=== PATIENT | female | born 1985 | race Caucasian/White ===

== ENCOUNTER 2017-07-04 01:17 | Observation (INO) | payer MEDICARE, MEDICAID ==
[2017-07-04 02:30] LABS: ALT (SGPT) 16 U/L (8-55); AST (SGOT) 14 U/L (5-34); Alkaline Phosphatase 119 U/L (40-150); Anion Gap 22 mmol/L (10-20); Bilirubin, Total 0.7 mg/dL (0.2-1.2); Calc. Creatinine Clearance 0 mL/min (70-130); Calcium 9.1 mg/dL (7.8-10.44); Carbon Dioxide 15 mmol/L (22-29); Chloride 105 mmol/L (98-107); Estimated GFR-MDRD 3; Globulin 3.5 g/dL (2.4-3.5); Protein, Total 7.5 g/dL (6.0-8.3)
[2017-07-04 02:42] LABS: #Eosinphils 0.2 thou/uL (0.0-0.7); #Lymphocytes 1.1 thou/uL (1.20-3.40); #Monocytes 0.2 thou/uL (0.11-0.59); #Neutrophils 3.1 thou/uL (1.40-6.50); %Basophils 0.4 % (0.0-1.0); %Eosinophils 5.2 % (0.0-10.0); %Lymphocytes 23.4 % (21.0-51.0); %Monocytes 4.4 % (0.0-10.0); Red Blood Cell (RBC) Count 2.61 mill/uL (4.20-5.40); White Blood Cell (WBC) Count 4.7 thou/uL (4.8-10.8)
[2017-07-04 02:43] LABS: BUN (Urea Nitrogen) 120 mg/dL (7.0-18.7)
[2017-07-04] MEDS ORDERED: Dextrose 50% Abboject 50 ML SYRINGE ONE ×2 (02:43→02:46)
[2017-07-04] MEDS ORDERED: Insulin Regular 300 UNITS/3 ML VIAL ONE (02:43)
[2017-07-04] MEDS ORDERED: Calcium Chloride 1 GM/10 ML Abboject SYRINGE ONE (02:43)
[2017-07-04] MEDS ORDERED: Sodium Bicarb 50 MEQ/50 ML Abboject 8.4% SYRINGE ONE (02:44)
[2017-07-04] MEDS ORDERED: Loperamide HCl 2 MG CAP PO PRN (03:58)
[2017-07-04] MEDS ORDERED: Ondansetron HCl/PF 4 MG/2 ML Vial IVP PRN (03:58)
[2017-07-04] MEDS ORDERED: Acetaminophen 325 MG TAB PO PRN (03:58)
--- NOTE | 2017-07-04 04:37 | HP ---
DATE OF ADMISSION: 07/04/2017 ADMITTING PHYSICIAN: Noel Jackson MD PRIMARY CARE PHYSICIAN: Martin Betancourt MD CHIEF COMPLAINT: Missed dialysis, weakness. HISTORY OF PRESENT ILLNESS: The patient is a 31-year-old female, known to have missed dialysis for approximately 2 weeks. She is a patient of Dr. Martin Betancourt. The patient was instructed to come into the ER to be re-enrolled into her dialysis program. She normally has dialyzed Saturday, , and Saturday, but has missed approximately 5 treatments. She denies review of symptoms upon my int erview. REVIEW OF SYSTEMS: The following complete review of systems was negative, unless otherwise mentione d in the HPI or below: CONSTITUTIONAL: Weight loss or gain, sense of well-being, ability to conduct usual activities, exer cise tolerance. SKIN/BREAST: Rash, itching, changes in hair growth or loss, nail changes, breast lumps, tenderness, swelling, nipple discharge. EYES: Vision, double vision, tearing, blind spots, pain. ENT/MOUTH: Headaches (location, time of onset, duration, precipitating factors), vertigo, lighthead edness, injury. Vision, double vision, tearing, blind spots, pain, nose bleeding, colds, obstructio n, discharge, dental difficulties, gingival bleeding, dentures, neck stiffness, pain, tenderness, ma sses in thyroid or other areas. CARDIOVASCULAR: Precordial pain, substernal distress, palpitations, syncope, dyspnea on exertion, o rthopnea, nocturnal paroxysmal dyspnea, edema, cyanosis, hypertension, heart murmurs, varicosities, phlebitis, claudication. RESPIRATORY: Pain, shortness of breath, wheezing, stridor, cough, hemoptysis, fever or night sweats . GASTROINTESTINAL: Poor appetite, dysphagia, indigestion, abdominal pain, heartburn, eructation, bakari sea, vomiting, hematemesis, jaundice, constipation, or diarrhea, abnormal stools (becca-colored, sebastian y, bloody, greasy, foul smelling), flatulence, hemorrhoids, recent changes in bowel habits. GENITOURINARY: Urgency, frequency, dysuria, nocturia, hematuria, polyuria, oliguria, unusual (or ch lucia in) color of urine, stones, hesitancy, change in size of stream, dribbling, acute retention or incontinence, libido, potency. MUSCULOSKELETAL: Pain, swelling, redness or heat of muscles or joints, limitation, of motion, muscu lar weakness, atrophy, cramps. NEUROLOGIC/PSYCHIATRIC: Convulsions, paralyses, tremor, incoordination, parasthesias, difficulties with memory of speech, sensory or motor disturbances, or muscular coordination (ataxia, tremor), emo tional problems, anxiety, depression, previous psychiatric care, unusual perceptions, hallucinations . ALLERGY/IMMUNOLOGIC: Skin rash, anemia, bleeding tendency, polydipsia, polyuria, intolerance to hea t or cold. PAST MEDICAL HISTORY: Significant for hypertension, bilateral DVTs, cardiac murmur, hepatitis C, he roin abuse, end-stage renal disease, and CHF. PAST SURGICAL HISTORY: Right arm graft. PSYCHIATRIC HISTORY: Unknown. SOCIAL HISTORY: Denies alcohol. Currently uses drugs. Currently smokes. FAMILY HISTORY: Reviewed and noncontributory to this case. HOME MEDICATIONS: Carvedilol 12.5 mg b.i.d., lisinopril 2.5 mg once a day, amlodipine 2.5 mg once a day. ALLERGIES: No known drug allergies. PHYSICAL EXAMINATION: VITAL SIGNS: Temperature 98.7, blood pressure 151/82, pulse 72, respirations 16, satting 98% on pavan m air. CONSTITUTIONAL: The patient appears nontoxic, pain free, alert and oriented x3. HEAD: Normocephalic, atraumatic. EYES: PERRL. Extraocular muscles are intact. No nystagmus. ENT: Ear exam normal. Pharynx exam normal. Mouth exam normal. Moist mucous membranes. NECK: Trachea midline. No meningeal signs. RESPIRATORY: Breath sounds clear bilaterally. No rhonchi, no wheezing, no rales. CARDIOVASCULAR: Regular rate and rhythm with a systolic ejection murmur. ABDOMEN: Nontender, nondistended. Normoactive bowel sounds x4. EXTREMITIES: No clubbing, no cyanosis. There are 1-2+ edema bilaterally. NEUROLOGIC: Cranial nerves II through XII grossly intact. No focal deficits. Alert and oriented x 3. LABORATORY DATA: CBC shows a white count of 4.7, hemoglobin 7.5, hematocrit 23.0, platelets 75. Ma gnesium 3.0. Phosphorus 10.0. CMP shows sodium level of 135, potassium 6.5, chloride 105, CO2 of 1 5, BUN 120, creatinine 15.87, glucose 136, calcium 9.1. AST 14, ALT 16. ADMITTING DIAGNOSES: 1. End-stage renal disease with dialysis. 2. Hyperkalemia. 3. Hypertension. 4. Drug abuse. PLAN: The patient will be admitted to telemetry. The Nephrology Service is aware of her presence a nd the dialysis nurse has been notified. The patient is stable at this time. We will provide suppo rtive measures until she can receive dialysis, we will maintain adequate blood pressure control. Es timated length of stay less than 2 midnights.
[2017-07-04 04:52] VITALS: BMI 28.0
--- NOTE | 2017-07-04 12:40 | PDOC.PN ---
- Subjective Encounter Start Date: 07/04/17 Encounter Start Time: 12:38 Ms. Stevens does not have any complaints. She says she feels fine. - Objective MAR Reviewed: Yes Vital Signs & Weight: Vital Signs (12 hours) Temp Pulse Resp BP Pulse Ox 07/04/17 10:27 98.1 F 72 16 138/73 98 07/04/17 05:36 97.8 F 71 16 07/04/17 04:25 97.8 F 71 16 179/85 H 99 Weight Weight 168 lb 3.2 oz I&O: 07/03/17 07/04/17 07/05/17 06:59 06:59 06:59 Intake Total 240 Output Total 300 Balance -60 Result Diagrams: 07/04/17 01:40 07/04/17 01:40 Additional Labs: Accuchecks 07/04/17 04:10 POC Glucose 97 Phys Exam - Physical Examination HEENT: PERRLA Respiratory: no wheezing, no rales, no rhonchi, clear to auscultation bilateral Cardiovascular: RRR, no significant murmur Gastrointestinal: soft, non-tender, positive bowel sounds Musculoskeletal: edema present 1-2 + lower extremity edema Dx/Plan (1) Hyperkalemia Code(s): E87.5 - HYPERKALEMIA Status: Acute (2) Hypertension Code(s): I10 - ESSENTIAL (PRIMARY) HYPERTENSION Status: Acute (3) ESRD (end stage renal disease) on dialysis Code(s): N18.6 - END STAGE RENAL DISEASE; Z99.2 - DEPENDENCE ON RENAL DIALYSIS Status: Chronic (4) Chronic systolic heart failure Code(s): I50.22 - CHRONIC SYSTOLIC (CONGESTIVE) HEART FAILURE Status: Chronic - Plan * Hyperkalemia- resolved * HTN- blood pressure is controlled * chronic systolic heart failure- EF 30% in 2015- stable compensated, no need to repeat Echo * ESRD- stable * Disposition as per Nephrology.
[2017-07-04 15:26] LABS: Anion Gap 13 mmol/L (10-20); BUN (Urea Nitrogen) 42 mg/dL (7.0-18.7); Calc. Creatinine Clearance 13 mL/min (70-130); Calcium 9.2 mg/dL (7.8-10.44); Carbon Dioxide 28 mmol/L (22-29); Chloride 99 mmol/L (98-107); Estimated GFR-MDRD 7
[2017-07-04] MEDS: Sevelamer Carbonate 800 MG TAB PO SCH (16:49)
[2017-07-04] MEDS: Carvedilol 6.25 MG TAB PO SCH (16:50)
[2017-07-04 19:43] LABS: Amphetamine Not Detected (NotDetected); Methadone Not Detected (NotDetected); Methamphetamine Not Detected (NotDetected)
[2017-07-05 04:56] LABS: #Eosinphils 0.2 thou/uL (0.0-0.7); #Lymphocytes 1.2 thou/uL (1.20-3.40); #Monocytes 0.2 thou/uL (0.11-0.59); #Neutrophils 2.5 thou/uL (1.40-6.50); %Basophils 0.7 % (0.0-1.0); %Eosinophils 4.4 % (0.0-10.0); Hematocrit 24.1 % (36.0-47.0); Mean Platelet Volume 6.8 fL (7.4-10.4); Red Blood Cell (RBC) Count 2.75 mill/uL (4.20-5.40)
[2017-07-05 05:40] LABS: Anion Gap 18 mmol/L (10-20); BUN (Urea Nitrogen) 55 mg/dL (7.0-18.7); BUN/Creatinine Ratio 6.58; Calc. Creatinine Clearance 11 mL/min (70-130); Calcium 9.1 mg/dL (7.8-10.44); Carbon Dioxide 23 mmol/L (22-29); Chloride 99 mmol/L (98-107); Estimated GFR-MDRD 6; Phosphorus 7.1 mg/dL (2.3-4.7)
[2017-07-05] MEDS: Sevelamer Carbonate 800 MG TAB PO SCH ×2 (08:00→15:40)
[2017-07-05] MEDS ORDERED: Epoetin (ESRD) 20,000 UNITS/ML SC SCH (09:00)
[2017-07-05] MEDS ORDERED: Amlodipine 5 MG TAB PO SCH (09:00)
[2017-07-05] MEDS: Carvedilol 6.25 MG TAB PO SCH (12:27)
--- NOTE | 2017-07-05 15:44 | PDOC.PN ---
- Subjective Encounter Start Date: 07/05/17 Encounter Start Time: 15:42 Ms Stevens does not have any complaints - Objective MAR Reviewed: Yes Vital Signs & Weight: Vital Signs (12 hours) Temp Pulse Resp BP Pulse Ox 07/05/17 12:28 59 L 07/05/17 11:40 98.6 F 59 L 16 109/57 L 98 07/05/17 04:00 98.6 F 67 20 146/68 H 95 Weight Weight 161 lb 11.2 oz I&O: 07/04/17 07/05/17 07/06/17 06:59 06:59 06:59 Intake Total 240 490 Output Total 300 300 Balance -60 190 Result Diagrams: 07/05/17 04:32 07/05/17 04:32 Phys Exam - Physical Examination HEENT: PERRLA Respiratory: no wheezing, no rales, no rhonchi, clear to auscultation bilateral Cardiovascular: RRR, no significant murmur Gastrointestinal: soft, non-tender, positive bowel sounds Musculoskeletal: no edema Dx/Plan (1) Hyperkalemia Code(s): E87.5 - HYPERKALEMIA Status: Acute (2) Hypertension Code(s): I10 - ESSENTIAL (PRIMARY) HYPERTENSION Status: Acute (3) ESRD (end stage renal disease) on dialysis Code(s): N18.6 - END STAGE RENAL DISEASE; Z99.2 - DEPENDENCE ON RENAL DIALYSIS Status: Chronic (4) Chronic systolic heart failure Code(s): I50.22 - CHRONIC SYSTOLIC (CONGESTIVE) HEART FAILURE Status: Chronic - Plan * ESRD- stable * HTN- will discontinue Lisinopril due to Hyperkalemia * Stable for discharge home.
[2017-07-05 15:52] VITALS: BP 135/89; TEMP 98.8
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
--- NOTE | 2017-07-06 20:12 | EKG ---
Test Reason : HIGH POTASSIUM Blood Pressure : / mmHG Vent. Rate : 065 BPM Atrial Rate : 065 BPM P-R Int : 204 ms QRS Dur : 096 ms QT Int : 438 ms P-R-T Axes : 046 024 063 degrees QTc Int : 455 ms Normal sinus rhythm Normal ECG Confirmed by MYA LAM D.O. ([id number]), research editor MARGY HAQ ([id number]) on 07/06/2017 8:12:03 PM Referred By: CAROLE Confirmed By:MYA LAM D.O.
== END 2017-07-05 16:53 | disposition home or self-care (01) ==
LOC: ERS 01:17 → 2SW 03:15
PROVIDERS: ADMIT Internal Medicine Addiction Medicine; ATTEND Internal Medicine Addiction Medicine
DX: I13.2 Hypertensive heart and chronic kidney disease with heart failure and with stage 5 chronic kidney disease, or end stage renal disease (principal); N18.6 End stage renal disease; I50.22 Chronic systolic (congestive) heart failure; F14.10 Cocaine abuse, uncomplicated; F11.10 Opioid abuse, uncomplicated; I82.403 Acute embolism and thrombosis of unspecified deep veins of lower extremity, bilateral; F17.200 Nicotine dependence, unspecified, uncomplicated; E87.5 Hyperkalemia; Z79.899 Other long term (current) drug therapy; Z91.15 Patient's noncompliance with renal dialysis; Z99.2 Dependence on renal dialysis; Z86.19 Personal history of other infectious and parasitic diseases; Z86.59 Personal history of other mental and behavioral disorders
CPT/HCPCS: 80048; 80053; 80069; 80306; 82962; 83735; 84100; 85025 ×2; 87340; 93005; 96372; 96374; 96375; 99284; G0378; Q4081; 36415; 36416; 90935; G0257; J1815

== ENCOUNTER 2017-11-05 03:29 | Emergency (ER) | payer MEDICARE, MEDICAID ==
[2017-11-05 06:17] LABS: Hemoglobin 8.1 g/dL (12.0-16.0); Mean Corpuscular HGB CONC 32.8 g/dL (32.0-36.0); Mean Corpuscular Volume 88.5 fl (81.0-99.0); RBC Distribution Width 15.3 % (11.5-14.5); White Blood Cell (WBC) Count 4.9 thou/uL (4.8-10.8)
[2017-11-05 06:34] LABS: Anion Gap 20 mmol/L (10-20); BUN (Urea Nitrogen) 58 mg/dL (7.0-18.7); Calc. Creatinine Clearance 0 mL/min (70-130); Calcium 8.7 mg/dL (7.8-10.44); Carbon Dioxide 20 mmol/L (22-29); Chloride 98 mmol/L (98-107); Estimated GFR-MDRD 5; Glucose 80 mg/dL (70-105); Potassium 4.3 mmol/L (3.5-5.1); Sodium 134 mmol/L (136-145)
[2017-11-05 06:38] LABS: #Eosinphils 0.2 thou/uL (0.0-0.7); #Lymphocytes 1.4 thou/uL (1.20-3.40); #Monocytes 0.3 thou/uL (0.11-0.59); %Basophils 0.5 % (0.0-1.0); %Eosinophils 4.1 % (0.0-10.0); %Lymphocytes 28.8 % (21.0-51.0); %Monocytes 5.3 % (0.0-10.0); %Neutrophils 61.4 % (42.0-75.0); Anisocytosis SLIGHT = 6-15 cells (100X) (0-5/hpf); MDiff Complete? YES; Mean Platelet Volume 7.7 fL (7.4-10.4); PLT Morphology Comment Appears Decreased; Platelet Count 109 thou/uL (130-400)
[2017-11-05] MEDS ORDERED: Cephalexin 250 MG CAP ONE (07:11)
[2017-11-05] MEDS ORDERED: cefTRIAXone\\ROCEPHIN 1 GM, Syringe 0.4 ML in Sterile Water 9.6 ML SLOW IVP SCH (07:30)
[2017-11-05] MEDS ORDERED: cefTRIAXone\\ROCEPHIN 1 GM VIAL IM SCH (08:15)
[2017-11-05] MEDS ORDERED: Lidocaine 1% PF 5 ML VIAL ONE (08:21)
== END 2017-11-05 08:42 | disposition home or self-care (01) ==
LOC: ERS 03:29
DX: I13.2 Hypertensive heart and chronic kidney disease with heart failure and with stage 5 chronic kidney disease, or end stage renal disease (principal); I50.9 Heart failure, unspecified; N18.9 Chronic kidney disease, unspecified; L03.116 Cellulitis of left lower limb; F17.210 Nicotine dependence, cigarettes, uncomplicated; Z79.899 Other long term (current) drug therapy; Z87.01 Personal history of pneumonia (recurrent)
CPT/HCPCS: 36415; 80048; 85025; 96372; 99406; A4216; J0696; J2001

== ENCOUNTER 2017-11-30 07:30 | Inpatient (IN) | payer MEDICARE, MEDICAID ==
[2017-11-30] MEDS ORDERED: ISOVUE-370 76%-LOCM 1 ML ONE (07:49)
[2017-11-30 08:42] LABS: BHCG - Serum Negative (NEGATIVE); Pregs Control Background? CLEAR/WHITE (CLR/WHITE); Pregs Control Bar Appear? YES (CONTROL BAR)
[2017-11-30 08:52] LABS: ALT (SGPT) 11 U/L (8-55); AST (SGOT) 22 U/L (5-34); Albumin 3.1 g/dL (3.5-5.0); Alkaline Phosphatase 81 U/L (40-150); Anion Gap 29 mmol/L (10-20); BUN (Urea Nitrogen) 108 mg/dL (7.0-18.7); Bilirubin, Total 0.6 mg/dL (0.2-1.2); CK (CPK) 35 U/L (29-168); Calc. Creatinine Clearance 0 mL/min (70-130); Carbon Dioxide 13 mmol/L (22-29); Chloride 92 mmol/L (98-107); Estimated GFR-MDRD 2; Globulin 3.4 g/dL (2.4-3.5); Glucose 139 mg/dL (70-105); Lipase 15 U/L (8-78); Magnesium 2.2 mg/dL (1.6-2.6); Protein, Total 6.5 g/dL (6.0-8.3); Sodium 127 mmol/L (136-145)
[2017-11-30 08:56] LABS: Potassium 6.8 mmol/L (3.5-5.1)
[2017-11-30 08:58] LABS: CKMB 1.3 ng/mL (0-6.6); Troponin I 0.096 ng/mL (< 0.028)
[2017-11-30 09:11] LABS: Platelet Count 24 thou/uL (130-400)
[2017-11-30 09:13] LABS: #Lymphocytes 0.2 thou/uL (1.20-3.40); #Monocytes 0.2 thou/uL (0.11-0.59); #Neutrophils 2.2 thou/uL (1.40-6.50); %Eosinophils 1.2 % (0.0-10.0); %Lymphocytes 6.9 % (21.0-51.0); %Monocytes 6.4 % (0.0-10.0); %Neutrophils 85.5 % (42.0-75.0); Mean Corpuscular HGB CONC 32.3 g/dL (32.0-36.0); Mean Corpuscular Hemoglobin 27.4 pg (27.0-31.0); Mean Platelet Volume 11.9 fL (7.4-10.4); PLT Morphology Comment Appears Decreased; RBC Distribution Width 14.8 % (11.5-14.5); RBC Morphology Normal; Red Blood Cell (RBC) Count 3.27 mill/uL (4.20-5.40); White Blood Cell (WBC) Count 2.6 thou/uL (4.8-10.8)
--- NOTE | 2017-11-30 09:15 | RAD ---
CHEST 1 VIEW: HISTORY: Fever. COMPARISON: Chest radiograph 04/28/15. FINDINGS: No focal airspace consolidation, pneumothorax, or effusion. Cardiac silhouette and mediastinal conto urs are within normal limits. No acute osseous abnormality. IMPRESSION: No acute intrathoracic abnormality. POS: [facility]
[2017-11-30] MEDS ORDERED: Ondansetron HCl/PF 4 MG/2 ML Vial ONE (09:42)
[2017-11-30] MEDS ORDERED: Insulin Regular 300 UNITS/3 ML VIAL ONE (09:42)
[2017-11-30] MEDS ORDERED: Dextrose 50% Abboject 50 ML SYRINGE ONE (09:42)
[2017-11-30] MEDS ORDERED: Calcium Chloride 1 GM/10 ML Abboject SYRINGE ONE (09:42)
[2017-11-30] MEDS ORDERED: Acetaminophen 500 MG TAB ONE (09:42)
[2017-11-30] MEDS ORDERED: Sodium Bicarbonate 2.5 MEQ/5 ML VIAL ONE (09:42)
[2017-11-30] MEDS ORDERED: Sodium Bicarb 50 MEQ/50 ML Abboject 8.4% SYRINGE ONE (09:43)
[2017-11-30] MEDS ORDERED: Albuterol Sulfate 2.5 mg/0.5 ml Neb ONE (10:57)
[2017-11-30] MEDS ORDERED: Albuterol Sulfate 2.5 mg/3 ml Neb ONE (10:57)
[2017-11-30] MEDS ORDERED: Piperacillin/Tazobactam 3.375 GM VIAL ONE (11:47)
[2017-11-30] MEDS ORDERED: Ondansetron HCl/PF 4 MG/2 ML Vial IVP PRN (13:23)
[2017-11-30] MEDS ORDERED: Acetaminophen 325 MG TAB PO PRN (13:23)
[2017-11-30] MEDS ORDERED: metroNIDAZOLE 500 MG in Premix Bag 1 BAG IVPB SCH (14:00)
--- NOTE | 2017-11-30 14:06 | CT ---
ABDOMEN AND PELVIC CT WITH CONTRAST: COMPARISON: Reference is made to 10/10/16 exam. INDICATION: Fever with nausea, vomiting, and diarrhea and pain. FINDINGS: The imaged lung bases reveal abnormal ground-glass and nodular parenchymal opacities of the right tess g base and subtle patchy subpleural density of the left lung base. There is enlargement of the spleen. No focal hepatic lesion. Subtle increased density of the gallbl adder lumen present. This could relate to sludge and/or cholelithiasis. There are atrophic heteroge neous kidneys bilaterally indicating sequelae from chronic renal disease. No adrenal mass. Pancreas is atrophic. Bowel is incompletely assessed without enteric contrast. An intrauterine device is pr esent. There is moderate distention of the unopacified urinary bladder. There are enlarged regional lymph nodes most notable at the inguinal regions, right greater than left. Multifocal patchy subcut aneous densities are seen with superimposed soft tissue edema. Mild free pelvic fluid is present. S table calcification is seen at the posterior pelvis to the right of midline. There is vascular disea se noted. Diffuse sclerosis of the bones likely relates to renal osteal dystrophy. IMPRESSION: 1. Abnormal opacities of the imaged lung bases, which will require further evaluation. Recommend a dedicated 2-view chest series. Findings may be on the basis of atypical infection. Other etiologies including neoplasm are not excluded and appropriate clinical followup is, therefore, necessary. 2. Splenomegaly. 3. Evidence to indicate chronic renal disease and renal osteodystrophy. 4. Nonspecific adenopathy. Correlate clinically and recommend imaging followup for continued assess ment. 5. Subtle findings of the gallbladder as discussed above. If necessary. Gallbladder ultrasound may be performed. POS: [facility]
--- NOTE | 2017-11-30 14:10 | RAD ---
RADIOGRPAH OF CHEST FRONTAL VIEW: COMPARISON: 11/30/17. INDICATION: Postprocedural evaluation, fever. FINDINGS: A left internal jugular venous catheter has been placed with the tip overlying the right atrium. The re is no obvious postprocedure pneumothorax of significance visualized. The chest is otherwise simil ar in appearance. IMPRESSION: Status post left internal jugular catheter placement. No postprocedure pneumothorax of significance is seen. POS: [facility]
[2017-11-30] MEDS: Nicotine 14 MG PATCH TD SCH (17:50)
[2017-11-30 18:21] VITALS: BMI 27.8
[2017-11-30] MEDS ORDERED: Heparin 5,000 UNITS/ML VIAL SC SCH (21:00)
[2017-11-30] MEDS: Sevelamer Carbonate 800 MG TAB PO SCH (22:11)
[2017-11-30] MEDS: metroNIDAZOLE 500 MG in Premix Bag 1 BAG IVPB SCH (22:12)
[2017-11-30] MEDS: Carvedilol 6.25 MG TAB PO SCH (22:13)
[2017-11-30] MEDS: Oseltamivir 75 MG CAP PO SCH (22:13)
[2017-12-01] MEDS ORDERED: traMADol HCl 50 MG TAB PO SCH (01:00)
[2017-12-01 02:13] LABS: Amphetamine Not Detected (NotDetected); Barbiturates Screen Not Detected (NotDetected); Benzodiazepine Screen Not Detected (NotDetected); Cocaine Metabolite Screen Detected (NotDetected); Medtox Control Line Valid? VALID (VALID); Medtox Reader # READER 4; Methadone Not Detected (NotDetected); Methamphetamine Not Detected (NotDetected); Opiate Screen Detected (NotDetected); Oxycodone Screen Not Detected (NotDetected); Phencyclidine (PCP) Not Detected (NotDetected); THC/Cannabinoid Screen Not Detected (NotDetected); Tricyclic Screen Not Detected (NotDetected)
[2017-12-01] MEDS: metroNIDAZOLE 500 MG in Premix Bag 1 BAG IVPB SCH ×3 (05:34→21:29)
[2017-12-01 05:38] LABS: #Lymphocytes 0.3 thou/uL (1.20-3.40); #Monocytes 0.2 thou/uL (0.11-0.59); #Neutrophils 3.1 thou/uL (1.40-6.50); %Basophils 0.2 % (0.0-1.0); %Eosinophils 0.6 % (0.0-10.0); %Lymphocytes 9.1 % (21.0-51.0); %Monocytes 6.2 % (0.0-10.0); Hemoglobin 7.2 g/dL (12.0-16.0); Mean Corpuscular HGB CONC 32.8 g/dL (32.0-36.0); Mean Corpuscular Hemoglobin 27.9 pg (27.0-31.0); Mean Corpuscular Volume 84.8 fl (81.0-99.0); Mean Platelet Volume 11.6 fL (7.4-10.4); Platelet Count 35 thou/uL (130-400); RBC Distribution Width 14.7 % (11.5-14.5); Red Blood Cell (RBC) Count 2.59 mill/uL (4.20-5.40); White Blood Cell (WBC) Count 3.7 thou/uL (4.8-10.8)
[2017-12-01 05:47] LABS: Albumin 2.7 g/dL (3.5-5.0); Anion Gap 15 mmol/L (10-20); BUN (Urea Nitrogen) 69 mg/dL (7.0-18.7); BUN/Creatinine Ratio 6.01; Calc. Creatinine Clearance 8 mL/min (70-130); Calcium 8.2 mg/dL (7.8-10.44); Carbon Dioxide 26 mmol/L (22-29); Chloride 94 mmol/L (98-107); Estimated GFR-MDRD 4; Glucose 113 mg/dL (70-105); Potassium 4.9 mmol/L (3.5-5.1); Sodium 130 mmol/L (136-145)
[2017-12-01] MEDS: Sevelamer Carbonate 800 MG TAB PO SCH ×3 (09:30→16:40)
[2017-12-01] MEDS: Carvedilol 6.25 MG TAB PO SCH ×2 (09:30→16:39)
[2017-12-01] MEDS: Amlodipine 5 MG TAB PO SCH (09:31)
--- NOTE | 2017-12-01 12:16 | PDOC.PN ---
- Subjective Encounter Start Date: 12/01/17 Encounter Start Time: 12:13 Patient seen and examined, no new issues or complaints, states she is still having diarrhea, all questions answered. - Objective Vital Signs & Weight: Vital Signs (12 hours) Temp Pulse Resp BP BP Pulse Ox 12/01/17 09:31 88 116/62 12/01/17 09:30 116/62 12/01/17 09:05 98.6 F 88 18 116/62 95 12/01/17 04:00 98.5 F 84 16 119/74 97 Weight Weight 167 lb 3 oz I&O: 11/30/17 12/01/17 12/02/17 06:59 06:59 06:59 Intake Total 790 Output Total 400 Balance 390 Result Diagrams: 12/01/17 04:41 12/01/17 04:41 Phys Exam - Physical Examination Constitutional: NAD HEENT: PERRLA, moist MMs, sclera anicteric Neck: no nodes, no JVD, supple Respiratory: no wheezing, no rales, no rhonchi Cardiovascular: RRR, no significant murmur, no rub Gastrointestinal: soft, non-tender, no distention Musculoskeletal: no edema, pulses present Neurological: non-focal, normal sensation Dx/Plan (1) ESRD (end stage renal disease) Code(s): N18.6 - END STAGE RENAL DISEASE Status: Acute (2) Hypertension Code(s): I10 - ESSENTIAL (PRIMARY) HYPERTENSION Status: Acute (3) Influenza Code(s): J11.1 - FLU DUE TO UNIDENTIFIED INFLUENZA VIRUS W OTH RESP MANIFEST Status: Acute (4) Anemia Code(s): D64.9 - ANEMIA, UNSPECIFIED Status: Acute (5) History of drug abuse Code(s): Z87.898 - PERSONAL HISTORY OF OTHER SPECIFIED CONDITIONS Status: Acute - Plan * continue Hd * tamiflu started * diarreha and abdominal pain w/u pending * continue current plan of care * case and plan d/w patient at length, she understands and agrees with this plan
[2017-12-01] MEDS: Nicotine 14 MG PATCH TD SCH (16:40)
[2017-12-01] MEDS ORDERED: Morphine 2 MG/ML SYRINGE SLOW IVP PRN (18:38)
[2017-12-01] MEDS ORDERED: Vancomycin HCl 1 GM in Premix Bag 1 BAG IVPB SCH (19:15)
[2017-12-01] MEDS: Oseltamivir 75 MG CAP PO SCH (21:29)
--- NOTE | 2017-12-01 23:16 | PRG ---
DATE OF SERVICE: 12/01/2017 SUBJECTIVE: The patient was seen and examined today complaining severely of low back pain and inabil ity to move, noted with the following vital signs. PHYSICAL EXAMINATION: VITAL SIGNS: Afebrile with temperature 99.3, pulse 94, respiratory rate of 17, blood pressure 107/59 . HEENT: Unremarkable with moist oral mucosa. NECK: Supple. No conjunctival injection or icterus. CARDIOVASCULAR: First and second heart sounds were heard. RESPIRATORY: Clear to auscultation. DIGESTIVE: Revealed a benign abdomen. EXTREMITIES: No peripheral edema. NEUROLOGIC: No lateralizing sign. MUSCULOSKELETAL: Very difficult to move this patient because of what she described as severe low musa k pain. LABORATORY INVESTIGATION: Showed a hemoglobin of 7.2, platelet 35,000. Chemistry showed a creatinin e 11.49, BUN of 69, sodium 130. Microbiology revealed 2/2 gram-positive culture, likely Staph. IMPRESSION: 1. Staphylococcus bacteremia. This is likely related to the low back pain in the context of possibl e seeding of the vertebrae. 2. End-stage renal disease, hemodialysis dependent. 3. Anemia, partly due to kidney disease as well as blood loss. PLAN: 1. IV vancomycin now. 2. Infectious Disease consult. 3. MRI of the lumbar spine. 4. Continue hemodialysis per schedule. The patient is on a Saturday, Saturday, Saturday schedule. 5. Possible blood transfusion during dialysis depending on the level of hemoglobin. 6. Further management will be dependent on the clinical course.
[2017-12-01] MEDS ORDERED: Morphine 5 MG/ML SYRINGE SLOW IVP PRN (23:22)
[2017-12-02] MEDS ORDERED: Mag-Al 1200 mg/1200 mg/30 ML UDCUP PO PRN (01:37)
[2017-12-02] MEDS: metroNIDAZOLE 500 MG in Premix Bag 1 BAG IVPB SCH ×2 (05:53→15:02)
[2017-12-02 06:17] LABS: Band 7 % (5-11); Eosinophils 1 % (0-10); Hemoglobin 7.2 g/dL (12.0-16.0); Lymphocytes 11 % (21-51); MDiff Complete? YES; Mean Corpuscular HGB CONC 32.1 g/dL (32.0-36.0); Mean Corpuscular Hemoglobin 27.8 pg (27.0-31.0); Mean Corpuscular Volume 86.7 fl (81.0-99.0); Mean Platelet Volume 11.7 fL (7.4-10.4); Monocytes 4 % (0-10); Neutrophil 77 % (42-75); PLT Morphology Comment Appears Decreased; Platelet Count 40 thou/uL (130-400); RBC Distribution Width 14.9 % (11.5-14.5); Red Blood Cell (RBC) Count 2.58 mill/uL (4.20-5.40); White Blood Cell (WBC) Count 4.4 thou/uL (4.8-10.8)
[2017-12-02 06:49] LABS: Albumin 2.5 g/dL (3.5-5.0); Anion Gap 11 mmol/L (10-20); BUN (Urea Nitrogen) 29 mg/dL (7.0-18.7); Calc. Creatinine Clearance 17 mL/min (70-130); Calcium 8.1 mg/dL (7.8-10.44); Carbon Dioxide 32 mmol/L (22-29); Chloride 96 mmol/L (98-107); Estimated GFR-MDRD 9; Glucose 99 mg/dL (70-105); Sodium 135 mmol/L (136-145)
[2017-12-02] MEDS ORDERED: Famotidine/PF 20 mg/2ml Vial SLOW IVP SCH (09:00)
[2017-12-02] MEDS: Sevelamer Carbonate 800 MG TAB PO SCH ×3 (09:10→16:32)
[2017-12-02] MEDS: Carvedilol 6.25 MG TAB PO SCH ×2 (09:11→16:32)
[2017-12-02] MEDS: Amlodipine 5 MG TAB PO SCH (09:11)
--- NOTE | 2017-12-02 12:12 | CON ---
DATE OF CONSULTATION: 11/30/2017 REQUESTING PHYSICIAN: Dr. Orlando in the emergency room. REASON FOR CONSULTATION: Need for maintenance hemodialysis. IMPRESSION: 1. End-stage renal disease, skipped couple of dialysis and now profoundly azotemic/possibly uremia. 2. Nausea and vomiting. This might be related to poor dialysis with the patient's azotemia above 10 0. 3. Pancytopenia query cause. PLAN: 1. The patient to be dialyzed today and possibly tomorrow and continue patient on her schedule of , Saturday, and Saturday. 2. Avoid heparin and communicate such through the outpatient dialysis unit. 3. Further management to be dependent on the clinical course. HISTORY OF PRESENT ILLNESS: This is a 32-year-old patient with end-stage renal disease, hemodialysis dependent Saturday, Saturday, Saturday, who has skipped a couple of dialysis and presented here with na usea and vomiting, highly suspicious for uremia. The patient does have fever and other respiratory p roblems, raising the possibility of the need for continued maintenance hemodialysis. Decision has be en taken to involve in the management of this case. PAST MEDICAL HISTORY: Significant for history of tobacco abuse, end-stage renal disease, DVT bilater al leg, and hepatitis C. MEDICATIONS: Reviewed and as documented on Actions. ALLERGIES: No known drug allergies. FAMILY HISTORY: Not significantly related to presenting illness. SOCIAL HISTORY: History of substance abuse noted, currently sober now. REVIEW OF SYSTEMS: As documented in the body of the history. All the other systems reviewed and as documented. On examination, the patient was found to be a little bit of distress given the fact, the patient only had about 1 hour dialysis presented here for evaluation.
--- NOTE | 2017-12-02 12:43 | PQF ---
CLINICAL DOCUMENTATION IMPROVEMENT CLARIFICATION FORM: ICD-10 Updated PLEASE DO AN ADDENDUM TO THE PROGRESS NOTE WITH ANY DOCUMENTATION UPDATES OR ADDITIONS AND CARRY THROUGH TO DC SUMMARY. THANK YOU. DATE: 12/02 ATTN: DR. DALLIN COLLAZO Please exercise your independent, professional judgment in responding to the clarification form. Clinical indicators are provided on the bottom of this form for your review. Please check appropriate box(es): [ x ] Sepsis due to: (Pna, UTI, gangrenous gall bladder, etc.) ____Staph aureus likely skin origin [ ] SIRS due to non-infectious process (please specify etiology) [ ] with organ dysfunction [ ] without organ dysfunction [ ] Localized infection without sepsis [ ] Other diagnosis [ ] Unable to determine For continuity of documentation, please document condition throughout progress notes and discharge summary. Thank You. CLINICAL INDICATORS - SIGNS / SYMPTOMS / LABS ER PRESENTATION 11/30: T: 103.3 CO: 118 WBC: 2.6 PLATELETS: 24 BLOOD CULTURES 2 OF 2: MSSA ATTENDING PN 12/01: DX/PLAN: 3) INFLUENZA, ACUTE (INFLUENZA TYPE SCREEN NEG FOR A & B) NEPHROLOGY PN 12/01: IMPRESSION: STAPHYLOCOCCUS BACTEREMIA RISK FACTORS: ESRD ON DIALYSIS STAPHYLOCOCCUS BACTEREMIA TREATMENTS: ID CONSULT IV ANTIBIOTICS (LEVOFLOXACIN 11/30 - PRESENT, VANCOMYCIN 11/30 - 12/01) THANK YOU! Kim (This form is maintained as a part of the permanent medical record) 2014 [employer]. All Rights Reserved Kim Bentley RN, BSN [email or web address] Office: [phone] [facility]
--- NOTE | 2017-12-02 13:42 | MRI ---
MRI OF THE LUMBAR SPINE WITHOUT CONTRAST: INDICATION: History of back pain and inability to walk with bacteremia. TECHNIQUE: Multiplanar, multisequence MR images were obtained of the lumbar spine without IV contrast. Comparis ons are made with a CT of the abdomen and pelvis dated 11/30/17. FINDINGS: There is mild free fluid in the pelvis. Bone marrow signal intensity appears within normal limits. The conus is seen to terminate at approximately L1. There is a mild broad-based bulge at L5-S1. No appreciable central canal or neural foraminal narrowi ng is evident. At L4-5, there is no appreciable central canal or neural foraminal narrowing. At L3-4, there is no appreciable central canal or neural foraminal narrowing. At L2-3, there is a mild broad-based bulge without appreciable central canal or neural foraminal narr owing. At L1-2, there is no appreciable central canal or neural foraminal narrowing. At T12-L1, there is no appreciable central canal or neural foraminal narrowing. There is diffuse intermediate to low T1 signal seen involving the bone marrow which can be seen in pa tients who have chronic anemia or are chronic smokers or obese. IMPRESSION: 1. Mild spondylosis of the lumbar spine. 2. Intermediate signal intensity involving the bone marrow of lumbar spine can be seen with red abdiel ow hyperplasia. This can be seen in patients who are chronic smokers, chronic anemia, or obesity. R ecommend correlation with patient's CBC. 3. Nonspecific mild free fluid in the pelvis. POS: [facility]
--- NOTE | 2017-12-02 14:04 | PDOC.PN ---
- Subjective Encounter Start Date: 12/02/17 Encounter Start Time: 13:45 Subjective: f/u for sepsis with Staph aureus in 2/2 blood cx on Levaquin and -: Metronidazole. Feeling better overall. No fever and body aches improved. - Objective MAR Reviewed: Yes Vital Signs & Weight: Vital Signs (12 hours) Temp Pulse Resp BP BP BP Pulse Ox 12/02/17 09:11 81 129/71 12/02/17 08:00 97.9 F 81 18 129/71 95 12/02/17 04:00 97.6 F 89 20 99/55 L 99 Weight Admit Weight 167 lb 3 oz Weight 167 lb 3 oz I&O: 12/01/17 12/02/17 12/03/17 06:59 06:59 06:59 Intake Total 790 1330 Output Total 400 400 Balance 390 930 Result Diagrams: 12/02/17 05:30 12/02/17 05:30 Additional Labs: Microbiology 12/01/17 03:25 Nasal swab Influenza Types A,B Direct EIA - Final 11/30/17 10:20 Central Line - Right Internal Jugular vein Blood Culture - Final Staphylococcus aureus 11/30/17 10:06 Venous blood - Left Arm Blood Culture - Final Staphylococcus aureus Laboratory Tests 11/30/17 11/30/17 11/30/17 08:25 08:25 08:25 WBC 2.6 L Hgb 9.0 L Plt Count 24 L* Neutrophils % 85.5 H Sodium 127 L Potassium 6.8 H* Creatinine 16.90 H Lactic Acid 2.0 Phosphorus Serum , Qual U Cocaine Metab Screen 11/30/17 12/01/17 12/01/17 08:25 01:15 04:41 WBC 3.7 L Hgb 7.2 L Plt Count 35 L Neutrophils % 84.0 H Sodium Potassium Creatinine Lactic Acid Phosphorus Serum , Qual Negative U Cocaine Metab Screen Detected H 12/01/17 12/02/17 04:41 05:30 WBC Hgb Plt Count Neutrophils % Sodium 130 L Potassium 4.9 Creatinine 11.49 H Lactic Acid Phosphorus 7.0 H 5.0 H Serum , Qual U Cocaine Metab Screen Radiology Reviewed by me: Yes (MRI L-spine - bone marrow hyperplasia, mild spondylosis) EKG Reviewed by me: Yes (Tele - SR in 70's) Phys Exam - Physical Examination Constitutional: NAD HEENT: PERRLA, oral pharynx no lesions Neck: no JVD, supple Respiratory: no wheezing, clear to auscultation bilateral Cardiovascular: RRR Gastrointestinal: soft, non-tender, no distention, positive bowel sounds Musculoskeletal: no edema, pulses present Neurological: normal sensation, moves all 4 limbs Psychiatric: A&O x 3 Skin: normal turgor, cap refill <2 seconds Dx/Plan (1) Sepsis due to Staphylococcus aureus Code(s): A41.01 - SEPSIS DUE TO METHICILLIN SUSCEPTIBLE STAPHYLOCOCCUS AUREUS Status: Acute Comment: Likely from skin source given ESRD with HD, continue Levaquin 500mg q48h (2) ESRD (end stage renal disease) Code(s): N18.6 - END STAGE RENAL DISEASE Status: Chronic Comment: HD M/W/F per Nephrology (3) Hyperkalemia Code(s): E87.5 - HYPERKALEMIA Status: Acute Comment: Secondary to ESRD, resolved (4) Cocaine abuse Code(s): F14.10 - COCAINE ABUSE, UNCOMPLICATED Status: Acute Comment: Offer cessation resources (5) Hyponatremia Code(s): E87.1 - HYPO-OSMOLALITY AND HYPONATREMIA Status: Acute Comment: Likely due to volume overload in context of ESRD, improving (6) Anemia in CKD (chronic kidney disease) Code(s): N18.9 - CHRONIC KIDNEY DISEASE, UNSPECIFIED; D63.1 - ANEMIA IN CHRONIC KIDNEY DISEASE Status: Chronic Comment: s/p 1u PRBC's, serial H/H monitoring (7) Hypertension Code(s): I10 - ESSENTIAL (PRIMARY) HYPERTENSION Status: Chronic Qualifiers: Hypertension type: essential hypertension Qualified Code(s): I10 - Essential (primary) hypertension Comment: Resume Lisinopril, continue Coreg and Norvasc - Plan continue antibiotics, sr. social media & mobile manager, out of bed/ambulate, DVT proph w/SCDs Stable overall -: Continue Levaquin daily -: D/C Flagyl -: D/C Tamiflu -: D/C Resp precautions * AM lab: BMP, CBC
[2017-12-02] MEDS: Nicotine 14 MG PATCH TD SCH (15:00)
[2017-12-03 06:14] LABS: Albumin 2.4 g/dL (3.5-5.0); Anion Gap 15 mmol/L (10-20); BUN (Urea Nitrogen) 42 mg/dL (7.0-18.7); BUN/Creatinine Ratio 5.69; Calc. Creatinine Clearance 13 mL/min (70-130); Carbon Dioxide 26 mmol/L (22-29); Chloride 95 mmol/L (98-107); Estimated GFR-MDRD 6; Glucose 95 mg/dL (70-105); Phosphorus 5.3 mg/dL (2.3-4.7); Potassium 3.9 mmol/L (3.5-5.1); Sodium 132 mmol/L (136-145)
[2017-12-03 06:40] VITALS: BP 139/81; TEMP 99.3
[2017-12-03 06:48] LABS: Band 12 % (5-11); Elliptocytes SLIGHT = 2-5 cells (100X) (0-1/hpf); Eosinophils 2 % (0-10); Hemoglobin 7.4 g/dL (12.0-16.0); Lymphocytes 10 % (21-51); MDiff Complete? YES; Mean Corpuscular HGB CONC 31.9 g/dL (32.0-36.0); Mean Corpuscular Hemoglobin 28.7 pg (27.0-31.0); Mean Corpuscular Volume 90.1 fl (81.0-99.0); Mean Platelet Volume 11.3 fL (7.4-10.4); Monocytes 4 % (0-10); Neutrophil 72 % (42-75); PLT Morphology Comment Appears Decreased; Platelet Count 53 thou/uL (130-400); RBC Distribution Width 14.9 % (11.5-14.5); Red Blood Cell (RBC) Count 2.59 mill/uL (4.20-5.40); White Blood Cell (WBC) Count 5.2 thou/uL (4.8-10.8)
[2017-12-03] MEDS ORDERED: Lisinopril 2.5 MG TAB PO SCH (09:00)
--- NOTE | 2017-12-03 09:00 | PRG ---
DATE OF SERVICE: 12/02/2017 SUBJECTIVE: The patient was seen and examined, seems to be feeling a little bit better today, noted with the following vital signs. PHYSICAL EXAMINATION: VITAL SIGNS: Afebrile with temperature 97.9, pulse 81, blood pressure 129/71, respiratory rate of 18 , 95% on room air. HEENT: Unremarkable with moist oral mucosa. NECK: Supple. No conjunctival injection or icterus. CARDIOVASCULAR: First and second heart sounds were heard. RESPIRATORY: Clear to auscultation. DIGESTIVE: Revealed a benign abdomen with positive bowel sounds. EXTREMITIES: No peripheral edema. SKIN: No new gross rash. LYMPHATICS: No peripheral lymphadenopathy. LABORATORY INVESTIGATION: As per microbiology revealed Staphylococcus aureus that is pretty much hurley sensitive to . IMPRESSION: 1. End-stage renal disease, hemodialysis dependent. 2. Bacteremia, query contamination of dialysis access site. 3. Low back pain, somewhat improved. 4. Flu. PLAN: 1. The patient was dialyzed yesterday; therefore, we will skip dialysis today and plan to dialyze is patient tomorrow. When the patient gets discharged, the patient can always go back to Saturday, Sat, Saturday schedule. 2. Antibiotic coverage based on sensitivity seems to be appropriate. 3. Further management to be dependent on the clinical course.
--- NOTE | 2017-12-04 05:54 | DIS ---
DISCHARGE DIAGNOSES: 1. Sepsis due to Staphylococcus aureus, likely skin sores. 2. End-stage renal disease with hemodialysis. 3. Hyperkalemia, resolved. 4. Cocaine abuse. 5. Hyponatremia due to volume overload, improved. 6. Anemia and chronic kidney disease status post 1 unit of packed red blood cells. 7. Hypertension, stable. 8. Noncompliance. CONSULTATIONS: Dr. Eileen Allen with Nephrology Service. PERTINENT LAB AND X-RAY FINDINGS: Sodium ranged between 127-135, potassium ranged between 3.9-6.8. Creatinine ranged between 5.69-16.9. Lactic acid level 2.0, phosphorus ranged between 5.0-7.0. CBC showed a white blood cell count ranging between 2.6-5.2, hemoglobin ranged between 7.2-9.0, platelet count ranged between 24-53. Urine drug screen positive for cocaine. Blood cultures x2 dated 018 positive for Staphylococcus aureus, pansensitive except for piperacillin and amoxicillin. Influe nza A and B antigen dated 12/01/2017 negative. Portable chest x-ray dated 11/30/2017 showed no acute cardiopulmonary process. CT of the abdomen and pelvis dated 11/30/2017 showed abnormal opacities of the lung bases. Splenomegaly noted. Nonspecific intra-abdominal adenopathy noted. HOSPITAL COURSE: The patient was initially admitted after presenting with nausea, vomiting and diarr hea. The patient underwent extensive evaluation including multiple imaging studies and screening met abolic survey with multiple metabolic derangements as stated previously. The patient was noted with volume overload undergoing hemodialysis with overall improvement in electrolyte disturbance. The [facility] ient also underwent evaluation due to abdominal pain and back pain; however, the patient was noted wi th positive blood cultures /2 for Staphylococcus aureus. The patient was continued on IV antibiotic therapy to include Levaquin after sensitivities were reviewed. The patient also underwent a lumbar spine MRI imaging 12/02/2017 showing mild spondylosis of the lumbar spine with red marrow hyperplasia . No specific evidence of infectious process was identified. The patient was taken for a repeat aaron ntenance hemodialysis on 12/03/2017, however, left against medical advice stating she needed to retur n home to pay rent.
--- NOTE | 2017-12-07 20:24 | EKG ---
Test Reason : VOMITING Blood Pressure : / mmHG Vent. Rate : 116 BPM Atrial Rate : 116 BPM P-R Int : 214 ms QRS Dur : 084 ms QT Int : 296 ms P-R-T Axes : 045 009 091 degrees QTc Int : 411 ms Sinus tachycardia with 1st degree A-V block Cannot rule out Anterior infarct , age undetermined T wave abnormality, consider lateral ischemia Abnormal ECG Confirmed by MARJAN VACA ([id number]), telegraph editor MARGY HAQ ([id number]) on 12/07/2017 8:23:28 PM Referred By: Confirmed By:MARJAN VACA
== END 2017-12-03 07:57 | disposition left against medical advice (07) | DRG 871 ==
LOC: ERS 07:30 → ERHOLD 12:56 → 2NO 14:59
PROVIDERS: ADMIT Hospitalist; ATTEND Hospitalist
PROC: 5A1D70Z Performance of Urinary Filtration, Intermittent, Less than 6 Hours Per Day (ICD-10-PCS; principal; 2017-11-30)
PROC: 30233R1 Transfusion of Nonautologous Platelets into Peripheral Vein, Percutaneous Approach (ICD-10-PCS; 2017-12-03)
DX: I12.0 Hypertensive chronic kidney disease with stage 5 chronic kidney disease or end stage renal disease; Z99.2 Dependence on renal dialysis; E86.0 Dehydration; R11.2 Nausea with vomiting, unspecified; E87.1 Hypo-osmolality and hyponatremia; A41.01 Sepsis due to Methicillin susceptible Staphylococcus aureus; N18.6 End stage renal disease; D69.6 Thrombocytopenia, unspecified; D63.1 Anemia in chronic kidney disease
CPT/HCPCS: 36415; 36430; 36556; 71045; 72148; 74177; 80053; 80069; 80306; 82550; 82553; 83605; 83690; 83735; 84484; 84703; 85025; 86850; 86900; 86901; 87040; 87077; 87149; 87186; 87804; 90935; 93005; 96361; 96365; 96367; 96374; 96375; J2270; A4216; G0257; J1815; J1956; J2405; J2543; J3370; J7611; J7620; P9035

== ENCOUNTER 2017-12-10 06:22 | Inpatient (IN) | payer MEDICARE, MEDICAID ==
[2017-12-10 06:51] LABS: #Eosinphils 0.1 thou/uL (0.0-0.7); #Lymphocytes 1.3 thou/uL (1.20-3.40); #Monocytes 0.2 thou/uL (0.11-0.59); #Neutrophils 4.2 thou/uL (1.40-6.50); %Basophils 0.2 % (0.0-1.0); %Eosinophils 0.9 % (0.0-10.0); %Lymphocytes 22.5 % (21.0-51.0); %Monocytes 4.1 % (0.0-10.0); %Neutrophils 72.4 % (42.0-75.0); Hemoglobin 7.7 g/dL (12.0-16.0); Mean Corpuscular HGB CONC 32.4 g/dL (32.0-36.0); Mean Corpuscular Hemoglobin 27.9 pg (27.0-31.0); Mean Corpuscular Volume 86.2 fl (81.0-99.0); Mean Platelet Volume 8.3 fL (7.4-10.4); Platelet Count 121 thou/uL (130-400); RBC Distribution Width 15.4 % (11.5-14.5); Red Blood Cell (RBC) Count 2.75 mill/uL (4.20-5.40); White Blood Cell (WBC) Count 5.7 thou/uL (4.8-10.8)
[2017-12-10 07:04] LABS: ALT (SGPT) Less than 7 U/L (8-55); AST (SGOT) 13 U/L (5-34); Albumin 2.9 g/dL (3.5-5.0); Alkaline Phosphatase 67 U/L (40-150); Anion Gap 16 mmol/L (10-20); BUN (Urea Nitrogen) 58 mg/dL (7.0-18.7); Bilirubin, Total 0.3 mg/dL (0.2-1.2); Calc. Creatinine Clearance 0 mL/min (70-130); Calcium 7.9 mg/dL (7.8-10.44); Carbon Dioxide 25 mmol/L (22-29); Chloride 97 mmol/L (98-107); Estimated GFR-MDRD 3; Globulin 4.1 g/dL (2.4-3.5); Glucose 100 mg/dL (70-105); Potassium 4.7 mmol/L (3.5-5.1); Sodium 133 mmol/L (136-145)
[2017-12-10] MEDS ORDERED: cefTRIAXone\\ROCEPHIN 2 GM VIAL ONE (07:49)
[2017-12-10] MEDS ORDERED: Morphine 4 MG/ML VIAL ONE (08:38)
[2017-12-10] MEDS ORDERED: Zolpidem Tartrate 5 MG TAB PO PRN (09:45)
[2017-12-10] MEDS ORDERED: Diabetic Tussin 200 MG/10 ML UDCUP PO PRN (09:45)
[2017-12-10] MEDS ORDERED: Milk Of Magnesia 30 ML UDCUP PO PRN (09:45)
[2017-12-10] MEDS ORDERED: Labetalol HCl 100 MG/20 ML VIAL SLOW IVP PRN (09:45)
[2017-12-10] MEDS ORDERED: Artificial Tears 18 DROP/0.9 ML EA EYE PRN (09:45)
[2017-12-10] MEDS ORDERED: Ondansetron HCl/PF 4 MG/2 ML Vial IVP PRN (09:45)
[2017-12-10] MEDS ORDERED: Senokot 8.6 MG TAB PO PRN (09:45)
[2017-12-10] MEDS ORDERED: cloNIDine 0.1 MG TAB PO PRN (09:45)
[2017-12-10] MEDS ORDERED: Loratadine 10 MG TAB PO PRN (09:45)
[2017-12-10] MEDS ORDERED: Morphine 4 MG/ML Carpuject SLOW IVP PRN (09:45)
[2017-12-10] MEDS ORDERED: Ondansetron ODT 4 MG TAB PO PRN (09:45)
[2017-12-10] MEDS ORDERED: Chloraseptic Spray 180 ml Bottle PO PRN (09:45)
[2017-12-10] MEDS ORDERED: cefTRIAXone\\ROCEPHIN 1 GM in Sodium Chloride 0.9% 100 ML IVPB SCH (09:45)
[2017-12-10] MEDS ORDERED: Sodium Chloride 0.65% Nasal 44 ML BOT EA NARE PRN (09:45)
[2017-12-10] MEDS ORDERED: Eucerin (Mineral Oil/Petrolatum,White) 30 gm Jar TOP PRN (09:45)
[2017-12-10] MEDS ORDERED: Acetaminophen 325 MG TAB PO PRN (09:45)
[2017-12-10] MEDS ORDERED: Mag-Al 1200 mg/1200 mg/30 ML UDCUP PO PRN (09:45)
[2017-12-10] MEDS ORDERED: Loperamide HCl 2 MG CAP PO PRN (09:45)
--- NOTE | 2017-12-10 10:29 | HP ---
PRIMARY CARE PHYSICIAN: [facility] call admission. PRIMARY ICT EDUCATOR: Dr. Arellano. REASON FOR ADMISSION: Sepsis. HISTORY OF PRESENT ILLNESS: A 32-year-old female who has end-stage renal disease on hemodialysis who was recently admitted in our hospital on 11/30/2017 and she was discharged on 12/03/2017. At that t tracey, the patient left against medical advice. During that admission the patient had sepsis due to St aphylococcus aureus. The patient also had a lumbar spine MRI during that admission which did not alfonso w any acute process. The patient is suffering from redness and swelling over right upper arm. That swelling and redness i s getting bigger and she developed a lump over AV fistula site. The patient was also having fever an d chills. She was mainly worried about pain. Her pain intensity was about 9-10/10. Even touching w as causing a lot of pain. It was throbbing in nature. The patient was supposed to get dialysis yest erday, but because of staffing issues she was told not to come for dialysis and she was instructed to come for dialysis today. The patient was having intractable pain in the right arm and that is why s he decided to come to the emergency room. In the emergency room, patient was hypertensive, febrile a nd tachycardic. She was meeting sepsis criteria. Her AV fistula site is more swollen and more tende r. In the emergency room, the patient is given Rocephin 2 gram, morphine 2 mg, and IV fluid. At thi s point, we are admitting this patient to medical floor. While in the emergency room, the patient's tachycardia improved. The patient denies any chest pain, palpitation, shortness of breath. She denies any constipation, di arrhea, melena or hematochezia. She denies any ongoing cocaine abuse. She denies any UTI symptoms. She denies any flu-like illness. ALLERGIES: No known drug allergy. CURRENT HOME MEDICATIONS: The patient did not bring her home medication, so unable to review medicat ions, but based on our hospital record, the patient is on the following medication: Amlodipine 5 mg p.o. daily, Coreg 12.5 mg p.o. b.i.d., lisinopril 2.5 mg p.o. daily. REVIEW OF SYSTEMS: The following complete review of systems was negative, unless otherwise mentioned in the HPI or below: Constitutional: Weight loss or gain, ability to conduct usual activities. Skin: Rash, itching. Eyes: Double vision, pain. ENT/Mouth: Nose bleeding, neck stiffness, pain, tenderness. Cardiovascular: Palpitations, dyspnea on exertion, orthopnea. Respiratory: Shortness of breath, wheezing, cough, hemoptysis, fever or night sweats. Gastrointestinal: Poor appetite, abdominal pain, heartburn, nausea, vomiting, constipation, or diarrhea. Genitourinary: Urgency, frequency, dysuria, nocturia. Musculoskeletal: Pain, swelling. Neurologic/Psychiatric: Anxiety, depression. Allergy/Immunologic: Skin rash, bleeding tendency. Please see my HPI for pertinent positive and negative. All other review of systems reviewed and nega tive except as mentioned in the HPI. PAST MEDICAL HISTORY: 1. Recent admission for sepsis due to Staphylococcus aureus. 2. End-stage renal disease, on hemodialysis. 3. Anemia of renal disease. 4. Hypertension. 5. Medication noncompliance. 6. Secondary hyperparathyroidism of renal origin. 7. History of DVT to bilateral lower extremities. 8. History of hepatitis C. 9. History of left-sided pyelonephritis 10. History of pneumonia. 11. History of diastolic heart failure. PAST SURGICAL HISTORY: 1. Right arm AV fistula placement by Dr. Baumann. 2. History of left subclavian dialysis catheter placement. 3. Incision and drainage of abscess. PAST PSYCHIATRIC HISTORY: Reviewed and negative. SOCIAL HISTORY: The patient drinks alcohol socially. She smokes about 4-5 cigarettes on a daily bas is. She lives with her roommate in [facility]. She has history of drug abuse including cocaine. FAMILY HISTORY: No strong family history of premature coronary artery disease, stroke or cancer. EMERGENCY ROOM COURSE: The patient is given morphine 2 mg, Rocephin 2 gram, and IV fluid. PHYSICAL EXAMINATION: VITAL SIGNS: On arrival, blood pressure 175/97, pulse 118, respiratory rate 18, temperature 100.3, s aturation 100% on room air, weight 80.5 kilograms. GENERAL: The patient is currently in mild distress due to pain, hypertensive, tachycardic and febril e. HEENT: Head is normocephalic, atraumatic. Eyes: Pupils round, reactive to light. Extraocular musc le intact. ENT: Oropharynx within normal limits. Moist mucous membranes. No oral lesion, no phary ngeal erythema, no exudate. NECK: Supple, no JVD, no thyromegaly, no carotid bruit, no jugular venous distention. LUNGS: Clear to auscultation without any rhonchi or rales. CARDIAC: S1, S2 regular, tachycardia, no significant murmur, no gallop, no rub. ABDOMEN: Soft, bowel sounds present, nontender, nondistended. No organomegaly, no mass, no suprapub ic tenderness. BACK: Unremarkable, no CVA tenderness. EXTREMITIES: Upper extremity, right arm graft is significantly tender, erythematous and swollen. Ec chymosis noted on left arm. Lower extremities; bilateral lower extremity pitting edema noted. Good distal pulsation. SKIN: No skin rash other than ecchymosis on left arm and cellulitis with abscess over right arm nate t. PSYCHIATRIC: Anxious affect. NEUROLOGIC: The patient is alert, oriented x3. Cranial nerves II-XII intact. Motor and sensation w ithin normal limits. No focal neurological deficit noted. SIGNIFICANT LABS: CBC: WBC 5.7, hemoglobin 7.7, platelet 121. BMP: Sodium 133, potassium 4.7, chl oride 97, carbon dioxide 25, anion gap 16, BUN 58, creatinine 12.89, glucose 100, calcium 7.9. Lacti c acid 1.1. LFT: AST 13, ALT less than 7, alkaline phosphatase of 67, albumin 2.9. ASSESSMENT AND PLAN: 1. Sepsis, likely due to Staph aureus. The patient is meeting sepsis criteria. She has high tachyc ardia, fever. Her blood culture was positive on 11/30/2017. At that time, the patient was treated w ith appropriate antibiotic therapy, but the patient left against medical advice. I am not sure wheth er this patient has received any antibiotics since then. At this point, repeat blood culture obtaine d in the emergency room. We will follow up on that culture. Source of infection is her AV fistula g raft infection, possible abscess and cellulitis there. The patient will be given broad spectrum anti biotic therapy with vancomycin as per pharmacy adjusted dose. We will also consider adding Rocephin [address] Mccain of Infection Team will be consulted. 2. AV fistula site cellulitis abscess and intractable pain. Dr. Pastor will be consulted. This pat ient cannot have dialysis through that AV fistula site because of ongoing infection. She may need a surgical procedure over right arm as well as she will need another dialysis access for dialysis. The patient's pain will be controlled with morphine 4 mg q.3h. on a p.r.n. basis. 3. End-stage renal disease on hemodialysis. The patient missed dialysis yesterday. Her last dialys is was on Saturday. The patient is due for dialysis today, but she cannot have dialysis done through t he AV fistula given infection. She may need surgical procedure with the dialysis catheter placement and then dialysis. At this point, the patient does not appear to be volume overloaded. We will cons t Nephrology for their opinion. 4. Right arm fistula site abscess and cellulitis. As mentioned above, the patient will be treated w ith Rocephin and vancomycin. ID team is consulted and pain will be controlled with morphine. 5. Hypertension. We will continue the patient's home medication of amlodipine 5 mg p.o. daily, Core g 12.5 mg p.o. twice daily. 6. Anemia of renal disease. We will continue ferrous sulfate 325 mg p.o. daily. Procrit subcu with dialysis. 7. Thrombocytopenia. We are considering heparin for DVT prophylaxis, but if platelet count drops, t hen we will discontinue heparin product. We will closely monitor platelet count. 8. Mild hyponatremia, likely related with renal failure. 9. Hypoalbuminemia, likely related with renal failure and that contributes to her edema over lower e xtremities. 10. Deep venous thrombosis prophylaxis, heparin 5000 units subcu twice daily and will monitor platel et count. 11. GI prophylaxis with Pepcid 20 mg p.o. daily. 12. CODE STATUS: The patient is FULL CODE. The patient does not have any surrogate decision maker. 13. Disposition plan based on clinical course. We will also check PTH and phosphorus level and coag ulation profile. Plan of care discussed with the patient in detail. 14. Medication noncompliance and history of drug abuse. Necessary patient education and counseling given. We will check a urine drug screen this admission as well. Healthy lifestyle measures discuss ed with the patient.
[2017-12-10] MEDS: Morphine 4 MG/ML VIAL IV PRN ×2 (10:54→17:37)
[2017-12-10 12:13] VITALS: BMI 30.2
--- NOTE | 2017-12-10 14:40 | CON ---
DATE OF CONSULTATION: 12/10/2017 REASON FOR CONSULTATION: Bacteremia. 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 She was admitted with hyperkalemia and poor compliance with hemod ialysis. Patient had a right arm PTFE graft [place] in [address] Baumann. Now, she presents with ne w onset of fever for which she was admitted. At that time, blood cultures yielded Staphylococcus aur eus, but patient checked out against medical advice. She has developed now redness and inflammatory changes right arm over the AV graft site. Continues with fever and chills. No headaches, no visual symptoms. No sore throat, odynophagia, or dysphagia. No abdominal pain or diarrhea. No genitourina ry symptoms. She went to dialysis and was sent over to the hospital because of noticeable pain in th e right arm and inflammatory changes. No dyspnea or chest pain. No vomiting, hematemesis, melena, h ematochezia. 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 PAST SURGICAL HISTORY: As above. SOCIAL HISTORY: Lives with roommates in a house in [place]. Current smoker. Apparently quit using IV drugs. FAMILY HISTORY: Noncontributory. CURRENT MEDICATIONS: Orla, Maalox ceftriaxone, clonidine, Robitussin, heparin, Normodyne, Imodium, ondansetron, Zofran. PHYSICAL EXAMINATION: VITAL SIGNS: T-max 102.5, blood pressure 165/99, pulse 103, respirations 16, O2 sat 99%. GENERAL: Appears awake. She is kind of apathetic, establishes eye contact, but no emotions are disp layed. SKIN: Show the area of redness, swelling at the right arm AV graft in a sort of fusiform distributio n. The erythema is quite extensive and extends the entire medial aspect of the right arm. No petech iae or purpura. No lymphadenopathy. HEENT: Ocular movements are conjugate. Fundi normal. Vision is normal. Oral cavity unremarkable. NECK: Supple. No jugular venous distention. LUNGS: With symmetric clear breath sounds. HEART: S1, S2, regular rate. No S3 or S4. ABDOMEN: Soft, nondistended or tender. No ascites. No bladder distention. EXTREMITIES: No joint inflammatory activity outside involved area. Pulses 1+ dorsalis pedis. NEUROLOGIC: Cognitive function appears to be intact. LABORATORY DATA: White cell count 5.7, hemoglobin 7.7, MCV 86, platelets 121 with normal differentia l. Chemistry with normal liver profile, albumin 2.9. Two sets of blood cultures with Staphylococcus aureus which is methicillin sensitive. IMAGING STUDIES: Chest x-ray from 11/30/2017 with no pneumothorax and no infiltrates. There is a marino ar spine MRI from 12/02/2017 with nonspecific free fluid in pelvis, but no evidence of diskitis or osteomyelitis. ASSESSMENT: 1. Chronic IV drug use, mostly cocaine. 2. End stage renal disease with possible focal sclerosing glomerulonephritis in the past. 3. AV graft placed in right arm recently, actually 2014. 4. Inflammatory changes with bacteremia, likely from infection of the AV graft and Staphylococcus au reus which is methicillin susceptible. No other sites of involvement are apparent at this time. We will observe including spine, lungs, endocardium and other joints. The patient will need removal of the graft with surgical consultation. We will need placement of a temporary catheter in a tunnel pos ition and treat it for a protracted period of time with sliding scale, vancomycin probably. Could al so use cefazolin after dialysis 3 grams each treatment. Recheck HIV and hepatitis C has not done yet .
[2017-12-10 16:46] LABS: HIV (1/2) Antibody/Antigen Non-Reactive (NonReactive); HIV 1/2 INDEX 0.15 S/CO (<1.00)
[2017-12-10] MEDS: Ferrous Sulfate 325 MG TAB PO SCH (17:38)
[2017-12-10 18:44] LABS: Hep C IgG Ab Reflex HepC Qnt (NonReactive); Hep C Index 11.69 S/CO (0-0.79)
--- NOTE | 2017-12-10 20:45 | CON ---
DATE OF CONSULTATION: 12/10/2017 CONSULTING PHYSICIAN: Dr. Washington. REASON FOR CONSULTATION: Suspected infection involving right upper arm AV graft. HISTORY OF PRESENT ILLNESS: Patient is a 32-year-old white female. She had developed renal failure and had a right upper arm PTFE graft placed per Dr. Baumann in 2014. She has been utilizing this sinc e that time without significant problems. She had been admitted to the hospital on 11/30/2017 second greta to need for maintenance hemodialysis. She was felt to be uremic. She was hospitalized until 10/2017 at which time she left against medical advice. She returned to the emergency room earlier to day complaining of pain in her right upper arm. She had fever and chills apparently. She noted tend erness along the fluctuant area overlying her graft. PHYSICAL EXAMINATION: VITAL SIGNS: Her maximum temperature today is 102.5 with a pulse of 103, pulse otherwise is in the 7 0s, blood pressure is 165/99. EXTREMITIES: Examination of her right upper arm reveals a fluctuant area measuring about 2.5 to 3 cm in diameter immediately over the right upper arm graft. There is pulsation palpable through this fl uctuant area. There is mild to moderate tenderness with palpation. LABORATORY STUDIES: Revealed that she has a normal white blood cell count and normal differential. Her white blood cell count 5.7, hemoglobin 7.7. She appears to be chronically anemic. Her platelet count is 121 whereas last week it was in the 20s-50s. Her chemistry profile reveals that she has an elevated BUN of 58 and elevated creatinine of 12.9. ASSESSMENT AND PLAN: Patient with an apparent infection associated with her right upper arm graft. I am concerned that an attempted incision and drainage of this could lead to exposure of the graft an d/or bleeding associated with the graft. This should therefore be done by her dialysis surgeon. She requires urgent hemodialysis in the next [address] a femoral dialysis catheter, other cool we would recommend continuation of IV antibiotics and await the return of her hemodialysis surge on, Dr. Baumann.
[2017-12-10] MEDS: Heparin 5,000 UNITS/ML VIAL SC SCH (23:05)
--- NOTE | 2017-12-10 23:36 | CON ---
DATE OF CONSULTATION: 12/10/2017 REQUESTING PHYSICIAN: ER physician. REASON FOR CONSULTATION: The need for maintenance hemodialysis in a patient with end-stage renal dis ease, now bacteremic. IMPRESSION: 1. End-stage renal disease, hemodialysis dependent Saturday, Saturday, Saturday, last dialyzed on . 2. Bacteremia with evidence of infected graft. 3. History of substance abuse. PLAN: 1. Surgical consultation to evaluate the graft site infection for possibility of removal of the nate t. 2. Patient will require alternative access. In this case, patient likely to benefit from a tunneled dialysis catheter. Femoral dialysis catheter placement in the past has been a very challenging and pretty much unsuccessful due to history of drug use with its attendant destruction of the blood vesse ls. 3. No emergent indication at this point for hemodialysis. Therefore, we will wait to see if an alte rnative access will be secured. However, the patient likely to need dialysis within the next 24 hour s if no alternative access yet. We will try and use the graft to be able to dialyze this patient and effect ultrafiltration as the patient is building up fluid. HISTORY OF PRESENT ILLNESS: History is that of a 32-year-old female patient with end-stage renal dis ease, hemodialysis dependent, who last dialyzed on Saturday, who has infected graft and recently was ho spitalized with bacteremia, left against medical advice; however, continue with antibiotics at the [facility] dialysis facility. Patient continued to experience deterioration in clinical status necessi tating the reason for presentation to the ER, where it became obvious that the infection around the g raft site is pretty much getting worse. As a result, decision has been taken to admit this patient a nd a renal consult placed for possible renal replacement therapy. PAST MEDICAL HISTORY: Significant for end-stage renal disease, hemodialysis dependent, substance abu se, anemia of chronic kidney disease, hypertension, recent Staphylococcus infection, bacteremia, hepa titis C. MEDICATIONS: Reviewed and as documented on [employer]. SOCIAL HISTORY: Significant for tobacco use, history of drug abuse especially cocaine. REVIEW OF SYSTEMS: As documented in the body of the history. The rest is pretty much unremarkable. The patient is very sick. FAMILY HISTORY: No significant family history related to the presenting illness. PHYSICAL EXAMINATION: GENERAL: The patient was found to be ill-looking. VITAL SIGNS: Febrile, temperature 102.5, pulse 103, respiratory rate 16, O2 sat 99% with blood press ure 165/99. HEENT: Unremarkable. CARDIOVASCULAR SYSTEM: First and second heart sounds were heard. RESPIRATORY SYSTEM: Clear to auscultation. DIGESTIVE SYSTEM: Reviewed, a benign abdomen. EXTREMITIES: Showed peripheral edema. SKIN: Showed evidence of erythema overlying the graft site. NEUROLOGIC: Alert, oriented. SUMMARY: A 32-year-old female patient with end-stage renal disease who presented here with clear-cut evidence of infected graft. Thank you for this consultation. We will follow with you.
[2017-12-11] MEDS: HYDROcodone/Acetaminophen 5/325 mg Tablet PO PRN ×2 (04:36→10:57)
[2017-12-11 05:10] LABS: #Eosinphils 0.1 thou/uL (0.0-0.7); #Lymphocytes 0.9 thou/uL (1.20-3.40); #Monocytes 0.2 thou/uL (0.11-0.59); %Basophils 0.7 % (0.0-1.0); %Eosinophils 1.2 % (0.0-10.0); %Lymphocytes 17.5 % (21.0-51.0); %Monocytes 3.6 % (0.0-10.0); %Neutrophils 77.1 % (42.0-75.0); Hemoglobin 6.9 g/dL (12.0-16.0); Mean Corpuscular HGB CONC 31.9 g/dL (32.0-36.0); Mean Corpuscular Hemoglobin 27.6 pg (27.0-31.0); Mean Corpuscular Volume 86.6 fl (81.0-99.0); Mean Platelet Volume 8.3 fL (7.4-10.4); Platelet Count 105 thou/uL (130-400); RBC Distribution Width 15.3 % (11.5-14.5); Red Blood Cell (RBC) Count 2.51 mill/uL (4.20-5.40); White Blood Cell (WBC) Count 5.2 thou/uL (4.8-10.8)
[2017-12-11 05:14] LABS: INR-International Normal Ratio 1.3; PTT 31.5 SEC (22.9-36.1); Prothrombin Time 16.2 SEC (12.0-14.7)
[2017-12-11 05:36] LABS: ALT (SGPT) Less than 7 U/L (8-55); AST (SGOT) 11 U/L (5-34); Albumin 2.5 g/dL (3.5-5.0); Alkaline Phosphatase 57 U/L (40-150); Anion Gap 21 mmol/L (10-20); BUN (Urea Nitrogen) 64 mg/dL (7.0-18.7); Bilirubin, Total 0.3 mg/dL (0.2-1.2); Calc. Creatinine Clearance 7 mL/min (70-130); Calcium 8.1 mg/dL (7.8-10.44); Carbon Dioxide 20 mmol/L (22-29); Chloride 96 mmol/L (98-107); Estimated GFR-MDRD 3; Globulin 3.6 g/dL (2.4-3.5); Glucose 91 mg/dL (70-105); Iron 20 ug/dL (50-170); Iron Binding Capacity, Total 130 mcg/dL (265-497); Iron Binding Capacity, Total 131 mcg/dL (265-497); Potassium 5.5 mmol/L (3.5-5.1); Protein, Total 6.1 g/dL (6.0-8.3); Sodium 131 mmol/L (136-145)
[2017-12-11 05:39] LABS: Phosphorus 10.5 mg/dL (2.3-4.7)
[2017-12-11 07:30] LABS: Bilirubin Negative (Negative); Blood, Urine Small (Negative); Clarity CLEAR (Clear); Glucose, Urine (Dipstick) 250 mg/dL (Negative); Leukocyte Negative (Negative); Nitrite Negative (Negative); Protein, Urine (Dipstick) > or equal to 300 mg/dL (Neg-Trace); Specific Gravity, Urine 1.019 (1.002-1.036); Urobilinogen 0.2 mg/dL (0.2-1.0); pH, Urine 7.5 (5.0-9.0)
[2017-12-11 07:33] LABS: Bacteria/HPF None Seen HPF (None Seen); Hyaline Casts/LPF 4-6 HYALINE CAST LPF (0-3 Hyaline)
[2017-12-11 07:51] LABS: Amphetamine Not Detected (NotDetected); Barbiturates Screen Not Detected (NotDetected); Benzodiazepine Screen Not Detected (NotDetected); Cocaine Metabolite Screen Not Detected (NotDetected); Medtox Control Line Valid? VALID (VALID); Medtox Reader # READER 1; Methadone Not Detected (NotDetected); Methamphetamine Not Detected (NotDetected); Opiate Screen Detected (NotDetected); Oxycodone Screen Not Detected (NotDetected); Phencyclidine (PCP) Not Detected (NotDetected); THC/Cannabinoid Screen Not Detected (NotDetected); Tricyclic Screen Not Detected (NotDetected)
[2017-12-11 08:15] LABS: Renal Epithelial 0-3 HPF (0-3); Transitional Epithelial 0-3 HPF (0-3); Yeast-All Forms 1+ HPF (None Seen)
--- NOTE | 2017-12-11 08:50 | PDOC.PN ---
- Subjective Encounter Start Date: 12/11/17 Encounter Start Time: 07:10 -: old records requested/rev Patient seen and examined. No overnight events has low grade fever, has right arm pain and swelling and erythema - Objective Resuscitation Status: Resuscitation Status FULL:Full Resuscitation MAR Reviewed: Yes Vital Signs & Weight: Vital Signs (12 hours) Temp Pulse Resp BP Pulse Ox 12/11/17 08:00 98.5 F 72 20 116/72 95 12/11/17 04:00 99.6 F 78 16 129/79 95 12/11/17 00:00 97.4 F L 69 16 116/74 100 Weight Weight 182 lb I&O: 12/10/17 12/11/17 12/12/17 06:59 06:59 06:59 Intake Total 240 Balance 240 Result Diagrams: 12/11/17 04:51 12/11/17 04:51 Phys Exam - Physical Examination Constitutional: NAD HEENT: PERRLA, moist MMs, sclera anicteric Neck: no JVD, supple Respiratory: no wheezing, no rales, no rhonchi Cardiovascular: RRR, no significant murmur, no rub Gastrointestinal: soft, non-tender, no distention, positive bowel sounds right arm AV F site erythema, swelling and tenderness Neurological: non-focal, normal sensation, moves all 4 limbs Psychiatric: normal affect, A&O x 3 Skin: no rash, normal turgor Dx/Plan (1) Bacteremia due to Staphylococcus aureus Code(s): R78.81 - BACTEREMIA Status: Acute (2) Hyperkalemia Code(s): E87.5 - HYPERKALEMIA Status: Acute Comment: Secondary to ESRD (3) Infection of AV graft for dialysis Code(s): T82.7XXA - INFECT/INFLM REACT D/T OTH CARDI/VASC DEV/IMPLNT/GRFT, INIT Status: Acute (4) Metabolic acidosis Code(s): E87.2 - ACIDOSIS Status: Acute (5) Sepsis due to Staphylococcus aureus Code(s): A41.01 - SEPSIS DUE TO METHICILLIN SUSCEPTIBLE STAPHYLOCOCCUS AUREUS Status: Acute Comment: (6) Anemia of renal disease Code(s): D63.1 - ANEMIA IN CHRONIC KIDNEY DISEASE Status: Chronic (7) Chronic hepatitis C Code(s): B18.2 - CHRONIC VIRAL HEPATITIS C Status: Chronic Qualifiers: Hepatic coma status: without hepatic coma Qualified Code(s): B18.2 - Chronic viral hepatitis C (8) Chronic systolic heart failure Code(s): I50.22 - CHRONIC SYSTOLIC (CONGESTIVE) HEART FAILURE Status: Chronic (9) ESRD (end stage renal disease) on dialysis Code(s): N18.6 - END STAGE RENAL DISEASE; Z99.2 - DEPENDENCE ON RENAL DIALYSIS Status: Chronic (10) History of drug abuse Code(s): Z87.898 - PERSONAL HISTORY OF OTHER SPECIFIED CONDITIONS Status: Chronic (11) Hypertension Code(s): I10 - ESSENTIAL (PRIMARY) HYPERTENSION Status: Chronic Qualifiers: Comment: (12) Nonischemic cardiomyopathy Code(s): I42.9 - CARDIOMYOPATHY, UNSPECIFIED Status: Chronic (13) Obesity (BMI 30.0-34.9) Code(s): E66.9 - OBESITY, UNSPECIFIED Status: Chronic (14) Secondary hyperparathyroidism of renal origin Code(s): N25.81 - SECONDARY HYPERPARATHYROIDISM OF RENAL ORIGIN Status: Chronic - Plan cont current plan of care, continue antibiotics * pt will need removal of AV fistula graft, that seems like infected * she will need alternative HD access, for HD * HD as per nephrology * echo will be done today * selected home medication * continue vancomycin and rocephin * transfuse 1 unit PRBC with HD * medication reviewed as below * symptomatic treatment. Review of Systems - Review of Systems Constitutional: fever. negative: chills, sweats, weakness, malaise, other ENT: negative: Ear Pain, Ear Discharge, Nose Pain, Nose Discharge, Nose Congestion, Mouth Pain, Mouth Swelling, Throat Pain, Throat Swelling, Other Respiratory: negative: Cough, Dry, Shortness of Breath, Hemoptysis, SOB with Excertion, Pleuritic Pain, Sputum, Wheezing Cardiovascular: negative: chest pain, palpitations, orthopnea, paroxysmal nocturnal dyspnea, edema, light headedness, other Gastrointestinal: negative: Nausea, Vomiting, Abdominal Pain, Diarrhea, Constipation, Melena, Hematochezia, Other Genitourinary: negative: Dysuria, Frequency, Incontinence, Hematuria, Retention , Other Musculoskeletal: Arm Pain. negative: Neck Pain, Shoulder Pain, Back Pain, Hand Pain, Leg Pain, Foot Pain, Other Skin: negative: Rash, Lesions, Nathaniel, Bruising, Other Neurological: negative: Weakness, Numbness, Incoordination, Change in Speech, Confusion, Seizures, Other - Medications/Allergies Allergies/Adverse Reactions: Allergies Allergy/AdvReac Type Severity Reaction Status Date / Time No Known Allergies Allergy Verified 11/30/17 20:42 Medications: Current Medications Acetaminophen (Tylenol) 650 mg PO Q4H PRN PRN Reason: Headache/Fever or Pain Last Admin: 12/10/17 10:54 Dose: 650 mg Hydrocodone Bitart/Acetaminophen ([place] 5/325) 1 tab PO Q4H PRN PRN Reason: Moderate Pain (4-6) Last Admin: 12/11/17 04:36 Dose: 1 tab Al Hydroxide/Mg Hydroxide (Maalox) 30 ml PO Q6H PRN PRN Reason: Heartburn or Indigestion Artificial Tears (Tears Naturale) 0 drop EA EYE PRN PRN PRN Reason: Dry Eyes Clonidine (Catapres) 0.1 mg PO Q4H PRN PRN Reason: Systolic BP > 180 Famotidine (Pepcid) 20 mg PO DAILY [facility] Ferrous Sulfate (Feosol) 325 mg PO BID-[facility] Last Admin: 12/10/17 17:38 Dose: 325 mg Guaifenesin (Robitussin Sf) 200 mg PO Q4H PRN PRN Reason: Cough Heparin Sodium (Porcine) (Heparin) 5,000 units SC BID [facility] Last Admin: 12/10/17 23:05 Dose: 5,000 units Ceftriaxone Sodium 1 gm/ (Syringe 0.4 ml/ Sterile Water) 10 mls @ 120 mls/hr SLOW IVP Q24HR [facility] Labetalol HCl (Normodyne) 10 mg SLOW IVP Q4H PRN PRN Reason: Systolic BP > 180 Loperamide HCl (Imodium) 2 mg PO PRN PRN PRN Reason: Diarrhea/Loose Stools Loratadine (Claritin) 10 mg PO DAILYPRN PRN PRN Reason: Sinus Symptoms Magnesium Hydroxide (Milk Of Magnesium) 30 ml PO DAILYPRN PRN PRN Reason: Constipation Mineral Oil/White Petrolatum (Eucerin Cream) 0 gm TOP BIDPRN PRN PRN Reason: Dry Skin Miscellaneous Medication (Pharmacy To Dose) 1 each IVPB ASDIR [facility] Morphine Sulfate (Morphine) 4 mg IV Q3H PRN PRN Reason: Pain Last Admin: 12/10/17 17:37 Dose: 4 mg Ondansetron HCl (Zofran Odt) 4 mg PO Q6H PRN PRN Reason: Nausea/Vomiting Ondansetron HCl (Zofran) 4 mg IVP Q6H PRN PRN Reason: Nausea/Vomiting Phenol (Chloraseptic [place] 180 Ml Bot) 0 ml PO PRN PRN PRN Reason: Sore Throat Saccharomyces Boulardii (Florastor) 250 mg PO DAILY [facility] Senna (Senokot) 2 tab PO HSPRN PRN PRN Reason: Constipation Sodium Chloride ([place] Nasal [place] 0.65%) 0 ml EA NARE QIDPRN PRN PRN Reason: Nasal Congestion Sodium Chloride (Flush - Normal Saline) 10 ml IVF Q12HR [facility] Last Admin: 12/10/17 23:05 Dose: 10 ml Sodium Chloride (Flush - Normal Saline) 10 ml IVF PRN PRN PRN Reason: Saline Flush Last Admin: 12/10/17 10:55 Dose: 10 ml Vitamin B Complex/Vit C/Folic Acid (Nephro-[place] Tablet) 1 tab PO DAILY [facility] Zolpidem Tartrate (Ambien) 5 mg PO HSPRN PRN PRN Reason: Insomnia
[2017-12-11] MEDS: Famotidine 20 MG TAB PO SCH (09:43)
[2017-12-11] MEDS: Ferrous Sulfate 325 MG TAB PO SCH ×2 (09:43→16:11)
[2017-12-11] MEDS: Folic Acid/Vit B Comp W-C PO SCH (09:43)
[2017-12-11] MEDS: Saccharomyces boulardii 250 MG CAP PO SCH (09:43)
[2017-12-11] MEDS: cefTRIAXone\\ROCEPHIN 1 GM, Syringe 0.4 ML in Sterile Water 9.6 ML SLOW IVP SCH (09:44)
[2017-12-11] MEDS: Heparin 5,000 UNITS/ML VIAL SC SCH ×2 (09:44→20:34)
[2017-12-11] MEDS ORDERED: Furosemide 100 MG/10 ML VIAL SLOW IVP SCH (09:45)
[2017-12-11] MEDS: Sevelamer Carbonate 800 MG TAB PO SCH ×2 (16:10→16:23)
[2017-12-11] MEDS: Furosemide 100 MG/10 ML VIAL SLOW IVP SCH (16:10)
--- NOTE | 2017-12-11 19:25 | PRG ---
DATE OF SERVICE: 12/11/2017 SUBJECTIVE: The patient was seen and examined. She is ill-looking, noted with the following vital s igns. PHYSICAL EXAMINATION: VITAL SIGNS: Afebrile with temperature 98.3, pulse 79, respiratory rate of 18, O2 sat of 95% with bl ood pressure 130/77. HEENT: Unremarkable. CARDIOVASCULAR: First and second heart sounds were heard. RESPIRATORY: Clear to auscultation. DIGESTIVE: Revealed a benign abdomen. EXTREMITIES: Showed peripheral edema. NEUROLOGIC: Alert, oriented. No lateralizing sign. LABORATORY INVESTIGATION: Hemoglobin of 6.9. Chemistry showed a sodium of 131, potassium 5.5, bicar bonate of 20, BUN of 64 with a creatinine of 14.8, and phosphorus 10.5. PTH is 915. IMPRESSION: 1. Infected graft. 2. End-stage renal disease. 3. Sepsis in the context of infected graft. 4. Anemia, severe. 5. Hyperphosphatemia with severe hyperparathyroidism. 6. Profound azotemia. PLAN: 1. The lack of dialysis access is posing a significant challenge to the ability to dialyze this kiara ent. Otherwise, the patient is due for dialysis today. The patient does not want the femoral cathet er to be placed given her very ugly experience last year with femoral dialysis catheter placement and this proved to be impossible given the significant vasculopathy in this patient. The patient hopefu lly will be able to get a tunneled dialysis catheter tomorrow for immediate dialysis with ultrafiltra tion as tolerated by hemodynamics. 2. The patient's graft likely to be come out once the patient's access surgeon is around. 3. We will continue with current broad-spectrum antibiotics treatment as per Infectious Disease mesfin mmendation. 4. Further management to be dependent on the clinical course.
[2017-12-12] MEDS: Morphine 4 MG/ML VIAL IV PRN (04:48)
[2017-12-12] MEDS: Furosemide 100 MG/10 ML VIAL SLOW IVP SCH ×2 (05:41→13:04)
[2017-12-12] MEDS: Famotidine 20 MG TAB PO SCH (07:36)
[2017-12-12] MEDS: Heparin 5,000 UNITS/ML VIAL SC SCH ×2 (07:36→20:55)
[2017-12-12] MEDS: Sevelamer Carbonate 800 MG TAB PO SCH ×3 (07:36→16:28)
[2017-12-12] MEDS: Folic Acid/Vit B Comp W-C PO SCH (07:36)
[2017-12-12] MEDS: Saccharomyces boulardii 250 MG CAP PO SCH (07:36)
[2017-12-12] MEDS: Ferrous Sulfate 325 MG TAB PO SCH ×2 (07:36→16:28)
[2017-12-12 08:00] LABS: Anion Gap 20 mmol/L (10-20); BUN (Urea Nitrogen) 76 mg/dL (7.0-18.7); Calc. Creatinine Clearance 7 mL/min (70-130); Calcium 7.7 mg/dL (7.8-10.44); Carbon Dioxide 21 mmol/L (22-29); Chloride 96 mmol/L (98-107); Estimated GFR-MDRD 3; Glucose 83 mg/dL (70-105); Potassium 5.5 mmol/L (3.5-5.1); Sodium 131 mmol/L (136-145)
[2017-12-12 08:44] LABS: #Eosinphils 0.1 thou/uL (0.0-0.7); #Lymphocytes 0.8 thou/uL (1.20-3.40); #Monocytes 0.1 thou/uL (0.11-0.59); #Neutrophils 3.6 thou/uL (1.40-6.50); %Basophils 0.7 % (0.0-1.0); %Eosinophils 1.4 % (0.0-10.0); %Lymphocytes 17.3 % (21.0-51.0); %Monocytes 2.9 % (0.0-10.0); %Neutrophils 77.7 % (42.0-75.0); Mean Corpuscular HGB CONC 30.6 g/dL (32.0-36.0); Mean Corpuscular Hemoglobin 26.5 pg (27.0-31.0); Mean Corpuscular Volume 86.6 fl (81.0-99.0); Mean Platelet Volume 8.9 fL (7.4-10.4); Platelet Count 108 thou/uL (130-400); RBC Distribution Width 16.4 % (11.5-14.5); Red Blood Cell (RBC) Count 2.63 mill/uL (4.20-5.40); White Blood Cell (WBC) Count 4.6 thou/uL (4.8-10.8)
--- NOTE | 2017-12-12 09:22 | PDOC.PN ---
- Subjective Encounter Start Date: 12/12/17 Encounter Start Time: 07:40 Patient seen and examined. No new complaints. No overnight events - Objective Resuscitation Status: Resuscitation Status FULL:Full Resuscitation MAR Reviewed: Yes Vital Signs & Weight: Vital Signs (12 hours) Temp Pulse Resp BP Pulse Ox 12/12/17 07:39 99.6 F 84 16 12/12/17 07:29 99.1 F 77 16 150/84 H 100 12/12/17 04:00 99.6 F 84 16 152/88 H 96 12/12/17 00:00 99.0 F 79 16 150/90 H 100 Weight Admit Weight 182 lb Weight 182 lb I&O: 12/11/17 12/12/17 12/13/17 06:59 06:59 06:59 Intake Total 240 930 Balance 240 930 Result Diagrams: 12/12/17 03:30 12/12/17 06:30 Phys Exam - Physical Examination Constitutional: NAD HEENT: PERRLA, moist MMs, sclera anicteric Neck: no JVD, supple Respiratory: no wheezing, no rales, no rhonchi Cardiovascular: RRR, no significant murmur, no rub Gastrointestinal: soft, non-tender, no distention, positive bowel sounds Musculoskeletal: pulses present, edema present right arm AVF site swelling, tender, erythema Neurological: non-focal, normal sensation, moves all 4 limbs Lymphatic: no nodes Psychiatric: normal affect, A&O x 3 Skin: no rash, normal turgor Dx/Plan (1) Bacteremia due to Staphylococcus aureus Code(s): R78.81 - BACTEREMIA Status: Acute (2) Hyperkalemia Code(s): E87.5 - HYPERKALEMIA Status: Acute Comment: Secondary to ESRD (3) Infection of AV graft for dialysis Code(s): T82.7XXA - INFECT/INFLM REACT D/T OTH CARDI/VASC DEV/IMPLNT/GRFT, INIT Status: Acute (4) Metabolic acidosis Code(s): E87.2 - ACIDOSIS Status: Acute (5) Sepsis due to Staphylococcus aureus Code(s): A41.01 - SEPSIS DUE TO METHICILLIN SUSCEPTIBLE STAPHYLOCOCCUS AUREUS Status: Acute Comment: (6) Anemia of renal disease Code(s): D63.1 - ANEMIA IN CHRONIC KIDNEY DISEASE Status: Chronic (7) Chronic hepatitis C Code(s): B18.2 - CHRONIC VIRAL HEPATITIS C Status: Chronic Qualifiers: Hepatic coma status: without hepatic coma Qualified Code(s): B18.2 - Chronic viral hepatitis C (8) Chronic systolic heart failure Code(s): I50.22 - CHRONIC SYSTOLIC (CONGESTIVE) HEART FAILURE Status: Chronic (9) ESRD (end stage renal disease) on dialysis Code(s): N18.6 - END STAGE RENAL DISEASE; Z99.2 - DEPENDENCE ON RENAL DIALYSIS Status: Chronic (10) History of drug abuse Code(s): Z87.898 - PERSONAL HISTORY OF OTHER SPECIFIED CONDITIONS Status: Chronic (11) Hypertension Code(s): I10 - ESSENTIAL (PRIMARY) HYPERTENSION Status: Chronic Qualifiers: Comment: (12) Nonischemic cardiomyopathy Code(s): I42.9 - CARDIOMYOPATHY, UNSPECIFIED Status: Chronic (13) Obesity (BMI 30.0-34.9) Code(s): E66.9 - OBESITY, UNSPECIFIED Status: Chronic (14) Secondary hyperparathyroidism of renal origin Code(s): N25.81 - SECONDARY HYPERPARATHYROIDISM OF RENAL ORIGIN Status: Chronic - Plan cont current plan of care, continue antibiotics * pt is not on ACEI and ARB due to hyperkalemia and ESRD and contraindicated * continue vancomycin and rocephin * hopefully today pt will get alternative HD access and will need removal of AV graft * medication reviewed as below * symptomatic treatment. Review of Systems - Review of Systems Constitutional: negative: fever, chills, sweats, weakness, malaise, other Eyes: negative: Pain, Vision Change, Conjunctivae Inflammation, Eyelid Inflammation, Redness, Other ENT: negative: Ear Pain, Ear Discharge, Nose Pain, Nose Discharge, Nose Congestion, Mouth Pain, Mouth Swelling, Throat Pain, Throat Swelling, Other Respiratory: negative: Cough, Dry, Shortness of Breath, Hemoptysis, SOB with Excertion, Pleuritic Pain, Sputum, Wheezing Cardiovascular: negative: chest pain, palpitations, orthopnea, paroxysmal nocturnal dyspnea, edema, light headedness, other Gastrointestinal: negative: Nausea, Vomiting, Abdominal Pain, Diarrhea, Constipation, Melena, Hematochezia, Other Genitourinary: negative: Dysuria, Frequency, Incontinence, Hematuria, Retention , Other Musculoskeletal: Arm Pain. negative: Neck Pain, Shoulder Pain, Back Pain, Hand Pain, Leg Pain, Foot Pain, Other - Medications/Allergies Allergies/Adverse Reactions: Allergies Allergy/AdvReac Type Severity Reaction Status Date / Time No Known Allergies Allergy Verified 11/30/17 20:42 Medications: Current Medications Acetaminophen (Tylenol) 650 mg PO Q4H PRN PRN Reason: Headache/Fever or Pain Last Admin: 12/10/17 10:54 Dose: 650 mg Hydrocodone Bitart/Acetaminophen ([place] 5/325) 1 tab PO Q4H PRN PRN Reason: Moderate Pain (4-6) Last Admin: 12/11/17 10:57 Dose: 1 tab Al Hydroxide/Mg Hydroxide (Maalox) 30 ml PO Q6H PRN PRN Reason: Heartburn or Indigestion Artificial Tears (Tears Naturale) 0 drop EA EYE PRN PRN PRN Reason: Dry Eyes Clonidine (Catapres) 0.1 mg PO Q4H PRN PRN Reason: Systolic BP > 180 Famotidine (Pepcid) 20 mg PO DAILY [facility] Last Admin: 12/12/17 07:36 Dose: Not Given Ferrous Sulfate (Feosol) 325 mg PO BID-[facility] Last Admin: 12/12/17 07:36 Dose: Not Given Furosemide (Lasix) 80 mg SLOW IVP 0600,1400 [facility] Last Admin: 12/12/17 05:41 Dose: 80 mg Guaifenesin (Robitussin Sf) 200 mg PO Q4H PRN PRN Reason: Cough Heparin Sodium (Porcine) (Heparin) 5,000 units SC BID [facility] Last Admin: 12/12/17 07:36 Dose: Not Given Ceftriaxone Sodium 1 gm/ (Syringe 0.4 ml/ Sterile Water) 10 mls @ 120 mls/hr SLOW IVP Q24HR [facility] Last Admin: 12/11/17 09:44 Dose: 10 mls Labetalol HCl (Normodyne) 10 mg SLOW IVP Q4H PRN PRN Reason: Systolic BP > 180 Loperamide HCl (Imodium) 2 mg PO PRN PRN PRN Reason: Diarrhea/Loose Stools Loratadine (Claritin) 10 mg PO DAILYPRN PRN PRN Reason: Sinus Symptoms Magnesium Hydroxide (Milk Of Magnesium) 30 ml PO DAILYPRN PRN PRN Reason: Constipation Mineral Oil/White Petrolatum (Eucerin Cream) 0 gm TOP BIDPRN PRN PRN Reason: Dry Skin Miscellaneous Medication (Pharmacy To Dose) 1 each IVPB ASDIR [facility] Morphine Sulfate (Morphine) 4 mg IV Q3H PRN PRN Reason: Pain Last Admin: 12/12/17 04:48 Dose: 4 mg Ondansetron HCl (Zofran Odt) 4 mg PO Q6H PRN PRN Reason: Nausea/Vomiting Ondansetron HCl (Zofran) 4 mg IVP Q6H PRN PRN Reason: Nausea/Vomiting Phenol (Chloraseptic [place] 180 Ml Bot) 0 ml PO PRN PRN PRN Reason: Sore Throat Saccharomyces Boulardii (Florastor) 250 mg PO DAILY [facility] Last Admin: 12/12/17 07:36 Dose: Not Given Senna (Senokot) 2 tab PO HSPRN PRN PRN Reason: Constipation Sevelamer Carbonate (Renvela) 1,600 mg PO TID-WM [facility] Last Admin: 12/12/17 07:36 Dose: Not Given Sodium Chloride ([place] Nasal [place] 0.65%) 0 ml EA NARE QIDPRN PRN PRN Reason: Nasal Congestion Sodium Chloride (Flush - Normal Saline) 10 ml IVF Q12HR [facility] Last Admin: 12/12/17 07:37 Dose: 10 ml Sodium Chloride (Flush - Normal Saline) 10 ml IVF PRN PRN PRN Reason: Saline Flush Last Admin: 12/10/17 10:55 Dose: 10 ml Vitamin B Complex/Vit C/Folic Acid (Nephro-[place] Tablet) 1 tab PO DAILY [facility] Last Admin: 12/12/17 07:36 Dose: Not Given Zolpidem Tartrate (Ambien) 5 mg PO HSPRN PRN PRN Reason: Insomnia
[2017-12-12] MEDS: cefTRIAXone\\ROCEPHIN 1 GM, Syringe 0.4 ML in Sterile Water 9.6 ML SLOW IVP SCH (09:26)
--- NOTE | 2017-12-12 10:18 | PRG ---
DATE OF SERVICE: 12/12/2017 The patient was seen and examined, obviously fluid overloaded. PHYSICAL EXAMINATION: VITAL SIGNS: Afebrile with temperature 99.6, pulse 84, respiratory 16, O2 sat 100% on room air, bloo d pressure 150/84. HEENT: Unremarkable. CARDIOVASCULAR: First and second heart sounds were heard. RESPIRATORY: Clear to auscultation. DIGESTIVE: Revealed a benign abdomen. EXTREMITIES: Show peripheral edema. NEUROLOGIC: Alert, oriented. No lateralizing signs. LYMPHATICS: No peripheral lymphadenopathy. SKIN: Showed obviously infected erythematous right upper arm graft. LABORATORY INVESTIGATION: Showed a white count of 4600, hemoglobin 7, platelet 108,000. Chemistry s howed a sodium of 131, potassium 5.5, BUN of 76, creatinine 15.62. IMPRESSION: 1. Infected graft. 2. Sepsis in the context of problem #1. 3. End-stage renal disease. 4. Anemia, multifactorial. 5. Hyperphosphatemia with hyperparathyroidism. 6. Hypervolemia. PLAN: 1. The patient hopefully to undergo surgical treatment today including but not limited to the graft exploration plus or minus removal with placement of a tunneled dialysis catheter for continued hemodi alysis. 2. Patient to be started on dialysis today once access is established and will be on daily dialysis for the next couple of days to catch up. 3. Further management to be dependent on the clinical course, we will continue with current antimicr obials.
[2017-12-12] MEDS ORDERED: PROPOFOL 40 ML ONE (13:57)
[2017-12-12] MEDS ORDERED: Fentanyl 100 MCG/2 ML VIAL ONE ×4 (14:21→16:57)
[2017-12-12] MEDS ORDERED: Heparin 10,000 UNITS/1 ML VIAL ONE (14:41)
[2017-12-12] MEDS ORDERED: Sodium Chloride 0.9% 10 ML ONE (14:41)
[2017-12-12] MEDS ORDERED: Propofol 500 MG/50 ML VIAL ONE ×2 (14:41→15:51)
[2017-12-12] MEDS ORDERED: Bupivacaine HCl 0.5%/Epinephrine 1:200,000/PF 30 ml Vial ONE (14:41)
[2017-12-12] MEDS ORDERED: Lidocaine 2% 10 ML INJ ONE (14:41)
[2017-12-12] MEDS ORDERED: Sodium Chloride 0.9% 20 ML ONE ×2 (14:52→16:02)
[2017-12-12] MEDS ORDERED: Ondansetron HCl/PF 4 MG/2 ML Vial IVP PRN (15:47)
[2017-12-12] MEDS ORDERED: Promethazine HCl 25 MG/ML VIAL IM PRN (15:47)
[2017-12-12] MEDS ORDERED: Promethazine HCl 25 MG/ML VIAL SLOW IVP PRN (15:47)
--- NOTE | 2017-12-12 17:11 | RAD ---
PORTABLE CHEST ONE VIEW: 12/12/17 at 4:46 p.m. HISTORY: Central line placement. FINDINGS/IMPRESSION: There has been interval removal of the left internal jugular venous central lone and placement of a d ouble lumen venous catheter with tips in projection of the right atrium. No pneumothoraces are seen. The heart size is stable. A focal density is seen in the right lateral mid lung which is new since . A followup exam should be performed. POS: TRAN
[2017-12-12] MEDS ORDERED: Lidocaine 1% w/Epinephrine 1:200K 30 ML VIAL ONE (17:14)
--- NOTE | 2017-12-12 21:48 | PRG ---
DATE OF SERVICE: 12/12/2017 SUBJECTIVE: Ms. Stevens was taken to the OR to remove the graft. OBJECTIVE: VITAL SIGNS: T-max 99.6, blood pressure 140/85. LABORATORY DATA: White cell count 4.6, hemoglobin 7, platelets 108,000 with Staph aureus growing fro m the cultures from 11/30/2017. ASSESSMENT AND DISCUSSION: Intravenous drug use, mostly cocaine; end-stage renal disease with possib le focal sclerosing glomerulonephritis; prior placement of arteriovenous graft for dialysis; inflamma tory changes, arteriovenous graft site with bacteremia secondary to Staphylococcus aureus, which is m ethicillin susceptible. No other sites of involvement are apparent at this time. The patient is goi ng for removal of the graft, after that she will need a long-term administration of antimicrobial the rapy either cefazolin after dialysis or vancomycin sliding scale.
--- NOTE | 2017-12-12 23:26 | HP ---
HISTORY OF PRESENT ILLNESS: Alecia Stevens is a 32-year-old female with history of IV drug abuse that she has told me she has not used intravenous drugs for more than a year and a half although she was hospitalized already this year and had a cocaine positive level. She has told others that she had a relapse, but told me she does not know why that was positive. She has 2 positive blood cultures, Sta ph aureus, 2 blood cultures since that time are negative. She had, in 2014, a right upper extremity dialysis graft placement after excision of her proximal volar forearm noting veins to be inadequate. She was admitted this hospitalization with infected right upper arm dialysis graft; in my absence, Jose López saw her. She had refused temporary dialysis line placement. In 2014, Dr. Desai attempted femoral vein dialysis catheters and could not obtain one and placed a left subclavian vein temporary dialysis catheter. I subsequently placed her an IJ hemodialysis catheter and then placed a right ar m graft in 2014. She dialyzes on Saturday, Saturday, and Saturday, but has not dialyzed in almost a wee k because of the problems with the right arm. Previous ultrasound vein mapping in 2014 demonstrated left arm to have poor veins for fistula. She has had multiple IV access attempts in her left arm wit h bruising. She has a right IJ external jugular IV in place. She has been receiving intravenous ant ibiotics. ALLERGIES: None. SOCIAL HISTORY: Tobacco 3 cigarettes to half-a-pack a day. Alcohol, none. MEDICATIONS: Outpatient - lisinopril, Coreg, amlodipine. In the hospital, she is on sliding scale a nd vancomycin. PAST SURGICAL HISTORY: Right arm dialysis graft tapered 2014, history of left subclavian vein dialys is catheter placement, and incision and drainage of multiple abscesses. PAST MEDICAL HISTORY: Hepatitis C; history of IV drug abuse; history of pyelonephritis; pneumonia; d iastolic heart failure; secondary hyperparathyroidism; history of noncompliance; end-stage renal dise ase, on dialysis; bacteremia, Staphylococcus aureus recently; history of IV drug abuse. PHYSICAL EXAMINATION: VITAL SIGNS: 5 feet 5 inches, 182 pounds, 30 BMI. HEAD, EYES, EARS, NOSE, AND THROAT: Unremarkable. LUNGS: Clear to auscultation. CARDIAC: Regular rate and rhythm without murmur or gallop. ABDOMEN: Soft, nontender. EXTREMITIES: Unremarkable. Right upper arm dialysis graft with cellulitis and extremely painful upp er extremities. She has edema, upper arm to her hand. She has a fluctuant area that is slightly pul satile either transmitted by the graft or a pseudoaneurysm. LABORATORY DATA: She had 6.9 hemoglobin, yesterday was given 1 unit of blood as her hemoglobin is 7 today, white count of 4.6, potassium of 5.5, sodium of 131, and phosphorus 10.5. ASSESSMENT AND PLAN: 1. End-stage renal disease with right upper arm infected dialysis graft and she has not dialyzed in several days. Her potassium is slightly high. She is anemic. At this point, would plan placement o f hemodialysis catheter and a central line today. She has a history of poor intravenous access, diff icult intravenous access due to previous intravenous heroin use. Would plan to place hemodialysis ca theter and a central line today and plan removal of her infected right arm dialysis graft tomorrow. In the future, she will need left upper extremity fistula or graft, most likely prosthetic graft and probably plan that next week. 2. Hepatitis C. 3. Intravenous drug abuse history. 4. History of noncompliance. 5. Difficult intravenous access.
--- NOTE | 2017-12-13 00:09 | OP ---
PREOPERATIVE DIAGNOSES: 1. Poor IV access. 2. History of IV drug abuse. 3. Right upper extremity infected dialysis graft. 4. Poor left arm veins for primary fistula. 5. History of left subclavian vein dialysis catheter due to inability to access the femoral veins in need of a temporary dialysis access, has not been dialyzed in several days. POSTOPERATIVE DIAGNOSES: 1. Poor IV access. 2. History of IV drug abuse. 3. Right upper extremity infected dialysis graft. 4. Poor left arm veins for primary fistula. 5. History of left subclavian vein dialysis catheter due to inability to access the femoral veins in need of a temporary dialysis access, has not been dialyzed in several days. PROCEDURE: Ultrasound fluoroscopy use in attempts to establish dialysis access. Left IJ cuffed tunn el hemodialysis catheter, right subclavian vein length use, ultrasound fluoroscopy used for procedure . Successful cannulation right internal jugular vein, but there is outflow obstruction and it would not thread. Inability to cannulate the right subclavian vein. Successful cannulation of left femora l vein, but the J wire would not thread, but in the short length a central line would not thread. Di fficult cannulation of the right femoral vein more proximal than usual and more posterior to the femo ral artery with placement of a triple lumen catheter. SURGEON: Dr. Martin Baumann ANESTHESIA: Intravenous sedation, local 0.5% Marcaine with epinephrine 30 mL with 2% Xylocaine, 10 m L. In the recovery room, I placed a purstering suture around the right femoral vein, triple lumen cathet er as continued to have bleeding problems. PROCEDURE IN DETAIL: Patient taken to the operating room under intravenous sedation, her left upper neck and chest prepared with ChloraPrep, draped in routine fashion. Ultrasound guidance used to marie ulate the left internal jugular vein. J-wire threaded. Trocar catheter removed. Skin incised and e nlarged sharply and allowing skin and subcutaneous tissue about the operative site. A stab incision made over the left chest, infraclavicular and using the tunneling device, the precurved angiodynamics cuffed tunnel hemodialysis catheter tunneled between the incisions, placing the fabric cuff beneath the skin exit site and catheter secured with 2 interrupted sutures of 3-0 nylon. Dermabond Biopatch sterile dressings applied. Smaller medium sized dilators placed over the J-wire into the internal jugular vein removed. Dilator and pull-away sheath placed under fluoroscopic visualization into the superior vena cava and dilator and J-wire removed. Catheter placed with pull-away sheath and pull-away sheath removed. Fluoroscop ically, catheter noted to be in good position. The platysma was approximated with 4-0 Monocryl and s kin with subdermal 4-0 Monocryl and DermaGlue applied. Each port aspirated of blood and flushed with injectable saline and heparinized saline solution 1000 units heparin per mL indicated volume the por t. I then attempted ultrasound guided access of right internal jugular vein, which successfully performe d, but the J wire would not thread and the site was abandoned. I then attempted placement of right s ubclavian vein catheter after reprepping the area with ChloraPrep. Local anesthetic used and I could not cannulate the right subclavian vein. A voided the left subclavian vein as I am planning to plac e a left upper extremity dialysis access in the future. I then prepared the left groin with ChloraPrep and local anesthetic infiltrated. Skin and subcutaneo us tissue and trocar catheter cannulated the femoral vein. J-wire threaded, but it would not thread more than about 6-7 cm. I then placed a J-wire over the wire through a stab incision adjacent to the J-wire into the femoral vein and central line would not thread. It felt initially that it would thr ead enough to use, but it was not adequately and in the end I had to remove it. With the right groin was then prepared with ChloraPrep, draped in routine fashion. Local anesthetic infiltrated into skin and subcutaneous tissue. Trocar catheter with much persistence cannulated the femoral vein more proximal in usual and proximal to the femoral artery. I was then able to thread a J-wire without resistance and skin incision enlarged sharply and distal port of triple lumen catheter placed over the J-wire. In the femoral vein catheter secured with 2 interrupted sutures of 3-0 silk and Biopatch applied. Patient tolerated the procedure well. In the recovery room, then remove the dressing due to persistent bleeding and the catheter and place a pursestring suture of 3-0 Prolene. The patient tolerated the procedure well.
[2017-12-13] MEDS: Furosemide 100 MG/10 ML VIAL SLOW IVP SCH ×2 (05:26→14:58)
[2017-12-13] MEDS: Morphine 4 MG/ML VIAL IV PRN (05:44)
[2017-12-13 06:04] LABS: #Lymphocytes 0.7 thou/uL (1.20-3.40); #Monocytes 0.2 thou/uL (0.11-0.59); #Neutrophils 2.7 thou/uL (1.40-6.50); %Basophils 0.4 % (0.0-1.0); %Eosinophils 0.6 % (0.0-10.0); %Lymphocytes 19.5 % (21.0-51.0); %Monocytes 5.3 % (0.0-10.0); %Neutrophils 74.2 % (42.0-75.0); Hemoglobin 7.7 g/dL (12.0-16.0); Mean Corpuscular HGB CONC 32.9 g/dL (32.0-36.0); Mean Corpuscular Hemoglobin 27.5 pg (27.0-31.0); Mean Corpuscular Volume 83.5 fl (81.0-99.0); Mean Platelet Volume 8.5 fL (7.4-10.4); Platelet Count 95 thou/uL (130-400); RBC Distribution Width 15.6 % (11.5-14.5); Red Blood Cell (RBC) Count 2.81 mill/uL (4.20-5.40); White Blood Cell (WBC) Count 3.6 thou/uL (4.8-10.8)
[2017-12-13 06:35] LABS: Anion Gap 12 mmol/L (10-20); BUN (Urea Nitrogen) 35 mg/dL (7.0-18.7); Calc. Creatinine Clearance 13 mL/min (70-130); Calcium 7.6 mg/dL (7.8-10.44); Carbon Dioxide 28 mmol/L (22-29); Chloride 98 mmol/L (98-107); Estimated GFR-MDRD 6; Glucose 103 mg/dL (70-105); Potassium 4.5 mmol/L (3.5-5.1); Sodium 133 mmol/L (136-145)
--- NOTE | 2017-12-13 07:05 | EKG ---
Test Reason : Blood Pressure : / mmHG Vent. Rate : 082 BPM Atrial Rate : 082 BPM P-R Int : 186 ms QRS Dur : 092 ms QT Int : 398 ms P-R-T Axes : 035 034 075 degrees QTc Int : 464 ms Normal sinus rhythm Prolonged QT Abnormal ECG When compared with ECG of 30-NOV-2017 07:40, Nonspecific T wave abnormality has replaced inverted T waves in Lateral leads , T wave changes have i mproved. Confirmed by JAMMIE WHITE ([id number]) on 12/13/2017 7:05:05 AM Referred By: Confirmed By:JAMMIE WHITE
[2017-12-13] MEDS ORDERED: Heparin 10,000 UNITS/ 10 ML VIAL ONE (08:00)
--- NOTE | 2017-12-13 11:02 | PDOC.PN ---
- Subjective Encounter Start Date: 12/13/17 Encounter Start Time: 08:10 Patient seen and examined. No new complaints. No overnight events - Objective Resuscitation Status: Resuscitation Status FULL:Full Resuscitation MAR Reviewed: Yes Vital Signs & Weight: Vital Signs (12 hours) Temp Pulse Resp BP Pulse Ox 12/13/17 07:24 99.2 F 77 16 156/89 H 99 12/13/17 05:00 98.8 F 79 17 129/79 95 12/13/17 00:32 97.9 F 65 18 95 12/13/17 00:05 97.9 F 65 18 135/83 95 Weight Admit Weight 182 lb Weight 182 lb I&O: 12/12/17 12/13/17 12/14/17 06:59 06:59 06:59 Intake Total 930 510 Balance 930 510 Result Diagrams: 12/13/17 05:20 12/13/17 05:20 Radiology Reviewed by me: Yes (echo- normal EF) Phys Exam - Physical Examination Constitutional: NAD HEENT: PERRLA, moist MMs, sclera anicteric Neck: no JVD, supple Respiratory: no wheezing, no rales, no rhonchi Cardiovascular: RRR, no significant murmur, no rub Gastrointestinal: soft, non-tender, no distention, positive bowel sounds Musculoskeletal: no edema, pulses present right arm with swelling Neurological: non-focal, normal sensation Psychiatric: normal affect, A&O x 3 Skin: no rash, normal turgor Dx/Plan (1) Bacteremia due to Staphylococcus aureus Code(s): R78.81 - BACTEREMIA Status: Acute (2) Hyperkalemia Code(s): E87.5 - HYPERKALEMIA Status: Resolved Comment: Secondary to ESRD (3) Infection of AV graft for dialysis Code(s): T82.7XXA - INFECT/INFLM REACT D/T OTH CARDI/VASC DEV/IMPLNT/GRFT, INIT Status: Acute (4) Metabolic acidosis Code(s): E87.2 - ACIDOSIS Status: Resolved (5) Sepsis due to Staphylococcus aureus Code(s): A41.01 - SEPSIS DUE TO METHICILLIN SUSCEPTIBLE STAPHYLOCOCCUS AUREUS Status: Acute Comment: (6) Anemia of renal disease Code(s): D63.1 - ANEMIA IN CHRONIC KIDNEY DISEASE Status: Chronic (7) Chronic hepatitis C Code(s): B18.2 - CHRONIC VIRAL HEPATITIS C Status: Chronic Qualifiers: Hepatic coma status: without hepatic coma Qualified Code(s): B18.2 - Chronic viral hepatitis C (8) Chronic systolic heart failure Code(s): I50.22 - CHRONIC SYSTOLIC (CONGESTIVE) HEART FAILURE Status: Chronic (9) ESRD (end stage renal disease) on dialysis Code(s): N18.6 - END STAGE RENAL DISEASE; Z99.2 - DEPENDENCE ON RENAL DIALYSIS Status: Chronic (10) History of drug abuse Code(s): Z87.898 - PERSONAL HISTORY OF OTHER SPECIFIED CONDITIONS Status: Chronic (11) Hypertension Code(s): I10 - ESSENTIAL (PRIMARY) HYPERTENSION Status: Chronic Qualifiers: Comment: (12) Nonischemic cardiomyopathy Code(s): I42.9 - CARDIOMYOPATHY, UNSPECIFIED Status: Chronic (13) Obesity (BMI 30.0-34.9) Code(s): E66.9 - OBESITY, UNSPECIFIED Status: Chronic (14) Secondary hyperparathyroidism of renal origin Code(s): N25.81 - SECONDARY HYPERPARATHYROIDISM OF RENAL ORIGIN Status: Chronic - Plan cont current plan of care, continue antibiotics * medication reviewed as below * symptomatic treatment * continue vancomycin and rocephin * HD as per nephrology * tunneled HD catheter placed and today surgery for removal of AV graft. Review of Systems - Review of Systems Constitutional: negative: fever, chills, sweats, weakness, malaise, other ENT: negative: Ear Pain, Ear Discharge, Nose Pain, Nose Discharge, Nose Congestion, Mouth Pain, Mouth Swelling, Throat Pain, Throat Swelling, Other Respiratory: negative: Cough, Dry, Shortness of Breath, Hemoptysis, SOB with Excertion, Pleuritic Pain, Sputum, Wheezing Cardiovascular: negative: chest pain, palpitations, orthopnea, paroxysmal nocturnal dyspnea, edema, light headedness, other Gastrointestinal: negative: Nausea, Vomiting, Abdominal Pain, Diarrhea, Constipation, Melena, Hematochezia, Other Genitourinary: negative: Dysuria, Frequency, Incontinence, Hematuria, Retention , Other Musculoskeletal: Arm Pain. negative: Neck Pain, Shoulder Pain, Back Pain, Hand Pain, Leg Pain, Foot Pain, Other Skin: negative: Rash, Lesions, Nathaniel, Bruising, Other Neurological: negative: Weakness, Numbness, Incoordination, Change in Speech, Confusion, Seizures, Other - Medications/Allergies Allergies/Adverse Reactions: Allergies Allergy/AdvReac Type Severity Reaction Status Date / Time No Known Allergies Allergy Verified 11/30/17 20:42 Medications: Current Medications Acetaminophen (Tylenol) 650 mg PO Q4H PRN PRN Reason: Headache/Fever or Pain Last Admin: 12/10/17 10:54 Dose: 650 mg Hydrocodone Bitart/Acetaminophen (Boring 5/325) 1 tab PO Q4H PRN PRN Reason: Moderate Pain (4-6) Last Admin: 12/11/17 10:57 Dose: 1 tab Al Hydroxide/Mg Hydroxide (Maalox) 30 ml PO Q6H PRN PRN Reason: Heartburn or Indigestion Artificial Tears (Tears Naturale) 0 drop EA EYE PRN PRN PRN Reason: Dry Eyes Clonidine (Catapres) 0.1 mg PO Q4H PRN PRN Reason: Systolic BP > 180 Famotidine (Pepcid) 20 mg PO DAILY [facility] Last Admin: 12/12/17 07:36 Dose: Not Given Ferrous Sulfate (Feosol) 325 mg PO BID-[facility] Last Admin: 12/12/17 16:28 Dose: Not Given Furosemide (Lasix) 80 mg SLOW IVP 0600,1400 [facility] Last Admin: 12/13/17 05:26 Dose: 80 mg Guaifenesin (Robitussin Sf) 200 mg PO Q4H PRN PRN Reason: Cough Heparin Sodium (Porcine) (Heparin) 5,000 units SC BID [facility] Last Admin: 12/12/17 20:55 Dose: Not Given Ceftriaxone Sodium 1 gm/ (Syringe 0.4 ml/ Sterile Water) 10 mls @ 120 mls/hr SLOW IVP Q24HR [facility] Last Admin: 12/12/17 09:26 Dose: 10 mls Labetalol HCl (Normodyne) 10 mg SLOW IVP Q4H PRN PRN Reason: Systolic BP > 180 Loperamide HCl (Imodium) 2 mg PO PRN PRN PRN Reason: Diarrhea/Loose Stools Loratadine (Claritin) 10 mg PO DAILYPRN PRN PRN Reason: Sinus Symptoms Magnesium Hydroxide (Milk Of Magnesium) 30 ml PO DAILYPRN PRN PRN Reason: Constipation Mineral Oil/White Petrolatum (Eucerin Cream) 0 gm TOP BIDPRN PRN PRN Reason: Dry Skin Miscellaneous Medication (Pharmacy To Dose) 1 each IVPB ASDIR [facility] Morphine Sulfate (Morphine) 4 mg IV Q3H PRN PRN Reason: Pain Last Admin: 12/13/17 05:44 Dose: 4 mg Ondansetron HCl (Zofran Odt) 4 mg PO Q6H PRN PRN Reason: Nausea/Vomiting Ondansetron HCl (Zofran) 4 mg IVP Q6H PRN PRN Reason: Nausea/Vomiting Phenol (Chloraseptic [place] 180 Ml Bot) 0 ml PO PRN PRN PRN Reason: Sore Throat Saccharomyces Boulardii (Florastor) 250 mg PO DAILY [facility] Last Admin: 12/12/17 07:36 Dose: Not Given Senna (Senokot) 2 tab PO HSPRN PRN PRN Reason: Constipation Sevelamer Carbonate (Renvela) 1,600 mg PO TID-WM [facility] Last Admin: 12/12/17 16:28 Dose: Not Given Sodium Chloride (Cambria Nasal [place] 0.65%) 0 ml EA NARE QIDPRN PRN PRN Reason: Nasal Congestion Sodium Chloride (Flush - Normal Saline) 10 ml IVF Q12HR [facility] Last Admin: 12/12/17 20:54 Dose: Not Given Sodium Chloride (Flush - Normal Saline) 10 ml IVF PRN PRN PRN Reason: Saline Flush Last Admin: 12/10/17 10:55 Dose: 10 ml Vitamin B Complex/Vit C/Folic Acid (Nephro-Bethel Tablet) 1 tab PO DAILY [facility] Last Admin: 12/12/17 07:36 Dose: Not Given Zolpidem Tartrate (Ambien) 5 mg PO HSPRN PRN PRN Reason: Insomnia
[2017-12-13] MEDS ORDERED: Heparin 1,000 UNITS/ML VIAL ONE (11:11)
[2017-12-13 12:17] LABS: Hep C PCR-Quant 347000 IU/mL (.)
[2017-12-13] MEDS: cefTRIAXone\\ROCEPHIN 1 GM, Syringe 0.4 ML in Sterile Water 9.6 ML SLOW IVP SCH (14:54)
[2017-12-13] MEDS: Folic Acid/Vit B Comp W-C PO SCH (14:56)
[2017-12-13] MEDS: Famotidine 20 MG TAB PO SCH (14:56)
[2017-12-13] MEDS: Sevelamer Carbonate 800 MG TAB PO SCH ×2 (14:56→18:40)
[2017-12-13] MEDS: Ferrous Sulfate 325 MG TAB PO SCH ×2 (14:56→18:13)
[2017-12-13] MEDS: Saccharomyces boulardii 250 MG CAP PO SCH (14:57)
[2017-12-13] MEDS: Heparin 5,000 UNITS/ML VIAL SC SCH (14:57)
[2017-12-13] MEDS ORDERED: Ondansetron HCl/PF 4 MG/2 ML Vial ONE (15:18)
[2017-12-13] MEDS ORDERED: Lidocaine 1% PF 5 ML VIAL ONE (15:18)
[2017-12-13] MEDS ORDERED: PROPOFOL 200 MG/20 ML VIAL ONE (15:18)
--- NOTE | 2017-12-13 17:24 | PRG ---
DATE OF SERVICE: 12/13/2017 SUBJECTIVE: Ms. Stevens has had a tunneled hemodialysis catheter placed in the left IJ position. The right arm inflammatory process with the graft site will be operated on, I believe, today by Dr. Khushbu loya. She denies headaches. No respiratory symptoms, no chest pain, no abdominal pain, no diarrhea an d genitourinary symptoms. OBJECTIVE: VITAL SIGNS: T-max 99.2, blood pressure 117/71, pulse 78. GENERAL: Appears in no distress. HEENT: Ocular movements conjugate. Right arm with marked swelling inflammatory changes. Some areas of bruising in the left-sided tunneled hemodialysis catheter. LUNGS: Clear. HEART: S1, S2, regular rate. ABDOMEN: Soft, not distended. EXTREMITIES: Moves extremities equally with limitations imposed by the right upper extremity inflamm atory process. NEUROLOGIC: Cognitive function appears to be intact. LABORATORY DATA: White cell count 3.6, hemoglobin 7.7, platelets 95,000. Sodium 133, creatinine 8.1 9. Hepatitis C was positive with a RNA PCR 347,000. 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 The patient has had a dialysis catheter placed in an alternate site and going for removal of the graft today. The organism is a methicillin-sensitive Staphylococcus aureus . The patient to continue after completion of surgery for at least 4 weeks with IV vancomycin slidin g scale or could use cefazolin given after dialysis 3 grams after each dialytic treatment. End date of therapy will be 28 days after the removal of the current graft, so it would be until 01/20/2017. Weekly labs, CBC, chemistry panel and follow up blood cultures.
[2017-12-13] MEDS ORDERED: Bupivacaine/Epinephrine 0.25% 30 ML VIAL ONE (17:44)
[2017-12-13] MEDS ORDERED: Lidocaine 2% 10 ML INJ ONE (17:44)
[2017-12-13] MEDS ORDERED: Fentanyl 100 MCG/2 ML VIAL ONE ×5 (17:45→20:28)
[2017-12-13] MEDS ORDERED: Heparin 5,000 UNITS/ML VIAL ONE (17:47)
[2017-12-13] MEDS ORDERED: Promethazine HCl 25 MG/ML VIAL IM PRN (17:48)
[2017-12-13] MEDS ORDERED: Promethazine HCl 25 MG/ML VIAL SLOW IVP PRN (17:48)
[2017-12-13] MEDS ORDERED: Ondansetron HCl/PF 4 MG/2 ML Vial IVP PRN (17:48)
[2017-12-13] MEDS ORDERED: Midazolam HCl 2 mg/2 ml Vial ONE (18:04)
[2017-12-13] MEDS ORDERED: HYDROmorphone 0.5 MG/0.5 ML SYRINGE ONE (18:04)
--- NOTE | 2017-12-13 20:37 | PRG ---
DATE OF SERVICE: 12/13/2017 SUBJECTIVE: Patient is seen and examined at dialysis. PHYSICAL EXAMINATION: VITAL SIGNS: Afebrile with temperature 98.5, pulse 78, respiratory rate of 18, O2 sat 96% with blood pressure 117/71. HEENT: Unremarkable with moist oral mucosa. NECK: Supple, no conjunctival injection or icterus. CARDIOVASCULAR: First and second heart sounds were heard. RESPIRATORY: Clear to auscultation. DIGESTIVE: Revealed a benign abdomen with positive bowel sounds. EXTREMITIES: No peripheral edema. SKIN: No new gross rash. LYMPHATICS: No peripheral lymphadenopathy. IMPRESSION: 1. End-stage renal disease, hemodialysis dependent. 2. Infected graft. 3. Sepsis in that context. PLAN: 1. The patient will be dialyzed on daily basis up until tomorrow after which patient will go back to Saturday, Saturday, Saturday schedule. 2. Patient is likely to be taken back to the OR to explore the graft with really possibility of tia maciel of the graft. 3. Further management to be dependent on the clinical course.
--- NOTE | 2017-12-13 23:46 | OP ---
DATE OF SERVICE: 12/13/2017 PREOPERATIVE DIAGNOSIS: Infected dialysis graft, right mid upper arm, PTFE-tapered graft between the brachial artery above antecubital fossa to the axillary vein. POSTOPERATIVE DIAGNOSIS: Infected dialysis graft, right mid upper arm, PTFE-tapered graft between th e brachial artery above antecubital fossa to the axillary vein. PROCEDURE: Removal of dialysis graft from right upper arm. Right axillary wound closed. A graft re moved from the right axillary vein, lateral axillary venorrhaphy. Wound over the brachial artery abo ve the antecubital fossa closed with the stump of the PTFE graft left attached to the brachial artery . Open wound mid arm with graft removed in between healing by secondary intention. Wound VAC applie d. SURGEON: Dr. Martin Baumann. ANESTHESIA: General. Local 0.5% Marcaine with epinephrine 30 mL mixed with 2% Xylocaine, 10 mL, tot al volume mixture used. PROCEDURE IN DETAIL: Patient taken to the operating room where under general anesthesia right upper extremity was prepped with ChloraPrep, draped in routine fashion. Incision was made in the right axi lla and carried down through the skin and subcutaneous tissue and the graft identified and dissected down to the axillary vein with a vascular clamp applied tangentially and the graft removed from the v ein and lateral venorrhaphy performed with continuous suture of 6-0 Prolene, and the clamp removed an d good hemostasis noted. The graft was then dissected free distally through the tunnel and then a cl amp applied and it was excised. This clamp was left attached as the counter incision was made just d istal to this and the graft dissected free proximally and brought the tunnel and clamped and then the axillary wound was closed by approximating subcutaneous tissues with 3-0 Monocryl, skin with subderm al 4-0 Monocryl, and DermaGlue applied, and 3-0 Monocryl closed the tunnel. Then, a counter incision of the graft was dissected free distally as far as safely possible. I then made an incision through the old scar, but antecubital fossa near the graft, brachial artery anastomosis. Incision carried t hrough skin and subcutaneus tissue, graft identified, dissected free down towards the brachial artery , clamp applied to the graft just adjacent to the brachial artery and graft transected, and then nate t closed with continuous to and fro suture of 4-0 Prolene. Clamp removed. Graft dissected free prox imally through the tunnel and transected and tunnel closed with 3-0 Monocryl. Subcutaneous tissues a pproximated with 3-0 Monocryl, skin closed with continuous suture of 4-0 Monocryl. As the arterial s upply had been disrupted, the graft in the more proximal counter incision was dissected free distally , transected, and wound closed by approximately subcutaneous tissues with 3-0 Monocryl, skin with sub dermal 4-0 Monocryl. DermaGlue applied. Local anesthetic infiltrated. Incision was made over the i nfected portion of the graft in the mid upper arm, carried down through skin and subcutaneous tissue and multiple pseudoaneurysms encountered and capsules excised. The graft was essentially shredded in different areas from multiple access. The pseudoaneurysm capsule was dissected free, graft removed proximally and distally, removing the entire graft in the mid arm. Wound irrigated. Hemostasis gain ed with the cautery. Surgicel applied. Local anesthetic infiltrated. Wound packed open. Sterile d ressing applied. Of note is that the stump of the PTFE graft left adjacent to the brachial artery, otherwise entire gr aft was removed. Patient tolerated the procedure well.
[2017-12-14] MEDS: Heparin 5,000 UNITS/ML VIAL SC SCH ×3 (00:06→21:00)
[2017-12-14] MEDS: HYDROcodone/Acetaminophen 5/325 mg Tablet PO PRN ×3 (03:29→17:10)
[2017-12-14] MEDS: Furosemide 100 MG/10 ML VIAL SLOW IVP SCH ×2 (06:54→15:00)
[2017-12-14] MEDS: Sevelamer Carbonate 800 MG TAB PO SCH ×4 (11:47→17:10)
[2017-12-14] MEDS: Ferrous Sulfate 325 MG TAB PO SCH ×2 (11:47→17:10)
[2017-12-14] MEDS: Morphine 4 MG/ML VIAL IV PRN (13:14)
[2017-12-14] MEDS: Saccharomyces boulardii 250 MG CAP PO SCH (13:21)
[2017-12-14] MEDS: Folic Acid/Vit B Comp W-C PO SCH (13:21)
[2017-12-14] MEDS: Famotidine 20 MG TAB PO SCH (13:21)
[2017-12-14] MEDS: cefTRIAXone\\ROCEPHIN 1 GM, Syringe 0.4 ML in Sterile Water 9.6 ML SLOW IVP SCH ×2 (13:24→15:00)
[2017-12-14] MEDS ORDERED: Heparin 10,000 UNITS/ 10 ML VIAL ONE (14:34)
[2017-12-14] MEDS ORDERED: Epoetin (ESRD) 10,000 UNITS/ML VIAL SC SCH (19:15)
--- NOTE | 2017-12-14 21:20 | PDOC.PN ---
- Subjective Encounter Start Date: 12/14/17 Encounter Start Time: 18:00 Patient seen and examined. No new complaints. No overnight events - Objective Resuscitation Status: Resuscitation Status FULL:Full Resuscitation MAR Reviewed: Yes Vital Signs & Weight: Vital Signs (12 hours) Temp Pulse Resp BP Pulse Ox 12/14/17 20:00 98.6 F 80 16 136/83 93 L 12/14/17 16:00 98.1 F 73 16 154/109 H 100 12/14/17 13:10 98.4 F 81 14 145/81 H 97 Weight Admit Weight 182 lb Weight 178 lb 5.663 oz I&O: 12/13/17 12/14/17 12/15/17 06:59 06:59 06:59 Intake Total 1210 350 540 Output Total 3600 Balance 1210 350 -3060 Result Diagrams: 12/13/17 05:20 12/13/17 05:20 Phys Exam - Physical Examination Constitutional: NAD Respiratory: no wheezing, no rales Cardiovascular: RRR, no rub Gastrointestinal: soft, non-tender, positive bowel sounds Musculoskeletal: no edema Neurological: moves all 4 limbs Dx/Plan - Plan DVT proph w/SCDs IMPRESSION: 1. Sepsis/Staph bacteremia/Infected AV graft s/p removal 12/13 2. Electrolyte abn/ESRD on dialysis 3. Chronic Hep C 4. Anemia due to CKD s/p PRBC 5. Other issues per previous notes PLAN: * Dilaysis per Nephro * Cont current meds as below * Cont Atbx * Cont to monitor * DC planning Review of Systems - Review of Systems Respiratory: negative: Cough, Dry, Shortness of Breath, Hemoptysis, SOB with Excertion, Pleuritic Pain, Sputum, Wheezing Cardiovascular: negative: chest pain, palpitations, orthopnea, paroxysmal nocturnal dyspnea, edema, light headedness, other - Medications/Allergies Allergies/Adverse Reactions: Allergies Allergy/AdvReac Type Severity Reaction Status Date / Time No Known Allergies Allergy Verified 11/30/17 20:42 Medications: Current Medications Acetaminophen (Tylenol) 650 mg PO Q4H PRN PRN Reason: Headache/Fever or Pain Last Admin: 12/10/17 10:54 Dose: 650 mg Hydrocodone Bitart/Acetaminophen ([place] 5/325) 1 tab PO Q4H PRN PRN Reason: Moderate Pain (4-6) Last Admin: 12/14/17 17:10 Dose: 1 tab Hydrocodone Bitart/Acetaminophen ([place] 5/325) 2 tab PO Q4H PRN PRN Reason: Pain 7-10 Last Admin: 12/14/17 03:29 Dose: 2 tab Al Hydroxide/Mg Hydroxide (Maalox) 30 ml PO Q6H PRN PRN Reason: Heartburn or Indigestion Artificial Tears (Tears Naturale) 0 drop EA EYE PRN PRN PRN Reason: Dry Eyes Clonidine (Catapres) 0.1 mg PO Q4H PRN PRN Reason: Systolic BP > 180 Epoetin David (Procrit) 10,000 units SC Q7D [facility] Last Admin: 12/14/17 20:59 Dose: 10,000 units Famotidine (Pepcid) 20 mg PO DAILY [facility] Last Admin: 12/14/17 13:21 Dose: 20 mg Ferrous Sulfate (Feosol) 325 mg PO BID-[facility] Last Admin: 12/14/17 17:10 Dose: 325 mg Furosemide (Lasix) 80 mg SLOW IVP 0600,1400 [facility] Last Admin: 12/14/17 15:00 Dose: Not Given Guaifenesin (Robitussin Sf) 200 mg PO Q4H PRN PRN Reason: Cough Heparin Sodium (Porcine) (Heparin) 5,000 units SC BID [facility] Last Admin: 12/14/17 21:00 Dose: Not Given Ceftriaxone Sodium 1 gm/ (Syringe 0.4 ml/ Sterile Water) 10 mls @ 120 mls/hr SLOW IVP Q24HR [facility] Last Admin: 12/14/17 15:00 Dose: 10 mls Labetalol HCl (Normodyne) 10 mg SLOW IVP Q4H PRN PRN Reason: Systolic BP > 180 Loperamide HCl (Imodium) 2 mg PO PRN PRN PRN Reason: Diarrhea/Loose Stools Loratadine (Claritin) 10 mg PO DAILYPRN PRN PRN Reason: Sinus Symptoms Magnesium Hydroxide (Milk Of Magnesium) 30 ml PO DAILYPRN PRN PRN Reason: Constipation Mineral Oil/White Petrolatum (Eucerin Cream) 0 gm TOP BIDPRN PRN PRN Reason: Dry Skin Miscellaneous Medication (Pharmacy To Dose) 1 each IVPB ASDIR [facility] Morphine Sulfate (Morphine) 4 mg IV Q3H PRN PRN Reason: Pain Last Admin: 12/14/17 13:14 Dose: 4 mg Ondansetron HCl (Zofran Odt) 4 mg PO Q6H PRN PRN Reason: Nausea/Vomiting Ondansetron HCl (Zofran) 4 mg IVP Q6H PRN PRN Reason: Nausea/Vomiting Phenol (Chloraseptic [place] 180 Ml Bot) 0 ml PO PRN PRN PRN Reason: Sore Throat Saccharomyces Boulardii (Florastor) 250 mg PO DAILY [facility] Last Admin: 12/14/17 13:21 Dose: 250 mg Senna (Senokot) 2 tab PO HSPRN PRN PRN Reason: Constipation Sevelamer Carbonate (Renvela) 1,600 mg PO TID-[facility] Last Admin: 12/14/17 17:10 Dose: 1,600 mg Sodium Chloride ([place] Nasal [place] 0.65%) 0 ml EA NARE QIDPRN PRN PRN Reason: Nasal Congestion Sodium Chloride (Flush - Normal Saline) 10 ml IVF Q12HR [facility] Last Admin: 12/14/17 21:04 Dose: 10 ml Sodium Chloride (Flush - Normal Saline) 10 ml IVF PRN PRN PRN Reason: Saline Flush Last Admin: 12/10/17 10:55 Dose: 10 ml Vitamin B Complex/Vit C/Folic Acid (Nephro-[place] Tablet) 1 tab PO DAILY [facility] Last Admin: 12/14/17 13:21 Dose: 1 tab Zolpidem Tartrate (Ambien) 5 mg PO HSPRN PRN PRN Reason: Insomnia
--- NOTE | 2017-12-14 21:57 | PRG ---
DATE OF SERVICE: 12/14/2017 SUBJECTIVE: The patient was seen and examined. She seems to be doing much better, noted with the fo llowing. OBJECTIVE: VITAL SIGNS: Afebrile, temperature 98.1, pulse 73, respiratory rate of 16, O2 sat 100% with a blood pressure of 154/109. HEENT: Unremarkable. Moist oral mucosa. NECK: Supple. No conjunctival injection or icterus. CARDIOVASCULAR SYSTEM: First and second heart sounds were heard. RESPIRATORY SYSTEM: Clear to auscultation. DIGESTIVE SYSTEM: Reviewed a benign abdomen. EXTREMITIES: No peripheral edema. NEUROLOGIC: Right upper extremity where the infected graft was taken out. IMPRESSION: 1. End-stage renal disease, hemodialysis dependent. 2. Anemia of multifactorial etiology. 3. Sepsis in the context of problem #2. 4. Infected graft. PLAN: 1. The patient to continue with broad-spectrum antibiotics. 2. Erythropoiesis stimulating agent. 3. Hemodialysis has been done for the past 3 days in a row. We will hold dialysis tomorrow and then subsequently place this patient on a Saturday, Saturday and Saturday schedule hemodialysis. Further ma nagement will be dependent on the clinical course.
[2017-12-15] MEDS: HYDROcodone/Acetaminophen 5/325 mg Tablet PO PRN ×3 (02:01→19:43)
[2017-12-15] MEDS: Furosemide 100 MG/10 ML VIAL SLOW IVP SCH ×2 (06:35→14:16)
[2017-12-15] MEDS: Sevelamer Carbonate 800 MG TAB PO SCH ×3 (08:39→19:45)
[2017-12-15] MEDS: Ferrous Sulfate 325 MG TAB PO SCH ×2 (08:39→16:14)
[2017-12-15] MEDS: Folic Acid/Vit B Comp W-C PO SCH (08:40)
[2017-12-15] MEDS: Famotidine 20 MG TAB PO SCH (08:40)
[2017-12-15] MEDS: Heparin 5,000 UNITS/ML VIAL SC SCH ×2 (08:41→19:45)
[2017-12-15] MEDS: Saccharomyces boulardii 250 MG CAP PO SCH (08:41)
[2017-12-15] MEDS: cefTRIAXone\\ROCEPHIN 1 GM, Syringe 0.4 ML in Sterile Water 9.6 ML SLOW IVP SCH (16:14)
--- NOTE | 2017-12-15 21:54 | PDOC.PN ---
- Subjective Encounter Start Date: 12/15/17 Encounter Start Time: 12:30 Patient seen and examined. No new complaints. No overnight events - Objective Resuscitation Status: Resuscitation Status FULL:Full Resuscitation MAR Reviewed: Yes Vital Signs & Weight: Vital Signs (12 hours) Temp Pulse Resp BP Pulse Ox 12/15/17 20:00 98.7 F 72 18 155/96 H 97 12/15/17 16:00 98.4 F 71 18 162/96 H 100 12/15/17 11:08 98.1 F 67 18 178/99 H 98 Weight Admit Weight 182 lb Weight 178 lb 5.663 oz I&O: 12/14/17 12/15/17 12/16/17 06:59 06:59 06:59 Intake Total 350 1020 180 Output Total 3600 Balance 350 -2580 180 Result Diagrams: 12/13/17 05:20 12/13/17 05:20 Phys Exam - Physical Examination Constitutional: NAD Respiratory: no wheezing, no rhonchi Cardiovascular: RRR, no rub Gastrointestinal: soft, non-tender, positive bowel sounds Musculoskeletal: no edema Neurological: moves all 4 limbs Psychiatric: A&O x 3 Dx/Plan - Plan DVT proph w/SCDs IMPRESSION: 1. Sepsis/Staph bacteremia/Infected AV graft s/p removal 12/13 2. Electrolyte abn/ESRD on dialysis 3. Chronic Hep C 4. Anemia due to CKD s/p PRBC 5. Other issues per previous notes PLAN: * Cont current meds as below * Dilaysis per Nephro * Cont Atbx with dialysis * DC home if ok with consultants Review of Systems - Review of Systems Respiratory: negative: Cough, Dry, Shortness of Breath, Hemoptysis, SOB with Excertion, Pleuritic Pain, Sputum, Wheezing Cardiovascular: negative: chest pain, palpitations, orthopnea, paroxysmal nocturnal dyspnea, edema, light headedness, other - Medications/Allergies Allergies/Adverse Reactions: Allergies Allergy/AdvReac Type Severity Reaction Status Date / Time No Known Allergies Allergy Verified 11/30/17 20:42 Medications: Current Medications Acetaminophen (Tylenol) 650 mg PO Q4H PRN PRN Reason: Headache/Fever or Pain Last Admin: 12/10/17 10:54 Dose: 650 mg Hydrocodone Bitart/Acetaminophen ([place] 5/325) 1 tab PO Q4H PRN PRN Reason: Moderate Pain (4-6) Last Admin: 12/15/17 11:47 Dose: 1 tab Hydrocodone Bitart/Acetaminophen ([place] 5/325) 2 tab PO Q4H PRN PRN Reason: Pain 7-10 Last Admin: 12/15/17 19:43 Dose: 2 tab Al Hydroxide/Mg Hydroxide (Maalox) 30 ml PO Q6H PRN PRN Reason: Heartburn or Indigestion Artificial Tears (Tears Naturale) 0 drop EA EYE PRN PRN PRN Reason: Dry Eyes Clonidine (Catapres) 0.1 mg PO Q4H PRN PRN Reason: Systolic BP > 180 Epoetin David (Procrit) 10,000 units SC Q7D [facility] Last Admin: 12/14/17 20:59 Dose: 10,000 units Famotidine (Pepcid) 20 mg PO DAILY [facility] Last Admin: 12/15/17 08:40 Dose: 20 mg Ferrous Sulfate (Feosol) 325 mg PO BID-[facility] Last Admin: 12/15/17 16:14 Dose: 325 mg Furosemide (Lasix) 80 mg SLOW IVP 0600,1400 [facility] Last Admin: 12/15/17 14:16 Dose: Not Given Guaifenesin (Robitussin Sf) 200 mg PO Q4H PRN PRN Reason: Cough Heparin Sodium (Porcine) (Heparin) 5,000 units SC BID [facility] Last Admin: 12/15/17 19:45 Dose: Not Given Ceftriaxone Sodium 1 gm/ (Syringe 0.4 ml/ Sterile Water) 10 mls @ 120 mls/hr SLOW IVP Q24HR [facility] Last Admin: 12/15/17 16:14 Dose: 10 mls Labetalol HCl (Normodyne) 10 mg SLOW IVP Q4H PRN PRN Reason: Systolic BP > 180 Loperamide HCl (Imodium) 2 mg PO PRN PRN PRN Reason: Diarrhea/Loose Stools Loratadine (Claritin) 10 mg PO DAILYPRN PRN PRN Reason: Sinus Symptoms Magnesium Hydroxide (Milk Of Magnesium) 30 ml PO DAILYPRN PRN PRN Reason: Constipation Mineral Oil/White Petrolatum (Eucerin Cream) 0 gm TOP BIDPRN PRN PRN Reason: Dry Skin Miscellaneous Medication (Pharmacy To Dose) 1 each IVPB ASDIR [facility] Morphine Sulfate (Morphine) 4 mg IV Q3H PRN PRN Reason: Pain Last Admin: 12/14/17 13:14 Dose: 4 mg Ondansetron HCl (Zofran Odt) 4 mg PO Q6H PRN PRN Reason: Nausea/Vomiting Ondansetron HCl (Zofran) 4 mg IVP Q6H PRN PRN Reason: Nausea/Vomiting Phenol (Chloraseptic [place] 180 Ml Bot) 0 ml PO PRN PRN PRN Reason: Sore Throat Saccharomyces Boulardii (Florastor) 250 mg PO DAILY [facility] Last Admin: 12/15/17 08:41 Dose: 250 mg Senna (Senokot) 2 tab PO HSPRN PRN PRN Reason: Constipation Sevelamer Carbonate (Renvela) 1,600 mg PO TID-[facility] Last Admin: 12/15/17 19:45 Dose: Not Given Sodium Chloride ([place] Nasal [place] 0.65%) 0 ml EA NARE QIDPRN PRN PRN Reason: Nasal Congestion Sodium Chloride (Flush - Normal Saline) 10 ml IVF Q12HR [facility] Last Admin: 12/15/17 19:45 Dose: 10 ml Sodium Chloride (Flush - Normal Saline) 10 ml IVF PRN PRN PRN Reason: Saline Flush Last Admin: 12/10/17 10:55 Dose: 10 ml Vitamin B Complex/Vit C/Folic Acid (Nephro-[place] Tablet) 1 tab PO DAILY [facility] Last Admin: 12/15/17 08:40 Dose: 1 tab Zolpidem Tartrate (Ambien) 5 mg PO HSPRN PRN PRN Reason: Insomnia
[2017-12-16] MEDS: HYDROcodone/Acetaminophen 5/325 mg Tablet PO PRN ×2 (03:57→14:11)
[2017-12-16 04:02] VITALS: TEMP 98.1
[2017-12-16] MEDS: Furosemide 100 MG/10 ML VIAL SLOW IVP SCH ×2 (07:15→14:13)
[2017-12-16] MEDS: Ferrous Sulfate 325 MG TAB PO SCH (08:11)
[2017-12-16] MEDS: Famotidine 20 MG TAB PO SCH (08:11)
[2017-12-16] MEDS: Sevelamer Carbonate 800 MG TAB PO SCH ×2 (08:11→13:30)
[2017-12-16] MEDS: Heparin 5,000 UNITS/ML VIAL SC SCH (08:12)
[2017-12-16] MEDS: Saccharomyces boulardii 250 MG CAP PO SCH (08:12)
[2017-12-16] MEDS: Folic Acid/Vit B Comp W-C PO SCH (08:12)
[2017-12-16 09:09] VITALS: BP 174/100
[2017-12-16] MEDS ORDERED: Heparin 10,000 UNITS/ 10 ML VIAL ONE (10:00)
--- NOTE | 2017-12-16 10:54 | PRG ---
DATE OF SERVICE: 12/16/2017 SUBJECTIVE: Alecia Stevens is doing well today. She is undergoing dialysis. I viewed the right arm wound, it is granulating and looks good. There is no evidence of cellulitis. From the wound standpo int, there is no further need of antibiotics, but she probably will need to receive antibiotics durin g dialysis for the next few weeks. Patient works at a bar, has missed too much work and does not wan t wound VAC, so that she can return to work. I have called wound care and written orders to nursing and telephonic case manager to discontinue the wound VAC and instruct patient and her roommates on wound care co nsisting of daily removing the dressing, washing the open wound in right upper arm with soap and wate r in the bath or shower and place on normal saline wet to dry dressing, cover with Coban dressing. S he will be sent home with dressing supplies. She can do daily dressing changes. We have her schedul ed next 12/23/2017 for a left arm fistula or graft as an outpatient in the morning. We will change her dressings on that day. She will do daily dressing changes in the interim. From surgical standpoint, she is ready for discharge home.
[2017-12-16] MEDS: cefTRIAXone\\ROCEPHIN 1 GM, Syringe 0.4 ML in Sterile Water 9.6 ML SLOW IVP SCH (15:23)
--- NOTE | 2017-12-16 19:34 | PRG ---
DATE OF SERVICE: 12/16/2017 SUBJECTIVE: The patient was seen and examined today at dialysis, doing okay and noted with the follo wing vital signs. OBJECTIVE: VITAL SIGNS: Afebrile with temperature 98.1, pulse 60, respiratory rate 16, O2 saturation 98% with b lood pressure 174/100. HEENT: Unremarkable with moist oral mucosa. NECK: Supple, no conjunctival injection or icterus. CARDIOVASCULAR: First and second heart sounds were heard. RESPIRATORY: Clear to auscultation. DIGESTIVE: Revealed a benign abdomen with positive bowel sounds. EXTREMITIES: No peripheral edema. SKIN: No new gross rash. LYMPHATICS: No peripheral lymphadenopathy. IMPRESSION: 1. End-stage renal disease, hemodialysis dependent. 2. Infected graft, status post resection. 3. Sepsis in the context of problem #2. PLAN: 1. The patient to undergo hemodialysis per her schedule Saturday, Saturday, and Saturday. 2. Hemodialysis catheter is used as of this moment; however, down the road the patient to secure hem odialysis access. 3. Further management to be dependent on the clinical course.
--- NOTE | 2017-12-17 13:31 | DIS ---
DATE OF DISCHARGE: 12/16/2017 DISCHARGE DISPOSITION: Home. FOLLOWUP: 1. Follow up with Dr. Arellano as outpatient. 2. Follow up with Dr. Baumann in 2 weeks. ALLERGIES: No known drug allergies. The patient was seen and examined on the day of discharge. Denies any new complaints. No fever or c hills. She is comfortable with wound care. Home medications were resumed. She is unsure of her mekhi e medication. She was advised to clarify with her primary care physician. DIAGNOSTIC TESTS: 1. CBC showed WBC 5.7 with hemoglobin 7.7, platelet count of 121. 2. Potassium on the day of discharge is 4.5. Maximum potassium was 5.5. PTH was 915. Ferritin was 568. 3. Urine drug screen was negative except for opiates. 4. Hepatitis C antibody was positive, hepatitis C RNA PCR was [id number]. 5. Blood culture 2/2 was positive for Staphylococcus. Repeat cultures were negative. 6. Influenza testing was negative. INPATIENT PROCEDURES: The patient underwent a left IJ cuffed tunneled hemodialysis catheter by Dr. Juan Baumann on 12/12/2017. She also had removal of the dialysis graft from the right upper arm. E chocardiogram showed ejection fraction 55%-60% with mild concentric left ventricular hypertrophy. Ch est x-ray was negative for acute findings. Lumbar spine MRI was negative. BRIEF HOSPITAL COURSE: Patient is a 32-year-old female with end-stage renal disease on hemodialysis who presented to the emergency room with symptoms consistent with sepsis. Please note the patient thomas s signed against medical advice on 12/03/2017. Please refer to the history and physical for further details. The patient was admitted to the hospital with a diagnosis of Staph bacteremia secondary to infected A V graft. Patient underwent the tunneled dialysis catheter with removal of the infected AV graft. Sh e received antibiotics with hemodialysis per Nephrology. The patient has been cleared by Nephrology and General Surgery for discharge. She is comfortable with wound care at home. FINAL DIAGNOSES: 1. Sepsis secondary to Staphylococcal bacteremia from infected arteriovenous graft. Arteriovenous g raft was removed on 12/13/2017. 2. Electrolyte abnormality, improved after dialysis. 3. End-stage renal disease, on hemodialysis. 4. Chronic hepatitis C. 5. Pancytopenia. 6. Anemia secondary to chronic kidney disease, status post PRBC. 7. Hypertension. Plan of care was discussed with the patient. She stated understanding.
== END 2017-12-16 16:42 | disposition home or self-care (01) | DRG 264 ==
LOC: ERS 06:22 → T4-A 07:45
PROVIDERS: ADMIT Internal Medicine; ATTEND Internal Medicine
PROC: 02HV33Z Insertion of Infusion Device into Superior Vena Cava, Percutaneous Approach (ICD-10-PCS; 2017-12-12)
PROC: B5181ZA Fluoroscopy of Superior Vena Cava using Low Osmolar Contrast, Guidance (ICD-10-PCS; 2017-12-12)
PROC: 06HM33Z Insertion of Infusion Device into Right Femoral Vein, Percutaneous Approach (ICD-10-PCS; 2017-12-12)
PROC: 5A1D70Z Performance of Urinary Filtration, Intermittent, Less than 6 Hours Per Day (ICD-10-PCS; 2017-12-12)
PROC: 30233N1 Transfusion of Nonautologous Red Blood Cells into Peripheral Vein, Percutaneous Approach (ICD-10-PCS; 2017-12-12)
PROC: 03PY0JZ Removal of Synthetic Substitute from Upper Artery, Open Approach (ICD-10-PCS; principal; 2017-12-13)
PROC: 5A1D70Z Performance of Urinary Filtration, Intermittent, Less than 6 Hours Per Day (ICD-10-PCS; 2017-12-13)
PROC: 5A1D70Z Performance of Urinary Filtration, Intermittent, Less than 6 Hours Per Day (ICD-10-PCS; 2017-12-14)
PROC: 5A1D70Z Performance of Urinary Filtration, Intermittent, Less than 6 Hours Per Day (ICD-10-PCS; 2017-12-16)
DX: T82.7XXA Infection and inflammatory reaction due to other cardiac and vascular devices, implants and grafts, initial encounter (principal); A41.01 Sepsis due to Methicillin susceptible Staphylococcus aureus; I13.2 Hypertensive heart and chronic kidney disease with heart failure and with stage 5 chronic kidney disease, or end stage renal disease; D61.818 Other pancytopenia; D69.6 Thrombocytopenia, unspecified; N18.6 End stage renal disease; E87.1 Hypo-osmolality and hyponatremia; E83.39 Other disorders of phosphorus metabolism; E87.2 Acidosis; N25.81 Secondary hyperparathyroidism of renal origin; I50.32 Chronic diastolic (congestive) heart failure; L03.113 Cellulitis of right upper limb; I42.8 Other cardiomyopathies; E87.5 Hyperkalemia; E88.09 Other disorders of plasma-protein metabolism, not elsewhere classified; Z99.2 Dependence on renal dialysis; F19.11 Other psychoactive substance abuse, in remission; Z91.15 Patient's noncompliance with renal dialysis; D63.1 Anemia in chronic kidney disease; Z86.718 Personal history of other venous thrombosis and embolism; F17.210 Nicotine dependence, cigarettes, uncomplicated; B18.2 Chronic viral hepatitis C
CPT/HCPCS: 36415; 36430; 71045; 80048; 80053; 80306; 81001; 82728; 83540; 83550; 83605; 83970; 84100; 85025; 85610; 85730; 86803; 86850; 86900; 86901; 87040; 87070; 87205; 87389; 87522; 90935; 93005; 93010; 93306; 96365; 96366; 96375; 99406; A4216; C1752; C1769; G0257; J0670; J0696; J1170; J1642; J1644; J1940; J2001; J2250; J2270; J2405; J2704; J3010; P9016; Q4081

== ENCOUNTER 2017-12-23 06:55 | Day surgery (SDC) | payer MEDICARE, MEDICAID ==
[2017-12-20 11:26] VITALS: BMI 26.7
[2017-12-23] MEDS ORDERED: CEFAZOLIN/Water 2 GM/20 ML SYRINGE ONE (07:53)
[2017-12-23] MEDS ORDERED: Midazolam HCl 2 mg/2 ml Vial ONE (07:59)
[2017-12-23] MEDS ORDERED: Fentanyl 100 MCG/2 ML VIAL ONE (07:59)
[2017-12-23] MEDS ORDERED: Lidocaine 1% (PF) 30 ML VIAL ONE (08:00)
[2017-12-23 08:03] LABS: Hemoglobin 6.7 g/dL (12.0-16.0); Mean Corpuscular Hemoglobin 28.4 pg (27.0-31.0); Mean Corpuscular Volume 85.8 fl (81.0-99.0); Mean Platelet Volume 7.4 fL (7.4-10.4); Platelet Count 92 thou/uL (130-400); RBC Distribution Width 17.6 % (11.5-14.5); Red Blood Cell (RBC) Count 2.37 mill/uL (4.20-5.40)
[2017-12-23 08:12] LABS: Anion Gap 15 mmol/L (10-20); BUN (Urea Nitrogen) 44 mg/dL (7.0-18.7); Calc. Creatinine Clearance 10 mL/min (70-130); Calcium 8.7 mg/dL (7.8-10.44); Carbon Dioxide 26 mmol/L (22-29); Chloride 97 mmol/L (98-107); Estimated GFR-MDRD 5; Glucose 90 mg/dL (70-105); Potassium 3.8 mmol/L (3.5-5.1); Sodium 134 mmol/L (136-145)
[2017-12-23] MEDS ORDERED: Lidocaine 2% 10 ML INJ ONE (08:18)
[2017-12-23] MEDS ORDERED: Protamine Sulfate 50 MG/5 ML VIAL ONE (08:18)
[2017-12-23] MEDS ORDERED: Bupivacaine HCl 0.5%/Epinephrine 1:200,000/PF 30 ml Vial ONE ×2 (08:18→12:00)
[2017-12-23] MEDS ORDERED: Heparin 5,000 UNITS/ML VIAL ONE ×2 (08:18)
[2017-12-23] MEDS ORDERED: Propofol 500 MG/50 ML VIAL ONE (09:18)
--- NOTE | 2017-12-23 11:12 | OP ---
DATE OF PROCEDURE: 12/23/2017 PREOPERATIVE DIAGNOSES: 1. History of IV drug abuse 3-4 months sober. 2. End-stage renal disease, status post removal of infected right upper arm dialysis graft, poor IV structures. PROCEDURE: Exploration of left wrist for adequate cephalic vein occluded mid forearm fibrotic venous structures antecubital area. Placement of left upper arm dialysis graft, brachial artery 4 mm end t apered to 7 mm graft PTFE axillary vein. Brachial artery axillary vein of excellent caliber. SURGEON: Dr. Martin Baumann ANESTHESIA: Regional, TIVA. Local 0.5% Marcaine with epinephrine, 30 mL, mixed with 2% Xylocaine, 1 0 mL. PROCEDURE: The patient was taken to the operating room under intravenous sedation and regional anest hesia, left upper extremity, axilla, chest prepared with ChloraPrep, draped in routine fashion. Inci mari was made between the radial artery and cephalic vein at the wrist. Cephalic vein seemed to be o f adequate caliber and this incision enlarged. The vein divided ligated on the hand side with 3-0 si lk tie and the vein spatulated interrogated with coronary dilators. A 2 mm coronary dilator passed, but met restriction mid forearm. This vein was ligated. Subcutaneous tissues approximated with 3-0 Monocryl, skin with subdermal 4-0 Monocryl. DermaGlue applied. Incision made in the proximal volar forearm longitudinally below the antecubital fossa carried down the skin and subcutaneous tissue. Ve ins antecubital and basilic were fibrosed. Subcutaneous tissue approximately 3-0 Monocryl, skin with subdermal 4-0 Monocryl. DermaGlue applied. Incision was made over the brachial artery just above t he antecubital fossa longitudinally, carried down the skin and subcutaneous tissue, deep fascia, diss ecting the brachial artery free and surrounded with Silastic vessel loop. Incision made in the left axilla, carried down skin and subcutaneous tissue and deep fascia, identifying an excellent sized axi llary vein. It was dissected free, controlled proximally and distally Silastic Benson loops and a per forating branch posteriorly, large, good control with vascular clamp. Shraddha-Keshia tunneler 12 mm head used to create a tunnel between the incision above the antecubital fossa to the axilla. Tunneling t apered PTFE graft 4T07 mm placing the 4 mm end near the brachial artery by the antecubital fossa. Pa tient given 6000 units heparin intravenously. After adequate circulation time, the brachial artery c lamped proximally and distally and longitudinal 2 cm arteriotomy made in the brachial artery, which w as of excellent caliber and condition and 4 mm end of the graft tailored appropriately and a 2 cm delaney stomosis created with continuous suture of 6-0 Prolene, releasing vascular clamps, noting excellent a rterial flow in the graft and clamping the graft and placing Surgicel and dry dressing. Attention wa s then turned to the axilla. Axillary vein controlled proximally and distally with Silastic Benson lo ops. Perforating branch as described above, controlled with vascular clamps. Longitudinal venotomy made for 3 cm anastomosis and stay sutures 6-0 Prolene placed. A 7 mm graft tailored appropriately a nd end graft to side axillary vein anastomosis created with continuous suture of 6-0 Prolene. Once a nastomosis completed, vascular clamp released allowing arterial inflow and distended nicely. Outflow Silastic loops and inflow loops released, posterior controlling clamp removed. Doppler signal inter rogation revealed good Doppler signal venous outflow. Good hemostasis noted. Subcutaneous tissues i n the wound approximately 3-0 Monocryl, skin with subdermal 4-0 Monocryl and DermaGlue applied. The patient tolerated the procedure well.
[2017-12-23] MEDS ORDERED: Protamine Sulfate 50 MG/5 ML VIAL SLOW IVP SCH (12:45)
[2017-12-23] MEDS ORDERED: Heparin 10,000 UNITS/ 10 ML VIAL ONE ×2 (13:53→15:04)
[2017-12-23] MEDS ORDERED: PROPOFOL 200 MG/20 ML VIAL ONE (13:53)
== END 2017-12-23 15:23 | disposition home or self-care (01) ==
LOC: SDC 06:55
PROVIDERS: ATTEND Specialist
PROC: 03180JD Bypass Left Brachial Artery to Upper Arm Vein with Synthetic Substitute, Open Approach (ICD-10-PCS; principal; 2017-12-23)
DX: T82.590A Other mechanical complication of surgically created arteriovenous fistula, initial encounter (principal); N18.6 End stage renal disease; N25.81 Secondary hyperparathyroidism of renal origin; I50.9 Heart failure, unspecified; F17.210 Nicotine dependence, cigarettes, uncomplicated; F14.10 Cocaine abuse, uncomplicated; Z99.2 Dependence on renal dialysis; Z98.890 Other specified postprocedural states
CPT/HCPCS: 36821; 80048; 80202; 85027; L8670; J0131; J0670; J1644; J2001; J2250; J2704; J2720; J3010

== ENCOUNTER 2017-12-28 12:51 | Day surgery (SDC) | payer MEDICARE, MEDICAID ==
[2017-12-28] MEDS ORDERED: Heparin 10,000 UNITS/ 10 ML VIAL CATH SCH (15:00)
[2017-12-28] MEDS ORDERED: Amlodipine 10 MG TAB PO SCH (21:45)
[2017-12-28] MEDS ORDERED: Carvedilol 25 MG TAB PO SCH (21:45)
[2017-12-29] MEDS ORDERED: Carvedilol 25 MG TAB PO SCH (08:00)
[2017-12-29 08:11] VITALS: BP 153/84; TEMP 98
== END 2017-12-29 09:41 | disposition home or self-care (01) ==
LOC: ONC/OP 12:51 → ONC 13:00 → ONC/OP 12-29 09:41
PROVIDERS: ATTEND Internal Medicine Nephrology
PROC: 30233N1 Transfusion of Nonautologous Red Blood Cells into Peripheral Vein, Percutaneous Approach (ICD-10-PCS; principal; 2017-12-28)
DX: N18.6 End stage renal disease (principal); D63.1 Anemia in chronic kidney disease; F17.210 Nicotine dependence, cigarettes, uncomplicated; I50.30 Unspecified diastolic (congestive) heart failure; N25.81 Secondary hyperparathyroidism of renal origin; F11.11 Opioid abuse, in remission; Z99.2 Dependence on renal dialysis; Z79.899 Other long term (current) drug therapy
CPT/HCPCS: 36430; 86850; 86870; 86900; 86901; 86905; 86922; J1642; J1644; P9016

== ENCOUNTER 2018-02-28 22:23 | Inpatient (IN) | payer MEDICARE, MEDICAID ==
[2018-02-28 23:28] LABS: Hemoglobin 7.6 g/dL (12.0-16.0); Mean Corpuscular Hemoglobin 29.4 pg (27.0-31.0); Mean Corpuscular Volume 86.6 fL (78.0-98.0); Mean Platelet Volume 11.2 fL (7.4-10.4); Platelet Count 20 thou/uL (130-400); RBC Distribution Width 14.3 % (11.5-14.5); Red Blood Cell (RBC) Count 2.58 mill/uL (4.20-5.40); Reflex for Review?? NO; White Blood Cell (WBC) Count 2.3 thou/uL (4.8-10.8)
[2018-02-28 23:37] LABS: ALT (SGPT) Less than 7 U/L (8-55); AST (SGOT) 15 U/L (5-34); Albumin 2.7 g/dL (3.5-5.0); Alkaline Phosphatase 49 U/L (40-150); Anion Gap 26 mmol/L (10-20); Bilirubin, Total 0.9 mg/dL (0.2-1.2); Calc. Creatinine Clearance 0 mL/min (70-130); Calcium 8.4 mg/dL (7.8-10.44); Carbon Dioxide 16 mmol/L (22-29); Chloride 93 mmol/L (98-107); Estimated GFR-MDRD 3; Globulin 3.2 g/dL (2.4-3.5); Glucose 102 mg/dL (70-105); Potassium 6.2 mmol/L (3.5-5.1); Protein, Total 5.9 g/dL (6.0-8.3); Sodium 129 mmol/L (136-145)
[2018-02-28 23:44] LABS: Band 24 % (5-11); Lymphocytes 6 % (21-51); MDiff Complete? YES; Monocytes 3 % (0-10); Neutrophil 67 % (42-75); PLT Morphology Comment Appears Decreased
[2018-02-28 23:49] LABS: BUN (Urea Nitrogen) 113 mg/dL (7.0-18.7)
[2018-02-28] MEDS ORDERED: Dicyclomine 20 MG TAB ONE (23:59)
[2018-02-28] MEDS ORDERED: Ondansetron ODT 4 MG TAB ONE (23:59)
[2018-03-01] MEDS ORDERED: Dextrose 50% Abboject 50 ML SYRINGE ONE ×2 (00:15→07:33)
[2018-03-01] MEDS ORDERED: Insulin Regular 300 UNITS/3 ML VIAL ONE (00:15)
[2018-03-01] MEDS ORDERED: Pantoprazole 40 MG VIAL ONE (00:15)
[2018-03-01] MEDS ORDERED: Albuterol Sulfate 2.5 mg/3 ml Neb ONE (00:20)
[2018-03-01] MEDS ORDERED: Calcium Gluconate 4.6 MEQ in Sodium Chloride 0.9% 100 ML IVPB SCH (00:30)
[2018-03-01] MEDS ORDERED: Ondansetron ODT 4 MG TAB PO PRN (01:30)
[2018-03-01] MEDS ORDERED: Ondansetron HCl/PF 4 MG/2 ML Vial IVP PRN (01:34)
[2018-03-01] MEDS ORDERED: Ondansetron ODT 4 MG TAB SL PRN (01:34)
[2018-03-01] MEDS ORDERED: Acetaminophen 325 MG TAB PO PRN (01:34)
[2018-03-01 01:43] LABS: CKMB 2.3 ng/mL (0-6.6)
[2018-03-01 01:52] LABS: Troponin I 0.864 ng/mL (< 0.028)
--- NOTE | 2018-03-01 01:52 | PDOC.FPRHP ---
- History of Present Illness Chief Complaint: N/V/D, weakness History of Present Illness: Patient is a 32yo F with PMH of ESRD (M,W, F dialysis) 2/2 heroin abuse, HTN, Hepatitis C, Hv of DVT's, and CHF who presents with 1 week hx of feeling poorly associated with N/V/D. She reports she started feeling bad on Saturday and developed N/V/D on Saturday. Due to her feeling poorly, she did not go to dialysis at all this week. She reports no fever, no ill contacts, no changes in diet, no recent travel, and no hematochezia or melena. Patient reports diffuse abd pain at this time. In the ED, was found to have multiple electrolyte disturbances related to her missing dialysis. Dr. Naranjo was called and is to dialyze her this evening. Of note, she was recently admitted for staph aureus bacteremia from AV fistula which was removed in 12/2017. She reports she is no longer on Abx at this time. Currently is using a temporary access point in her L chest ED Course: She received Humalog 10units, 1 amp D50, 1 amp Ca gluconate, Albuterol nebs, 40mg IV protonix, 20mg bentyl, and 4mg zofran. - Allergies/Adverse Reactions Allergies Allergy/AdvReac Type Severity Reaction Status Date / Time No Known Allergies Allergy Verified 12/20/17 11:27 - Home Medications Medication Instructions Recorded Confirmed Type Amlodipine [Norvasc] 5 mg PO DAILY 07/04/17 12/20/17 History Carvedilol [Coreg] 12.5 tab PO BID- 07/04/17 12/20/17 History Lisinopril 2.5 mg PO DAILY 11/30/17 12/20/17 History - History PMHx: HTN hx of b/l DVT Hepatitis C CHF ESRD Polysubstance abuse PSHx: dialysis graft placement FHx: noncontributory Social: Lives with roommates, reports last drug use was years ago, denies etoh use, smokes 3cig per day for the last 20 yrs - Review of Systems General: denies: fever/chills, weight/appetite/sleep changes ENT: denies: nasal congestion, rhinorrhea Respiratory: denies: cough, congestion, shortness of breath Cardiovascular: reports: edema. denies: chest pain, palpitation Gastrointestinal: reports: nausea, vomiting, diarrhea, abdominal pain. denies: constipation, GI bleeding Genitourinary: denies: incontinence, dysuria, polyuria Skin: denies: rashes Musculoskeletal: denies: pain Neurological: denies: numbness, syncope Psychological: denies: anxiety, depression - Vital signs BP: 153/88 HR: 128 RR: 24 Tmax: 98.1 Pox: 100% on RA Wt: 73kg - Physical Exam Constitutional: awake, alert and oriented -Constitutional: ill appearing, allred pallor, increased respiratory effort, pale appearing HEENT: normocephalic and atraumatic, PERRLA, EOMI, no scleral icterus, oropharynx clear -HEENT: dry MM, poor dentition Neck: supple, no LAD Heart: normal S1/S2, no murmurs/rubs/gallops, pulses present -Heart: tachycardia, 3+ pitting edema up to knee bilaterally Lungs: CTAB -Lungs: increased respiratory effort, tachypneic Abdomen: soft, bowel sounds present -Abdomen: tenderness throughout abd, no rebound or guarding Musculoskeletal: normal structure Neurological: no focal deficit -Neurological: GCS: 14 -Skin: scattered bruising throughout, no rashes, allred pallor, temporary HD access with no appearance of infection, no swelling, erythema or drainage from site. Psychiatric: intact recent and remote memory FMR H&P: Results - Labs Result Diagrams: 03/01/18 07:50 03/01/18 07:50 Lab results: WBC 2.3 thou/uL (4.8-10.8) L 02/28/18 23:11 Hgb 7.6 g/dL (12.0-16.0) L 02/28/18 23:11 Hct 22.4 % (36.0-47.0) L 02/28/18 23:11 MCV 86.6 fL (78.0-98.0) 02/28/18 23:11 Plt Count 20 thou/uL (130-400) L* 02/28/18 23:11 Band Neuts % (Manual) 24 % (5-11) H 02/28/18 23:11 Sodium 129 mmol/L (136-145) L 02/28/18 23:11 Potassium 6.2 mmol/L (3.5-5.1) H 02/28/18 23:11 Chloride 93 mmol/L (98-107) L 02/28/18 23:11 Carbon Dioxide 16 mmol/L (22-29) L 02/28/18 23:11 BUN 113 mg/dL (7.0-18.7) H 02/28/18 23:11 Creatinine 16.18 mg/dL (0.6-1.1) H 02/28/18 23:11 Glucose 102 mg/dL (70-105) 02/28/18 23:11 Calcium 8.4 mg/dL (7.8-10.44) 02/28/18 23:11 Total Bilirubin 0.9 mg/dL (0.2-1.2) 02/28/18 23:11 AST 15 U/L (5-34) 02/28/18 23:11 ALT Less than 7 U/L (8-55) L 02/28/18 23:11 Alkaline Phosphatase 49 U/L (40-150) 02/28/18 23:11 CK-MB (CK-2) 2.3 ng/mL (0-6.6) 03/01/18 00:00 Serum Total Protein 5.9 g/dL (6.0-8.3) L 02/28/18 23:11 Albumin 2.7 g/dL (3.5-5.0) L 02/28/18 23:11 - EKG Interpretation EKG: Sinus tachycardia FMR H&P: A/P - Problem List (1) Sepsis Current Visit: Yes Status: Acute Code(s): A41.9 - SEPSIS, UNSPECIFIED ORGANISM (2) Abdominal pain Current Visit: Yes Status: Acute Code(s): R10.9 - UNSPECIFIED ABDOMINAL PAIN (3) Pancytopenia Current Visit: Yes Status: Chronic Code(s): D61.818 - OTHER PANCYTOPENIA (4) CHF (congestive heart failure) Current Visit: Yes Status: Chronic Code(s): I50.9 - HEART FAILURE, UNSPECIFIED (5) Anemia of renal disease Current Visit: No Status: Chronic Code(s): D63.1 - ANEMIA IN CHRONIC KIDNEY DISEASE (6) Chronic hepatitis C Current Visit: No Status: Chronic Code(s): B18.2 - CHRONIC VIRAL HEPATITIS C Qualifiers: Hepatic coma status: without hepatic coma Qualified Code(s): B18.2 - Chronic viral hepatitis C (7) ESRD (end stage renal disease) on dialysis Current Visit: No Status: Chronic Code(s): N18.6 - END STAGE RENAL DISEASE; Z99.2 - DEPENDENCE ON RENAL DIALYSIS (8) History of drug abuse Current Visit: No Status: Chronic Code(s): Z87.898 - PERSONAL HISTORY OF OTHER SPECIFIED CONDITIONS (9) Hypertension Current Visit: No Status: Chronic Code(s): I10 - ESSENTIAL (PRIMARY) HYPERTENSION Qualifiers: Comment: (10) Hyperkalemia Current Visit: No Status: Acute Code(s): E87.5 - HYPERKALEMIA Comment: Secondary to ESRD (11) Metabolic acidosis Current Visit: No Status: Acute Code(s): E87.2 - ACIDOSIS (12) Volume overload Current Visit: Yes Status: Acute Code(s): E87.70 - FLUID OVERLOAD, UNSPECIFIED - Plan Sepsis 2/2 Unknown Source with Neutropenic Fever Patient presents with tachycardia, tachypnea, fever (102.9), and neutropenia. Recent abd pain with N/V/D. Patient very ill appearing. Will admit to tele and keep close eye on her. - blood, urine, stool cx pending - LA wnl, procal elevated to 89 - start Vanc and Zosyn. - hold off on IVF for now with fluid overload in the setting of ESRD, going for emergent dialysis - Tylenol for fever - plan for CTAchest and CTabd/pelvis after dialysis to look for cause/source of tachycardia and infection. Acute Volume Overload in the setting of ESRD Multiple electrolyte abnormalities as seen below - emergent dialysis tonight - Dr. Naranjo (nephro) following, appreciate recs Hypochloremic Anion Gap Metabolic Acidosis - 2/2 uremia from missing dialysis - dialyze tonight and repeat labs after Hyperkalemia - received insulin, D50, albuterol and calcium gluconate in ED - recheck after dialysis Pancytopenia - chronic, unknown cause - platelets 20, avoid multiple blood draws if possible - WBC 2.3 - Hg 7.8 - consider peripheral blood smear - HIV negative on last admission Anemia of Renal Disease - Hgb 7.8, likely will need blood during dialysis at some point during this hospital stay Hx of Drug Abuse - denies recent use although positive for opiates in 4/18 - UDS pending HTN - unsure of home meds at this time, med rec - monitor VS and hold BP meds for now. Hx of b/l DVT - reports this resolved "years" ago. - consider PE in workup of tachycardia Chronic Hepatitis C - not currently on treatment - LFT's wnl VTE ppx: none, patient with b/l leg swelling and platelets of 20 Code status: Full Dispo: likely > 48h. FMR H&P: Upper Level - Pertinent history 32yo F with ESRD 2/2 heroin abuse, HTN, Hepatitis C, Hx/o DVT's, and CHF who presents with 1 week hx of feeling bad associated with N/V/D and thus skipping HD. Currently admits to diffuse abdominal pain and fatigue. She sees Dr naranjo who is planning for HD tonight. Pt is a chronically ill patient. - Pertinent findings GEN: chronically ill appearing RESP: lungs CTAB CARD: Tachycardia 147, No MRG SKIN: diffuse ecchymosis throughout body. Also noted edema in all extremities. Some dry cracking skin surrounding mouth with dried blood. GI: abdomen diffusely tender - Plan Date/Time: 03/01/18 0150 Arsh Mata, have evaluated this patient and agree with findings/plan as outlined by risk management intern resident. Pertinent changes/additions are listed here. Chronically ill patient with ESRD, CHF and HepC admitted for multiple metabolic abnormalities in need of HD. # ESRD; Patient of Dr Naranjo who has been called in for urgent HD. Hyperkalemia, hyponatremia, acidosis all expected to correct with HD. Will monitor # Fever/Tachycardia; Patient with fever of 102 in ED and tachcardia in 140's. Many possibly causes, but cannot rule out infection, so will place on broad spectrum abx and obtain cultures. - Also suspicious for PE and will order CTA chest/abdomen after HD. # Abdominal Pain - Unknown cause; possibly due to pain from fluid overload, but will plan to obtain CT after HD. # Elevated troponins; Likely elevated from renal failure. Normal EKG. Will follow trops post HD # History of substance abuse/IVDU - Pos recently as 12/2017. Denies drug use in "years" - will order UDS # Pancytopenia - Chronic problem, but significantly low WBC, H/H and Platelets. Monitor for acute bleeding and transfuse PRBCs or Platelets as needed. Attending Addendum - Attending Addendum Date/Time: 03/01/18 1040 I personally evaluated the patient and discussed the management with Dr. Matthews I agree with the History, Examination, Assessment and Plan documented above with any addition or exceptions noted below.
[2018-03-01 02:23] LABS: Hemoglobin 7.7 g/dL (12.0-16.0); Mean Corpuscular HGB CONC 33.8 g/dL (32.0-36.0); Mean Corpuscular Hemoglobin 29.3 pg (27.0-31.0); Mean Corpuscular Volume 86.5 fL (78.0-98.0); Mean Platelet Volume 10.2 fL (7.4-10.4); Platelet Count 24 thou/uL (130-400); RBC Distribution Width 14.2 % (11.5-14.5); Red Blood Cell (RBC) Count 2.61 mill/uL (4.20-5.40); White Blood Cell (WBC) Count 2.3 thou/uL (4.8-10.8)
[2018-03-01] MEDS ORDERED: Vancomycin HCl 1.25 GM in Sodium Chloride 0.9% 250 ML 250 ML IVPB PRN (02:43)
[2018-03-01] MEDS ORDERED: Vancomycin HCl 1 GM in Premix Bag 1 BAG IVPB PRN (02:43)
[2018-03-01] MEDS ORDERED: Vancomycin HCl 500 MG in Sodium Chloride 0.9% 100 ML IVPB PRN (02:44)
[2018-03-01] MEDS ORDERED: Vancomycin HCl 750 MG in Sodium Chloride 0.9% 250 ML 250 ML IVPB PRN (02:44)
[2018-03-01] MEDS ORDERED: HOLD VANCOMYCIN FOR LEVEL >20 FS PRN (02:45)
[2018-03-01] MEDS ORDERED: Vancomycin Sliding Scale 1 EACH FS PRN (02:45)
[2018-03-01 02:46] LABS: ALT (SGPT) 7 U/L (8-55); AST (SGOT) 14 U/L (5-34); Albumin 2.8 g/dL (3.5-5.0); Alkaline Phosphatase 47 U/L (40-150); Anion Gap 26 mmol/L (10-20); BUN (Urea Nitrogen) 125 mg/dL (7.0-18.7); Band 35 % (5-11); Bilirubin, Total 0.8 mg/dL (0.2-1.2); Calc. Creatinine Clearance 6 mL/min (70-130); Calcium 8.4 mg/dL (7.8-10.44); Carbon Dioxide 15 mmol/L (22-29); Chloride 93 mmol/L (98-107); Estimated GFR-MDRD 2; Globulin 2.8 g/dL (2.4-3.5); Glucose 103 mg/dL (70-105); Lymphocytes 16 % (21-51); MDiff Complete? YES; Magnesium 1.9 mg/dL (1.6-2.6); Monocytes 3 % (0-10); Neutrophil 46 % (42-75); PLT Morphology Comment Appears Decreased; Potassium 6.2 mmol/L (3.5-5.1); Protein, Total 5.6 g/dL (6.0-8.3); Sodium 128 mmol/L (136-145)
[2018-03-01 02:58] LABS: Thyroid Stimulating Hormone 2.2023 uIU/mL (0.35-4.94)
[2018-03-01 03:00] LABS: Phosphorus 10.7 mg/dL (2.3-4.7)
[2018-03-01] MEDS ORDERED: Piperacillin/Tazobactam 2.25 GM in Sodium Chloride 0.9% 100 ML IVPB SCH (03:00)
[2018-03-01 03:34] LABS: Troponin I 0.755 ng/mL (< 0.028)
[2018-03-01] MEDS ORDERED: Vancomycin HCl 1.5 GM in Sodium Chloride 0.9% 250 ML 300 ML IVPB SCH ×3 (04:00→11:00)
--- NOTE | 2018-03-01 06:42 | PDOC.EVN ---
Event Note - Event Note Event Note: I have examined this patient and discussed the management with Dr Matthews. I agree with the history and physical exam and care plan. Patient with N/V/D since last Saturday and skipped hemodialysis for week secondary to feeling ill. Patient with SIRS, sepsis source undetermined recent Staph Aureus due to infected A-V shunt RUE now with new onset tachycardia consider PE . Patient for emergent dialysis and will continue investigative evaluation.
[2018-03-01 08:01] LABS: Troponin I 0.928 ng/mL (< 0.028)
[2018-03-01 08:55] LABS: Bilirubin Negative (Negative); Blood, Urine Small (Negative); Clarity CLEAR (Clear); Glucose, Urine (Dipstick) 250 mg/dL (Negative); Leukocyte Negative (Negative); Nitrite Negative (Negative); Protein, Urine (Dipstick) > or equal to 300 mg/dL (Neg-Trace); Specific Gravity, Urine 1.027 (1.002-1.036); Urobilinogen 0.2 mg/dL (0.2-1.0)
[2018-03-01 08:56] LABS: Hyaline Casts/LPF 0-3 HYALINE CAST LPF (0-3 Hyaline); Pathc Cast-AUWi Flag 0.14 (0-2.49); RBC/HPF 21-50 HPF (0-3); Squamous Epithelial 0-3 HPF (0-3)
[2018-03-01 09:02] LABS: Yeast-AUWi Flag 68.9 (0-25.0)
[2018-03-01 09:04] LABS: Amphetamine Not Detected (NotDetected); Barbiturates Screen Not Detected (NotDetected); Benzodiazepine Screen Not Detected (NotDetected); Cocaine Metabolite Screen Detected (NotDetected); Medtox Control Line Valid? VALID (VALID); Medtox Reader # READER 1; Methadone Not Detected (NotDetected); Methamphetamine Not Detected (NotDetected); Opiate Screen Detected (NotDetected); Oxycodone Screen Not Detected (NotDetected); Phencyclidine (PCP) Not Detected (NotDetected); THC/Cannabinoid Screen Not Detected (NotDetected); Tricyclic Screen Not Detected (NotDetected)
[2018-03-01 09:13] LABS: Renal Epithelial None Seen HPF (0-3); Transitional Epithelial NONE SEEN HPF (0-3)
[2018-03-01 09:16] LABS: Yeast-All Forms None Seen HPF (None Seen)
[2018-03-01 09:17] LABS: Crystals/HPF 2+ AMORPH PHOS HPF (Negative)
[2018-03-01 09:18] LABS: Bacteria/HPF 1+ HPF (None Seen)
[2018-03-01 09:27] LABS: Platelet Count 15 thou/uL (130-400)
[2018-03-01 09:30] LABS: INR-International Normal Ratio 1.6; PTT 33.2 SEC (22.9-36.1); Prothrombin Time 19.4 SEC (12.0-14.7)
[2018-03-01 09:32] LABS: ALT (SGPT) Less than 7 U/L (8-55); AST (SGOT) 19 U/L (5-34); Albumin 2.4 g/dL (3.5-5.0); Alkaline Phosphatase 44 U/L (40-150); Anion Gap 20 mmol/L (10-20); BUN (Urea Nitrogen) 38 mg/dL (7.0-18.7); Calc. Creatinine Clearance 15 mL/min (70-130); Calcium 8.3 mg/dL (7.8-10.44); Carbon Dioxide 21 mmol/L (22-29); Chloride 97 mmol/L (98-107); Estimated GFR-MDRD 8; Globulin 2.9 g/dL (2.4-3.5); Glucose 163 mg/dL (70-105); Potassium 3.7 mmol/L (3.5-5.1); Protein, Total 5.3 g/dL (6.0-8.3); Sodium 134 mmol/L (136-145)
[2018-03-01] MEDS: Piperacillin/Tazobactam 2.25 GM in Sodium Chloride 0.9% 100 ML IVPB SCH ×2 (09:33→21:19)
[2018-03-01] MEDS: Famotidine 20 MG TAB PO SCH (09:33)
[2018-03-01] MEDS: Acetaminophen 325 MG TAB PO PRN ×3 (09:33→21:16)
[2018-03-01 09:51] LABS: Band 25 % (5-11); Hemoglobin 6.9 g/dL (12.0-16.0); Lymphocytes 5 % (21-51); MDiff Complete? YES; Mean Corpuscular HGB CONC 33.6 g/dL (32.0-36.0); Mean Corpuscular Hemoglobin 29.3 pg (27.0-31.0); Mean Corpuscular Volume 87.2 fL (78.0-98.0); Mean Platelet Volume 11.7 fL (7.4-10.4); Monocytes 8 % (0-10); Neutrophil 62 % (42-75); Ovalocytes SLIGHT = 2-5 cells (100X) (0-1/hpf); RBC Distribution Width 14.3 % (11.5-14.5); Red Blood Cell (RBC) Count 2.36 mill/uL (4.20-5.40); White Blood Cell (WBC) Count 1.7 thou/uL (4.8-10.8)
--- NOTE | 2018-03-01 10:16 | CT ---
CT ANGIO CHEST: Date: 03/01/18 Multiple axial tomograms obtained through chest following pulmonary angio protocol with multiplanar r econstruction and 3D postprocessing. Exam is limited. An external jugular vein IV was used and injection rate was reduced because of this IV location. Pulmonary arteries are suboptimally opacified. FINDINGS: There is no evidence of proximal pulmonary embolus. Small distal emboli cannot be excluded. Review of the lung ortega revealed numerous bilateral pulmonary nodules. Most of these nodules range in size from 5-10 mm with several nodules measuring 10-15 mm. There is a larger pleural based nodule in the left upper lobe peripherally measuring 2.0 cm. Mediastinal adenopathy is prominent. Hilar adenopathy is noted. Heart is mildly enlarged. Images through the upper abdomen reveal splenomegaly. The vertebral bodies show an abnormal mottled appearance for a patient of this age. No focal lytic or blastic process is seen. IMPRESSION: 1. Suboptimal pulmonary angio study. There is no evidence of proximal pulmonary embolus. 2. Numerous bilateral pulmonary nodules consistent with metastatic disease to the lungs. 3. Mediastinal and hilar adenopathy. 4. Splenomegaly. 5. Abnormal mottled appearance to the vertebral bodies, could represent changes of renal osteodystro phy given the history of renal dialysis in this patient. POS: [facility]
--- NOTE | 2018-03-01 10:18 | RAD ---
PORTABLE CHEST: Date: 03/01/18 HISTORY: CHF and shortness of breath. COMPARISON: 12/12/17. FINDINGS: There are innumerable pulmonary nodules bilaterally, which correspond to the chest CT findings. Cardi omegaly and mild vascular engorgement. No significant effusion. Large caliber central line overlies t he right atrium. IMPRESSION: Diffuse bilateral pulmonary nodules which are better defined on chest CT. Findings indicate metastati c disease to the lungs. POS: [facility]
--- NOTE | 2018-03-01 10:22 | CT ---
ABDOMEN AND PELVIC CT SCAN WITH IV CONTRAST: Date: 03/31/18 HISTORY: 32-year-old female with history of fever, rebound tenderness, and guarding. Patient is a dialysis pat ient. Tachycardia. COMPARISON: 11/30/17. FINDINGS: There appears to be enlargement of the heart. There are multiple bilateral poorly circumscribed pulmo nary nodules up to 1.9 cm in the right lower lobe, worrisome for metastasis. There is some bilateral irregular pleural thickening. There is hepatomegaly with very severe splenomegaly. There are numerous dilated vessels in the epigas tric region concerning for varices and suggesting evidence of portal hypertension. The gallbladder sh ows no evidence of gallstones or wall thickening. Pancreas appears unremarkable. The kidneys are smal l bilaterally without renal calculus or acute obstruction. There is scattered subcutaneous fat str anding, evidence for anasarca. Minimal ascites, particularly in the pelvis. There are some up to bord shelton size fluid-filled small bowel loops, particularly in the pelvis, nonspecific. This could repre sent some ileus. I do not think that this represents any significant acute high grade obstruction. It is not much changed in appearance from the prior CT. IMPRESSION: Hepatomegaly with very severe splenomegaly and evidence for portal hypertension. Very small kidneys b ilaterally without renal calculus or obstruction. Bilateral poorly circumscribed pulmonary nodules , worrisome for metastasis and showing progression when compared to the 11/30/17 study. Some borderli ne fluid-filled loops of small bowel without overt obstruction, possibly related to some ileus. Minim al ascites. No abscess. No CT evidence for acute appendicitis. Stable IUD within the uterus. Other f indings as above. POS: [facility]
--- NOTE | 2018-03-01 10:41 | ULT ---
BILATERAL LOWER EXTREMITY VENOUS DUPLEX EXAM: Date: 03/01/18 Deep veins of both lower extremities evaluated with color Doppler, spectral analysis, and compression . INDICATION: Bilateral lower extremity pain and edema. FINDINGS: Deep veins of both lower extremity evaluated, including common femoral, profunda femoral, femoral vei n, popliteal vein, and posterior tibial veins. These deep veins show normal compression and blood josé luis w. No evidence of deep venous thrombosis identified. Incidentally noted are prominent lymph nodes in the inguinal regions bilaterally. IMPRESSION: 1. No evidence of deep venous thrombosis. 2. Prominent inguinal lymph nodes. POS: [facility]
[2018-03-01] MEDS ORDERED: Heparin 1,000 UNITS/ML VIAL ONE (11:11)
[2018-03-01 11:51] LABS: CKMB 1.8 ng/mL (0-6.6)
[2018-03-01 12:05] LABS: Troponin I 1.036 ng/mL (< 0.028)
--- NOTE | 2018-03-01 12:53 | PDOC.EVN ---
Event Note - Event Note Event Note: Patient was moved to [facility] after [facility] this morning which was called for altered mental status. There was concern for PE given patient's tachycardia, fever, and AMS. CT Chest abdomen and pelvis were performed. Showed no PE but multiple nodules concerning for metastatic disease. Given patient's history of IV drug use, need to r/o endocarditis. TTE has been ordered. Additional cardiology has been consulted for elevated troponin and IE evaluation. Will consult ID on Saturday when provider is rehab director occupational therapist. At this time, blood cultures are 2/2 positive for Gram positive cocci. Suspect Staph. Pharmacy to dose vanc. Continue current Abx. will await results from additional workup.
[2018-03-01] MEDS ORDERED: ISOVUE-370 76%-LOCM 1 ML ONE (14:24)
[2018-03-01 14:55] LABS: Troponin I 1.137 ng/mL (< 0.028)
[2018-03-01] MEDS ORDERED: Diltiazem 125 MG in Sodium Chloride 0.9% 100 ML IVPB SCH ×2 (16:15→18:30)
--- NOTE | 2018-03-01 16:17 | PDOC.EVN ---
Event Note - Event Note Event Note: Paged by nursing with concern for afib/aflutter. EKG show presumed aflutter with rate in 170s. patient alert and conversational. Denies chest pain. Will bolus diltiazem 20 mg followed by drip at 5 mg /hr. <Lee Castillo - Last Filed: 03/01/18 16:16> Attending Addendum - Attending Addendum Date/Time: 03/01/18 1700 I personally evaluated the patient and discussed the management with Dr. Castillo tacycardia rate 170's Atrial fluttter agree rate control with diltiazem drip patient alert oriented echocardiogram completed results pending. <Howard Hawley - Last Filed: 03/01/18 17:03>
--- NOTE | 2018-03-01 16:56 | CON ---
DATE OF CONSULTAITON: 03/01/2018 HISTORY OF PRESENT ILLNESS: Ms. Alecia Stevens is a 32-year-old unfortunate female who was admitted last night after she missed a week of dialysis. She has a friend at the bedside who arvin lambert owns a restaurant downtown. 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 Apparently, she is a very good worker. Name of the bar is [employer]. Because she had not been to work for several days, they called EMS. The patient said she was weak, body aches all over the plac e for a week, but denies any specific complaints except for pain general over. This morning, she was in a monitor bed. She was transferred to MICU because of further confusions, further change in ment al status. She has more encephalopathic. Apparently, there was some nausea, vomiting, diarrhea, but it is unclear whether any of these events took place last night. She had underwent emergency dialysis last night. EXTENSIVE PAST MEDICAL HISTORY: Outlined from previous medical records, end-stage renal disease, pre vious bilateral deep venous thrombosis, hepatitis C, history of pneumonia, renal failure on dialysis, access in the right arm. 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 She is a smoker, a pack a day for 20 years. She apparently has history of previous substance a buse including heroin. On 10/2017, she was seen by Dr. Baumann and underwent right upper extremity infected dialysis catheter , apparently removal. difficult access. MEDICATIONS: List of medicines from home has included lisinopril 2.5, Coreg 12.5, amlodipine 5. Previous surgeries otherwise included previous multiple access related surgery. Incision and drainag e of multiple abscesses in the past. REVIEW OF SYSTEMS: Otherwise, difficult to obtain. PHYSICAL EXAMINATION: GENERAL: She is awake and responsive. She has got 4+ ankle edema. She is encephalopathic, but appe ars to be quite arousable and appropriate. VITAL SIGNS: Sats are 92%, pulse 140, temperature 102.9, respiration rate 18. CHEST: Reveals decreased breath sounds, no wheezing. CARDIAC: Sinus tachycardia. ABDOMEN: Soft. LABORATORY DATA: Glucose 65. Troponin is 9.28. White count 2.3, H&H is 7 and 22, platelet count is 20,000. Her baseline platelet count is about 79. Chemistry shows sodium 127, potassium 6.2, BUN is , creatinine of 16.8, albumin is 2.7. IMPRESSION: 1. Metabolic encephalopathy, rule out sepsis. 2. History of drug abuse. 3. Renal failure on dialysis. 4. severe thrombocytopenia. 5. Electrolyte imbalance. PLAN: Await input from Nephrology, started broad-spectrum antibiotics to cover Staph and gram negati ves. Echo ordered to rule out endocarditis. Chest x-ray baseline. Supportive care. This is an extensive 70 minute consultation note of which 50 minutes spent in direct patient care.
--- NOTE | 2018-03-02 01:15 | CON ---
DATE OF CONSULTATION: 03/01/2018 CONSULTING PHYSICIAN: Dr. Eileen Allen. REQUESTING PHYSICIAN: ER physician and Dr. Raygoza with Family Medicine. REASON FOR CONSULTATION: Need for maintenance hemodialysis. IMPRESSION: 1. End-stage renal disease, hemodialysis-dependent, skipped several dialysis treatments. 2. Pancytopenia. 3. Sepsis. 4. Medical noncompliance. PLAN: 1. Patient to be dialyzed with ultrafiltration as tolerated by hemodynamics. 2. Broad-spectrum antibiotics renally dosed. 3. Transfuse red blood cells as well as platelets. We coordinated this in such a way that the patie nt would not be fluid overloaded. Therefore, this to be coordinated with dialysis treatment. 4. Counseling on the need to stay compliant with medication. 5. We will have the dialysis personnel, attempt the use of graft and especially in this patient with history of graft infection in the past and now with possibility of sepsis with septic emboli. We wi ll have a very low threshold to discontinue dialysis catheter. HISTORY OF PRESENT ILLNESS: History is that of 32-year-old female patient with end-stage renal disea se, hemodialysis-dependent, who has some problem with medical compliance. Patient presented here not feeling very well with nausea, vomiting, and diarrhea has missed about 1 week of dialysis. Patient noted to be febrile with multiple spots in the lungs suspicious for metastatic disease with possibili ty, patient also noted to be pancytopenic with hemoglobin down to about 6. As a result of all these findings, decision has been taken to involve Renal in the management of this case. PAST MEDICAL HISTORY: Significant for end-stage renal disease on hemodialysis-dependent, hypertensio n, hepatitis C, history of DVT, congestive heart failure, and substance abuse. MEDICATIONS: Reviewed and as documented on [facility]. ALLERGIES: No known drug allergy. FAMILY HISTORY: None significantly related to the presenting illness. SOCIAL HISTORY: Significant for drug use. Patient also tested positive to cocaine during this hospi talization. REVIEW OF SYSTEMS: As documented in the body of the history. Other systems were reviewed and found not to be significantly related to presenting illness. Patient generally is very ill. PHYSICAL EXAMINATION: GENERAL: Patient was noted to be ill-looking, noted with the following vital signs. VITAL SIGNS: Temperature maximum of 103, pulse of 136, respiratory rate of 20, O2 sat on 92%, blood pressure 111/48. HEENT: Remarkable for dry oral mucosa. NECK: Supple. CARDIOVASCULAR SYSTEM: First and second heart sounds, tachycardic. RESPIRATORY SYSTEM: Clear to auscultation anteriorly. DIGESTIVE SYSTEM: Revealed a benign abdomen. EXTREMITIES: Showed some minimal peripheral edema on the left lower extremity. NEUROLOGIC: Alert, oriented. No lateralizing signs. LYMPHATICS: No peripheral lymphadenopathy. SUMMARY: A 32-year-old female patient with end-stage renal disease, hemodialysis-dependent, who pres ented here with features of possible sepsis and missed dialysis for about 1 week and noted to be panc ytopenic. Thank you for this consultation. We will follow with you.
[2018-03-02 04:39] LABS: Hemoglobin 8.2 g/dL (12.0-16.0); Mean Corpuscular HGB CONC 32.6 g/dL (32.0-36.0); Mean Corpuscular Hemoglobin 28.7 pg (27.0-31.0); Mean Platelet Volume 14.1 fL (7.4-10.4); Platelet Count 14 thou/uL (130-400); RBC Distribution Width 14.1 % (11.5-14.5); Red Blood Cell (RBC) Count 2.85 mill/uL (4.20-5.40); White Blood Cell (WBC) Count 3.1 thou/uL (4.8-10.8)
[2018-03-02 04:53] LABS: Band 34 % (5-11); Hypochromia SLIGHT = 6-15 cells (100X) (0-5/hpf); Lymphocytes 15 % (21-51); MDiff Complete? YES; Monocytes 3 % (0-10); Neutrophil 48 % (42-75); PLT Morphology Comment Appears Decreased; Target Cells SLIGHT = 2-5 cells (100X) (0-1/hpf)
[2018-03-02] MEDS ORDERED: traMADol HCl 50 MG TAB PO SCH (05:00)
[2018-03-02] MEDS: Acetaminophen 325 MG TAB PO PRN ×2 (06:25→12:27)
--- NOTE | 2018-03-02 07:20 | PDOC.FM ---
- Subjective Subjective: CC: Body aches HPI: Complains of multiple joint pains with movement. States she last took opiate medication on Saturday. Denies cocaine or heroin use. Receiving HD at time of exam. - Objective MAR Reviewed: Yes Vital Signs & Weight: Vital Signs (12 hours) Temp Pulse Resp BP Pulse Ox 03/02/18 06:18 101 H 131/75 03/02/18 05:12 105 H 150/78 H 03/02/18 04:07 98.1 F 108 H 18 156/91 H 96 03/02/18 03:00 98.0 F 98 18 189/95 H 99 03/02/18 01:48 97 12 96 03/02/18 01:02 98.0 F 91 18 128/72 97 03/02/18 00:40 97.7 F 18 97 03/01/18 19:40 98.8 F 139 H 24 H 100 Weight Admit Weight 74.525 kg Weight 74.525 kg Most Recent Monitor Data Heart Rate from ECG 104 NIBP 130/68 I&O: 03/01/18 03/02/18 03/03/18 06:59 06:59 06:59 Intake Total 910 Balance 910 Result Diagrams: 03/02/18 04:10 03/01/18 07:50 Radiology Reviewed by me: Yes (CT brain no obvious mass. ) <Lee Castillo - Last Filed: 03/02/18 09:48> - Objective Vital Signs & Weight: Vital Signs (12 hours) Temp Pulse Pulse Resp BP BP Pulse Ox 03/02/18 10:32 98.0 F 98 18 118/70 96 03/02/18 10:31 98 F 93 18 118/70 96 03/02/18 09:35 98 F 90 18 122/73 98 03/02/18 07:58 87 16 98 03/02/18 07:30 98.4 F 107 H 28 H 119/69 98 03/02/18 06:18 101 H 131/75 03/02/18 05:12 105 H 150/78 H 03/02/18 04:07 98.1 F 108 H 18 156/91 H 96 03/02/18 04:05 97.9 F 86 20 119/65 95 03/02/18 03:00 98.0 F 98 18 189/95 H 99 03/02/18 01:48 97 12 96 07/01/18 01:02 98.0 F 91 18 128/72 97 03/02/18 00:40 97.7 F 18 97 Weight Admit Weight 74.525 kg Weight 74.525 kg Most Recent Monitor Data Heart Rate from ECG 104 NIBP 130/68 I&O: 03/01/18 03/02/18 03/03/18 06:59 06:59 06:59 Intake Total 910 350 Balance 910 350 Result Diagrams: 03/02/18 04:10 03/01/18 07:50 <Howard Hawley - Last Filed: 03/02/18 10:48> Phys Exam - Physical Examination Constitutional: NAD HEENT: moist MMs, sclera anicteric Neck: no nodes, no JVD Respiratory: no wheezing, clear to auscultation bilateral Cardiovascular: no significant murmur, no rub irregularly irregular Gastrointestinal: soft, non-tender Musculoskeletal: edema present (nonpitting bilaterally ) Neurological: non-focal, moves all 4 limbs Psychiatric: normal affect Skin: no rash, normal turgor <Lee Castillo - Last Filed: 03/02/18 09:48> Dx/Plan (1) Sepsis Code(s): A41.9 - SEPSIS, UNSPECIFIED ORGANISM Status: Acute (2) Atrial flutter Code(s): I48.92 - UNSPECIFIED ATRIAL FLUTTER Status: Acute (3) Bacteremia due to Staphylococcus aureus Code(s): R78.81 - BACTEREMIA Status: Acute (4) Hip pain, left Code(s): M25.552 - PAIN IN LEFT HIP Status: Acute (5) Polysubstance abuse Code(s): F19.10 - OTHER PSYCHOACTIVE SUBSTANCE ABUSE, UNCOMPLICATED Status: Acute (6) Anemia of renal disease Code(s): D63.1 - ANEMIA IN CHRONIC KIDNEY DISEASE Status: Chronic (7) ESRD (end stage renal disease) on dialysis Code(s): N18.6 - END STAGE RENAL DISEASE; Z99.2 - DEPENDENCE ON RENAL DIALYSIS Status: Chronic (8) Pancytopenia Code(s): D61.818 - OTHER PANCYTOPENIA Status: Chronic (9) Infection of AV graft for dialysis Code(s): T82.7XXA - INFECT/INFLM REACT D/T OTH CARDI/VASC DEV/IMPLNT/GRFT, INIT Status: Acute - Plan Plan: 1. Sepsis 2/2 Staph auerus bacteremia: Vitals improved. Patient mildly tachycardic but likely 2/2 aflutter/afib. TTE showed possible mass on tricuspid valve and will likely need JONAH. Cardiology has been consulted. Awaiting recs. Will attempt to contact ID due to concern for septic embolic disease. Awaiting CT Brain read. May need MRI to further characterize intracranial lesions. Repeat cultures tomorrow. Awaiting sensitives. 2. Suspected Infectious Endocarditis: See #1. Vanc/Zosyn day 2 3. A-flutter: controlled on diltiazem gtt. review of outpatient pharmacy list shows she is on coreg. Will start today. Titrate dilt drip. Awaiting cards recs. 4. ESRD: Nephro addressing electrolyte abnormalities and transfusions. 5. Pancytopenia: Management per nephro s/p 1 uPRBC this morning. 6. Left hip pain: LR left hip XR. Morphine PRN. 7. NSTEMI: Cannot anticoagulate due to low platelets. Awaiting cards recs. 8. Polysubstance abuse: UDS cocaine and opiate positive. 9. Non-ischemic cardiomyopathy: 10. Recent AV fistula infection <Lee Castillo - Last Filed: 03/02/18 09:48> (1) Sepsis Code(s): A41.9 - SEPSIS, UNSPECIFIED ORGANISM Status: Acute (2) Abdominal pain Code(s): R10.9 - UNSPECIFIED ABDOMINAL PAIN Status: Acute (3) Pancytopenia Code(s): D61.818 - OTHER PANCYTOPENIA Status: Chronic (4) CHF (congestive heart failure) Code(s): I50.9 - HEART FAILURE, UNSPECIFIED Status: Chronic (5) Anemia of renal disease Code(s): D63.1 - ANEMIA IN CHRONIC KIDNEY DISEASE Status: Chronic (6) Chronic hepatitis C Code(s): B18.2 - CHRONIC VIRAL HEPATITIS C Status: Chronic Qualifiers: Hepatic coma status: without hepatic coma Qualified Code(s): B18.2 - Chronic viral hepatitis C (7) ESRD (end stage renal disease) on dialysis Code(s): N18.6 - END STAGE RENAL DISEASE; Z99.2 - DEPENDENCE ON RENAL DIALYSIS Status: Chronic (8) History of drug abuse Code(s): Z87.898 - PERSONAL HISTORY OF OTHER SPECIFIED CONDITIONS Status: Chronic (9) Hypertension Code(s): I10 - ESSENTIAL (PRIMARY) HYPERTENSION Status: Chronic Qualifiers: (10) Hyperkalemia Code(s): E87.5 - HYPERKALEMIA Status: Acute (11) Metabolic acidosis Code(s): E87.2 - ACIDOSIS Status: Acute (12) Volume overload Code(s): E87.70 - FLUID OVERLOAD, UNSPECIFIED Status: Acute <Howard Hawley - Last Filed: 03/02/18 10:48> Attending Addendum - Attending Addendum Date/Time: 03/02/18 1042 I personally evaluated the patient and discussed the management with Dr. Castillo I agree with the History, Examination, Assessment and Plan documented above with any addition or exceptions noted below.Patient HR controlled with diltiazem drip. Echocardiogram with tricuspid vegetation as source septic emboli may benefit from JONAH, CT head pending, note elevated troponin questionable related to demand and endocarditis. Appreciate recs from Critical Care, Nephrology and Cardiology. Patient Critically ill however remains stable at this time. Culture results still pending. <Hoawrd Hawley - Last Filed: 03/02/18 10:48>
--- NOTE | 2018-03-02 08:17 | CT ---
PRELIMINARY REPORT/[facility]/EMERGENCY AFTER HOURS PROCEDURE: EXAM: CT Head Without And With Intravenous Contrast CLINICAL HISTORY: 32 years old, female; Screening exam; Patient HX: Eval for possible metastatic disease. Multiple lesi ons on lung; Additional info: 5 min delay used TECHNIQUE: Axial computed tomography images of the head/brain without and with intravenous contrast. COMPARISON: No relevant prior studies available. FINDINGS: Normal brain morphology. Rodriguez-white matter differentiation is preserved. No intracranial hemorrhage or hydrocephalus. No mass, mass effect or midline shift. No effacement of the cortical sulci and basal cisterns. No abnormal enhancement following contrast administration. Orbits are unremarkable. Paranasal sinuses are clear. Mastoid air cells are clear. No acute fracture. Soft tissues unremarkable. IMPRESSION: No acute intracranial abnormality and no evidence of intracranial metastasis as queried. Thank you for allowing us to participate in the care of your patient. Dictated and Authenticated by: Brian Hammond MD 03/02/2018 7:21 AM Central Time ([place] & [place]) FINAL REPORT CT HEAD WITH AND WITHOUT CONTRAST: Date: 03/02/18 Axial tomograms obtained through the head without IV enhancement followed by postcontrast images with administration of IV contrast. FINDINGS/IMPRESSION: No evidence of hemorrhage or infarct seen on the precontrast study. No abnormal enhancing lesion seen on the postcontrast exam. I am in agreement with the preliminary report issued by [facility]. POS: TRAN
[2018-03-02] MEDS ORDERED: Heparin 1,000 UNITS/ML VIAL ONE (11:11)
[2018-03-02] MEDS: Piperacillin/Tazobactam 2.25 GM in Sodium Chloride 0.9% 100 ML IVPB SCH ×2 (11:37→20:46)
[2018-03-02] MEDS: Carvedilol 6.25 MG TAB PO SCH ×2 (11:39→18:17)
[2018-03-02] MEDS: Famotidine 20 MG TAB PO SCH (11:40)
--- NOTE | 2018-03-02 12:48 | PRG ---
DATE OF SERVICE: 03/02/2018 SUBJECTIVE: This morning, is awake, alert, responsive. She is being dialyzed. She is better. Blood cultures are growing Staph aureus. OBJECTIVE: VITAL SIGNS: Sats are 98% on 2 liters, respirations 16, temperature 98. GENERAL: She is awake and responsive. CHEST: Minimal rhonchi. CARDIAC: Normal S1 and S2, no gallops. ABDOMEN: Soft without any masses. LABORATORY DATA: White count 3000; H and H is 8 and 25; platelet count is 14,000, severe thrombocyto penia. Echocardiogram done shows EF 50%. A mass on the tricuspid valve, possibly vegetation. She had a CT brain done and was, otherwise, unremarkable. IMPRESSION: 1. Staphylococcus sepsis, probably endocarditis, multiple pulmonary embolic episode somewhat c avitary. 2. Chronic renal failure. 3. Severe thrombocytopenia. 4. Recent supraventricular tachycardia. PLAN: I agree with Cardizem, vancomycin, and supportive care. She is going to require long-term ant ibiotics. Await input from Infectious Disease. Pulmonary Critical Care will follow while in the MICU.
[2018-03-02] MEDS ORDERED: Morphine 10 MG/ML VIAL SLOW IVP SCH (14:19)
--- NOTE | 2018-03-02 15:06 | CON ---
DATE OF CONSULTATION: 03/02/2018 HISTORY: Alecia Stevens is a 32-year-old white female who has been evaluated by Dr. Simon in the past. She apparently had an episode of ventricular tachycardia and declined ICD implantation. She is on chronic hemodialysis and has a history of heroin abuse. In December, she had Staphylococcus aureus bacteremia from AV fistula which was removed. She now presents complaining of nausea, vomiting, fever, and missing dialysis for 3 days due to feeling so poorly. She denies any chest discomfort. PAST MEDICAL HISTORY: Remarkable for end-stage renal disease; hepatitis C; IV heroin abuse, however, she states she has not done this for several years; chronic anemia; history of DVT. MEDICATIONS: At home lisinopril 2.5 mg daily, carvedilol 12.5 mg b.i.d., amlodipine 5 mg daily. ALLERGIES: None. SOCIAL HISTORY: Smokes 3-4 cigarettes per day. She does not drink. She states she does not use IV drugs any longer. REVIEW OF SYSTEMS: As noted above. PHYSICAL EXAMINATION: VITAL SIGNS: 118/69, pulse of 107, atrial fibrillation on the monitor. HEENT: PERRL. NECK: Supple. LUNGS: Chest is clear. CARDIAC: S1, S2 normal, without any S3, S4. There is a 2/6 holosystolic murmur on the left sternal border. ABDOMEN: Normal bowel sounds, without tenderness. EXTREMITIES: Revealed 2-3+ pretibial edema. NEUROLOGIC: Grossly intact. LABORATORY AND X-RAY FINDINGS: EKG reveals atrial fibrillation/flutter with nonspecific ST and T-wave changes. She was placed on a Cardizem drip and her rate has slowed to 100 per minute. Echocardiogram revealed mild concentric left ventricular hypertrophy with ejection fraction of 45%-50%, mild mitral regurgitation, mild tricuspid regurgitation. In 1 view, there appeared to be a mass on the tricuspid valve. A chest CT revealed no evidence of pulmonary embolism, but is a suboptimal study. There were numerous bilateral pulmonary nodules consistent with metastatic disease. CT of the abdomen and pelvis revealed hepatomegaly with severe splenomegaly, evidence for portal hypertension , brain CT revealed no acute findings. Ultrasound of the lower legs revealed no evidence of DVT. Hemoglobin 8.2, hematocrit 25.1, white count 3100, platelets 14,000. INR 1.6, sodium 134, potassium 3.7, chloride 97, carbon dioxide 21, BUN 38, creatinine 6.28. Troponin I is up to 1.137. CK-MB is normal at 1.8. Blood cultures have grown methicillin sensitive Staph aureus. IMPRESSION: 1. Methicillin sensitive Staphylococcus aureus sepsis. There is questionable mass on the tricuspid valve that certainly may represent endocarditis. She has "metastatic disease" to the lungs; however, these may be septic emboli to her lungs. 2. Onset of atrial fibrillation/flutter, rate controlled with intravenous Cardizem. 3. History of ventricular tachycardia in the past, declining ICD. 4. End-stage renal disease on dialysis. 5. History of IV drug abuse. 6. Smoker. 7. Pancytopenia. 8. Elevated troponin, probably secondary to demand ischemia. 9. Chronic hepatitis C. 10. Volume overload after missing dialysis 3 times. 11. Hypertension. PLAN: Patient will continue to be treated with intravenous Cardizem for rate control of her atrial fibrillation. She currently is on antibiotics. Consideration may need to be given to transesophageal echo to further look and evaluate her tricuspid valve. With her elevated troponin and platelet count of 14,000, she is not a candidate for any type of cardiac invasive evaluation at this time. [facility]
--- NOTE | 2018-03-02 15:20 | RAD ---
LEFT HIP 2 VIEWS: Date: 03/02/18 HISTORY: Left hip pain. IMPRESSION: Mild degenerative change at the left hip with mild spurring from the femoral head. No fracture or acu te osseous abnormality identified. POS: TRAN
--- NOTE | 2018-03-02 21:50 | PRG ---
DATE OF SERVICE: 03/02/2018 SUBJECTIVE: The patient seen and examined. She is ill-looking, noted with the following vital signs . OBJECTIVE: VITAL SIGNS: Afebrile, temperature 97.8, pulse 70, respiratory rate of 18, O2 sat of 96% with blood pressure 94/54 to 126/72. HEENT: Unremarkable with moist oral mucosa. NECK: Supple, no conjunctival injection or icterus. CARDIOVASCULAR: First and second heart sounds were heard. RESPIRATORY: Clear to auscultation. DIGESTIVE: Revealed a benign abdomen with positive bowel sounds. EXTREMITIES: No peripheral edema. SKIN: No new gross rash. LABORATORY INVESTIGATION: Showed a platelet of 14,000, hemoglobin 8.2 with a white count of 3.1. Ch emistry, none available today. IMPRESSION: 1. End-stage renal disease, hemodialysis dependent. 2. Sepsis. 3. Substance abuse. PLAN: 1. During dialysis today, we will plan to transfuse this patient with 1 more unit of blood as well a s 1 unit of six-pack platelets. 2. From tomorrow, the patient will go back to normal schedule of Saturday, Saturday, and Saturday dialy sis. 3. Counseling on the need to stay compliant with medication. 4. Further management to be dependent on the clinical course.
--- NOTE | 2018-03-03 06:29 | PDOC.FM ---
- Subjective Subjective: 32 yo female seen this AM. Patient complains of chronic back pain that has been going on for longer than 3 months. Patient states it hasn't acutely changed. Patient states her n/v has improved. She states that she doesn't feel SOB, but continues to where the oxygen. Patient states she does get dizzy especially when she ambulates. She denies bloody stools or bloody emesis. Patient denies fevers or chills. She notes that she is tired. She also states that she is going to be back on her regular dialysis regimen going forward. No other complaints today. - Objective Vital Signs & Weight: Vital Signs (12 hours) Temp Pulse Resp BP Pulse Ox 03/03/18 04:00 98.0 F 107 H 20 140/80 93 L 03/03/18 00:00 97.3 F L 97 17 123/72 91 L 03/02/18 23:10 98 12 92 L 03/02/18 20:00 97.7 F 92 22 H 98 03/02/18 19:25 97.7 F 92 22 H 109/66 94 L 03/02/18 19:06 88 12 95 Weight Admit Weight 74.525 kg Weight 74.525 kg Most Recent Monitor Data Heart Rate from ECG 104 NIBP 130/68 I&O: 03/01/18 03/02/18 03/03/18 06:59 06:59 06:59 Intake Total 910 790 Output Total 1675 Balance 910 -885 Result Diagrams: 03/03/18 06:30 03/01/18 07:50 <Girish Diaz - Last Filed: 03/03/18 09:12> - Objective Vital Signs & Weight: Vital Signs (12 hours) Temp Pulse Resp BP BP BP Pulse Ox 03/03/18 11:30 98.0 F 121 H 19 130/77 98 03/03/18 09:58 118/74 03/03/18 08:00 99.0 F 103 H 26 H 99 03/03/18 07:55 121 H 18 03/03/18 07:00 99.0 F 103 H 26 H 132/81 99 03/03/18 04:00 98.0 F 107 H 20 140/80 93 L Weight Admit Weight 74.525 kg Weight 74.525 kg Most Recent Monitor Data Heart Rate from ECG 104 NIBP 130/68 I&O: 03/02/18 03/03/18 03/04/18 06:59 06:59 06:59 Intake Total 910 1370 Output Total 1775 Balance 910 -405 Result Diagrams: 03/03/18 06:30 03/01/18 07:50 <Luz Marina Chance - Last Filed: 03/03/18 13:21> Phys Exam - Physical Examination HEENT: moist MMs Neck: no nodes Respiratory: no wheezing, clear to auscultation bilateral Cardiovascular: no significant murmur, irregular Gastrointestinal: soft, non-tender, no distention, positive bowel sounds 2+ edema present. Left worse than right. Neurological: non-focal, moves all 4 limbs Psychiatric: normal affect, A&O x 3 Skin: no rash <Girish Diaz - Last Filed: 03/03/18 09:12> Dx/Plan (1) Bacteremia due to Staphylococcus aureus Code(s): R78.81 - BACTEREMIA Status: Acute (2) Polysubstance abuse Code(s): F19.10 - OTHER PSYCHOACTIVE SUBSTANCE ABUSE, UNCOMPLICATED Status: Acute (3) Pancytopenia Code(s): D61.818 - OTHER PANCYTOPENIA Status: Chronic (4) Sepsis due to Staphylococcus aureus Code(s): A41.01 - SEPSIS DUE TO METHICILLIN SUSCEPTIBLE STAPHYLOCOCCUS AUREUS Status: Acute (5) Chronic hepatitis C Code(s): B18.2 - CHRONIC VIRAL HEPATITIS C Status: Chronic QualifierTitle: Hepatic coma status: without hepatic coma Qualified Code( s): B18.2 - Chronic viral hepatitis C (6) ESRD (end stage renal disease) on dialysis Code(s): N18.6 - END STAGE RENAL DISEASE; Z99.2 - DEPENDENCE ON RENAL DIALYSIS Status: Chronic (7) Hypertension Code(s): I10 - ESSENTIAL (PRIMARY) HYPERTENSION Status: Chronic (8) Nonischemic cardiomyopathy Code(s): I42.9 - CARDIOMYOPATHY, UNSPECIFIED Status: Chronic - Plan Plan: 1. Sepsis 2/2 Staph auerus bacteremia: - Vitals improved. Patient mildly tachycardic but likely 2/2 aflutter/afib. - TTE showed possible mass on tricuspid valve and will likely need JONAH. Cardiology has been consulted. Awaiting recs. - Will attempt to contact ID due to concern for septic embolic disease. - Awaiting CT Brain read. - May need MRI to further characterize intracranial lesions. - Therapy appropriate per sensitivities - Repeat cultures today 03/03 2. Suspected Infectious Endocarditis: - See #1. Vanc/Zosyn day 3 - Awaiting ID recommendations 3. A-flutter/A-fib: - Dilt gtt discontinued yesterday PM. - Continue Coreg - Rate controlled to 110 currently - Appreciate Cards recs 4. ESRD: - Nephro addressing electrolyte abnormalities and transfusions. - Dialysis MWF 5. Pancytopenia: - Management per nephro s/p 2u pRBC - s/p 1 u platelets 6. Left hip pain: - Morphine PRN. 7. NSTEMI: - Cannot anticoagulate due to low platelets. - Cards state she is not candidate due to platelet count and A-fib 8. Polysubstance abuse: - UDS cocaine and opiate positive. - Monitor for signs and symptoms of withdrawal. 9. Non-ischemic cardiomyopathy: - Monitor fluid balance - Continue cardiac monitoring 10. Recent AV fistula infection - Consider Gen Surg consultation if source of infection - Continue broad spectrum antibiotics Disposition: Guarded, Will continue current plan of care. <Girish Diaz - Last Filed: 03/03/18 09:12> Attending Addendum - Attending Addendum Date/Time: 03/03/18 2558 I personally evaluated the patient and discussed the management with Dr. Diaz. I agree with the History, Examination, Assessment and Plan documented above with any addition or exceptions noted below. The patient will remain on IV antibiotics. Dr. Mccain has been consulted and we are awaiting recs. Dialysis per Dr. Arellano. <Luz Marina Chance - Last Filed: 03/03/18 13:21>
[2018-03-03 08:16] LABS: Band 13 % (5-11); Lymphocytes 10 % (21-51); Monocytes 4 % (0-10); Myelocyte 2 % (0-0); Neutrophil 70 % (42-75)
[2018-03-03 08:17] LABS: Hemoglobin 8.2 g/dL (12.0-16.0); Mean Corpuscular HGB CONC 32.2 g/dL (32.0-36.0); Mean Corpuscular Hemoglobin 28.7 pg (27.0-31.0); Platelet Count 24 thou/uL (130-400); RBC Distribution Width 14.3 % (11.5-14.5); Red Blood Cell (RBC) Count 2.86 mill/uL (4.20-5.40); White Blood Cell (WBC) Count 4.5 thou/uL (4.8-10.8)
[2018-03-03 09:26] LABS: MDiff Complete? YES
--- NOTE | 2018-03-03 09:28 | PRG ---
DATE OF SERVICE: 03/03/2018 The patient was seen and examined. The patient was very drowsy, but arousable. PHYSICAL EXAMINATION: VITAL SIGNS: Afebrile, temperature 99, pulse 103, respiratory 18-26, O2 sat 99%, blood pressure 132/ 81. HEENT: Unremarkable. Moist oral mucosa. Neck was supple. No conjunctival injection or icterus. CARDIOVASCULAR: First and second heart sounds were heard. RESPIRATORY: Clear to auscultation. DIGESTIVE: Revealed a benign abdomen with positive bowel sounds. EXTREMITIES: No peripheral edema. SKIN: No new gross rash. IMPRESSION: 1. End-stage renal disease on hemodialysis. 2. Sepsis, likely in the context of endocarditis with septic emboli to both lungs. 3. Substance abuse. PLAN: 1. The patient to continue with hemodialysis now on a regular schedule of Saturday, Saturday and ay. 2. Broad spectrum antibiotics according to sensitivity. 3. Further management to be dependent on the clinical course.
--- NOTE | 2018-03-03 09:36 | PRG ---
DATE OF SERVICE: 03/03/2018 This is a 32-year-old female who has got probably endocarditis, it is not MRSA. It is sensitive to o xacillin. Multiple lung nodules. She feels better. PHYSICAL EXAMINATION: VITAL SIGNS: Sats are 99 on 2 liters, respirations 26, temperature is 99, pulse 103. CHEST: Chest reveals decreased breath sounds without any wheezing. CARDIAC: Normal S1, S2, no gallops. ABDOMEN: Soft, no masses. IMPRESSION: 1. Renal failure. 2. Staph sepsis. 3. Endocarditis. PLAN: Discontinue Zosyn. Switch over to nafcillin. Await input from ID. We will follow.
[2018-03-03] MEDS: Famotidine 20 MG TAB PO SCH (09:43)
[2018-03-03] MEDS: Carvedilol 6.25 MG TAB PO SCH ×2 (09:58→16:21)
[2018-03-03] MEDS: Piperacillin/Tazobactam 2.25 GM in Sodium Chloride 0.9% 100 ML IVPB SCH (10:02)
[2018-03-03] MEDS: Nafcillin 2 GM in Sodium Chloride 0.9% 100 ML IVPB SCH ×3 (12:00→23:59)
[2018-03-03] MEDS ORDERED: Amiodarone HCl 150 MG, Admixture Fee 1 EACH in Dextrose 5% in Water 100 ML IVPB SCH (18:30)
[2018-03-03] MEDS: Amiodarone HCl 450 MG, Admixture Fee 1 EACH in Dextrose 5% in Water 250 ML IVPB SCH (18:45)
[2018-03-03 20:59] LABS: Band 23 % (5-11); Lymphocytes 14 % (21-51); MDiff Complete? YES; Mean Corpuscular HGB CONC 33.3 g/dL (32.0-36.0); Mean Corpuscular Hemoglobin 29.4 pg (27.0-31.0); Mean Corpuscular Volume 88.1 fL (78.0-98.0); Mean Platelet Volume 11.3 fL (7.4-10.4); Monocytes 6 % (0-10); Neutrophil 57 % (42-75); PLT Morphology Comment Appears Decreased; Platelet Count 30 thou/uL (130-400); RBC Distribution Width 14.3 % (11.5-14.5); Red Blood Cell (RBC) Count 2.73 mill/uL (4.20-5.40); White Blood Cell (WBC) Count 4.4 thou/uL (4.8-10.8)
[2018-03-03 21:00] LABS: Albumin 2.3 g/dL (3.5-5.0); Anion Gap 10 mmol/L (10-20); BUN (Urea Nitrogen) 20 mg/dL (7.0-18.7); BUN/Creatinine Ratio 6.02; Calc. Creatinine Clearance 28 mL/min (70-130); Calcium 8.2 mg/dL (7.8-10.44); Carbon Dioxide 31 mmol/L (22-29); Chloride 93 mmol/L (98-107); Estimated GFR-MDRD 16; Glucose 133 mg/dL (70-105); Phosphorus 3.9 mg/dL (2.3-4.7); Potassium 3.8 mmol/L (3.5-5.1); Sodium 130 mmol/L (136-145)
--- NOTE | 2018-03-04 04:37 | CON ---
DATE OF CONSULTATION: 03/03/2018 REASON FOR CONSULTATION: Bacteremia. HISTORY OF PRESENT ILLNESS: A 32-year-old who has a history of IV drug use and chronic hepatitis C, end-stage renal disease possibly secondary to focal sclerosing glomerulonephritis, who has had problems with access for dialysis. Patient developed an infection of right-arm PTFE on 12/10/2017. The graft was removed, and she had a catheter placed in the left IJ position. In December, the cultures from the graft were negative. Previous October, cultures have yielded Staphylococcus aureus within a methicillin-sensitive phenotype. She had a transthoracic echocardiogram, which did not show any evidence of vegetations. Patient signed out against medical advice and this time, she presents with a 1 week history of general malaise, nausea, vomiting, and diarrhea, missed dialysis because of this illness. Patient was then admitted and had an emergency dialysis session. The initial findings are included BP 150/80, heart rate 120, respiratory rate 24, temperature 98.1, and scant bruising in her skin. The lungs were clear to auscultation. Tachycardic, but no murmurs. White cell count 1.7, hemoglobin 6.9, platelets 15,000. Creatinine 16, glucose 102, calcium 8.4, bilirubin 0.9. Transaminases normal. Patient has had 2 sets of blood cultures again positive for the same organism that had been isolated in October and imaging studies include brain CT scan, which did not show any acute findings. There is a hip x-ray with mild degenerative changes of left hip. A repeat echocardiogram was done and possible mass and tricuspid valve was seen in one view. Currently, Ms. Stevens is V10 in [facility] bed and she is complaining of pain all over, particularly in the lower back area. No headaches or maybe some headaches. No sore throat, odynophagia, dysphagia. No chest pain, no shortness of breath, no abdominal pain. She still has some urinary output. No diarrhea. PAST MEDICAL HISTORY: Includes polysubstance use, end-stage renal disease, CHF Staphylococcus aureus bacteremia, chronic hepatitis C. PAST SURGICAL HISTORY: Dialysis graft placement, removal of infected graft, and central line placement for dialysis in left IJ position. FAMILY HISTORY: Noncontributory. SOCIAL HISTORY: Lives with a roommate. Smokes daily about 3 cigars per day. CURRENT MEDICATIONS: Include Tylenol, DuoNeb, amiodarone, Pepcid, vancomycin, nafcillin. PHYSICAL EXAMINATION: VITAL SIGNS: T-max 103.4. She has been afebrile since. Blood pressure 120/68 , pulse 103, respirations 20 to 22, O2 sat 95% to 98% on 2 liters nasal cannula. SKIN: Shows hyperkeratotic lesion, in the dorsal aspect of the left hind foot. There is a chronic lesion that has been there for many years. Tunneled catheter, left IJ position with no inflammatory changes noted. No lymphadenopathy. HEENT: Ocular movements are conjugate. Sclerae white. Conjunctivae normal. Nasal passages patent. Oral cavity is somewhat dry. Numerous teeth in place with some decay. NECK: Supple. No jugular vein distention. LUNGS: With symmetric clear breath sounds. HEART: S1, S2, regular rate without obvious murmurs. No S3. ABDOMEN: Soft, nondistended or tender. No ascites. No bladder distention. EXTREMITIES: She is able to move extremities with some limitation. NEUROLOGIC: She is awake, oriented, follows commands, seems to be in distress from pain. LABORATORY DATA: White cell count 4.4, hemoglobin 8.0, platelets 30,000, 57% neutrophils, 23% bands. Chemistry: Sodium 130, creatinine 3.32, CO2 of 31, potassium 3.8, albumin 2.3. Liver profile was unremarkable. Lipase was 38. Imaging studies have been discussed. ASSESSMENT: 1. History of drug use in the past. 2. Recent episode of methicillin-sensitive Staphylococcus aureus bacteremia ascribed to infected AV graft right upper extremity shows removed. 3. End-stage renal disease on hemodialysis with tunneled hemodialysis catheter , left IJ position. 4. New onset of fever, general malaise, methicillin sensitive staphylococcus aureus bacteremia, polymyalgia, and polyarthralgias. DISCUSSION: Differential diagnosis includes endocarditis as the most likely scenario, plus/minus colonization of the dialysis catheter left IJ position. Patient may have septic pulmonary involvements from the original infection. Other sites of involvement that might be possible including the lumbosacral spine area with possible diskitis and osteomyelitis. An MRI likely need to be performed depending on clinical progress. She will need protracted treatment and I would probably choose vancomycin, which would simplify the logistics of administration of antimicrobials. Duration of therapy will be 6 weeks. Evidently, the catheter will most likely have to be removed and exchanged. It does not look like she has veins left to establish an AV fistula and will probably eventually need a graft placed. At this time, she will need another catheter placed probably in the opposite location. HAYDEN
[2018-03-04] MEDS: Amiodarone HCl 450 MG, Admixture Fee 1 EACH in Dextrose 5% in Water 250 ML IVPB SCH ×2 (04:38→21:09)
[2018-03-04] MEDS: Nafcillin 2 GM in Sodium Chloride 0.9% 100 ML IVPB SCH ×4 (05:12→23:52)
--- NOTE | 2018-03-04 06:15 | PDOC.FM ---
- Subjective Subjective: 32 yo female seen this AM. Patient states that she still has pain in all of her joints. She notes that she slept well overnight. She does state she has increased fatigue. She tolerated dialysis yesterday without any acute complications. She notes that she always has some slight chest pain, but no acute changes. She denies fevers, chills, n/v/d at this time. No other complaints. - Objective Vital Signs & Weight: Vital Signs (12 hours) Temp Pulse Resp BP Pulse Ox 03/04/18 04:00 98.6 F 104 H 18 128/78 95 03/04/18 03:48 99 03/04/18 00:02 98 18 99 03/04/18 00:00 98.4 F 105 H 17 134/94 H 97 03/03/18 19:48 98.4 F 103 H 22 H 120/68 95 03/03/18 19:32 98.4 F 101 H 20 98 03/03/18 19:06 101 H 20 98 Weight Admit Weight 74.525 kg Weight 76.4 kg Most Recent Monitor Data Heart Rate from ECG 104 NIBP 130/68 I&O: 03/02/18 03/03/18 03/04/18 06:59 06:59 06:59 Intake Total 910 1370 1300 Output Total 1775 200 Balance 910 -405 1100 Result Diagrams: 03/03/18 20:36 03/03/18 20:36 <Girish Diaz - Last Filed: 03/04/18 08:15> - Objective Vital Signs & Weight: Vital Signs (12 hours) Temp Pulse Resp BP Pulse Ox 03/04/18 15:22 98.2 F 106 H 25 H 133/74 99 03/04/18 12:53 112 H 18 03/04/18 11:27 98.5 F 107 H 23 H 136/85 99 03/04/18 09:05 99.9 F H 112 H 16 97 03/04/18 07:42 99 03/04/18 07:41 112 H 16 98 03/04/18 07:38 99.9 F H 108 H 23 H 151/88 H 97 Weight Admit Weight 74.525 kg Weight 76.4 kg Most Recent Monitor Data Heart Rate from ECG 104 NIBP 130/68 I&O: 03/03/18 03/04/18 03/05/18 06:59 06:59 06:59 Intake Total 1370 1300 Output Total 1775 200 Balance -405 1100 Result Diagrams: 03/03/18 20:36 03/03/18 20:36 <MeronLuz Marina - Last Filed: 03/04/18 17:56> Phys Exam - Physical Examination Constitutional: NAD HEENT: moist MMs Neck: no nodes Respiratory: no wheezing, clear to auscultation bilateral Cardiovascular: RRR, no significant murmur Gastrointestinal: soft, non-tender, no distention, positive bowel sounds Musculoskeletal: edema present improved from yesterday Neurological: non-focal, moves all 4 limbs Lymphatic: no nodes Psychiatric: normal affect, A&O x 3 Skin: no rash <Girish Diaz - Last Filed: 03/04/18 08:15> Dx/Plan (1) Bacteremia due to Staphylococcus aureus Code(s): R78.81 - BACTEREMIA Status: Acute (2) Polysubstance abuse Code(s): F19.10 - OTHER PSYCHOACTIVE SUBSTANCE ABUSE, UNCOMPLICATED Status: Acute (3) Pancytopenia Code(s): D61.818 - OTHER PANCYTOPENIA Status: Chronic (4) Sepsis due to Staphylococcus aureus Code(s): A41.01 - SEPSIS DUE TO METHICILLIN SUSCEPTIBLE STAPHYLOCOCCUS AUREUS Status: Acute (5) Chronic hepatitis C Code(s): B18.2 - CHRONIC VIRAL HEPATITIS C Status: Chronic QualifierTitle: Hepatic coma status: without hepatic coma Qualified Code( s): B18.2 - Chronic viral hepatitis C (6) ESRD (end stage renal disease) on dialysis Code(s): N18.6 - END STAGE RENAL DISEASE; Z99.2 - DEPENDENCE ON RENAL DIALYSIS Status: Chronic (7) Hypertension Code(s): I10 - ESSENTIAL (PRIMARY) HYPERTENSION Status: Chronic (8) Nonischemic cardiomyopathy Code(s): I42.9 - CARDIOMYOPATHY, UNSPECIFIED Status: Chronic - Plan Plan: 1. Sepsis 2/2 Staph auerus bacteremia: - Vitals improved. Patient mildly tachycardic but likely 2/2 aflutter/afib. - TTE showed possible mass on tricuspid valve and will likely need JONAH. Cardiology has been consulted and will hold on any intervention due to low platelets. - Dr. Mccain with ID consulted, appreciate recommendations. - CT brain negative - May need MRI to further characterize intracranial lesions. - Therapy appropriate per sensitivities - Repeat cultures on 03/03 - Dr. Mccain recommends Vancomycin for 6 weeks as well as replacement of Dialysis catheter or fistula placement. 2. Suspected Infectious Endocarditis: - See #1. Vanc/Zosyn day 3 - As above - Will consider MRI of lumbar spine to rule out discitis 3. A-flutter/A-fib: - Dilt gtt discontinued yesterday PM. - Continue Coreg - Rate controlled to 110 currently - Currently on Amiodarone drip per Cardiology - Appreciate Cards recs 4. ESRD: - Nephro addressing electrolyte abnormalities and transfusions. - Dialysis MWF - Removed 1700 ml yesterday - Will defer all lab draws until dialysis because difficulty of lab draws. 5. Pancytopenia: - Management per nephro s/p 2u pRBC - s/p 1 u platelets 6. Left hip pain: - Morphine PRN. 7. NSTEMI: - Cannot anticoagulate due to low platelets. - Cards state she is not candidate for intervention at this time due to platelet count and A-fib 8. Polysubstance abuse: - UDS cocaine and opiate positive. - Monitor for signs and symptoms of withdrawal. 9. Non-ischemic cardiomyopathy: - Monitor fluid balance - Continue cardiac monitoring 10. Recent AV fistula infection - Consider Gen Surg consultation if source of infection - Will need likely dialysis catheter replaced at some point as well. - Continue broad spectrum antibiotics Disposition: Guarded, Will continue current plan of care. <Girish Diaz - Last Filed: 03/04/18 08:15> Attending Addendum - Attending Addendum Date/Time: 03/04/18 1867 I personally evaluated the patient and discussed the management with Dr. Diaz. I agree with the History, Examination, Assessment and Plan documented above with any addition or exceptions noted below. Patient on IV antibiotics for 6 weeks. continue dialysis per Dr. Arellano. Pt will need picc line for the antibiotics. Will coordinate with specialists to find out if mediport or av graft needs to be changed/removed. <Luz Marina Chance - Last Filed: 03/04/18 17:56>
[2018-03-04] MEDS: Famotidine 20 MG TAB PO SCH (08:22)
--- NOTE | 2018-03-04 09:00 | PRG ---
DATE OF SERVICE: 03/04/2018 She says she is better. She is less short of breath. PHYSICAL EXAMINATION: VITAL SIGNS: Temperature 99, pulse 112, sats on 99 on 2 liters, respirations 16, blood pressure 150/ 88. CHEST: Chest revealed decreased breath sounds without any wheezing. CARDIAC: Normal S1, S2, no gallops. ABDOMEN: Soft. LABORATORY: Sodium 130, white count 4000, H&H 8 and 24, platelet count 30,000. IMPRESSION: 1. Staph sepsis. 2. Endocarditis. 3. History of substance abuse. 4. Thrombocytopenia. PLAN: Antibiotics per Infectious Disease. She is presently on vancomycin and nafcillin. Supportive care. I will follow while in the [facility].
--- NOTE | 2018-03-05 01:45 | PRG ---
DATE OF SERVICE: 03/04/2018 The patient is seen and examined and noted with following vital signs. PHYSICAL EXAMINATION: VITAL SIGNS: Afebrile with temperature 98.5, pulse 111 to 113, respiratory rate of 18, O2 sat 96% wi th a blood pressure 138/74. HEENT: Unremarkable. Moist oral mucosa. No conjunctival injection or icterus. NECK: Supple. CARDIOVASCULAR: First and second heart sounds were heard. RESPIRATORY: Clear to auscultation. DIGESTIVE: Revealed a benign abdomen with positive bowel sounds. EXTREMITIES: No peripheral edema. SKIN: No new gross rash. LYMPHATICS: No peripheral lymphadenopathy. IMPRESSION: 1. End-stage renal disease, hemodialysis dependent on a Saturday, Saturday, and Saturday. 2. Sepsis with septic emboli. 3. Endocarditis. 4. Pancytopenia in the context of sepsis. PLAN: 1. The patient to be dialyzed tomorrow in accordance with our schedule dialysis Saturday, Saturday, a saturday. 2. We will begin the process of cannulating this patient's graft. This will enable the expedited re moval of the dialysis catheter in this patient who has bacteremia. 3. Continue erythropoiesis stimulating agent. 4. Broad spectrum antibiotics by Infectious Disease recommendation likely to continue with outpatien t dialysis for the next 6 weeks. Hopefully, the patient will stay very compliant in order to receive all the adequate antibiotics as an outpatient. 5. Further management will be dependent on the clinical course. We will advise against securing on tunneled-dialysis catheter as patient already has a graft, which I do believe can be accessed success fully first enabling the current tunnel dialysis catheter to be removed as soon as possible.
[2018-03-05] MEDS: Nafcillin 2 GM in Sodium Chloride 0.9% 100 ML IVPB SCH ×3 (06:15→17:21)
--- NOTE | 2018-03-05 07:22 | PDOC.FM ---
- Subjective Subjective: 32 yo female seen this AM. 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 Patient currently lives with a couple of roommates and her 12 year old daughter. She states she doesn't have any other caretakers or support. Patient has not thought about hospice care, termite treater helper care placement, or rehab placement. Patient counseled extensively on the risks of substance abuse to her health and it would ultimately lead to her . Patient expressed understanding. She is ready for dialysis today. She still complains of joint pain all over as well as fatigue. She denies chest pain, sob, n/v/d, or fevers. No other complaints this morning. - Objective Vital Signs & Weight: Vital Signs (12 hours) Temp Pulse Resp BP Pulse Ox 03/05/18 06:36 110 H 16 95 03/05/18 04:00 98.4 F 106 H 18 150/86 H 94 L 03/05/18 00:36 100 03/05/18 00:28 113 H 16 93 L 03/04/18 23:49 98.5 F 105 H 18 151/91 H 95 03/04/18 20:00 98.5 F 113 H 18 96 03/04/18 19:28 98.5 F 113 H 18 138/74 96 Weight Admit Weight 74.525 kg Weight 77.111 kg Most Recent Monitor Data Heart Rate from ECG 104 NIBP 130/68 I&O: 03/04/18 03/05/18 03/06/18 06:59 06:59 06:59 Intake Total 1300 3369 Output Total 200 Balance 1100 3369 Result Diagrams: 03/03/18 20:36 03/03/18 20:36 <Girish Diaz - Last Filed: 03/05/18 07:22> - Objective Vital Signs & Weight: Vital Signs (12 hours) Temp Pulse Resp BP Pulse Ox 03/05/18 15:19 97.0 F L 106 H 22 H 148/97 H 96 03/05/18 12:01 106 H 16 96 03/05/18 11:51 98.3 F 107 H 20 142/83 H 90 L 03/05/18 08:09 100.1 F H 110 H 22 H 95 03/05/18 07:35 100.1 F H 108 H 22 H 147/86 H 99 03/05/18 06:36 110 H 16 95 Weight Admit Weight 74.525 kg Weight 77.111 kg Most Recent Monitor Data Heart Rate from ECG 104 NIBP 130/68 I&O: 03/04/18 03/05/18 03/06/18 06:59 06:59 06:59 Intake Total 1300 3369 797 Output Total 200 Balance 1100 3369 797 Result Diagrams: 03/05/18 07:44 03/05/18 07:44 <Luz Marina Chance - Last Filed: 03/05/18 16:08> Phys Exam - Physical Examination Constitutional: NAD HEENT: moist MMs Neck: no nodes Respiratory: no wheezing, clear to auscultation bilateral Cardiovascular: no significant murmur, irregular Gastrointestinal: soft, non-tender, no distention, positive bowel sounds Musculoskeletal: pulses present, edema present 2+ bilaterally Neurological: non-focal, moves all 4 limbs Lymphatic: no nodes Psychiatric: normal affect, A&O x 3 Skin: no rash Deviation from normal: Multiple ecchymosis present <Girish Diaz - Last Filed: 03/05/18 07:22> Dx/Plan (1) Bacteremia due to Staphylococcus aureus Code(s): R78.81 - BACTEREMIA Status: Acute (2) Polysubstance abuse Code(s): F19.10 - OTHER PSYCHOACTIVE SUBSTANCE ABUSE, UNCOMPLICATED Status: Acute (3) Pancytopenia Code(s): D61.818 - OTHER PANCYTOPENIA Status: Chronic (4) Sepsis due to Staphylococcus aureus Code(s): A41.01 - SEPSIS DUE TO METHICILLIN SUSCEPTIBLE STAPHYLOCOCCUS AUREUS Status: Acute (5) Chronic hepatitis C Code(s): B18.2 - CHRONIC VIRAL HEPATITIS C Status: Chronic QualifierTitle: Hepatic coma status: without hepatic coma Qualified Code( s): B18.2 - Chronic viral hepatitis C (6) ESRD (end stage renal disease) on dialysis Code(s): N18.6 - END STAGE RENAL DISEASE; Z99.2 - DEPENDENCE ON RENAL DIALYSIS Status: Chronic (7) Hypertension Code(s): I10 - ESSENTIAL (PRIMARY) HYPERTENSION Status: Chronic (8) Nonischemic cardiomyopathy Code(s): I42.9 - CARDIOMYOPATHY, UNSPECIFIED Status: Chronic - Plan Plan: 1. Sepsis 2/2 Staph auerus bacteremia: - Vitals improved. Patient mildly tachycardic but likely 2/2 aflutter/afib. - TTE showed possible mass on tricuspid valve and will likely need JONAH. Cardiology has been consulted and will hold on any intervention due to low platelets. - CT brain negative - Therapy appropriate per sensitivities - Repeat cultures on 03/03 no growth to date - Dr. Mccain recommends Vancomycin for 6 weeks as well as replacement of Dialysis catheter or fistula placement. 2. Suspected Infectious Endocarditis: - See #1. Vancomycin and Nafcillin - As above - Will consider MRI of lumbar spine to rule out discitis 3. A-flutter/A-fib: - Dilt gtt discontinued - Continue Coreg - Rate controlled to 110 currently - Currently on Amiodarone drip per Cardiology - Appreciate Cards recs 4. ESRD: - Nephro addressing electrolyte abnormalities and transfusions. - Dialysis MWF - Will defer all lab draws until dialysis because difficulty of lab draws. 5. Pancytopenia: - Management per nephro s/p 2u pRBC - s/p 1 u platelets 6. Left hip pain: - Morphine PRN. 7. NSTEMI: - Cannot anticoagulate due to low platelets. - Cards state she is not candidate for intervention at this time due to platelet count and A-fib 8. Polysubstance abuse: - UDS cocaine and opiate positive. - Monitor for signs and symptoms of withdrawal. 9. Non-ischemic cardiomyopathy: - Monitor fluid balance - Continue cardiac monitoring 10. Recent AV fistula infection - Consider Gen Surg consultation if source of infection - Will need likely dialysis catheter replaced at some point as well. - ID recommends not removing catheter because of risk. Will attempt to treat with Gen Surg consultation in the future. - Continue broad spectrum antibiotics Disposition: Guarded, Will continue current plan of care. <Girish Diaz - Last Filed: 03/05/18 07:22> Attending Addendum - Attending Addendum Date/Time: 03/05/18 3256 I personally evaluated the patient and discussed the management with Dr. Diaz. I agree with the History, Examination, Assessment and Plan documented above with any addition or exceptions noted below. The patient continues on iv vanc and nafcillin. She is still requiring an amiodarone drip to control a. fib. She is still tired-appearing. Pt will not receive a picc line. Once she is stable for discharge she will get vancomycin with her dialysis. Platelet count is improving. <Luz Marina Chance - Last Filed: 03/05/18 16:08>
[2018-03-05 08:26] LABS: Hemoglobin 9.1 g/dL (12.0-16.0); Mean Corpuscular HGB CONC 32.3 g/dL (32.0-36.0); Mean Corpuscular Hemoglobin 28.6 pg (27.0-31.0); Mean Corpuscular Volume 88.5 fL (78.0-98.0); Mean Platelet Volume 9.5 fL (7.4-10.4); Platelet Count 61 thou/uL (130-400); RBC Distribution Width 14.6 % (11.5-14.5); Red Blood Cell (RBC) Count 3.18 mill/uL (4.20-5.40); White Blood Cell (WBC) Count 7.1 thou/uL (4.8-10.8)
[2018-03-05 08:34] LABS: ALT (SGPT) 8 U/L (8-55); AST (SGOT) 14 U/L (5-34); Albumin 2.2 g/dL (3.5-5.0); Alkaline Phosphatase 63 U/L (40-150); Anion Gap 16 mmol/L (10-20); BUN (Urea Nitrogen) 41 mg/dL (7.0-18.7); Bilirubin, Total 0.9 mg/dL (0.2-1.2); Calc. Creatinine Clearance 18 mL/min (70-130); Calcium 8.2 mg/dL (7.8-10.44); Carbon Dioxide 22 mmol/L (22-29); Chloride 91 mmol/L (98-107); Estimated GFR-MDRD 9; Globulin 3.4 g/dL (2.4-3.5); Glucose 124 mg/dL (70-105); Potassium 4.1 mmol/L (3.5-5.1); Protein, Total 5.6 g/dL (6.0-8.3); Sodium 125 mmol/L (136-145)
[2018-03-05] MEDS: Acetaminophen 325 MG TAB PO PRN (08:41)
[2018-03-05] MEDS: Famotidine 20 MG TAB PO SCH (08:42)
[2018-03-05 09:52] LABS: Band 29 % (5-11); Hypochromia SLIGHT = 6-15 cells (100X) (0-5/hpf); Lymphocytes 15 % (21-51); MDiff Complete? YES; Monocytes 4 % (0-10); Neutrophil 52 % (42-75); PLT Morphology Comment Appears Decreased; Polychromasia SLIGHT = 2-3 cells (100X) (0-2/hpf); Toxic Granulation SLIGHT
[2018-03-05 10:12] LABS: Vancomycin, Random 9.2 ug/mL (See Comment)
--- NOTE | 2018-03-05 14:14 | PRG ---
DATE OF SERVICE: 03/05/2018 SERVICE: Pulmonary Medicine INTERVAL HISTORY: The patient is doing fine from a respiratory standpoint. She still has a toxic lo ok about her. That being said, she denies any chest pain, nausea, vomiting, fevers or chills. Her p latelet count is rebounding nicely. White blood cell count is also improving. That being said, the band count is increasing, likely because she is getting in front of her inflammatory profile. Otherw ise, there has been no interval change to her condition. PHYSICAL EXAMINATION: VITAL SIGNS: Afebrile currently with a T-max overnight of 100.1, pulse 107, blood pressure 142/83, r espirations 20, saturation 96% on room air. GENERAL: The patient is awake, alert, no apparent distress. LUNGS: Decent air entry. There is no prolonged expiratory phase or wheezing present. HEART: Normal rate, regular. ABDOMEN: Soft, nontender, nondistended. Bowel sounds are positive. MUSCULOSKELETAL: No cyanosis or clubbing. There is no pitting in the bilateral lower extremities. NEUROLOGIC: Grossly nonfocal. LABORATORY DATA: WBC 7.1, hemoglobin 9.1, platelets 61,000 and improving. Band count is increasing gently to 29%. INR 1.6. Creatinine 5.48. Basic metabolic profile is otherwise unremarkable except for sodium that is down trending to 125. Liver function studies are unremarkable. Troponin is up tr ending to 1.14. MSSA is growing in 2/2 blood cultures. ASSESSMENT: 1. 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 2. Substance abuse. 3. Thrombocytopenia, improving. DISCUSSION AND PLAN: We will continue her antibiotics and other supportive measures. At this point, she has yet to fully turns the corner. When she does, we will consider her for transition out of [facility], but I would like for her to stay in place for at least an additional 24 hours. Pulmonary mitzy l continue to follow along.
--- NOTE | 2018-03-05 17:50 | PRG ---
DATE OF SERVICE: 03/05/2018 SUBJECTIVE: The patient seen and examined, found sleepy, but arousable. OBJECTIVE: VITAL SIGNS: Afebrile with temperature 97, pulse 106, respiratory rate 22, and O2 sat 96%, blood pre ssure 148/97. HEENT: Unremarkable. CARDIOVASCULAR: First and second heart sounds were heard. RESPIRATORY: Clear to auscultation. DIGESTIVE: Revealed a benign abdomen with positive bowel sounds. EXTREMITIES: No peripheral edema. SKIN: No new gross rash. LYMPHATICS: No peripheral lymphadenopathy. LABORATORY INVESTIGATION: Showed hemoglobin of 9.1 with a platelet of 61,000. Chemistry showed a so dium of 125, creatinine 5.48 with BUN of 41. IMPRESSION: 1. End-stage renal disease, hemodialysis dependent. 2. Sepsis. 3. Endocarditis with septic emboli. 4. Hyponatremia. 5. Pancytopenia, improving. PLAN: 1. The patient to be dialyzed today in accordance with her schedule. 2. Encourage increased ambulation. 3. Further management to be dependent on the clinical course.
[2018-03-06] MEDS ORDERED: Amlodipine 5 MG TAB PO SCH (00:15)
[2018-03-06] MEDS: Nafcillin 2 GM in Sodium Chloride 0.9% 100 ML IVPB SCH ×5 (00:19→23:30)
[2018-03-06] MEDS ORDERED: cloNIDine 0.1 MG TAB PO SCH (05:00)
--- NOTE | 2018-03-06 06:17 | PDOC.FM ---
- Subjective Subjective: Patient has no complaints today. She states she feels improved overall. She states that she has been up and walking more. She is tolerating a diet without complications. She is counseled this morning to continue to monitor her fluid intake and adhere to her fluid restrictions. She denies fever, chills, n/v/d, cough, chest pain, or SOB. No other complaints this morning. - Objective Vital Signs & Weight: Vital Signs (12 hours) Temp Pulse Resp BP BP BP Pulse Ox 03/06/18 03:45 98.8 F 114 H 20 173/101 H 97 03/06/18 00:32 96 03/06/18 00:19 114 H 183/115 H 03/06/18 00:14 118 H 16 96 03/06/18 00:00 99.7 F H 119 H 18 161/115 H 96 03/05/18 20:00 99.2 F 113 H 18 174/81 H 94 L 03/05/18 18:58 111 H 16 97 Weight Admit Weight 74.525 kg Weight 77.111 kg Most Recent Monitor Data Heart Rate from ECG 104 NIBP 130/68 I&O: 03/04/18 03/05/18 03/06/18 06:59 06:59 06:59 Intake Total 1300 3369 2839 Output Total 200 Balance 1100 3369 2839 Result Diagrams: 03/05/18 07:44 03/05/18 07:44 <Girish Diaz - Last Filed: 03/06/18 09:15> - Objective Vital Signs & Weight: Vital Signs (12 hours) Temp Pulse Pulse Pulse Resp BP BP 03/06/18 15:28 98.4 F 100 20 03/06/18 12:42 114 H 16 03/06/18 11:14 97.7 F 103 H 20 03/06/18 10:21 108 H 03/06/18 10:20 108 H 159/95 H 03/06/18 09:23 101 H 119 H 151/91 H 03/06/18 08:45 113 H 03/06/18 08:40 122 H 03/06/18 07:41 100.3 F H 118 H 22 H 03/06/18 07:33 100.3 F H 118 H 22 H 03/06/18 07:23 03/06/18 07:22 115 H 17 BP BP Pulse Ox Pulse Ox Pulse Ox 03/06/18 15:28 162/101 H 100 03/06/18 12:42 99 03/06/18 11:14 150/95 H 97 03/06/18 10:21 03/06/18 10:20 03/06/18 09:23 141/101 H 100 100 03/06/18 08:45 150/108 H 03/06/18 08:40 170/89 H 03/06/18 07:41 97 03/06/18 07:33 174/96 H 97 03/06/18 07:23 96 03/06/18 07:22 96 Weight Admit Weight 74.525 kg Weight 77.111 kg Most Recent Monitor Data Heart Rate from ECG 104 NIBP 130/68 I&O: 03/05/18 03/06/18 03/07/18 06:59 06:59 06:59 Intake Total 3369 2839 712 Balance 3369 2839 712 Result Diagrams: 03/05/18 07:44 03/05/18 07:44 <Luz Marina Chance - Last Filed: 03/06/18 16:58> Phys Exam - Physical Examination Constitutional: NAD HEENT: PERRLA Neck: no nodes Respiratory: no wheezing, clear to auscultation bilateral Cardiovascular: no significant murmur, irregular Gastrointestinal: soft, non-tender, no distention, positive bowel sounds Musculoskeletal: pulses present, edema present Neurological: non-focal, moves all 4 limbs Lymphatic: no nodes Psychiatric: normal affect, A&O x 3 Skin: no rash Deviation from normal: multiple ecchymosis <Girish Diaz - Last Filed: 03/06/18 09:15> Dx/Plan (1) Bacteremia due to Staphylococcus aureus Code(s): R78.81 - BACTEREMIA Status: Acute (2) Atrial fibrillation with RVR Code(s): I48.91 - UNSPECIFIED ATRIAL FIBRILLATION Status: Acute (3) Pancytopenia Code(s): D61.818 - OTHER PANCYTOPENIA Status: Chronic (4) Sepsis due to Staphylococcus aureus Code(s): A41.01 - SEPSIS DUE TO METHICILLIN SUSCEPTIBLE STAPHYLOCOCCUS AUREUS Status: Resolved (5) Chronic hepatitis C Code(s): B18.2 - CHRONIC VIRAL HEPATITIS C Status: Chronic QualifierTitle: Hepatic coma status: without hepatic coma Qualified Code( s): B18.2 - Chronic viral hepatitis C (6) ESRD (end stage renal disease) on dialysis Code(s): N18.6 - END STAGE RENAL DISEASE; Z99.2 - DEPENDENCE ON RENAL DIALYSIS Status: Chronic (7) Hyponatremia Code(s): E87.1 - HYPO-OSMOLALITY AND HYPONATREMIA Status: Acute (8) Hypertension Code(s): I10 - ESSENTIAL (PRIMARY) HYPERTENSION Status: Chronic (9) Nonischemic cardiomyopathy Code(s): I42.9 - CARDIOMYOPATHY, UNSPECIFIED Status: Chronic (10) Polysubstance abuse Code(s): F19.10 - OTHER PSYCHOACTIVE SUBSTANCE ABUSE, UNCOMPLICATED Status: Acute - Plan Plan: Sepsis 10/04 Staph auerus bacteremia: - TTE showed possible mass on tricuspid valve and will likely need JONAH. Cardiology has been consulted and will hold on any intervention due to low platelets. - CT brain negative - Therapy appropriate per sensitivities - Repeat cultures on 03/03 no growth to date - Dr. Mccain recommends Vancomycin for 6 weeks as well as replacement of Dialysis catheter or fistula placement. Suspected Infectious Endocarditis: - See #1. Vancomycin and Nafcillin - As above - Will consider MRI of lumbar spine to rule out discitis A-fib: - Dilt gtt discontinued - Rates to 150s consistently above 120 - Amiodarone discontinued - Cardiology changed regimen to Metoprolol, will consider increase regimen - One time dose of Metoprolol IV this AM - Appreciate Cards recs 4. ESRD: - Nephro addressing electrolyte abnormalities and transfusions. - Dialysis MWF - Will defer all lab draws until dialysis because difficulty of lab draws. 5. Pancytopenia: - Management per nephro s/p 2u pRBC - s/p 1 u platelets - Platelets improved to 61 6. Left hip pain: - Morphine PRN. - Nurses report excessive sleepiness especially following morphine doses. Will decrease dose. 7. NSTEMI: - Cannot anticoagulate due to low platelets. - Cards state she is not candidate for intervention at this time due to platelet count and A-fib 8. Polysubstance abuse: - UDS cocaine and opiate positive. - Monitor for signs and symptoms of withdrawal. 9. Non-ischemic cardiomyopathy: - Monitor fluid balance - Continue cardiac monitoring 10. Recent AV fistula infection - Consider Gen Surg consultation if source of infection - Will need likely dialysis catheter replaced at some point as well. - ID recommends not removing catheter because of risk. Will attempt to treat with Gen Surg consultation in the future. - Continue broad spectrum antibiotics 11. Hyponatremia - Na 125 this AM. - Oral intake yesterday 2900 - Fluid restriction and trend. 12. Hypertension - Elevated this AM - Have not restarted home regimen because of condition - Will restart home meds and have PRNs available. Disposition: Guarded, Will continue current plan of care. <Girish Diaz - Last Filed: 03/06/18 09:15> Attending Addendum - Attending Addendum Date/Time: 03/06/18 1374 I personally evaluated the patient and discussed the management with Dr. Diaz. I agree with the History, Examination, Assessment and Plan documented above with any addition or exceptions noted below. The patient will have a JONAH tomorrow. The patient is off amiodarone drip but is continuing to have a fib with RVR. We have given a dose of IV metoprolol which helped. Will continue to dose this as needed and adjust po metoprolol dose as well. Will continue IV antibiotics. Encouraged pt to get up out of bed to a chair today. <Luz Marina Chance - Last Filed: 03/06/18 16:58>
[2018-03-06] MEDS ORDERED: Metoprolol Tartrate 5 MG/5 ML VIAL IVP SCH ×2 (08:30→15:00)
[2018-03-06] MEDS: Famotidine 20 MG TAB PO SCH (08:31)
[2018-03-06] MEDS: Acetaminophen 325 MG TAB PO PRN (08:32)
--- NOTE | 2018-03-06 09:05 | PRG ---
DATE OF SERVICE: 03/06/2018 This morning she is awake, alert, responsive, in no distress. PHYSICAL EXAMINATION: VITAL SIGNS: Sats are 97 on room air, respiration 22, temperature is still at 100.3, pulse 113, bloo d pressure 150/80. CHEST: Chest revealed decreased breath sounds, no wheezing. CARDIAC: Normal S1-S2. No gallops. ABDOMEN: Soft, no masses. IMPRESSION: 1. Staph aureus sepsis, not methicillin-resistant Staphylococcus aureus, on vancomycin and nafcillin . 2. Chronic renal failure. PLAN: The patient is scheduled for a JONAH tomorrow. Continue antibiotics. Infectious Disease will c ontinue to follow while in the IMCU.
[2018-03-06] MEDS: Amlodipine 5 MG TAB PO SCH (10:20)
[2018-03-06] MEDS: Lisinopril 2.5 MG TAB PO SCH (10:21)
[2018-03-06 10:30] VITALS: BMI 28.3
[2018-03-06] MEDS ORDERED: Loperamide HCl 2 MG CAP PO PRN (17:20)
--- NOTE | 2018-03-06 18:17 | PRG ---
DATE OF SERVICE: 03/06/2018 SUBJECTIVE: Feeling better, less pain. No headaches, no shortness of breath. The patient has devel oped worsening tenderness at the left hemodialysis catheter tunnel site. PHYSICAL EXAMINATION: VITAL SIGNS: T-max 100.3, BP 162/101, respiratory rate 20. SKIN: Shows the area of inflammatory change at the tunnel of the left hemodialysis catheter with mod erate tenderness. HEART: S1, S2 regular rate. LUNGS: Bilateral lung sounds. ABDOMEN: Soft. LABORATORY DATA: White cell count is 7.1, hemoglobin 9.1, platelets 61,000 with 29% bands. Microbio logy reveals Staphylococcus aureus, which is methicillin sensitive. ASSESSMENT AND DISCUSSION: Drug use history, methicillin-resistant Staphylococcus aureus bacteremia with previous AV graft removal, now with hemodialysis catheter infection with obvious evidence of tere kalin inflammatory process. The patient will need removal of the catheter, I&D of the tunnel site. Af ter that, we will need a new one inserted for dialysis and then protracted antimicrobial therapy give n via dialysis with a sliding scale, vancomycin.
[2018-03-07] MEDS: Nafcillin 2 GM in Sodium Chloride 0.9% 100 ML IVPB SCH ×4 (05:25→23:43)
--- NOTE | 2018-03-07 06:17 | PDOC.FM ---
- Subjective Subjective: 32 yo female is evaluated this AM. Patient had good night. She denies any chest pain. States she feels better overall. She states that she was able to get up and walk and felt like she had more energy. She is awaiting JONAH this AM. Also patient is waiting on dialysis after JONAH. No other complaints today. - Objective Vital Signs & Weight: Vital Signs (12 hours) Temp Pulse Resp BP Pulse Ox 03/07/18 04:00 88 20 149/87 H 98 03/07/18 00:19 86 18 100 03/07/18 00:00 98.8 F 90 20 141/81 H 100 03/06/18 20:00 98.8 F 88 22 H 96 03/06/18 19:00 98.8 F 88 22 H 160/83 H 93 L Weight Admit Weight 74.525 kg Weight 77.111 kg Most Recent Monitor Data Heart Rate from ECG 104 NIBP 130/68 I&O: 03/05/18 03/06/18 03/07/18 06:59 06:59 06:59 Intake Total 3369 2839 1413 Balance 3369 2839 1413 Result Diagrams: 03/05/18 07:44 03/05/18 07:44 <Girish Diaz - Last Filed: 03/07/18 08:23> - Objective Vital Signs & Weight: Vital Signs (12 hours) Temp Pulse Resp BP Pulse Ox 03/07/18 11:24 98.9 F 87 22 H 148/90 H 95 03/07/18 08:00 99.8 F H 89 20 100 03/07/18 07:30 99.8 F H 89 20 175/97 H 98 03/07/18 04:00 88 20 149/87 H 98 Weight Admit Weight 74.525 kg Weight 78.29 kg Most Recent Monitor Data Heart Rate from ECG 104 NIBP 130/68 I&O: 03/06/18 03/07/18 03/08/18 06:59 06:59 06:59 Intake Total 4543 7685 Balance 2837 8150 Result Diagrams: 03/07/18 12:54 03/07/18 12:54 <Luz Marina Chance - Last Filed: 03/07/18 16:04> Phys Exam - Physical Examination Constitutional: NAD HEENT: PERRLA, moist MMs Neck: no nodes Induration and erythema around dialysis catheter insertion site. Respiratory: no wheezing, clear to auscultation bilateral Cardiovascular: RRR, no significant murmur Gastrointestinal: soft, non-tender, no distention, positive bowel sounds Musculoskeletal: pulses present, edema present 2+ bilaterally Neurological: non-focal, normal sensation, moves all 4 limbs Lymphatic: no nodes Psychiatric: normal affect, A&O x 3 Skin: no rash <Girish Diaz - Last Filed: 03/07/18 08:23> Dx/Plan (1) Bacteremia due to Staphylococcus aureus Code(s): R78.81 - BACTEREMIA Status: Acute (2) Atrial fibrillation with RVR Code(s): I48.91 - UNSPECIFIED ATRIAL FIBRILLATION Status: Acute (3) Pancytopenia Code(s): D61.818 - OTHER PANCYTOPENIA Status: Chronic (4) Sepsis due to Staphylococcus aureus Code(s): A41.01 - SEPSIS DUE TO METHICILLIN SUSCEPTIBLE STAPHYLOCOCCUS AUREUS Status: Resolved (5) Chronic hepatitis C Code(s): B18.2 - CHRONIC VIRAL HEPATITIS C Status: Chronic QualifierTitle: Hepatic coma status: without hepatic coma Qualified Code( s): B18.2 - Chronic viral hepatitis C (6) ESRD (end stage renal disease) on dialysis Code(s): N18.6 - END STAGE RENAL DISEASE; Z99.2 - DEPENDENCE ON RENAL DIALYSIS Status: Chronic (7) Hyponatremia Code(s): E87.1 - HYPO-OSMOLALITY AND HYPONATREMIA Status: Acute (8) Hypertension Code(s): I10 - ESSENTIAL (PRIMARY) HYPERTENSION Status: Chronic (9) Nonischemic cardiomyopathy Code(s): I42.9 - CARDIOMYOPATHY, UNSPECIFIED Status: Chronic (10) Polysubstance abuse Code(s): F19.10 - OTHER PSYCHOACTIVE SUBSTANCE ABUSE, UNCOMPLICATED Status: Acute - Plan Plan: Sepsis 2/2 Staph auerus bacteremia: - TTE showed possible mass on tricuspid valve. JONAH today 03/[address] Barrett - CT brain negative - Therapy appropriate per sensitivities - Repeat cultures on 03/03 no growth to date - Dr. Mccain recommends Vancomycin for 6 weeks. - ID consulted General Surgery for Dialysis catheter placement. Suspected Infectious Endocarditis: - See #1. Vancomycin and Nafcillin - As above - Will consider MRI of lumbar spine to rule out discitis - JONAH today with Dr. Barrett A-fib: - Dilt gtt discontinued - Converted to Sinus Rhythm around 17:30 yesterday - Rates in 80s - Amiodarone discontinued - Cardiology changed regimen to Metoprolol, will consider increase regimen - IVP Metoprolol as needed for sustained A-fib with elevated rates - Appreciate Cards recs 4. ESRD: - Nephro addressing electrolyte abnormalities and transfusions. - Dialysis MWF - Will defer all lab draws until dialysis because difficulty. 5. Pancytopenia: - Management per nephro s/p 2u pRBC - s/p 1 u platelets - CBC pending at dialysis today 6. Left hip pain: - Morphine PRN. 7. NSTEMI: - Cannot anticoagulate due to low platelets. 8. Polysubstance abuse: - UDS cocaine and opiate positive. - Monitor for signs and symptoms of withdrawal. 9. Non-ischemic cardiomyopathy: - Monitor fluid balance - Continue cardiac monitoring 10. Recent AV fistula infection - Consider Gen Surg consultation if source of infection - Will need likely dialysis catheter replaced at some point as well. - ID consulted Gen surg for removal of catheter with replacement. Appreciate Dr. Baumann's input - Continue broad spectrum antibiotics 11. Hyponatremia - CMP pending at dialysis today - Intake yesterday 1800 - Fluid restriction and trend. 12. Hypertension - BP better controlled today - Will restart home meds and have PRNs available. Disposition: Guarded, Will continue current plan of care. <Girish Diaz - Last Filed: 03/07/18 08:23> Attending Addendum - Attending Addendum Date/Time: 03/07/18 1603 I personally evaluated the patient and discussed the management with Dr. Diaz. I agree with the History, Examination, Assessment and Plan documented above with any addition or exceptions noted below. The patient had a JONAH this morning showing no vegetation on her valves. Pt remains on IV antibiotics for bacteremia. Surgery has been consulted to remove the catheter on the left upper chest which now is red and tender. Will discuss with Dr. Mccain whether the patient needs MRI to look for additional infection with the normal JONAH. Pt has converted to sinus rhythm. Will get dialysis today. <Luz Marina Chance - Last Filed: 03/07/18 16:04>
--- NOTE | 2018-03-07 08:11 | PRG ---
DATE OF SERVICE: 03/06/2018 The patient is seen and examined and noted with the following vital signs. PHYSICAL EXAMINATION: VITAL SIGNS: Temperature 98.4, pulse 100, respiratory 20 with 100% with blood pressure 162/101. HEENT: Unremarkable with moist oral mucosa. No conjunctival injection or icterus. NECK: Supple. CARDIOVASCULAR: First and second heart sounds were heard. RESPIRATORY: Clear to auscultation. ABDOMEN: Digestive system revealed a benign abdomen with positive bowel sounds. EXTREMITIES: No peripheral edema. SKIN: No new gross rash. LYMPHATICS: No peripheral lymphadenopathy. IMPRESSION: 1. End-stage renal disease, hemodialysis dependent on a Saturday, Saturday, Saturday, due for dialysis tomorrow. 2. Sepsis with aureus bacteremia. PLAN: 1. We will continue with hemodialysis per schedule. 2. Daily physical therapy strongly recommended. 3. Counseling. 4. Disposition planning will be dependent on the decision of the primary team and the clinical cours e.
--- NOTE | 2018-03-07 08:47 | PRG ---
DATE OF SERVICE: 03/07/2018 Ms. Stevens is better this morning. She is awaiting a JONAH to see whether she has got a vegetation on the tricuspid valve. PHYSICAL EXAMINATION: VITAL SIGNS: Temperature 99, sats are 90 on room air, respiration 20, blood pressure 125/97. LUNGS: She had difficulty breathing. She has a localized abscess in the right infraclavicular area. Chest reveals decreased breath sounds, no wheezing. CARDIAC: Normal S1, S2, no gallops. ABDOMEN: Soft, no masses. IMPRESSION: 1. Staph sepsis. 2. Endocarditis. 3. Renal failure. PLAN: Antibiotic per Infectious Disease, supportive care. Multiple lung nodules on the x-ray, proba taj embolic Staph infection, though she is clearly much improved. I will follow.
[2018-03-07] MEDS ORDERED: Midazolam HCl 2 mg/2 ml Vial ONE (10:12)
[2018-03-07] MEDS ORDERED: Fentanyl 100 MCG/2 ML VIAL ONE (10:12)
--- NOTE | 2018-03-07 11:57 | ECHO ---
TRANSESOPHAGEAL ECHOCARDIOGRAM: DATE OF PROCEDURE: 03/07/18 INDICATION: 32-year-old woman with sepsis. DESCRIPTION OF PROCEDURE: The patient was taken to the PACU. The patient was sedated by anesthesiology. A transesophageal probe was placed in the distal esophagus and stomach. Echocardiographic images were obtained. The transesophageal probe was removed. FINDINGS: 1. Normal left ventricular systolic function. 2. Normal mitral and aortic valves. 3. Mild mitral regurgitation. 4. Mild tricuspid regurgitation. 5. No vegetation noted on aortic, mitral, or tricuspid valves. 6. Atherosclerotic debris in the descending aorta. 7. Pleural effusion. IMPRESSION: No vegetation noted on the cardiac valves.
[2018-03-07 13:27] LABS: #Eosinphils 0.1 thou/uL (0.0-0.7); #Monocytes 0.3 thou/uL (0.11-0.59); #Neutrophils 5.1 thou/uL (1.40-6.50); %Basophils 0.1 % (0.0-1.0); %Eosinophils 1.3 % (0.0-10.0); %Lymphocytes 15.4 % (21.0-51.0); %Monocytes 5.1 % (0.0-10.0); %Neutrophils 78.2 % (42.0-75.0); Hemoglobin 7.3 g/dL (12.0-16.0); Mean Corpuscular HGB CONC 32.4 g/dL (32.0-36.0); Mean Corpuscular Hemoglobin 28.5 pg (27.0-31.0); Mean Corpuscular Volume 87.7 fL (78.0-98.0); Platelet Count 65 thou/uL (130-400); RBC Distribution Width 14.3 % (11.5-14.5); Red Blood Cell (RBC) Count 2.57 mill/uL (4.20-5.40); White Blood Cell (WBC) Count 6.5 thou/uL (4.8-10.8)
[2018-03-07 13:43] LABS: Vancomycin, Random 11.1 ug/mL (See Comment)
[2018-03-07 13:46] LABS: ALT (SGPT) 8 U/L (8-55); AST (SGOT) 13 U/L (5-34); Albumin 2.1 g/dL (3.5-5.0); Alkaline Phosphatase 53 U/L (40-150); Anion Gap 13 mmol/L (10-20); BUN (Urea Nitrogen) 45 mg/dL (7.0-18.7); Bilirubin, Total 0.6 mg/dL (0.2-1.2); Calc. Creatinine Clearance 17 mL/min (70-130); Carbon Dioxide 26 mmol/L (22-29); Chloride 92 mmol/L (98-107); Estimated GFR-MDRD 8; Globulin 3.4 g/dL (2.4-3.5); Glucose 144 mg/dL (70-105); Protein, Total 5.5 g/dL (6.0-8.3); Sodium 127 mmol/L (136-145)
[2018-03-07] MEDS ORDERED: Lidocaine 1% PF 5 ML VIAL ONE (14:29)
[2018-03-07] MEDS ORDERED: PROPOFOL 200 MG/20 ML VIAL ONE (14:29)
[2018-03-07] MEDS ORDERED: Epoetin (ESRD) 10,000 UNITS/ML VIAL IVP SCH (14:30)
[2018-03-07] MEDS: Lisinopril 2.5 MG TAB PO SCH (16:55)
[2018-03-07] MEDS: Famotidine 20 MG TAB PO SCH (16:56)
[2018-03-07] MEDS: Amlodipine 5 MG TAB PO SCH (16:56)
[2018-03-07] MEDS ORDERED: Lidocaine 1% w/Epinephrine 1:100K 20 ML VIAL FS SCH (19:30)
--- NOTE | 2018-03-07 21:20 | RAD ---
SINGLE VIEW OF THE CHEST 03/07/18 COMPARISON: 03/01/18 HISTORY: Central line placement. FINDINGS: Single view of the chest shows an enlarged but stable cardiomediastinal silhouette. There is a right subclavian central venous catheter with its tip at the superior vena cava. No pneumothorax is seen. D iffuse increased interstitial lung markings are present. There may be superimposed air space opacitie s unchanged. IMPRESSION: 1. Status post central line placement without evidence of complication. 2. Stable cardiomegaly. 3. Stable multifocal mixed opacities. POS: [facility]
[2018-03-08] MEDS ORDERED: hydrALAZINE 20 MG/ML VIAL SLOW IVP SCH (00:45)
--- NOTE | 2018-03-08 02:15 | OP ---
PREOPERATIVE DIAGNOSES: 1. Noncompliant followup. 2. End-stage renal disease. 3. History of intravenous drug abuse. 4. Hepatitis C. 5. Cuffed tunnel dialysis catheter, left IJ. 6. Abscess over the supraclavicular area. 7. Functioning left upper arm dialysis graft. 8. Poor IV access. 9. Occluded right internal jugular vein, cannot access. PROCEDURE: Ultrasound of right IJ noting like a vein that I could not access. J-wire would not thre ad. Right subclavian vein triple lumen (end-stage renal disease with exhausted right upper extremity dialysis access). Incision and drainage of abscess over the neck. Culture and sensitivity submitte d. Removal of cuffed tunnel hemodialysis catheter. SURGEON: Dr. Martin Baumann. ANESTHESIA: A 1% Xylocaine, 10 mL, 1% Xylocaine with epinephrine, 20 mL. PROCEDURE: At the patient's bedside, her right side of her neck and chest were prepped with ChloraPr ep, draped in routine fashion. Local anesthetic infiltrated into skin and subcutaneous tissue about the operative site. Ultrasound guidance used to find this vein in the right side of her neck overlyi ng the carotid artery. Ultrasound guidance was used to cannulate this, obtaining good return of bloo d, but the J-wire would not thread, the site was abandoned. Infraclavicular approach, right, used to cannulate the right subclavian vein. J-wire threaded. Troc ar catheter removed. Skin incised and enlarged sharply. Dilator placed and removed. Seldinger tech nique used to place triple-lumen catheter, secured with 3-0 silk and sterile dressing applied. Each port aspirated blood and flushed with saline solution. Sterile dressing applied. The cuffed tunnel dialysis catheter access site, left chest, was cleansed with alcohol and anesthetiz ed with local anesthetic, a 1% Xylocaine with epinephrine 10 mL. The abscess on the left side of the neck was anesthetized with local anesthetic after alcohol prep. The cuffed tunnel dialysis catheter was then dissected free and removed. Pressure held to hemostatic and a dry dressing applied. Incision and drainage of the left neck abscess performed. Culture and sensitivity obtained and submi tted to microbiology. Sterile dressings applied after hemostasis gained.
[2018-03-08 02:33] LABS: Fibrinogen 356 mg/dL (253-463)
[2018-03-08 02:34] LABS: INR-International Normal Ratio 1.4; PTT 32.7 SEC (22.9-36.1); Prothrombin Time 16.9 SEC (12.0-14.7)
[2018-03-08 02:41] LABS: D-Dimer Test 16.04 *mcg/mL (0.27-0.43)
[2018-03-08 02:54] LABS: Hemoglobin 6.6 g/dL (12.0-16.0); Platelet Count 68 thou/uL (130-400)
[2018-03-08 03:18] LABS: FSP-Qualitative ABNORMAL (Normal)
[2018-03-08 03:22] LABS: FSP-Semiquantitative >=40 & <80 mcg/mL (Less than 5)
[2018-03-08 03:23] LABS: Platelet Count 64 thou/uL (130-400)
[2018-03-08] MEDS: Nafcillin 2 GM in Sodium Chloride 0.9% 100 ML IVPB SCH ×3 (04:53→17:00)
--- NOTE | 2018-03-08 06:25 | PDOC.FM ---
- Subjective Subjective: Patient did not have a good night. Patient states she has had some pain and swelling of her left chest as well as her left arm. She states that her IV site has been oozing blood since that time. She denies headaches, visions changes, sob, chest pain, n/v/d, and coughs. Patient is worried about not having dialysis access. Patient otherwise has no other complaints. - Objective Vital Signs & Weight: Vital Signs (12 hours) Temp Pulse Resp BP Pulse Ox 03/08/18 05:23 94 20 170/95 H 03/08/18 04:00 98.4 F 93 20 180/88 H 95 03/08/18 01:45 95 20 174/94 H 03/08/18 00:00 99.1 F 80 20 182/103 H 95 03/07/18 21:29 100.1 F H 96 20 100 03/07/18 21:20 100 20 183/118 H 100 Weight Admit Weight 74.525 kg Weight 80.104 kg Most Recent Monitor Data Heart Rate from ECG 104 NIBP 130/68 I&O: 03/06/18 03/07/18 03/08/18 06:59 06:59 06:59 Intake Total 2839 1878 1577 Output Total 4300 Balance 1057 8925 -7592 Result Diagrams: 03/08/18 02:10 03/07/18 12:54 <Girish Diaz - Last Filed: 03/08/18 07:56> - Objective Vital Signs & Weight: Vital Signs (12 hours) Temp Pulse Pulse Resp BP BP Pulse Ox 03/08/18 09:55 98.4 F 84 16 177/102 H 03/08/18 09:35 98.4 F 64 16 284/100 H 03/08/18 09:20 98.4 F 90 16 158/87 H 03/08/18 09:12 98.2 F 87 16 169/92 H 03/08/18 08:00 98.5 F 99 18 197/106 H 97 03/08/18 07:10 82 16 99 03/08/18 05:23 94 20 170/95 H 03/08/18 04:00 98.4 F 93 20 180/88 H 95 03/08/18 01:45 95 20 174/94 H 03/08/18 00:00 99.1 F 80 20 182/103 H 95 Weight Admit Weight 74.525 kg Weight 80.104 kg Most Recent Monitor Data Heart Rate from ECG 104 NIBP 130/68 I&O: 03/07/18 03/08/18 03/09/18 06:59 06:59 06:59 Intake Total 1878 1577 0 Output Total 4300 Balance 1878 -2723 0 Result Diagrams: 03/08/18 02:10 03/07/18 12:54 <Luz Marina Chance - Last Filed: 03/08/18 10:12> Phys Exam - Physical Examination Constitutional: NAD HEENT: PERRLA Neck: no nodes Respiratory: no wheezing, clear to auscultation bilateral Cardiovascular: RRR, no significant murmur Gastrointestinal: soft, non-tender, no distention, positive bowel sounds Musculoskeletal: edema present Left arm. Bilaterally lower extremity edema Neurological: non-focal, moves all 4 limbs Lymphatic: no nodes Psychiatric: normal affect, A&O x 3 Deviation from normal: Cellulitis to left chest. Bleeding under IV bandage on Right subclavian. <Girish Diaz - Last Filed: 03/08/18 07:56> Dx/Plan (1) Bacteremia due to Staphylococcus aureus Code(s): R78.81 - BACTEREMIA Status: Acute (2) Abscess Code(s): L02.91 - CUTANEOUS ABSCESS, UNSPECIFIED Status: Acute (3) Cellulitis Code(s): L03.90 - CELLULITIS, UNSPECIFIED Status: Acute (4) Atrial fibrillation with RVR Code(s): I48.91 - UNSPECIFIED ATRIAL FIBRILLATION Status: Acute (5) Pancytopenia Code(s): D61.818 - OTHER PANCYTOPENIA Status: Chronic (6) Sepsis due to Staphylococcus aureus Code(s): A41.01 - SEPSIS DUE TO METHICILLIN SUSCEPTIBLE STAPHYLOCOCCUS AUREUS Status: Resolved (7) Chronic hepatitis C Code(s): B18.2 - CHRONIC VIRAL HEPATITIS C Status: Chronic QualifierTitle: Hepatic coma status: without hepatic coma Qualified Code( s): B18.2 - Chronic viral hepatitis C (8) ESRD (end stage renal disease) on dialysis Code(s): N18.6 - END STAGE RENAL DISEASE; Z99.2 - DEPENDENCE ON RENAL DIALYSIS Status: Chronic (9) Hyponatremia Code(s): E87.1 - HYPO-OSMOLALITY AND HYPONATREMIA Status: Acute (10) Hypertension Code(s): I10 - ESSENTIAL (PRIMARY) HYPERTENSION Status: Chronic (11) Nonischemic cardiomyopathy Code(s): I42.9 - CARDIOMYOPATHY, UNSPECIFIED Status: Chronic (12) Polysubstance abuse Code(s): F19.10 - OTHER PSYCHOACTIVE SUBSTANCE ABUSE, UNCOMPLICATED Status: Acute - Plan Plan: Sepsis 10/04 Staph auerus bacteremia: - TTE showed possible mass on tricuspid valve. JONAH today 03/[address] Barrett - CT brain negative - Therapy appropriate per sensitivities - Repeat cultures on 03/03 no growth to date - Dr. Mccain recommends Vancomycin for 6 weeks. - Central line placed 03/07 by Pastor - No dialysis access at this time Unkown source bacteremia: - Endocarditis ruled out with JONAH - Worsening cellulitis following I&D 03/07 - See #1. Vancomycin and Nafcillin - As above - Will consider MRI of lumbar spine to rule out discitis A-fib: - Dilt gtt discontinued - Converted to Sinus Rhythm in 80-100s - Rates in 80s - Amiodarone discontinued - Cardiology changed regimen to Metoprolol, will consider increase regimen - IVP Metoprolol as needed for sustained A-fib with elevated rates - Appreciate Cards recs 4. ESRD: - Nephro addressing electrolyte abnormalities and transfusions. - Dialysis MWF - Will defer all lab draws until dialysis because difficulty. - To receive 1u pRBC 03/08 5. Pancytopenia: - Management per nephro s/p 2u pRBC - s/p 1 u platelets - CBC 6.3 and platelets 68 today 6. Left hip pain: - Morphine PRN. 7. NSTEMI: - Cannot anticoagulate due to low platelets. 8. Polysubstance abuse: - UDS cocaine and opiate positive. - Monitor for signs and symptoms of withdrawal. 9. Non-ischemic cardiomyopathy: - Monitor fluid balance - Continue cardiac monitoring 10. Recent AV fistula infection - General Surgery recommends to use Left arm fistula. - Very weak thrill present - Swelling, warmth, and tenderness to left arm. - Will likely need new dialysis catheter. - ID consulted Gen surg for removal of catheter with replacement. Appreciate Dr. Baumann's input - Continue broad spectrum antibiotics 11. Hyponatremia - Sodium improved to 127 - Fluid restriction and trend. 12. Hypertension - BP elevated today - Increased home regimen today. Disposition: Guarded, Will continue current plan of care. <Girish Diaz - Last Filed: 03/08/18 07:56> Attending Addendum - Attending Addendum Date/Time: 03/08/18 1008 I personally evaluated the patient and discussed the management with Dr. Diaz. I agree with the History, Examination, Assessment and Plan documented above with any addition or exceptions noted below. The patient is feeling worse today. The swelling in her left upper extremity has worsened and has 2+ pitting edema but minimal erythema. The tunneled dialysis catheter was removed by Dr. Baumann overnight with cellulitis appearing worse today and pt is bleeding from this site. Has pressure dressing in place. Pt is also oozing from the right subclavian central line. Had sand bag place on it overnight. Pt's hb 6.6. She will need transfusion and Dr. Arellano wants to do it with dialysis. Will coordinate with nephrology regarding whether the AV fistula on the left can be accessed, pt notes it cannot. We attempted to transfer to [facility] this morning as pt has decompensated but nursing was resistant to the transfer. Will monitor the pt closely. Will also discuss worsening of the cellulitis with Dr. Mccain. Increase amlodipine 2/2 htn. <Luz Marina Chance - Last Filed: 03/08/18 10:12>
--- NOTE | 2018-03-08 07:28 | PDOC.EVN ---
Event Note - Event Note Event Note: Was paged to bedside at apprx [id number] on 03/08/18 dt continued oozing from R CVC site. For the previous 20-30 minutes nursing had attempted to hold pressure at the side, however she continued to soak through multiple pressure bandages. After discussion with Dr Baumann, it was recommended to continue to attempt to hold pressure and if it continued to fail, add a figure of 8 stitch around the site. After another hour of pressure and cold compress, the oozing continued. Site was prepped in sterile fashion and 1 figure of 8 suture was added at wound site with 3-0 nylon. Patient tolerated this well, there were no complications. After continued observation, oozing appears to have resolved.
[2018-03-08] MEDS ORDERED: Lisinopril 5 MG TAB PO SCH (09:00)
[2018-03-08] MEDS: Amlodipine 10 MG TAB PO SCH (12:29)
[2018-03-08] MEDS: Famotidine 20 MG TAB PO SCH (12:29)
--- NOTE | 2018-03-08 15:07 | PRG ---
DATE OF SERVICE: 03/07/2018 LABORATORY DATA: Laboratory investigation showed hemoglobin of 7.3, platelet 5000. Chemistry showed sodium 147, creatinine 5.81 with BUN of 45. IMPRESSION: 1. End-stage renal disease, on hemodialysis. 2. Anemia of chronic kidney disease order was made. 3. Hypervolemia. 4. Pancytopenia. 5. Sepsis with staphylococcal bacteremia. PLAN: 1. In order to address the patient's volume status, we will do an extra treatment of dialysis tomorr ow, but with emphasis on ultrafiltration. 2. Transfuse 1 unit of blood during dialysis tomorrow. 3. Resume erythropoietin stimulating agent units today and then continue with 5000 units every dialysis treatment. 4. Further management to be dependent on the clinical course.
--- NOTE | 2018-03-08 15:10 | CON ---
DATE OF SERVICE: 03/07/2018 Merced Stevens is a 32-year-old female with end-stage renal disease, history of heroin use with poor IV access. She states she has not used heroin a year. She instead uses Eleele to help her sleep. Sh tiff states that she can find heroin around here. She dialyzes, but is noncompliant. She states that s he does not use marijuana, she does not like the way it makes her feel. She is admitted this [facility] on 03/01/2018 by [facility]. She has a history of hypertension, hepatitis C, DVT, CHF. She has been feeling poorly. Patient has exhausted right upper extremity dialysis access with fist ulas and infected graft requiring removal, placed 2 months ago, left arm graft after finding veins in adequate. She was to follow up with me, but did not. She is admitted on this occasion with positive blood cultures 2:2 Staphylococcus aureus. Hemodialysis catheter, left IJ has an abscess over the ne ck area where the incision was made for access. The patient lost her IV access. Nurses, upon my ins truction had been using her hemodialysis catheter for intravenous access. Access has been difficult in the past. EXAMINATION: The patient has a left IJ hemodialysis catheter cuffed tunneled. She has an abscess over the supracl avicular area. She has a good thrill and bruit over her left upper arm dialysis graft. ASSESSMENT AND PLAN: End-stage renal disease, but noncompliant in follow up, now with abscess over her hemodialysis cuffed tunneled catheter, left IJ. We will plan incision and drainage and removal of this catheter. We wi ll plan placement of central access for use this hospitalization. Can use her left arm dialysis nate t for dialysis in the future.
--- NOTE | 2018-03-08 16:15 | EKG ---
Test Reason : HYPERKALEMIA Blood Pressure : / mmHG Vent. Rate : 121 BPM Atrial Rate : 121 BPM P-R Int : 166 ms QRS Dur : 088 ms QT Int : 304 ms P-R-T Axes : 060 023 094 degrees QTc Int : 431 ms Sinus tachycardia Septal infarct , age undetermined T wave abnormality, consider lateral ischemia Abnormal ECG Confirmed by UNIQUE OCASIO ([id number]), editor farm journal BOOKER SCANLON ([id number]) on 03/08/2018 4:14:44 PM Referred By: TONA Confirmed By:UNIQUE OCASIO
[2018-03-09] MEDS: Nafcillin 2 GM in Sodium Chloride 0.9% 100 ML IVPB SCH ×4 (00:19→17:53)
[2018-03-09] MEDS ORDERED: diphenhydrAMINE 25 MG CAP PO SCH (01:00)
[2018-03-09] MEDS ORDERED: Lorazepam 0.5 MG TAB PO SCH (03:45)
[2018-03-09] MEDS: Acetaminophen 325 MG TAB PO PRN ×2 (04:29→12:28)
--- NOTE | 2018-03-09 05:22 | PDOC.EVN ---
Event Note - Event Note Event Note: Residents called to the bedside for concern of chest pain after taking 0.5mg Ativan given PRN anxiety. STAT EKG showed sinus tachycardia with rate of 107. Patient no longer having chest pain after duoneb and sitting up in chair with cool cloth on forehead. At time of exam, BP 190/110, P 96, O2 98% on 2L NC, respiratory rate 22. Patient alert and oriented x3, RRR, lungs CTAB. Patient reports she is currently feeling better. Will follow-up troponin and any further concern of chest pain.
[2018-03-09 05:34] LABS: Troponin I 0.295 ng/mL (< 0.028)
[2018-03-09] MEDS ORDERED: Lisinopril 20 MG TAB PO SCH ×2 (05:58→09:00)
--- NOTE | 2018-03-09 06:03 | PDOC.FM ---
- Objective MAR Reviewed: Yes Vital Signs & Weight: Vital Signs (12 hours) Temp Pulse Resp BP Pulse Ox 03/09/18 05:10 95 22 H 163/97 H 96 03/09/18 04:40 102 H 30 H 98 03/09/18 04:10 100.7 F H 110 H 34 H 198/118 H 95 03/09/18 04:00 99.3 F 93 18 181/115 H 95 03/09/18 00:45 157/85 H 03/09/18 00:00 98.9 F 96 18 188/113 H 98 03/08/18 20:00 99.6 F 91 18 168/92 H 94 L Weight Admit Weight 74.525 kg Weight 80.104 kg Most Recent Monitor Data Heart Rate from ECG 104 NIBP 130/68 I&O: 03/07/18 03/08/18 03/09/18 06:59 06:59 06:59 Intake Total 1878 1577 2060 Output Total 4300 4000 Balance 4873 -2791 -0390 Result Diagrams: 03/08/18 02:10 03/07/18 12:54 Dx/Plan (1) MSSA bacteremia Code(s): R78.81 - BACTEREMIA Status: Acute Plan: -pt presented with sepsis found to be 2/2 MSSA bacteremia -ID on board, recommendations greatly appreciated -continue vancomycin with HD and nafcillin (2) ESRD (end stage renal disease) on dialysis Code(s): N18.6 - END STAGE RENAL DISEASE; Z99.2 - DEPENDENCE ON RENAL DIALYSIS Status: Chronic Plan: -pt on MWF HD -nephrology on board, recommendations greatly appreciated -pt had left IJ tunneled dialysis cath removed on 03/07 due to concern of infection and overlying abscess/cellulitis -pt also has AV fistula on left arm that was successfully used for HD on 03/08 -lab draws only during HD per nephrology -due to significant anemia, pt received 2 units pRBC during HD on 03/08 (3) Pancytopenia Code(s): D61.818 - OTHER PANCYTOPENIA Status: Chronic Plan: -continue to monitor with lab draws during HD -2 additional units pRBC on 03/08 (4) Hypertension Code(s): I10 - ESSENTIAL (PRIMARY) HYPERTENSION Status: Chronic Qualifiers: Plan: -continues to be uncontrolled -amlodipine increased yesterday, will increase lisinopril -continue to monitor closely (5) Atrial fibrillation with RVR Code(s): I48.91 - UNSPECIFIED ATRIAL FIBRILLATION Status: Resolved Plan: -pt developed afib with RVR needing IV diltiazem and amiodarone, since resolved -pt on oral metoprolol and continues to be in NSR -HR mainly 80-90s overnight, however, slightly elevated when pt became anxious overnight -continue to monitor closely -if pt develops afib or sustained tachycardia, will treat with metoprolol 5 mg IVP
--- NOTE | 2018-03-09 07:32 | PDOC.FM ---
- Subjective Subjective: Pt seen at bedside in NAD. Pt had an episode of anxiety and reported CP overnight. Stat EKG showed sinus tachycardia and troponins are decreased from earlier in hospitalization. Pt noted she felt better after receiving benadryl and ativan. Pt notes she is tired but otherwise denies CRAIN, CP, palpitations, SOB , abd pain, NVD. - Objective Vital Signs & Weight: Vital Signs (12 hours) Temp Pulse Resp BP Pulse Ox 03/09/18 05:10 95 22 H 163/97 H 96 03/09/18 04:40 102 H 30 H 98 03/09/18 04:10 100.7 F H 110 H 34 H 198/118 H 95 03/09/18 04:00 99.3 F 93 18 181/115 H 95 03/09/18 00:45 157/85 H 03/09/18 00:00 98.9 F 96 18 188/113 H 98 03/08/18 20:00 99.6 F 91 18 168/92 H 94 L Weight Admit Weight 74.525 kg Weight 80.104 kg Most Recent Monitor Data Heart Rate from ECG 104 NIBP 130/68 I&O: 03/08/18 03/09/18 03/10/18 06:59 06:59 06:59 Intake Total 1577 2790 Output Total 4300 4000 Balance -5033 -1210 Result Diagrams: 03/08/18 02:10 03/07/18 12:54 <Lester Watson - Last Filed: 03/09/18 07:34> - Objective Vital Signs & Weight: Vital Signs (12 hours) Temp Pulse Resp BP Pulse Ox 03/09/18 11:43 99.8 F H 96 20 171/104 H 96 03/09/18 08:10 98 F 92 20 99 03/09/18 07:33 92 20 96 03/09/18 07:26 98 F 92 18 161/107 H 99 03/09/18 05:10 95 22 H 163/97 H 96 03/09/18 04:40 102 H 30 H 98 03/09/18 04:10 100.7 F H 110 H 34 H 198/118 H 95 03/09/18 04:00 99.3 F 93 18 181/115 H 95 Weight Admit Weight 74.525 kg Weight 79.435 kg Most Recent Monitor Data Heart Rate from ECG 104 NIBP 130/68 I&O: 03/08/18 03/09/18 03/10/18 06:59 06:59 06:59 Intake Total 1577 2790 Output Total 4300 4000 Balance -2723 -1210 Result Diagrams: 03/09/18 09:30 03/07/18 12:54 <MeronLuz Marina - Last Filed: 03/09/18 12:54> Phys Exam - Physical Examination Constitutional: NAD HEENT: PERRLA Respiratory: no wheezing mild bibasilar rhonchi Cardiovascular: RRR, no significant murmur Gastrointestinal: soft, positive bowel sounds Musculoskeletal: edema present LUE edema improved Neurological: moves all 4 limbs Psychiatric: normal affect, A&O x 3 <Lester Watson - Last Filed: 03/09/18 07:34> Dx/Plan (1) MSSA bacteremia Code(s): R78.81 - BACTEREMIA Status: Acute Plan: -pt presented with sepsis found to be 2/2 MSSA bacteremia -ID on board, recommendations greatly appreciated -continue vancomycin with HD and nafcillin (2) ESRD (end stage renal disease) on dialysis Code(s): N18.6 - END STAGE RENAL DISEASE; Z99.2 - DEPENDENCE ON RENAL DIALYSIS Status: Chronic Plan: -pt on MWF HD -nephrology on board, recommendations greatly appreciated -pt had left IJ tunneled dialysis cath removed on 03/07 due to concern of infection and overlying abscess/cellulitis -pt also has AV fistula on left arm that was successfully used for HD on 03/08 -lab draws only during HD per nephrology -due to significant anemia, pt received 2 units pRBC during HD on 03/08 (3) Pancytopenia Code(s): D61.818 - OTHER PANCYTOPENIA Status: Chronic Plan: -continue to monitor with lab draws during HD -2 additional units pRBC on 03/08 -recheck H/H with plts today -pt's previous oozing from line sites has stopped (4) Hypertension Code(s): I10 - ESSENTIAL (PRIMARY) HYPERTENSION Status: Chronic Plan: -continues to be uncontrolled -amlodipine increased yesterday, will increase lisinopril -continue to monitor closely (5) Atrial fibrillation with RVR Code(s): I48.91 - UNSPECIFIED ATRIAL FIBRILLATION Status: Resolved Plan: -pt developed afib with RVR needing IV diltiazem and amiodarone, since resolved -pt on oral metoprolol and continues to be in NSR -HR mainly 80-90s overnight, however, slightly elevated when pt became anxious overnight -continue to monitor closely -if pt develops afib or sustained tachycardia, will treat with metoprolol 5 mg IVP - Plan Plan: disposition: Continue antibiotics. Pt had HD yesterday and received 2 units pRBC. Recheck H/H and platelets this AM. Specialist recommendations greatly appreciated. Continue to monitor very closely and consider transition back to [facility] if any changes in clinical status. <Lester Watson - Last Filed: 03/09/18 07:34> Attending Addendum - Attending Addendum Date/Time: 03/09/18 4111 I personally evaluated the patient and discussed the management with Dr. Watson. I agree with the History, Examination, Assessment and Plan documented above with any addition or exceptions noted below. The patient had chest pain overnight, EKG showed sinus tach and troponin was lower than previous values during this admission. She was anxious and was given benadryl and ativan. Pt is resting comfortably. The patient's left upper extremity swelling is a little decreased. Continuing antibiotics. Pt had dialysis yesterday and received 2 units prbc's. <Luz Marina Chance - Last Filed: 03/09/18 12:54>
--- NOTE | 2018-03-09 08:33 | ULT ---
LEFT UPPER EXTREMITY DEEP VEIN ULTRASOUND: CLINICAL HISTORY: Erythema and edema. Recent placement of a vascular graft of the left upper extremity. FINDINGS: Portions of the left upper extremity venous system are limited due to overlying bandaging and indwell ing surgical graft. Where visualized, there is no DVT within the imaged deep vein system. There is note of soft tissue edema. Correlate clinically in this regard. The imaged indwelling graft is will nt. Surrounding hypoechogenicity may relate to postprocedural fluid of this region. IMPRESSION: 1. Limited exam without discernible deep vein thrombosis imaged. The demonstrated graft reveals josé luis w. 2. There is scattered soft tissue edema. Correlate clinically. POS: [facility]
[2018-03-09] MEDS: Famotidine 20 MG TAB PO SCH (09:22)
[2018-03-09] MEDS: Amlodipine 10 MG TAB PO SCH (09:23)
[2018-03-09 09:53] LABS: Hemoglobin 8.3 g/dL (12.0-16.0); Platelet Count 61 thou/uL (130-400)
[2018-03-09 15:57] VITALS: BP 171/98; TEMP 98.4
--- NOTE | 2018-03-09 16:57 | PRG ---
Merced Stevens states says she wants to go home. PHYSICAL EXAMINATION: VITAL SIGNS: She is afebrile. Heart rate 86, respiratory 20, oximetry is 97 on room air, blood pres sure 171/98, 171/104 earlier. LUNGS: Clear. HEART: Regular rhythm. ABDOMEN: Soft. EXTREMITIES: Without edema. IMPRESSION: 1. End-stage renal disease. 2. Probable endocarditis. 3. Pulmonary nodules, likely Staph emboli. 4. Staph emboli to supraclavicular area. PLAN: Continue antimicrobial therapy. Even though no vegetations were seen on the valves, it is overwhelmingly likely that she has endocard itis in my opinion.
--- NOTE | 2018-03-09 20:17 | PDOC.EVN ---
Event Note - Event Note Event Note: Residents paged to the bedside because Ms. Stevens is insisting on signing out AMA. She has numerous concerns at home including electricity and cell phone bill which both have to be paid in the morning or will be turned off. Her landlord is coming in the morning to start new josé on the building and she states she has to be there for that because she was late on her bills the last 2 months because of being hospitalized. She is also anxious to get back to her 10 year old daughter. When I expressed that we could work with case management in the morning to see about getting help with her bills as well as arranging for outpatient antibiotics and ensuring she has dialysis appointment upon discharge, she stated she can take care of everything if she could just leave tonight. I encouraged her to give us until noon tomorrow and she still desires to leave. She is alert and oriented and of sound mind at this time. She continues to be hypertensive, vital signs are otherwise stable. I expressed my concern about her inability to get adequate antibiotic therapy outpatient set up in a timely fashion and concern for progression and worsening of her current numerous comorbidities. She stated she will get it all arranged if she can just leave tonight and still desires to leave AMA. <Krissy Rahman - Last Filed: 03/09/18 20:17> - Event Note Event Note: Patient was seen by myself as well. All risk and health concern addressed at length. Patient became very upset and demanding to leave. Reported to Dr. Rahman and myself the health concerns. Made sure that she understood that we could handle any social concerns she had. Asked several times permission to help her. Patient continued to decline each offer. Discussed opiate addiction to see if the was reason to leave against medical advice. Offer to help if patient had any cravings. Patient reported no cravings or desire to use. Nephro and ID were both contact to somehow plan outpatient patient services due to extreme health risk. Patient to have HD tomorrow with Vanc dosing. Patient completely without any cognitive issues at time of interview/discussion. ABreverardoMD <Luz Mcdermott - Last Filed: 03/10/18 20:25>
--- NOTE | 2018-03-09 22:07 | PDOC.EVN ---
Event Note - Event Note Event Note: Returned to further discuss options with patient including offering CM assistance with social issues and organization of outpatient antibiotics and she continued to insist on leaving AMA. I discussed case with Dr. Arellano and Dr. Mccain who recommended to continue plan for vanc sliding scale with dialysis for at least 6 weeks and outpatient follow-up with both of them. She states she has a dialysis chair at [address] on MWF and will be there tomorrow. I reviewed that she is on new doses of BP medications and her BP is still not well controlled but we will sent current rx. She also agreed to stay for 1.5-2 hours post central line removal to monitor for evidence of hematoma with thrombocytopenia. <Krissy Rahman - Last Filed: 03/10/18 05:08> - Event Note Event Note: Present for discussion with patient and specialist. Varghese <Luz Mcdermott - Last Filed: 03/10/18 20:26>
[2018-03-10] MEDS ORDERED: Epoetin (ESRD) 20,000 UNITS/ML IVP SCH (12:00)
--- NOTE | 2018-03-10 12:43 | PRG ---
DATE OF SERVICE: 03/09/2018 SUBJECTIVE: The patient noted with the following vital signs. OBJECTIVE: VITAL SIGNS: Afebrile, temperature 98.4, pulse 86, respiratory rate 20, O2 sat 97%, blood pressure w as 117/98. GENERAL: Patient is wanting to leave against medical advice and insisted on having a lot of issues t o settle at home, but otherwise feeling a lot better. HEENT: Unremarkable. CARDIOVASCULAR SYSTEM: First and second sounds. RESPIRATORY SYSTEM: Clear to auscultation. DIGESTIVE SYSTEM: Revealed a benign abdomen. EXTREMITIES: No peripheral edema. SKIN: No new gross rash. LYMPHATICS: No peripheral lymphadenopathy. IMPRESSION: 1. End-stage renal disease, hemodialysis dependent. 2. Anemia, status post transfusions. 3. Sepsis with Staphylococcal bacteremia. PLAN: 1. The patient insisted on leaving against medical advice, has been counseled extensively on the nee d to stay compliant with outpatient dialysis, so the patient is at least going to continue to receive vancomycin plus one more antibiotic based on sensitivity pansensitive. We will choose one add itional antibiotics in addition to vancomycin. 2. Further management will be dependent on how the patient's stayed compliant with outpatient dialys is.
--- NOTE | 2018-03-10 17:57 | EKG ---
Test Reason : STAT Blood Pressure : / mmHG Vent. Rate : 135 BPM Atrial Rate : 135 BPM P-R Int : 156 ms QRS Dur : 082 ms QT Int : 280 ms P-R-T Axes : 064 018 114 degrees QTc Int : 420 ms Sinus tachycardia T wave abnormality, consider lateral ischemia Abnormal ECG When compared with ECG of 12-DEC-2017 05:13, Vent. rate has increased BY 53 BPM T wave inversion now evident in Lateral leads Confirmed by DR. Latosha LAGUNA ([id number]) on 03/10/2018 5:57:46 PM Referred By: CEE XIAO Confirmed By:DR. Latosha LAGUNA
--- NOTE | 2018-03-10 17:58 | EKG ---
Test Reason : STAT Blood Pressure : / mmHG Vent. Rate : 145 BPM Atrial Rate : 145 BPM P-R Int : 144 ms QRS Dur : 088 ms QT Int : 252 ms P-R-T Axes : 056 008 128 degrees QTc Int : 391 ms Sinus tachycardia with Premature supraventricular complexes Possible Left atrial enlargement Left ventricular hypertrophy with repolarization abnormality Abnormal ECG No previous ECGs available Confirmed by DR. Latosha LAGUNA ([id number]) on 03/10/2018 5:58:08 PM Referred By: Confirmed By:DR. Latosha LAGUNA
--- NOTE | 2018-03-10 17:59 | EKG ---
Test Reason : STAT Blood Pressure : / mmHG Vent. Rate : 174 BPM Atrial Rate : 178 BPM P-R Int : 000 ms QRS Dur : 088 ms QT Int : 270 ms P-R-T Axes : 000 015 161 degrees QTc Int : 459 ms Poor data quality, interpretation may be adversely affected Atrial fibrillation with rapid ventricular response Abnormal ECG Confirmed by DR. Latosha LAGUNA ([id number]) on 03/10/2018 5:59:32 PM Referred By: Confirmed By:DR. Latosha LAGUNA
--- NOTE | 2018-03-12 00:16 | DIS-2 ---
DATE OF ADMISSION: 03/01/2018 DATE OF DISCHARGE: 03/09/2018 when the patient left AMA. RESIDENT: Dr. Diaz. ADMITTING ATTENDING: Dr. Hawley. DISCHARGE ATTENDING: Dr. Chance. CONSULTS: 1. Cardiology, Dr. Walsh. 2. General Surgery, Dr. Baumann. 3. Infectious Disease, Dr. Mccain. 4. Nephrology, Dr. Eileen Allen. 5. Pulmonology, Dr. Zayas. 6. Case management. 7. Physical therapy. PROCEDURES: 1. On 03/01/2018, patient underwent a chest thorax CTA that showed suboptimal pulmonary angio study, there is no evidence of proximal pulmonary embolus, numerous bilateral pulmonary nodules consistent with metastatic disease to the lungs, mediastinal and hilar adenopathy, splenomegaly. 2. Abnormal mottled appearance to the vertebral bodies could represent changes of renal osteodystrop hy given the history of hemodialysis of the patient. 3. On 03/01/2018, patient underwent an abdominal and pelvis CT that showed hepatomegaly with very se criselda splenomegaly and evidence of portal hypertension. Very small kidneys bilaterally without renal calculus or obstruction. Bilateral poorly circumscribed pulmonary nodules worrisome for metastati c and showing progression when compared to 11/30/2017 study. Some borderline fluid-filled loops of s mall bowel without overt obstruction or possibly related to some ileus. Minimal ascites. No abscess . Stable IUD within the uterus. No evidence for acute appendicitis. 4. On 03/01/2018, patient underwent a venogram that showed no evidence of deep vein thrombosis and p rominent inguinal lymph nodes. 5. On 03/01/2018, patient underwent a chest x-ray that showed diffuse bilateral pulmonary nodules kareem t which are better defined the chest CT findings indicate metastatic disease to the lungs. 6. On 03/01/2018, patient underwent an echocardiogram that showed mild concentric left ventricular h ypertrophy, ejection fraction visually estimated at 45% to 50%. Mild mitral regurgitation is present , mild tricuspid regurgitation, possible mass and tricuspid valve is seen in one view. 7. On 03/02/2018, patient underwent a hip x-ray that showed mild degenerative change of the left hip with mild spurring from the femoral head. No fracture or acute osseous abnormalities identified. 8. On 03/02/2018, patient underwent a brain CT that showed no acute intracranial abnormality and no evidence of intracranial metastasis. 9. On 03/07/2018, patient underwent transesophageal echocardiogram that showed no vegetation noted o n the cardiac valves. 10. On 03/07/2018, patient underwent chest x-ray that showed stable post central line placement with out evidence of complication, stable cardiomegaly, stable multifocal mixed opacities. 11. On 03/07/2018, patient underwent a central line placement as well as removal of her dialysis cat heter. 12. On 03/08/2018, patient underwent a vascular ultrasound to left upper extremity that showed limit ed exam without discernible deep vein thrombosis emerged. They demonstrate graft review as well. Th ere is scattered soft tissue edema. PRIMARY DIAGNOSES: 1. Methicillin-sensitive Staphylococcus aureus bacteremia. 2. End-stage renal disease on dialysis. 3. Pancytopenia. 4. Hypertension. 5. Atrial fibrillation with rapid ventricular response. 6. Chronic hepatitis C. 7. Hyponatremia. 8. Nonischemic cardiomyopathy. 9. Polysubstance abuse. DISCHARGE MEDICATIONS: 1. Amlodipine 10 mg p.o. daily. 2. Lisinopril 20 mg p.o. b.i.d. 3. Metoprolol succinate 100 mg p.o. b.i.d. 4. Vancomycin 750 mg IV piggyback at dialysis p.r.n. 5. Vancomycin 1.25 grams IV piggyback dialysis p.r.n. 6. Vancomycin 1 gram IV piggyback dialysis p.r.n. DISCONTINUED MEDICATIONS: 1. Amlodipine 5 mg p.o. daily. 2. Carvedilol 12.5 mg p.o. b.i.d. with meals. 3. Lisinopril 2.5 mg p.o. daily. HISTORY OF PRESENT ILLNESS AND HOSPITAL COURSE: A 32-year-old female with past medical history of en d-stage renal disease on Saturday, Saturday, Saturday dialysis and also secondary to heroin abuse with h ypertension, hepatitis C, history of DVTs, and CHF presents with 1-week history of renal failure asso ciated with nausea, vomiting, and diarrhea. Once she started feeling bad on Saturday developed nausea, vomiting, diarrhea on Saturday. Due to her feeling poorly, she did not go to dialysis at all this we ek. She reports no fever. No ill contacts. No changes in diet. No recent travel. No hematochezia or melena. Patient reports diffuse abdominal pain at this time. In the ED, she was found to have m ultiple electrolyte disturbances related to missing dialysis. Dr. Arellano was called and is to di alyze her this evening. Patient was admitted for Staphylococcus aureus bacteremia from AV fistula, w hich was removed in 12/2017. The patient states she is no longer on antibiotics at this time. Curre ntly, she is using temporary access point in her left chest. During this hospitalization, patient was found to have methicillin-sensitive Staph aureus, blood cult ures with suspected endocarditis. Endocarditis was ruled out with transesophageal echocardiogram per formed by Dr. Barrett and so other sources of infection were investigated. Patient had her dialysis catheter removed from her left chest by Dr. Baumann with replacement of a central line catheter in he r right subclavian vein. Patient has a left AV graft that was not being used for dialysis because of the maturity, however, I did become a stable alternative for use for dialysis. Patient was continue d on nafcillin and vancomycin throughout the hospitalization as per her sensitivities and had repeat blood cultures did not show growth in over 5 days. Patient had multiple laboratory abnormalities of a hemoglobin of 7.7 on day of admission that trended down to as low as 6.6 on 03/08/2018. Patient th en received 2 units of blood and her hemoglobin responded to 8.3. Her platelet count was also concer n. On the day of admission, her platelet count was 24 it trended down to 14 and increased after plat elet transfusion was 61. Patient also had a troponin level on admission of 0.864 that trended up to 1.137; however, she was not a candidate for cardiac intervention because of her low platelet count as well as the fragility of her status. Repeat troponin done on 03/09/2018 did show it to be decreased at 0.295. Patient also on admission had a potassium of 6.2 after dialysis sessions stabilized at 4. 0. Patient did have a cocaine metabolites and urine opiates detecting on her urine drug screen on [place], although she does deny any recent drug use. Patient had multiple fevers during this hospita lization as high as 103.4. She was continued on antibiotics with resolution of the fevers for 24 tony rs; however, she did refever on 03/09/2018 and so she was not fever free for 24 hours prior to her le aving AMA. Blood pressure was also a major concern for this patient, as she was not well controlled during the hospitalization with blood pressures ranging from one teens/69 to as high as 190/90. Her blood pressure regimen was changed; however, she will need further intervention as an outpatient. Aquilino valencia did have a code green that was called on her on 03/01/2018. Because the patient became decreas ed mentation, moaning, not answering questions appropriately. She had an Accu-Chek done that showed 65 and the patient was transferred to the [facility] for higher level of care. Patient was instructed that she does have a severe infection and that she needed to be comfort through quit using any sort of fo reign substances and she expressed understanding. Patient otherwise on 03/09/2018 stated that she thomas d multiple bills that were piling up at home and that she would have her electricity and the phone bi lls. Her phone short off if she was not there to pay her bills. Patient states that she also had a 10-year-old daughter at home that is being cared for by her roommates and she was anxious to get back with her to see how she was doing. Patient was instructed that she needs to be on long-term antibio tics as well as further management of her chronic medical conditions and that we attempted to convinc e her to stay for a longer period of time for more definitive care. However, the patient has decided that she will leave the hospital under her own conditions and will be leaving against medical advice . DISPOSITION: Guarded. DISCHARGE INSTRUCTIONS: Patient left AMA without any further discharge instructions given.
--- NOTE | 2018-03-14 07:48 | PQF ---
MANJIT ORELLANA CARISA ONTIVEROS [id number] [place] [id number] CLINICAL DOCUMENTATION CLARIFICATION FORM: POST DISCHARGE Addendum to original discharge summary date: ____ Late entry note date: __ Please exercise your independent, professional judgment in responding to the clarification form. Clinical indicators are provided on the bottom of this form for your review Diagnosis: Abscess and cellutitis of tunneled dialysis catheter with removal on 03/07 (symptoms and documentation began on 03/06) Present on Admission (POA): [ x ] Yes [ ] No [ ] Unable to determine Coding guidelines require hospitals to identify whether a diagnosis was present on admission (POA) or not. To accurately assign the appropriate POA indicator, this information must be clearly documented within the medical record. CLINICAL INDICATORS - SIGNS / SYMPTOMS / LABS Documentation/symptoms began 03/06 RISK FACTORS: previous AV fistula infection sepsis TREATMENT: antibiotics removal of tunneled dialysis cath (This form is maintained as a part of the permanent medical record) 2014 [employer]. All Rights Reserved Anna [email or web address] [phone] MTDD
== END 2018-03-09 21:54 | disposition left against medical advice (07) | DRG 280 ==
LOC: ERS 22:23 → IMCU/EMU 03-01 01:23 → 2NO 03-01 01:30 → IMCU/EMU 03-01 07:47 → 2NO 03-07 18:44
PROVIDERS: ADMIT Family Medicine; ATTEND Family Medicine
PROC: 5A1D70Z Performance of Urinary Filtration, Intermittent, Less than 6 Hours Per Day (ICD-10-PCS; principal; 2018-03-01)
PROC: 30233R1 Transfusion of Nonautologous Platelets into Peripheral Vein, Percutaneous Approach (ICD-10-PCS; 2018-03-02)
PROC: 30233N1 Transfusion of Nonautologous Red Blood Cells into Peripheral Vein, Percutaneous Approach (ICD-10-PCS; 2018-03-02)
PROC: 0JPT3XZ Removal of Tunneled Vascular Access Device from Trunk Subcutaneous Tissue and Fascia, Percutaneous Approach (ICD-10-PCS; 2018-03-07)
PROC: 0H94XZZ Drainage of Neck Skin, External Approach (ICD-10-PCS; 2018-03-07)
PROC: 02HV33Z Insertion of Infusion Device into Superior Vena Cava, Percutaneous Approach (ICD-10-PCS; 2018-03-07)
PROC: 0HQ5XZZ Repair Chest Skin, External Approach (ICD-10-PCS; 2018-03-08)
DX: T82.7XXA Infection and inflammatory reaction due to other cardiac and vascular devices, implants and grafts, initial encounter (principal); A41.01 Sepsis due to Methicillin susceptible Staphylococcus aureus; I21.A1 Myocardial infarction type 2; N18.6 End stage renal disease; G93.41 Metabolic encephalopathy; I26.90 Septic pulmonary embolism without acute cor pulmonale; D61.818 Other pancytopenia; E87.2 Acidosis; I48.92 Unspecified atrial flutter; I47.1 Supraventricular tachycardia; K76.6 Portal hypertension; I42.9 Cardiomyopathy, unspecified; E87.1 Hypo-osmolality and hyponatremia; L02.11 Cutaneous abscess of neck; L03.221 Cellulitis of neck; T82.838A Hemorrhage due to vascular prosthetic devices, implants and grafts, initial encounter; I11.0 Hypertensive heart disease with heart failure; Y92.239 Unspecified place in hospital as the place of occurrence of the external cause; Y83.1 Surgical operation with implant of artificial internal device as the cause of abnormal reaction of the patient, or of later complication, without mention of misadventure at the time of the procedure; E86.1 Hypovolemia; E87.8 Other disorders of electrolyte and fluid balance, not elsewhere classified; E87.5 Hyperkalemia; M16.12 Unilateral primary osteoarthritis, left hip; M54.5 Low back pain; D69.6 Thrombocytopenia, unspecified; I48.91 Unspecified atrial fibrillation; F14.10 Cocaine abuse, uncomplicated; I50.9 Heart failure, unspecified; D63.1 Anemia in chronic kidney disease; F17.210 Nicotine dependence, cigarettes, uncomplicated; G89.29 Other chronic pain; F11.11 Opioid abuse, in remission; B18.2 Chronic viral hepatitis C; Y92.9 Unspecified place or not applicable; Z91.19 Patient's noncompliance with other medical treatment and regimen; Z99.2 Dependence on renal dialysis; Z91.15 Patient's noncompliance with renal dialysis; Z87.440 Personal history of urinary (tract) infections; Z86.718 Personal history of other venous thrombosis and embolism; Z87.01 Personal history of pneumonia (recurrent); Z79.899 Other long term (current) drug therapy; Z95.828 Presence of other vascular implants and grafts
CPT/HCPCS: 36415; 36416; 36430; 70470; 71045; 71275; 74177; 80053; 80069; 80202; 80306; 81003; 81015; 82553; 83605; 83690; 83735; 84100; 84145; 84443; 84484; 84702; 85014; 85018; 85025; 85049; 85300; 85362; 85379; 85384; 85610; 85730; 86850; 86870; 86900; 86901; 86921; 86922; 87040; 87045; 87046; 87070; 87077; 87086; 87149; 87186; 87205; 87324; 87449; 87899; 90935; 93005; 93010; 93306; 93312; 93970; 94640; 96374; 96375; A4216; C9113; G0257; G8978-GP-CM; G8979-GP-CK; J0282; J0360; J1644; J1815; J2001; J2250; J2270; J2405; J2543; J2704; J3010; J3370; J3490; J7050; J7070; J7611; J7620; P9016; P9035; Q0162; Q4081; S0032

== ENCOUNTER 2018-03-27 07:33 | Day surgery (SDC) | payer MEDICARE, MEDICAID ==
[2018-03-27] MEDS ORDERED: Sodium Chloride 0.9% 30 ML ONE (18:53)
[2018-03-27 19:27] VITALS: TEMP 98.1
[2018-03-27 19:31] VITALS: BP 148/88
== END 2018-03-27 19:34 | disposition home or self-care (01) ==
LOC: ONC/OP 07:33
PROVIDERS: ATTEND Internal Medicine Nephrology
DX: N18.9 Chronic kidney disease, unspecified (principal); D63.1 Anemia in chronic kidney disease
CPT/HCPCS: 36430; 86850; 86900; 86901; 86921; 99211; A4216; G0463; P9016

== ENCOUNTER 2018-04-07 17:54 | Inpatient (IN) | payer MEDICARE, MEDICAID ==
[2018-04-07 18:29] LABS: #Eosinphils 0.1 thou/uL (0.0-0.7); #Lymphocytes 1.1 thou/uL (1.20-3.40); #Monocytes 0.2 thou/uL (0.11-0.59); #Neutrophils 2.5 thou/uL (1.40-6.50); %Basophils 0.3 % (0.0-1.0); %Eosinophils 2.5 % (0.0-10.0); %Neutrophils 64.2 % (42.0-75.0); Hemoglobin 6.4 g/dL (12.0-16.0); Mean Corpuscular HGB CONC 34.9 g/dL (32.0-36.0); Mean Corpuscular Hemoglobin 32.3 pg (27.0-31.0); Mean Corpuscular Volume 92.6 fL (78.0-98.0); Mean Platelet Volume 6.3 fL (7.4-10.4); Platelet Count 71 thou/uL (130-400); RBC Distribution Width 15.9 % (11.5-14.5); Red Blood Cell (RBC) Count 1.99 mill/uL (4.20-5.40)
[2018-04-07 18:47] LABS: ALT (SGPT) Less than 7 U/L (8-55); AST (SGOT) 12 U/L (5-34); Albumin 3.2 g/dL (3.5-5.0); Alkaline Phosphatase 67 U/L (40-150); Anion Gap 20 mmol/L (10-20); BUN (Urea Nitrogen) 47 mg/dL (7.0-18.7); Bilirubin, Total 0.9 mg/dL (0.2-1.2); Calc. Creatinine Clearance 0 mL/min (70-130); Calcium 9.1 mg/dL (7.8-10.44); Carbon Dioxide 22 mmol/L (22-29); Chloride 96 mmol/L (98-107); Estimated GFR-MDRD 5; Globulin 3.8 g/dL (2.4-3.5); Glucose 84 mg/dL (70-105); Potassium 4.4 mmol/L (3.5-5.1); Sodium 134 mmol/L (136-145)
[2018-04-07] MEDS ORDERED: Ondansetron HCl/PF 4 MG/2 ML Vial IVP PRN (19:24)
[2018-04-07] MEDS ORDERED: Acetaminophen 325 MG TAB PO PRN (19:24)
[2018-04-07] MEDS ORDERED: Ondansetron ODT 4 MG TAB PO PRN (19:24)
[2018-04-07 20:03] LABS: Iron 43 ug/dL (50-170); Iron Binding Capacity, Total 208 mcg/dL (265-497)
--- NOTE | 2018-04-08 01:21 | HP ---
CHIEF COMPLAINT: Shortness of breath, weakness, and severe anemia. HISTORY OF PRESENT ILLNESS: This is a 32-year-old female patient who went to dialysis, but was still lethargic and very anemic looking, dialysis patient. Now I felt uncomfortable dialyzing this patien t, thought the need for referral to the emergency room. The patient was supposed to receive blood tr ansfusion sometime last week, but failed to do so. On presentation to the ER, the patient was noted to be severely anemic with hemoglobin of 6.4. The patient also noted with a temperature of 99 at yadira lysis; however, here noted with temperature of 100.2. In any case, the patient is already on antibio tics which she has been getting for recent diagnosis of sepsis and line infection. The patient is du e for dialysis today and with evidence of congestive heart failure/fluid overload. PAST MEDICAL HISTORY: Significant for end-stage renal disease, hemodialysis dependent; sepsis, in th e context of a line infection; history of drug abuse with pretty much significant vasculopathy. FAMILY HISTORY: Not significantly related to presenting illness. SOCIAL HISTORY: Significant for history of polysubstance abuse. REVIEW OF SYSTEMS: As documented in the body of the history. All the other systems were reviewed an d found not to be significantly related to presenting illness. LABORATORY INVESTIGATION: Significant for a hemoglobin of 6.4. PHYSICAL EXAMINATION: GENERAL: The patient was found to be ill-looking very pale, but hemodynamically stable. HEENT: Unremarkable except pale conjunctivae. CARDIOVASCULAR SYSTEM: First and second heart sounds were heard. RESPIRATORY SYSTEM: Clear to auscultation. DIGESTIVE SYSTEM: Revealed a benign abdomen. EXTREMITIES: Showed some peripheral edema. SKIN: Shows some rashes involving the ankle area. IMPRESSION: 1. End-stage renal disease, hemodialysis dependent. 2. Severe anemia, query cause, partly anemia of chronic kidney disease. 3. History of sepsis, on continued antibiotic treatment. 4. Congestive heart failure/fluid overload. PLAN: 1. The patient to be admitted and transfused with 2 units of blood during dialysis. 2. Hemodialysis with ultrafiltration as tolerated by hemodynamics. 3. The patient to receive erythropoiesis stimulating agent. 4. GI believe to be evaluated with occult blood. 5. Further management to be dependent on the clinical course. CODE STATUS: FULL.
[2018-04-08 01:36] VITALS: BMI 26.9
[2018-04-08] MEDS: Epoetin (ESRD) 10,000 UNITS/ML VIAL IVP SCH (02:38)
[2018-04-08] MEDS: Famotidine 20 MG TAB PO SCH ×2 (02:39→21:17)
[2018-04-08 05:00] LABS: #Eosinphils 0.1 thou/uL (0.0-0.7); #Monocytes 0.1 thou/uL (0.11-0.59); #Neutrophils 1.9 thou/uL (1.40-6.50); %Basophils 0.7 % (0.0-1.0); %Eosinophils 3.6 % (0.0-10.0); %Monocytes 4.4 % (0.0-10.0); %Neutrophils 60.3 % (42.0-75.0); Hemoglobin 7.9 g/dL (12.0-16.0); Mean Corpuscular HGB CONC 35.1 g/dL (32.0-36.0); Mean Corpuscular Hemoglobin 32.1 pg (27.0-31.0); Mean Corpuscular Volume 91.5 fL (78.0-98.0); Mean Platelet Volume 6.3 fL (7.4-10.4); Platelet Count 73 thou/uL (130-400); RBC Distribution Width 15.2 % (11.5-14.5); Red Blood Cell (RBC) Count 2.46 mill/uL (4.20-5.40); White Blood Cell (WBC) Count 3.2 thou/uL (4.8-10.8)
[2018-04-08] MEDS: Amlodipine 10 MG TAB PO SCH (08:10)
[2018-04-08] MEDS ORDERED: Lisinopril 20 MG TAB PO SCH (09:00)
[2018-04-08] MEDS ORDERED: Epoetin (ESRD) 10,000 UNITS/ML VIAL IVP SCH (15:00)
[2018-04-08] MEDS ORDERED: Epoetin (ESRD) 10,000 UNITS/ML VIAL SC SCH (15:15)
--- NOTE | 2018-04-08 21:43 | PRG ---
DATE OF SERVICE: 04/08/2018 The patient seen and examined, complained of some shortness of breath noted with following vital sign s. PHYSICAL EXAMINATION: VITAL SIGNS: Afebrile with temperature 98.4, pulse 73, respiratory rate 20, O2 sat 94%, usually 87%. HEENT: Unremarkable with moist oral mucosa. CARDIOVASCULAR: First and second heart sounds were heard. RESPIRATORY: Clear to auscultation. DIGESTIVE: Revealed a benign abdomen. EXTREMITIES: Showed some peripheral edema. NEUROLOGIC: Alert, oriented. No lateralizing sign. LYMPHATICS: No peripheral lymphadenopathy. LABORATORY INVESTIGATION: Showed a white count of 12,200, hemoglobin 7.9, platelets 73,000. No chem istries today. IMPRESSION: 1. End-stage renal disease on hemodialysis. 2. Anemia, likely anemia of chronic kidney disease. No evidence of gastrointestinal bleed. 3. Respiratory distress in the context of hypervolemia. 4. History of polysubstance abuse with history of hepatitis C infection. PLAN: 1. The patient to be dialyzed tomorrow with ultrafiltration as tolerated by hemodynamics. 2. The patient to be transfused one more unit of blood. 3. We will continue with erythropoiesis stimulating agent with dialysis tomorrow. 4. Further management to be dependent on the clinical course. Possible discharge within the next 24 -48 hours.
[2018-04-09] MEDS: Amlodipine 10 MG TAB PO SCH (08:18)
[2018-04-09] MEDS ORDERED: Lisinopril 20 MG TAB PO SCH (09:00)
[2018-04-09] MEDS: Epoetin (ESRD) 10,000 UNITS/ML VIAL IVP SCH (21:02)
[2018-04-09] MEDS: Famotidine 20 MG TAB PO SCH (21:41)
[2018-04-09 21:43] VITALS: BP 150/75; TEMP 98.4
--- NOTE | 2018-04-10 06:24 | DIS ---
For details of the history and physical, please refer to dictations on record. SUMMARY: This is a 32-year-old female patient with end-stage renal disease, hemodialysis dependent, who presented here with severe symptomatic anemia. Patient has been admitted, did undergo dialysis t o address the hypervolemia and did receive total of about 3 units of blood. HOSPITAL COURSE: 1. End-stage renal disease. The patient was dialyzed in accordance with her schedule Saturday and Sat. 2. Hypovolemia ultrafiltration with dialysis with improvement in symptoms. 3. Severe symptomatic anemia. Patient was worked up for any potential gastrointestinal loss, but ca me back negative for any occult blood. Iron studies consistent with anemia of chronic kidney disease . In any case, the patient received 3 units of blood and erythropoiesis stimulating agent with the p verna to continue erythropoiesis stimulating agent, status post dialysis. Patient having maintained hawk stained clinical improvement and was subsequently discharged today on the following, Renvela 1600 mg p.o. t.i.d., lisinopril 40 mg p.o. daily, amlodipine 10 mg p.o. daily, metoprolol 100 mg p.o. b.i.d. DISCHARGE INSTRUCTIONS: 1. Stay compliant with medication. 2. Stay compliant with dialysis . 3. The patient is to continue vancomycin as an outpatient until such point when Infectious Disease s pecialist recommends to stop. The total time spent including [id number] encounter was 31 minutes.
== END 2018-04-09 21:47 | disposition home or self-care (01) | DRG 811 ==
LOC: ERS 17:54 → T4-B 19:50
PROVIDERS: ADMIT Internal Medicine Nephrology; ATTEND Internal Medicine Nephrology
PROC: 30233N1 Transfusion of Nonautologous Red Blood Cells into Peripheral Vein, Percutaneous Approach (ICD-10-PCS; principal; 2018-04-07)
DX: D64.9 Anemia, unspecified (principal); N18.6 End stage renal disease; Z99.2 Dependence on renal dialysis; I50.9 Heart failure, unspecified; Z86.19 Personal history of other infectious and parasitic diseases
CPT/HCPCS: 36415; 36430; 80053; 80202; 82274; 82728; 83540; 83550; 83880; 85025; 86850; 86870; 86900; 86901; 86921; 86922; 99285; P9016; Q4081

== ENCOUNTER 2018-05-15 10:06 | Inpatient (IN) | payer MEDICARE, MEDICAID ==
--- NOTE | 2018-05-15 11:04 | RAD ---
1 VIEW CHEST: Date: 05/15/18 HISTORY: Dyspnea. COMPARISON: 03/07/18. FINDINGS: Enlarged cardiac silhouette. There are patchy interstitial and alveolar infiltrates. No significant p leural fluid. No pneumothorax or osseous abnormalities. IMPRESSION: 1. Cardiomegaly. 2. Patchy interstitial and alveolar infiltrates. POS: [facility]
[2018-05-15 11:10] LABS: #Lymphocytes 0.7 thou/uL (1.20-3.40); #Monocytes 0.2 thou/uL (0.11-0.59); #Neutrophils 2.4 thou/uL (1.40-6.50); %Basophils 0.3 % (0.0-1.0); %Eosinophils 0.2 % (0.0-10.0); %Lymphocytes 21.3 % (21.0-51.0); %Monocytes 4.9 % (0.0-10.0); %Neutrophils 73.3 % (42.0-75.0); Hemoglobin 8.1 g/dL (12.0-16.0); Mean Corpuscular HGB CONC 33.2 g/dL (32.0-36.0); Mean Corpuscular Hemoglobin 30.1 pg (27.0-31.0); Mean Corpuscular Volume 90.7 fL (78.0-98.0); Mean Platelet Volume 8.6 fL (7.4-10.4); Platelet Count 49 thou/uL (130-400); RBC Distribution Width 13.9 % (11.5-14.5); White Blood Cell (WBC) Count 3.3 thou/uL (4.8-10.8)
[2018-05-15 11:21] LABS: ALT (SGPT) Less than 7 U/L (8-55); AST (SGOT) 9 U/L (5-34); Albumin 3.1 g/dL (3.5-5.0); Alkaline Phosphatase 43 U/L (40-150); Anion Gap 18 mmol/L (10-20); BUN (Urea Nitrogen) 52 mg/dL (7.0-18.7); Bilirubin, Total 0.9 mg/dL (0.2-1.2); CK (CPK) 15 U/L (29-168); Calc. Creatinine Clearance 0 mL/min (70-130); Calcium 8.9 mg/dL (7.8-10.44); Carbon Dioxide 27 mmol/L (22-29); Chloride 93 mmol/L (98-107); Estimated GFR-MDRD 5; Globulin 3.4 g/dL (2.4-3.5); Glucose 92 mg/dL (70-105); Lipase 4 U/L (8-78); Magnesium 2.1 mg/dL (1.6-2.6); Phosphorus 7.2 mg/dL (2.3-4.7); Protein, Total 6.5 g/dL (6.0-8.3); Sodium 133 mmol/L (136-145)
[2018-05-15] MEDS ORDERED: Piperacillin/Tazobactam 3.375 GM VIAL ONE (11:21)
[2018-05-15] MEDS ORDERED: Acetaminophen 500 MG TAB ONE (11:21)
[2018-05-15 11:25] LABS: CKMB 0.4 ng/mL (0-6.6); Troponin I 0.225 ng/mL (< 0.028)
[2018-05-15] MEDS ORDERED: Furosemide 40 MG/4 ML VIAL ONE (13:10)
--- NOTE | 2018-05-15 13:41 | HP ---
PRIMARY CARE PHYSICIAN: [facility] call admission. PRIMARY LICENSED MASS REAL ESTATE APPRAISER: Dr. Arellano. REASON FOR ADMISSION: Acute hypoxic respiratory failure, volume overload, sepsis. HISTORY OF PRESENT ILLNESS: A 32-year-old female who has end-stage renal disease on hemodialysis Sat, Saturday, and Saturday. Her last dialysis was on Saturday. At that time, patient had blood test d one. The patient missed her dialysis on Saturday because of her work. She went to dialysis center today and they did not do dialysis there, but she was told to go to ER because of low blood count fou nd on routine blood test on Saturday. Patient was feeling shortness of breath. She was feeling weak. She had a subjective fever last nigh t. She was also feeling warm today. She denies any sore throat or upper respiratory infection. She does report headache. She denies any neck stiffness. She denies any sick exposure or recent travel . She does have increasing lower extremity edema. She denies any UTI symptoms. She makes scant jeferson unt of urine. She denies any constipation, diarrhea, abdominal pain. She denies any skin rash. When she presented to emergency room, patient had routine blood test done which showed hemoglobin 8.1 , WBC count 3.3 and platelet 49. Patient's chest x-ray showed findings suggestive of fluid overload status and there was patchy interstitial and alveolar infiltrate. She was also febrile with a temper ature of 101. Patient was hypoxic with saturation in 80-90 with a nasal cannula. From emergency pavan m, Dr. Arellano was notified regarding need for dialysis. Currently, patient's vitals are stable. She is maintaining saturation with nasal cannula oxygen. We decided to admit this patient on medical floor. REVIEW OF SYSTEMS: The following complete review of systems was negative, unless otherwise mentioned in the HPI or below: Constitutional: Weight loss or gain, ability to conduct usual activities. Sk in: Rash, itching. Eyes: Double vision, pain. ENT/Mouth: Nose bleeding, neck stiffness, pain, te nderness. Cardiovascular: Palpitations, dyspnea on exertion, orthopnea. Respiratory: Shortness of breath, wheezing, cough, hemoptysis, fever or night sweats. Gastrointestinal: Poor appetite, abdom inal pain, heartburn, nausea, vomiting, constipation, or diarrhea. Genitourinary: Urgency, frequenc y, dysuria, nocturia. Musculoskeletal: Pain, swelling. Neurologic/Psychiatric: Anxiety, depressio n. Allergy/Immunologic: Skin rash, bleeding tendency. Please see my HPI for pertinent positive and negative. All other review of systems reviewed and nega tive except as mentioned in the HPI. ALLERGIES: No known drug allergy. CURRENT HOME MEDICATIONS: ?Patient is taking any antihypertensive medications, Renvela 1600 mg 3 bowen es daily. PAST MEDICAL HISTORY: History of sepsis due to Staph aureus; end-stage renal disease on hemodialysis Saturday, Saturday, Saturday; anemia of renal disease; history of hypertension; medication noncomplianc e; secondary hyperparathyroidism of renal origin; history of hepatitis C; history of left-sided pyelo nephritis; history of pneumonia; history of chronic diastolic heart failure; history of DVT in both l ower extremities. PAST SURGICAL HISTORY: Right arm AV fistula by Dr. Baumann, left subclavian dialysis catheter placeme nt and subsequent removal, incision and drainage of abscess. PAST PSYCHIATRIC HISTORY: Reviewed and negative. SOCIAL HISTORY: Patient drinks alcohol socially. She is working in a bar. She smokes 4-5 cigarette s on a daily basis. She lives with her roommate in [facility]. She has a remote history of drug abuse including cocaine, but currently she denies any drug abuse. FAMILY HISTORY: No strong family history of premature coronary artery disease, stroke or cancer. EMERGENCY ROOM COURSE: Patient has received vancomycin, Zosyn, Lasix, and Tylenol 1 gram. PHYSICAL EXAMINATION: VITAL SIGNS: On arrival, blood pressure 162/95, pulse 89, respiratory rate 20, temperature 101.7, sa turation 97% on room air. Weight 73 kilograms. GENERAL: The patient is currently alert, awake, tachycardic, hypertensive, and hypoxic. HEAD: Normocephalic, atraumatic. EYES: Pupils round, reactive to light. Extraocular muscle intact. ENT: Oropharynx within normal limits. Moist mucous membranes. No pharyngeal erythema, no exudate. NECK: Supple, no JVD, no thyromegaly. LUNGS: Bilateral rales noted, more on the right side. No accessory muscles of respiration in use. CARDIAC: S1, S2 regular, tachycardia, systolic murmur noted over parasternal area. No gallop. ABDOMEN: Soft, bowel sounds present, nontender, nondistended. No organomegaly, no mass, no suprapub ic tenderness, no Serna sign. BACK: Unremarkable, no CVA tenderness. EXTREMITIES: Upper extremity: Passive movements of all joints are normal. AV fistula working in [employer]. Lower extremity: Bilateral lower extremity edema noted up to knee. Good distal pulsation. SKIN: No skin rash. HEMATOLOGICAL: No lymphadenopathy. PSYCHIATRIC: Normal affect. NEUROLOGIC: Nonfocal examination. No neck stiffness. Cranial nerves II-XII intact. Speech, normal . Motor and sensation within normal limits. No cerebellar sign. SIGNIFICANT LABORATORY DATA: EKG showing normal sinus rhythm without any acute ischemic changes. Ch est x-ray showing bilateral chronic interstitial and alveolar infiltrate. CBC: WBC 3.3, hemoglobin 8.1, platelet 449. BMP: Sodium 133, potassium 5.0, chloride 93, carbon dioxide 27, BUN 52, creatini ne 9.53, glucose 92, calcium 8.9, phosphorus 7.2, magnesium 2.1. LFT: AST 9, ALT less than 7, alkal ine phosphatase 43, albumin 3.1. CK 15, CK-MB 0.4, troponin 0.225. BNP 2682.5. ASSESSMENT AND PLAN: 1. Acute respiratory failure with hypoxia due to likely volume overload associated underlying pneumo cris cannot be entirely excluded. Currently, maintaining oxygen saturation with nasal cannula. We wi ll monitor her oxygen saturation. We are hoping that after a couple of times dialysis, her oxygen sa turation should get better and patient is also started on broad spectrum antibiotic therapy for suspe cted pneumonia. We will gradually wean oxygen as tolerated. 2. Acute volume overload due to missed hemodialysis secondary to noncompliance with dialysis. Dr. Julio crews called and notified. He will do dialysis today as well as tomorrow. Normally, patient is getting Saturday, Saturday, Saturday dialysis. We will try to remove as much as fluid possible to make her euvolemic. We will also restrict free water intake to 1200 mL per day. 3. Sepsis. Source of infection is unclear, but I suspecting community-acquired pneumonia versus uri nary tract infection. At this point, her x-ray is showing alveolar and interstitial infiltration, bu t given fluid overload status difficult to interpret clearly. At this point, patient is started on b road spectrum antibiotic therapy with vancomycin and Zosyn and will follow up on culture result. We will check urinalysis as well. 4. Community-acquired bacterial pneumonia, likely the patient is kept on broad spectrum antibiotic t herapy with vancomycin and Zosyn given her recurrent exposure to healthcare to treat as if healthcare associated pneumonia. 5. Pancytopenia, likely related with her chronic hepatitis C. Because of her low platelet count, we will avoid giving her any antiplatelet medication or anticoagulant medication for deep venous thromb osis prophylaxis. 6. End-stage renal disease, on hemodialysis. Patient will resume Saturday, Saturday, Saturday hemodial ysis upon discharge. 7. Anemia of renal disease, Nephro-[place]hel one tablet daily, ferrous sulfate 325 mg p.o. daily and Proc rit with dialysis. At this point, does not need any blood transfusion. She had a full workup done i n the recent past. We will monitor hemoglobin and if hemoglobin drops, then we will consider transfu mari with dialysis. 8. Secondary hyperparathyroidism of renal origin. We will continue Renvela 1600 mg p.o. t.i.d. She has high phosphorus. 9. Chronically elevated troponin due to renal failure. 10. Chronic diastolic heart failure. Patient only needs hemodialysis for fluid removal to make her euvolemic. Currently, she is fluid overloaded. 11. Chronic hepatitis C, currently asymptomatic and needs outpatient evaluation. 12. Deep venous thrombosis prophylaxis. Sequential compression device boots. No Lovenox or heparin products because of low platelet count. 13. Gastrointestinal prophylaxis, Protonix 40 mg p.o. daily. 14. Code status: The patient is FULL CODE. Patient does not have any surrogate decision maker. 15. Disposition plan based on clinical course. We are expecting patient's stay in hospital more kareem n 2 midnights. Plan of care discussed with the patient in detail. 16. Tobacco and alcohol abuse. Smoking cessation counseling given. Healthy lifestyle measures disc ussed with the patient. 17. Anasarca, likely related with renal failure from hypoalbuminemia from nephropathy secondary to c hronic hepatitis C and polysubstance abuse in the past.
[2018-05-15] MEDS ORDERED: Ondansetron HCl/PF 4 MG/2 ML Vial IVP PRN ×2 (13:53→13:55)
[2018-05-15] MEDS ORDERED: Ondansetron ODT 4 MG TAB PO PRN ×2 (13:53→13:55)
[2018-05-15] MEDS ORDERED: Acetaminophen 325 MG TAB PO PRN ×2 (13:54→13:55)
[2018-05-15] MEDS ORDERED: Mag-Al 1200 mg/1200 mg/30 ML UDCUP PO PRN (13:55)
[2018-05-15] MEDS ORDERED: Eucerin (Mineral Oil/Petrolatum,White) 30 gm Jar TOP PRN (13:55)
[2018-05-15] MEDS ORDERED: Chloraseptic Spray 180 ml Bottle PO PRN (13:55)
[2018-05-15] MEDS ORDERED: Loratadine 10 MG TAB PO PRN (13:55)
[2018-05-15] MEDS ORDERED: Zolpidem Tartrate 5 MG TAB PO PRN (13:55)
[2018-05-15] MEDS ORDERED: Artificial Tear Sol 15 ML BOT EA EYE PRN (13:55)
[2018-05-15] MEDS ORDERED: hydrALAZINE 20 MG/ML VIAL SLOW IVP PRN (13:55)
[2018-05-15] MEDS ORDERED: Sodium Chloride 0.65% Nasal 44 ML BOT EA NARE PRN (13:55)
[2018-05-15] MEDS ORDERED: Senokot 8.6 MG TAB PO PRN (13:55)
[2018-05-15] MEDS ORDERED: Milk Of Magnesia 30 ML UDCUP PO PRN (13:55)
[2018-05-15] MEDS ORDERED: HYDROcodone/Acetaminophen 5/325 mg Tablet PO PRN (13:55)
[2018-05-15] MEDS ORDERED: Diabetic Tussin 200 MG/10 ML UDCUP PO PRN (13:55)
[2018-05-15] MEDS ORDERED: Loperamide HCl 2 MG CAP PO PRN (13:55)
[2018-05-15 14:26] VITALS: BMI 29.5
[2018-05-15] MEDS ORDERED: Vancomycin HCl 500 MG in Sodium Chloride 0.9% 100 ML IVPB SCH (14:45)
[2018-05-15] MEDS ORDERED: Vancomycin HCl 1 GM in Premix Bag 1 BAG IVPB SCH (14:45)
[2018-05-15] MEDS ORDERED: Vancomycin HCl 1.25 GM in Sodium Chloride 0.9% 250 ML 250 ML IVPB SCH (14:45)
[2018-05-15] MEDS ORDERED: HOLD VANCOMYCIN FOR LEVEL >20 FS SCH (14:45)
[2018-05-15] MEDS ORDERED: Vancomycin HCl 750 MG in Sodium Chloride 0.9% 250 ML 250 ML IVPB SCH (14:45)
[2018-05-15] MEDS: Sevelamer Carbonate 800 MG TAB PO SCH (17:26)
[2018-05-15] MEDS: Piperacillin/Tazobactam 2.25 GM in Sodium Chloride 0.9% 100 ML IVPB SCH (20:24)
--- NOTE | 2018-05-16 00:31 | CON ---
DATE OF CONSULTATION: 05/15/2018 CONSULTING PHYSICIAN: Eileen Allen M.D. REQUESTING PHYSICIAN: Dr. Washington. REASON FOR CONSULTATION: The need for maintenance hemodialysis. IMPRESSION: 1. End-stage renal disease, hemodialysis dependent on a Saturday, Saturday, Saturday, skipped dialysis yesterday. Plan to dialyze today. 2. Recurrent anemia, query cause. 3. Recurrent fever. 4. Substance abuse. PLAN: The patient initially transferred over to this place with a reported hemoglobin level of 5.7 i n the outpatient dialysis facility; however, presentation here, the patient noted with hemoglobin of 8. Therefore, we will focus on dialyzing this patient with ultrafiltration as tolerated by hemodynam ics. HISTORY: This is a 32-year-old female patient with end-stage renal disease, hemodialysis dependent, who was sent over from dialysis unit with a reported history of anemia with hemoglobin of 5.7. Patie nt on presentation noted to be febrile with a temperature of above 100 and with a higher hemogl obin. Patient also noted to be hypervolemic as a result of these findings, decision has been taken _ ____ management of this case. PAST MEDICAL HISTORY: As documented in the body of the history and history of substance abuse also n oted. ALLERGIES: No known drug allergy. FAMILY HISTORY: No family history of kidney disease. SOCIAL HISTORY: The patient smokes about 4-5 cigarettes in a day. PHYSICAL EXAMINATION: GENERAL: The patient was found not to be in any distress. VITAL SIGNS: Afebrile with temperature 98.5, pulse 70, respiratory of 18, O2 sat 95% on 3 liters wit h a blood pressure of 125/77. HEENT: Unremarkable with moist oral mucosa. No conjunctival injection or icterus. NECK: Supple. CARDIOVASCULAR SYSTEM: First and second heart sounds were heard. RESPIRATORY SYSTEM: Clear to auscultation. DIGESTIVE SYSTEM: Revealed a benign abdomen with positive bowel sounds. EXTREMITIES: No peripheral edema. SKIN: No new gross rash. LYMPHATICS: No peripheral lymphadenopathy. IMPRESSION: A 32-year-old female patient with end-stage renal disease, who presented here with fever . Thank you for this consultation. We will follow with you.
[2018-05-16] MEDS: Piperacillin/Tazobactam 2.25 GM in Sodium Chloride 0.9% 100 ML IVPB SCH ×3 (04:15→20:35)
[2018-05-16 04:34] LABS: ALT (SGPT) Less than 7 U/L (8-55); AST (SGOT) 8 U/L (5-34); Albumin 2.8 g/dL (3.5-5.0); Alkaline Phosphatase 42 U/L (40-150); Anion Gap 16 mmol/L (10-20); BUN (Urea Nitrogen) 38 mg/dL (7.0-18.7); Bilirubin, Total 0.7 mg/dL (0.2-1.2); Calc. Creatinine Clearance 14 mL/min (70-130); Calcium 8.5 mg/dL (7.8-10.44); Carbon Dioxide 28 mmol/L (22-29); Chloride 95 mmol/L (98-107); Estimated GFR-MDRD 6; Globulin 3.3 g/dL (2.4-3.5); Glucose 129 mg/dL (70-105); Protein, Total 6.1 g/dL (6.0-8.3); Sodium 135 mmol/L (136-145)
[2018-05-16] MEDS: Sevelamer Carbonate 800 MG TAB PO SCH ×3 (08:13→17:39)
[2018-05-16] MEDS: Ferrous Sulfate 325 MG TAB PO SCH (08:13)
[2018-05-16] MEDS: Folic Acid/Vit B Comp W-C PO SCH (08:14)
[2018-05-16 09:13] LABS: Mean Corpuscular HGB CONC 32.5 g/dL (32.0-36.0); Mean Corpuscular Hemoglobin 29.7 pg (27.0-31.0); Mean Corpuscular Volume 91.3 fL (78.0-98.0); Mean Platelet Volume 8.2 fL (7.4-10.4); Platelet Count 56 thou/uL (130-400); Red Blood Cell (RBC) Count 1.68 mill/uL (4.20-5.40); White Blood Cell (WBC) Count 2.8 thou/uL (4.8-10.8)
--- NOTE | 2018-05-16 09:17 | PDOC.PN ---
- Subjective Encounter Start Date: 05/16/18 Encounter Start Time: 07:50 -: old records requested/rev Patient seen and examined. No new complaints. No overnight events pt's hb dropped today, her blood culture is positive, now she is on room air, no fever - Objective Resuscitation Status: Resuscitation Status FULL:Full Resuscitation MAR Reviewed: Yes Vital Signs & Weight: Vital Signs (12 hours) Temp Pulse Resp BP Pulse Ox 05/16/18 07:53 95 05/16/18 07:08 98.3 F 81 16 132/81 92 L 05/16/18 05:11 98.5 F 63 20 121/78 99 05/16/18 00:00 98.8 F 78 20 121/68 100 Weight Weight 177 lb 9.6 oz I&O: 05/15/18 05/16/18 05/17/18 06:59 06:59 06:59 Intake Total 440 Balance 440 Result Diagrams: 05/16/18 08:45 05/16/18 03:57 Phys Exam - Physical Examination Constitutional: NAD HEENT: PERRLA, moist MMs, sclera anicteric Neck: no JVD, supple Respiratory: no wheezing, no rales, no rhonchi Cardiovascular: RRR, no rub SM+ Gastrointestinal: soft, non-tender, no distention, positive bowel sounds Musculoskeletal: pulses present, edema present Neurological: non-focal, normal sensation Lymphatic: no nodes Psychiatric: normal affect, A&O x 3 Skin: no rash, normal turgor Dx/Plan (1) Acute respiratory failure with hypoxia Code(s): J96.01 - ACUTE RESPIRATORY FAILURE WITH HYPOXIA Status: Acute (2) Anemia of renal disease Code(s): D63.1 - ANEMIA IN CHRONIC KIDNEY DISEASE Status: Chronic (3) Bacteremia due to Staphylococcus aureus Code(s): R78.81 - BACTEREMIA Status: Acute (4) Chronic hepatitis C Code(s): B18.2 - CHRONIC VIRAL HEPATITIS C Status: Chronic Qualifiers: Hepatic coma status: without hepatic coma Qualified Code(s): B18.2 - Chronic viral hepatitis C (5) Chronic systolic heart failure, ACC/AHA stage C Code(s): I50.22 - CHRONIC SYSTOLIC (CONGESTIVE) HEART FAILURE Status: Chronic (6) ESRD (end stage renal disease) on dialysis Code(s): N18.6 - END STAGE RENAL DISEASE; Z99.2 - DEPENDENCE ON RENAL DIALYSIS Status: Chronic (7) History of drug abuse Code(s): Z87.898 - PERSONAL HISTORY OF OTHER SPECIFIED CONDITIONS Status: Chronic (8) Hypertension Code(s): I10 - ESSENTIAL (PRIMARY) HYPERTENSION Status: Chronic Qualifiers: Comment: (9) Nonischemic cardiomyopathy Code(s): I42.9 - CARDIOMYOPATHY, UNSPECIFIED Status: Chronic (10) Pancytopenia Code(s): D61.818 - OTHER PANCYTOPENIA Status: Chronic (11) Secondary hyperparathyroidism of renal origin Code(s): N25.81 - SECONDARY HYPERPARATHYROIDISM OF RENAL ORIGIN Status: Chronic (12) Sepsis Code(s): A41.9 - SEPSIS, UNSPECIFIED ORGANISM Status: Acute (13) Volume overload Code(s): E87.70 - FLUID OVERLOAD, UNSPECIFIED Status: Acute - Plan cont current plan of care, continue antibiotics * pt is improving with volume overload, today plan for HD again. * her H & H is low, will repeat H & H again and if low, then will transfuse with HD * consult ID for staph bacteremia * will get echo * continue vancomycin and zosyn for now * medication reviewed as below * symptomatic treatment Review of Systems - Review of Systems Constitutional: negative: fever, chills, sweats, weakness, malaise, other ENT: negative: Ear Pain, Ear Discharge, Nose Pain, Nose Discharge, Nose Congestion, Mouth Pain, Mouth Swelling, Throat Pain, Throat Swelling, Other Respiratory: negative: Cough, Dry, Shortness of Breath, Hemoptysis, SOB with Excertion, Pleuritic Pain, Sputum, Wheezing Cardiovascular: negative: chest pain, palpitations, orthopnea, paroxysmal nocturnal dyspnea, edema, light headedness, other Gastrointestinal: negative: Nausea, Vomiting, Abdominal Pain, Diarrhea, Constipation, Melena, Hematochezia, Other Genitourinary: negative: Dysuria, Frequency, Incontinence, Hematuria, Retention , Other Musculoskeletal: negative: Neck Pain, Shoulder Pain, Arm Pain, Back Pain, Hand Pain, Leg Pain, Foot Pain, Other Skin: negative: Rash, Lesions, Nathaniel, Bruising, Other - Medications/Allergies Allergies/Adverse Reactions: Allergies Allergy/AdvReac Type Severity Reaction Status Date / Time No Known Allergies Allergy Verified 05/15/18 14:45 Medications: Current Medications Acetaminophen (Tylenol) 650 mg PO Q4H PRN PRN Reason: Headache/Fever or Pain Hydrocodone Bitart/Acetaminophen ([place] 5/325) 1 tab PO Q4H PRN PRN Reason: Moderate Pain (4-6) Al Hydroxide/Mg Hydroxide (Maalox) 30 ml PO Q6H PRN PRN Reason: Heartburn or Indigestion Albuterol/Ipratropium (Duoneb) 3 ml NEB [id number] PRN PRN Reason: SOB &/or Wheezing Artificial Tears (Tears Renewed 15ml Bottle) 0 drop EA EYE PRN PRN PRN Reason: Dry Eyes Epoetin David (Procrit) 10,000 units SC [facility] Ferrous Sulfate (Feosol) 325 mg PO QAM-[facility] Last Admin: 05/16/18 08:13 Dose: 325 mg Guaifenesin (Robitussin Sf) 200 mg PO Q4H PRN PRN Reason: Cough Hydralazine HCl (Apresoline) 10 mg SLOW IVP Q4H PRN PRN Reason: Systolic BP > 180 Piperacillin Sod/Tazobactam (Sod 2.25 gm/ Sodium Chloride) 100 mls @ 200 mls/ hr IVPB 0400,1200,2000 [facility] Last Admin: 05/16/18 04:15 Dose: 100 mls Vancomycin HCl 1.25 gm/ Sodium (Chloride) 250 mls @ 166.667 mls/hr IVPB WILLCALL [facility] Vancomycin HCl 1 gm/ Device 200 mls @ 200 mls/hr IVPB WILLCALL [facility] Vancomycin HCl 750 mg/ Sodium (Chloride) 250 mls @ 250 mls/hr IVPB [facility]CALL [facility] Vancomycin HCl 500 mg/ Sodium (Chloride) 100 mls @ 100 mls/hr IVPB [facility] Loperamide HCl (Imodium) 2 mg PO PRN PRN PRN Reason: Diarrhea/Loose Stools Loratadine (Claritin) 10 mg PO DAILYPRN PRN PRN Reason: Sinus Symptoms Magnesium Hydroxide (Milk Of Magnesium) 30 ml PO DAILYPRN PRN PRN Reason: Constipation Mineral Oil/White Petrolatum (Eucerin Cream) 0 gm TOP BIDPRN PRN PRN Reason: Dry Skin Miscellaneous Medication (Pharmacy To Dose) 1 each IVPB PRN PRN PRN Reason: Pharmacy to dose Hold Vancomycin For (Level >20) 0 each FS .AT DIALYSIS [facility] Ondansetron HCl (Zofran Odt) 4 mg PO Q6H PRN PRN Reason: Nausea/Vomiting Ondansetron HCl (Zofran) 4 mg IVP Q6H PRN PRN Reason: Nausea/Vomiting Pantoprazole Sodium (Protonix) 40 mg PO DAILY [facility] Last Admin: 05/16/18 08:13 Dose: 40 mg Phenol (Chloraseptic [place] 180 Ml Bot) 0 ml PO PRN PRN PRN Reason: Sore Throat Senna (Senokot) 2 tab PO HSPRN PRN PRN Reason: Constipation Sevelamer Carbonate (Renvela) 1,600 mg PO TID-[facility] Last Admin: 05/16/18 08:13 Dose: 1,600 mg Sodium Chloride (Flush - Normal Saline) 10 ml IVF Q12HR [facility] Last Admin: 05/16/18 08:14 Dose: 10 ml Sodium Chloride (Flush - Normal Saline) 10 ml IVF PRN PRN PRN Reason: Saline Flush Sodium Chloride ([place] Nasal [place] 0.65%) 0 ml EA NARE QIDPRN PRN PRN Reason: Nasal Congestion Vitamin B Complex/Vit C/Folic Acid (Nephro-[place]hel Tablet) 1 tab PO DAILY [facility] Last Admin: 05/16/18 08:14 Dose: 1 tab Zolpidem Tartrate (Ambien) 5 mg PO HSPRN PRN PRN Reason: Insomnia
[2018-05-16 09:30] LABS: Band 16 % (5-11); Lymphocytes 26 % (21-51); MDiff Complete? YES; Monocytes 6 % (0-10); Neutrophil 52 % (42-75); Ovalocytes SLIGHT = 2-5 cells (100X) (0-1/hpf); PLT Morphology Comment Appears Decreased; Polychromasia MODERATE = 3-4 cells (100X) (0-2/hpf)
[2018-05-16 09:38] LABS: Hemoglobin 4.9 g/dL (12.0-16.0)
[2018-05-16 09:44] LABS: Vancomycin, Random 12.7 ug/mL (See Comment)
[2018-05-16] MEDS ORDERED: Epoetin (ESRD) 10,000 UNITS/ML VIAL SC SCH (10:00)
[2018-05-16] MEDS ORDERED: Epoetin (ESRD) 20,000 UNITS/ML SC SCH ×2 (13:14)
--- NOTE | 2018-05-16 17:40 | PRG ---
DATE OF SERVICE: 05/16/2018 SUBJECTIVE: The patient was seen and examined, at dialysis noted with the following. PHYSICAL EXAMINATION: VITAL SIGNS: Afebrile with temperature 98.4, pulse 77, respiratory rate 16, O2 sat 99%, blood pressu re 154/75. HEENT: Unremarkable with moist oral mucosa. Neck is supple. No conjunctival injection. Conjunctiv a was pale. CARDIOVASCULAR: First and second heart sounds were heard. RESPIRATORY: Clear to auscultation. DIGESTIVE: Revealed a benign abdomen with positive bowel sounds. EXTREMITIES: No peripheral edema. SKIN: No new gross rash. LYMPHATICS: No peripheral lymphadenopathy. LABORATORY INVESTIGATIONS: Hemoglobin 5.0 with a repeat of 4.9. IMPRESSION: 1. End-stage renal disease on hemodialysis. 2. Hypervolemia which has responded to ultrafiltration on dialysis. 3. Anemia, query cause. PLAN: 1. The patient to be transfused with 3 units of blood during dialysis today with ultrafiltration. 2. Further management to be dependent on the clinical course as well as further recommendation from the primary service.
--- NOTE | 2018-05-16 20:12 | CON ---
DATE OF CONSULTATION: 05/16/2018 REASON FOR CONSULTATION: Bacteremia. HISTORY OF PRESENT ILLNESS: A 32-year-old known to us from previous admissions, who has a history of IV drug use, chronic hepatitis C, end-stage renal disease on hemodialysis through a graft in the lef t upper extremity, previous infection of the right arm PTFE graft in 12/2017 and then infection of a tunneled hemodialysis catheter which had to be removed in March. The patient had a previous JONAH negat álvaro. There was a concern with vegetation in one of the valves by transthoracic, which was not confir med by JONAH. She nonetheless received protracted treatment and dialysis and now is readmitted because at dialysis, they found some low hemoglobin values. Reportedly, she missed her dialysis previous because of work. She denied that she had any fever. No headaches, no visual symptoms. No d yspnea or sore throat. No back pain, no pain at the graft site. No abdominal pain or diarrhea. No genitourinary symptoms. In the admit note, it is stated that she did feel subjective fever, but she denied this to me. Initial white cell count 3.3, platelets 49,000. Evidence of fluid overload and c hest x-ray and patchy interstitial alveolar infiltrates. She did have a temperature elevation 101 an d blood cultures have returned positive for methicillin-sensitive Staphylococcus aureus. Currently, she is sitting in bed and she is feeling well. REVIEW OF SYSTEM: Ten-point review of system as above is negative. 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 SOCIAL HISTORY: Drinks occasionally. 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 Still smoking . She has a remote drug use history intravenously, but denies any drug use. FAMILY HISTORY: Noncontributory. PHYSICAL EXAMINATION: VITAL SIGNS: T-max 99.5, blood pressure 150/76, pulse 77, respirations 18, O2 sat 99%. SKIN: Shows areas of hyperkeratosis and scabbing in the anterior aspect of the left ankle. She has a peripheral IV access. She does not have significant urinary output. No lymphadenopathy. GENERAL: Awake and alert, in no distress. HEENT: Ocular movements conjugate. Somewhat pale conjunctivae. The oral cavity moist. Numerous te eth in place with some decay. NECK: Supple, no jugular venous distention. LUNGS: Symmetric air entry without crackles or wheezing. HEART: S1, S2, without obvious murmurs. No S3. ABDOMEN: Soft, not distended or tender. No ascites. No bladder distention. EXTREMITIES: The left upper extremity graft without any inflammatory changes, no drainage. Moves ex tremities equally. Trace edema in lower extremities. NEUROLOGIC: Cognitive function appears to be stable and intact. LABORATORY DATA: White cell count is down to 2.8, hemoglobin 5.0, platelets 56, 52% neutrophils, 16% bands. Chemistry with a sodium 133, creatinine 9.53, BUN 52. Phosphorus 7.2. Transaminases normal . CK 15. BNP 2600. Albumin 3.1. Random vancomycin level 12.7. Microbiology with Staphylococcus a ureus, which is methicillin-sensitive Staph from two sets of blood cultures. ASSESSMENT: 1. History of IV drug use in the past. 2. Recurrent episodes of Staphylococcus aureus, methicillin sensitive bacteremia previously secondar y to dialysis access infections, now she only has the graft in the left upper extremity. DISCUSSION: The graft in the left upper extremity would be a main suspect here. She does not have o vert signs of inflammatory change, but still one could see endoluminal colonization without overt inf lammation from the outside inspection. The other possibility would be endocarditis. The patient had a transesophageal echocardiogram in March and had a transthoracic echocardiogram today. The todays e cho showed severe mitral regurgitation, moderate to severe tricuspid regurg, no obvious vegetations. It is very likely that she has endocarditis probably at the mitral valve. A JONAH may be considered, particularly to see if she has any evidence of complications such as septal abscess. In the meantime , I would continue antimicrobial therapy. She is on vancomycin sliding scale, could transition to An cef given 3 grams after each dialytic treatment for 6 weeks. I probably would prefer to use vancomyc in because of her history of compliance issues with dialysis and that would place her at risk for maria esther akthrough bacteremia if Ancef is chosen as the drug of choice. Vancomycin might give us a bit more s afety in the sense that it might keep therapeutic levels even to the following dialytic session if nelson matthew misses 1 dose. The end date of therapy would be the end of June. Follow up blood cultures to b e submitted in the next few days prior to discharge.
[2018-05-17 04:54] LABS: Albumin 2.9 g/dL (3.5-5.0); Anion Gap 16 mmol/L (10-20); BUN (Urea Nitrogen) 21 mg/dL (7.0-18.7); Calc. Creatinine Clearance 22 mL/min (70-130); Calcium 8.4 mg/dL (7.8-10.44); Carbon Dioxide 26 mmol/L (22-29); Chloride 98 mmol/L (98-107); Estimated GFR-MDRD 11; Glucose 100 mg/dL (70-105); Phosphorus 4.8 mg/dL (2.3-4.7); Sodium 136 mmol/L (136-145)
[2018-05-17] MEDS: Piperacillin/Tazobactam 2.25 GM in Sodium Chloride 0.9% 100 ML IVPB SCH ×3 (04:58→20:42)
[2018-05-17 07:52] LABS: #Eosinphils 0.2 thou/uL (0.0-0.7); #Lymphocytes 1.4 thou/uL (1.20-3.40); #Monocytes 0.2 thou/uL (0.11-0.59); #Neutrophils 2.3 thou/uL (1.40-6.50); %Basophils 1.1 % (0.0-1.0); %Eosinophils 4.4 % (0.0-10.0); %Lymphocytes 34.4 % (21.0-51.0); %Monocytes 4.7 % (0.0-10.0); %Neutrophils 55.5 % (42.0-75.0); Hemoglobin 8.3 g/dL (12.0-16.0); Mean Corpuscular HGB CONC 31.8 g/dL (32.0-36.0); Mean Corpuscular Hemoglobin 28.4 pg (27.0-31.0); Mean Corpuscular Volume 89.3 fL (78.0-98.0); Platelet Count 73 thou/uL (130-400); Red Blood Cell (RBC) Count 2.91 mill/uL (4.20-5.40); White Blood Cell (WBC) Count 4.1 thou/uL (4.8-10.8)
[2018-05-17] MEDS: Sevelamer Carbonate 800 MG TAB PO SCH ×3 (07:58→20:00)
[2018-05-17] MEDS: Folic Acid/Vit B Comp W-C PO SCH (07:59)
[2018-05-17] MEDS: Ferrous Sulfate 325 MG TAB PO SCH (07:59)
--- NOTE | 2018-05-17 10:11 | PDOC.PN ---
- Subjective Encounter Start Date: 05/17/18 Encounter Start Time: 07:50 Patient seen and examined. No new complaints. No overnight events she denies dyspnea or chest pain, no fever, wanted to go home but told that she is not ready for discharge yet - Objective Resuscitation Status: Resuscitation Status FULL:Full Resuscitation MAR Reviewed: Yes Vital Signs & Weight: Vital Signs (12 hours) Temp Pulse Resp BP BP Pulse Ox 05/17/18 08:34 155/88 H 05/17/18 07:46 98.3 F 92 20 188/120 H 94 L 05/17/18 04:00 98.5 F 70 16 169/95 H 93 L 05/16/18 23:58 98.0 F 75 16 162/94 H 95 Weight Admit Weight 177 lb 9.6 oz Weight 177 lb 9.6 oz I&O: 05/16/18 05/17/18 05/18/18 06:59 06:59 06:59 Intake Total 440 2200 Output Total 3000 Balance 440 -800 Result Diagrams: 05/17/18 07:42 05/17/18 04:13 Radiology Reviewed by me: Yes (echo report noted) Phys Exam - Physical Examination Constitutional: NAD HEENT: PERRLA, moist MMs, sclera anicteric Neck: no JVD, supple Respiratory: no wheezing, no rhonchi Cardiovascular: RRR, no rub SM+ at apex and parasternal Gastrointestinal: soft, non-tender, no distention, positive bowel sounds Musculoskeletal: pulses present, edema present Neurological: non-focal, normal sensation, moves all 4 limbs Lymphatic: no nodes Psychiatric: normal affect, A&O x 3 Skin: no rash, normal turgor Dx/Plan (1) Acute respiratory failure with hypoxia Code(s): J96.01 - ACUTE RESPIRATORY FAILURE WITH HYPOXIA Status: Acute (2) Anemia of renal disease Code(s): D63.1 - ANEMIA IN CHRONIC KIDNEY DISEASE Status: Chronic (3) Bacteremia due to Staphylococcus aureus Code(s): R78.81 - BACTEREMIA Status: Acute (4) Chronic hepatitis C Code(s): B18.2 - CHRONIC VIRAL HEPATITIS C Status: Chronic Qualifiers: Hepatic coma status: without hepatic coma Qualified Code(s): B18.2 - Chronic viral hepatitis C (5) Chronic systolic heart failure, ACC/AHA stage C Code(s): I50.22 - CHRONIC SYSTOLIC (CONGESTIVE) HEART FAILURE Status: Chronic (6) ESRD (end stage renal disease) on dialysis Code(s): N18.6 - END STAGE RENAL DISEASE; Z99.2 - DEPENDENCE ON RENAL DIALYSIS Status: Chronic (7) History of drug abuse Code(s): Z87.898 - PERSONAL HISTORY OF OTHER SPECIFIED CONDITIONS Status: Chronic (8) Hypertension Code(s): I10 - ESSENTIAL (PRIMARY) HYPERTENSION Status: Chronic Qualifiers: Comment: (9) Nonischemic cardiomyopathy Code(s): I42.9 - CARDIOMYOPATHY, UNSPECIFIED Status: Chronic (10) Pancytopenia Code(s): D61.818 - OTHER PANCYTOPENIA Status: Chronic (11) Secondary hyperparathyroidism of renal origin Code(s): N25.81 - SECONDARY HYPERPARATHYROIDISM OF RENAL ORIGIN Status: Chronic (12) Sepsis Code(s): A41.9 - SEPSIS, UNSPECIFIED ORGANISM Status: Acute (13) Volume overload Code(s): E87.70 - FLUID OVERLOAD, UNSPECIFIED Status: Acute (14) Severe mitral regurgitation Code(s): I34.0 - NONRHEUMATIC MITRAL (VALVE) INSUFFICIENCY Status: Acute (15) Severe tricuspid regurgitation Code(s): I07.1 - RHEUMATIC TRICUSPID INSUFFICIENCY Status: Acute - Plan cont current plan of care, continue antibiotics * she will need iv vancomycin with HD for her MSSA bacteremia as per ID * will ask ID if pt will need JONAH for better evaluation * medication reviewed as below * symptomatic treatment * HD as per nephrology * will need repeat blood culture tomorrow * consult cardiology for her severe MR and TR and ruptured chordae tendinie. Review of Systems - Review of Systems Eyes: negative: Pain, Vision Change, Conjunctivae Inflammation, Eyelid Inflammation, Redness, Other ENT: negative: Ear Pain, Ear Discharge, Nose Pain, Nose Discharge, Nose Congestion, Mouth Pain, Mouth Swelling, Throat Pain, Throat Swelling, Other Respiratory: negative: Cough, Dry, Shortness of Breath, Hemoptysis, SOB with Excertion, Pleuritic Pain, Sputum, Wheezing Cardiovascular: negative: chest pain, palpitations, orthopnea, paroxysmal nocturnal dyspnea, edema, light headedness, other Gastrointestinal: negative: Nausea, Vomiting, Abdominal Pain, Diarrhea, Constipation, Melena, Hematochezia, Other Genitourinary: negative: Dysuria, Frequency, Incontinence, Hematuria, Retention , Other Musculoskeletal: negative: Neck Pain, Shoulder Pain, Arm Pain, Back Pain, Hand Pain, Leg Pain, Foot Pain, Other Skin: negative: Rash, Lesions, Nathaniel, Bruising, Other - Medications/Allergies Allergies/Adverse Reactions: Allergies Allergy/AdvReac Type Severity Reaction Status Date / Time No Known Allergies Allergy Verified 05/15/18 14:45 Medications: Current Medications Acetaminophen (Tylenol) 650 mg PO Q4H PRN PRN Reason: Headache/Fever or Pain Hydrocodone Bitart/Acetaminophen ([place] 5/325) 1 tab PO Q4H PRN PRN Reason: Moderate Pain (4-6) Al Hydroxide/Mg Hydroxide (Maalox) 30 ml PO Q6H PRN PRN Reason: Heartburn or Indigestion Albuterol/Ipratropium (Duoneb) 3 ml NEB [id number] PRN PRN Reason: SOB &/or Wheezing Artificial Tears (Tears Renewed 15ml Bottle) 0 drop EA EYE PRN PRN PRN Reason: Dry Eyes Epoetin David (Procrit) 10,000 units SC MoWeFr [facility] Last Admin: 05/16/18 10:19 Dose: 10,000 units Ferrous Sulfate (Feosol) 325 mg PO QAM-WM [facility] Last Admin: 05/17/18 07:59 Dose: 325 mg Guaifenesin (Robitussin Sf) 200 mg PO Q4H PRN PRN Reason: Cough Hydralazine HCl (Apresoline) 10 mg SLOW IVP Q4H PRN PRN Reason: Systolic BP > 180 Piperacillin Sod/Tazobactam (Sod 2.25 gm/ Sodium Chloride) 100 mls @ 200 mls/ hr IVPB 0400,1200,2000 [facility] Last Admin: 05/17/18 04:58 Dose: 100 mls Vancomycin HCl 1.25 gm/ Sodium (Chloride) 250 mls @ 166.667 mls/hr IVPB WILLCALL [facility] Vancomycin HCl 1 gm/ Device 200 mls @ 200 mls/hr IVPB [facility]CALL [facility] Vancomycin HCl 750 mg/ Sodium (Chloride) 250 mls @ 250 mls/hr IVPB [facility]CALL [facility] Last Admin: 05/16/18 10:20 Dose: 250 mls Vancomycin HCl 500 mg/ Sodium (Chloride) 100 mls @ 100 mls/hr IVPB [facility] Loperamide HCl (Imodium) 2 mg PO PRN PRN PRN Reason: Diarrhea/Loose Stools Loratadine (Claritin) 10 mg PO DAILYPRN PRN PRN Reason: Sinus Symptoms Magnesium Hydroxide (Milk Of Magnesium) 30 ml PO DAILYPRN PRN PRN Reason: Constipation Mineral Oil/White Petrolatum (Eucerin Cream) 0 gm TOP BIDPRN PRN PRN Reason: Dry Skin Miscellaneous Medication (Pharmacy To Dose) 1 each IVPB PRN PRN PRN Reason: Pharmacy to dose Hold Vancomycin For (Level >20) 0 each FS .AT DIALYSIS [facility] Ondansetron HCl (Zofran Odt) 4 mg PO Q6H PRN PRN Reason: Nausea/Vomiting Ondansetron HCl (Zofran) 4 mg IVP Q6H PRN PRN Reason: Nausea/Vomiting Pantoprazole Sodium (Protonix) 40 mg PO DAILY [facility] Last Admin: 05/17/18 07:59 Dose: 40 mg Phenol (Chloraseptic [place] 180 Ml Bot) 0 ml PO PRN PRN PRN Reason: Sore Throat Senna (Senokot) 2 tab PO HSPRN PRN PRN Reason: Constipation Sevelamer Carbonate (Renvela) 1,600 mg PO TID-WM [facility] Last Admin: 05/17/18 07:58 Dose: 1,600 mg Sodium Chloride (Flush - Normal Saline) 10 ml IVF Q12HR [facility] Last Admin: 05/17/18 08:00 Dose: 10 ml Sodium Chloride (Flush - Normal Saline) 10 ml IVF PRN PRN PRN Reason: Saline Flush Sodium Chloride ([place] Nasal [place] 0.65%) 0 ml EA NARE QIDPRN PRN PRN Reason: Nasal Congestion Vitamin B Complex/Vit C/Folic Acid (Nephro-[place] Tablet) 1 tab PO DAILY [facility] Last Admin: 05/17/18 07:59 Dose: 1 tab Zolpidem Tartrate (Ambien) 5 mg PO HSPRN PRN PRN Reason: Insomnia
[2018-05-17] MEDS ORDERED: NIFEdipine XL 30 MG TAB PO SCH (16:00)
--- NOTE | 2018-05-17 18:27 | CON ---
DATE OF CONSULTATION: 05/17/2018 HISTORY OF PRESENT ILLNESS: Alecia Stevens is a 32-year-old woman with history of sepsis who presents with recurrent fever. The patient has previously been diagnosed with Staph septicemia. The patient has a history of end-stage renal disease. She also has a history of ventricular tachycardia and declined ICD placement. The patient has grew out MRSA in March of this year. She underwent echocardiogram which revealed no obvious vegetations on the cardiac valve. The patient presents with recurrent fever. She was noted to feel weak. She denied having any chills. The patient was admitted for further evaluation. PAST MEDICAL HISTORY: 1. History of ventricular tachycardia. 2. Hypertension. 3. Mitral regurgitation. 4. Hepatitis C. PAST SURGICAL HISTORY: SOCIAL HISTORY: She smokes 3-4 packs per day. She no longer uses IV drugs. FAMILY HISTORY: Positive family history of heart disease. ALLERGIES: No known drug allergies. REVIEW OF SYSTEMS: Ten point system noticeable for weakness. PHYSICAL EXAMINATION: GENERAL: This is an ill-appearing woman in no acute distress. VITAL SIGNS: Blood pressure was 167/104. NECK: Showed no jugular distention. LUNGS: Clear to auscultation. HEART: Regular rate and rhythm, normal S1, S2 with a 3/6 holosystolic murmur. ABDOMEN: Nondistended. EXTREMITIES: Showed trace edema. NEUROLOGIC: Nonfocal. LABORATORY DATA: White blood cell count 4.1, hemoglobin 8.3, hematocrit 26.0 and her platelets were 73. Her sodium was 136, potassium 4.0, chloride 98, bicarbonate 26, BUN 21, creatinine 0.67. BNP was 2682. EKG revealed normal sinus rhythm, normal ECG. Echocardiogram revealed severe decrease in left systolic. She revealed normal left ventricular systolic function with severe mitral regurgitation, apparent ruptured mitral chordae tendineae. IMPRESSION: 1. Recurrent Staphylococcus septicemia. 2. Severe mitral regurgitation. 3. End-stage renal disease. 4. History of hepatitis C. 5. Tobacco abuse. This patient has developed progressive mitral regurgitation. The patient will need to undergo probable repeat transesophageal echocardiogram to see if there is evidence of endocarditis. The patient is being treated with IV antibiotics. Would start the patient on nifedipine to lower her blood pressure. We will follow this patient with you through her hospitalization. HAYDEN
[2018-05-17 19:50] VITALS: BP 184/144; TEMP 98.4
--- NOTE | 2018-05-17 23:37 | PRG ---
DATE OF SERVICE: 05/17/2018 SUBJECTIVE: The patient was seen and examined, seems to be doing much better and noted with the foll owing vital signs. PHYSICAL EXAMINATION: VITAL SIGNS: Afebrile with temperature 98.3, pulse 92, respiratory rate of 20, blood pressure 165/88 , O2 sat on 94%. HEENT: Unremarkable with moist oral mucosa. Neck was supple. No conjunctival injection or icterus. CARDIOVASCULAR SYSTEM: First and second heart sounds were heard. RESPIRATORY SYSTEM: Clear to auscultation. DIGESTIVE SYSTEM: Revealed a benign abdomen with positive bowel sounds. EXTREMITIES: No peripheral edema. SKIN: No new gross rash. LYMPHATICS: No peripheral lymphadenopathy. IMPRESSION: 1. End-stage renal disease on hemodialysis. 2. Anemia requiring blood transfusion, query cause. 3. Recurrent Staphylococcus bacteremia. PLAN: 1. The patient continue dialysis regimen Saturday, Saturday, and Saturday. 2. Parenteral antibiotics because of this recurrent bacteremia. 3. Further management will be dependent on the clinical course.
[2018-05-18] MEDS ORDERED: NIFEdipine XL 30 MG TAB PO SCH (09:00)
--- NOTE | 2018-05-19 14:31 | DIS ---
DATE OF ADMISSION: 05/15/2018 DATE OF DISCHARGE: 05/17/2018 PRIMARY CARE PHYSICIAN: [facility] call admission. DISCHARGE DISPOSITION: Against medical advice. PRIMARY DISCHARGE DIAGNOSES: 1. Acute respiratory failure with hypoxia. 2. Bacteremia due to Staphylococcus aureus. 3. Volume overload. 4. Ruptured chordae tendineae. 5. Severe mitral regurgitation. 6. Severe tricuspid regurgitation. SECONDARY DISCHARGE DIAGNOSES: Anemia of renal disease, secondary hyperparathyroidism of renal origi n, nonischemic cardiomyopathy, hypertension, pancytopenia, history of drug abuse, end-stage renal dis ease on hemodialysis, chronic systolic heart failure, chronic hepatitis C, history of Staphylococcus bacteremia in the past. PRIMARY PROCEDURE/OPERATION: Maintenance hemodialysis. RADIOLOGICAL INVESTIGATION: Chest x-ray, echocardiography. SIGNIFICANT LABORATORY DATA: Hemoglobin 8.3, creatinine 4.67. Blood culture positive for Staph giovanni us. DISCHARGE MEDICATIONS: The patient left against medical advice without any prescriptions. CONTRAINDICATIONS: None. CODE STATUS: Full code. INPATIENT CONSULTANTS: Dr. Arellano was consulted for dialysis. Dr. Mccain was consulted for bacte remia. Dr. Barrett was consulted for severe mitral regurgitation and tricuspid regurgitation and ru ptured chordae tendineae. TEST RESULTS PENDING ON DISCHARGE: None. ALLERGIES: No known drug allergy. DISCHARGE PLAN: Post hospital, the patient will follow up with primary care physician. HOSPITAL COURSE: A 32-year-old female who is noncompliant with dialysis. Normally, she gets dialysi s Saturday, Saturday and Saturday. Her last dialysis was Saturday before admission. She missed dialysis on Saturday because of work and that is why she was sent to emergency room on Saturday. The patient h ad blood test done on Saturday when she had dialysis. At that time, her blood count came back very low . When she came to the emergency room, her initial hemoglobin was 8.1, but she was hypoxic. She was requiring dialysis. Subsequently next day, her blood count dropped to 5.0. She required 3 units of blood transfusion with dialysis. Her blood culture came back positive for Staph aureus. We did ech ocardiography, which showed severe MR and severe TR with ruptured chordae tendineae that is why we co nsulted Cardiology. This patient received maintenance dialysis and her hypoxic respiratory failure i mproved. Dr. Mccain was consulted and he was recommending IV vancomycin with dialysis. This patient was not ready for discharge, but later on during daytime, the patient left against medical advice.
--- NOTE | 2018-05-31 13:58 | EKG ---
Test Reason : WEAKNESS Blood Pressure : / mmHG Vent. Rate : 088 BPM Atrial Rate : 088 BPM P-R Int : 174 ms QRS Dur : 086 ms QT Int : 378 ms P-R-T Axes : 010 011 060 degrees QTc Int : 457 ms Normal sinus rhythm Normal ECG Confirmed by MYA LAM D.O. ([id number]), graphic editor MARGY HAQ ([id number]) on 05/31/2018 1:58:31 PM Referred By: Confirmed By:MYA LAM D.O.
== END 2018-05-17 21:55 | disposition left against medical advice (07) | DRG 871 ==
LOC: ERS 10:06 → T4-A 12:39
PROVIDERS: ADMIT Internal Medicine; ATTEND Internal Medicine
PROC: 30233N1 Transfusion of Nonautologous Red Blood Cells into Peripheral Vein, Percutaneous Approach (ICD-10-PCS; principal; 2018-05-16)
PROC: 5A1D70Z Performance of Urinary Filtration, Intermittent, Less than 6 Hours Per Day (ICD-10-PCS; 2018-05-16)
DX: A41.01 Sepsis due to Methicillin susceptible Staphylococcus aureus (principal); J96.01 Acute respiratory failure with hypoxia; I51.1 Rupture of chordae tendineae, not elsewhere classified; N18.6 End stage renal disease; I42.9 Cardiomyopathy, unspecified; I13.2 Hypertensive heart and chronic kidney disease with heart failure and with stage 5 chronic kidney disease, or end stage renal disease; I50.22 Chronic systolic (congestive) heart failure; D61.818 Other pancytopenia; I08.1 Rheumatic disorders of both mitral and tricuspid valves; E21.3 Hyperparathyroidism, unspecified; Z99.2 Dependence on renal dialysis; D63.1 Anemia in chronic kidney disease; B18.2 Chronic viral hepatitis C; Z91.15 Patient's noncompliance with renal dialysis; F17.210 Nicotine dependence, cigarettes, uncomplicated; E87.70 Fluid overload, unspecified
CPT/HCPCS: 36415; 36430; 71045; 80053; 80069; 80202; 82553; 83690; 83735; 83880; 84100; 84484; 85025; 86850; 86870; 86900; 86901; 86922; 87040; 87077; 87149; 87186; 90935; 93005; 93306; 96365; 96367; 96375; A4216; G0257; J0360; J1940; J2543; J3370; J7050; P9016; Q4081

== ENCOUNTER 2018-12-08 15:30 | Inpatient (IN) | payer MEDICARE, MEDICAID ==
[2018-12-08 16:21] LABS: #Eosinphils 0.1 thou/uL (0.0-0.7); #Lymphocytes 1.4 thou/uL (1.20-3.40); #Monocytes 0.2 thou/uL (0.11-0.59); #Neutrophils 2.6 thou/uL (1.40-6.50); %Eosinophils 1.5 % (0.0-10.0); %Lymphocytes 31.9 % (21.0-51.0); %Monocytes 4.6 % (0.0-10.0); Hemoglobin 5.7 g/dL (12.0-16.0); Mean Corpuscular HGB CONC 30.3 g/dL (32.0-36.0); Mean Corpuscular Hemoglobin 24.9 pg (27.0-31.0); Mean Corpuscular Volume 82.2 fL (78.0-98.0); RBC Distribution Width 17.3 % (11.5-14.5); White Blood Cell (WBC) Count 4.3 thou/uL (4.8-10.8)
[2018-12-08 16:22] LABS: Mean Platelet Volume 10.2 fL (7.4-10.4); Platelet Count 66 thou/uL (130-400)
[2018-12-08 16:57] LABS: ALT (SGPT) 7 U/L (8-55); AST (SGOT) 10 U/L (5-34); Albumin 3.4 g/dL (3.5-5.0); Alkaline Phosphatase 48 U/L (40-150); Anion Gap 21 mmol/L (10-20); BUN (Urea Nitrogen) 55 mg/dL (7.0-18.7); Bilirubin, Total 0.9 mg/dL (0.2-1.2); Calc. Creatinine Clearance 0 mL/min (70-130); Calcium 8.8 mg/dL (7.8-10.44); Carbon Dioxide 24 mmol/L (22-29); Chloride 94 mmol/L (98-107); Estimated GFR-MDRD 4; Globulin 4.2 g/dL (2.4-3.5); Glucose 80 mg/dL (70-105); Protein, Total 7.6 g/dL (6.0-8.3); Sodium 134 mmol/L (136-145)
[2018-12-08 17:32] LABS: CKMB 1.4 ng/mL (0-6.6)
[2018-12-08] MEDS ORDERED: Ondansetron PF 4 MG/2 ML Vial ONE (17:44)
[2018-12-08] MEDS ORDERED: Epoetin (ESRD) 20,000 UNITS/ML IVP SCH (18:00)
[2018-12-08 18:28] LABS: Iron 19 ug/dL (50-170); Iron Binding Capacity, Total 214 mcg/dL (265-497)
[2018-12-08 22:17] LABS: Troponin I 0.153 ng/mL (< 0.028)
[2018-12-08 23:49] LABS: Troponin I 0.157 ng/mL (< 0.028)
[2018-12-08 23:57] VITALS: BMI 27.4
[2018-12-09 01:06] LABS: HBSAg Index 0.37 S/CO (0-0.99); Hep B Surf Ag Non-Reactive S/CO (NonReactive)
[2018-12-09 01:35] LABS: Hemoglobin 8.1 g/dL (12.0-16.0); Platelet Count 61 thou/uL (130-400)
--- NOTE | 2018-12-09 01:40 | CON ---
DATE OF CONSULTATION: CONSULTING PHYSICIAN: Eileen Allen MD REQUESTING PHYSICIAN: ER physician. REASON FOR CONSULTATION: Need for maintenance dialysis and severe anemia. IMPRESSION: 1. End-stage renal disease, on hemodialysis Saturday, , and Saturday schedule. 2. Severe anemia, query cause, has required transfusions in the past. 3. Medical noncompliance. PLAN: 1. The patient has a lot of difficulty with access. Therefore, we will plan towards dialyzing this patient with transfusion, likely to be dialyzed today in a short treatment with 2 units of blood and then tomorrow plan to transfuse more units of blood. 2. Iron studies to evaluate the degree of iron storage in this patient. 3. Counseling noncompliance. 4. Further management to be dependent on the clinical course. HISTORY OF PRESENT ILLNESS: History is that of 33-year-old female patient with end-stage renal disease, hemodialysis dependent, who presented here having been noted to be severely anemic. The patient on clinical evaluation was noted with a hemoglobin of 5.7. As a result of the need for maintenance dialysis, the decision is being taken to involve Renal in the management of this case. PAST MEDICAL HISTORY: Significant for end-stage renal disease, on hemodialysis; hypertension; hyperparathyroidism; chronic hepatitis C DVT. 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 Illicit drug use remote noted. FAMILY HISTORY: Not related to present illness. REVIEW OF SYSTEMS: As documented in the body of the history. All other systems were reviewed and found not to be significantly related to present illness. PHYSICAL EXAMINATION: GENERAL: The patient was found to be hemodynamically stable. HEENT: Remarkable for pale conjunctivae. CARDIOVASCULAR: First and second heart sounds were heard. RESPIRATORY: Clear to auscultation. DIGESTIVE: Revealed a benign abdomen. EXTREMITIES: Showed some peripheral edema. SKIN: No new gross rash skin that is very pale. LYMPHATICS: No peripheral lymphadenopathy. SUMMARY: A 33-year-old female patient with end-stage renal disease, severely anemic, who presented here for elective blood transfusion and some degree of workup. Thank you for this consultation. We will follow with you. Job ID: [id number]
[2018-12-09] MEDS ORDERED: Senokot S 8.6-50 MG TAB PO PRN (02:55)
--- NOTE | 2018-12-09 03:46 | HP ---
PRIMARY CARE PHYSICIAN: None, this is a [facility] admission. RIVET FLUNKY: Dr. Arellano. CHIEF COMPLAINT: Increased fatigue, abnormal CBC, decreased hemoglobin, need for dialysis. HISTORY OF PRESENT ILLNESS: Ms. Stevens is a 33-year-old female, end-stage renal disease patient who reported to the emergency room today after she was told on Saturday by Dr. Arellano that her hemoglobin was low and that she needed to come to the ED emergency room for further management. Reports that she has worked for the last 2 days and was unable to come to the ER until today. Reports that she does have chronic anemia and has gotten transfusions in the past. Denies any change in stool. Denies any specific cause for the anemia. Reports that her hemoglobin typically stays around 7. Today when it was checked, it was 5.7. The patient reports that she has been feeling more fatigued for the last several weeks. Last dialysis was on . She is on a Saturday, , Saturday schedule and reports worsening bilateral lower edema after standing on her feet for 2 nights in a row as she has been working. Dr. Arellano was consulted from the emergency room and 2 units of packed red blood cells were typed and screened and will be given to her during her dialysis, which he will write orders for on this admission. PAST MEDICAL HISTORY: Includes hypertension, DVT to bilateral legs, heart murmur, kidney infection to the left kidney, hepatitis C, history of pneumonia, CHF, renal failure end-stage. Dr. Arellano arranges dialysis for her at [facility], has a left arm dialysis graft. PAST SURGICAL HISTORY: Left arm and right arm AV fistula. PSYCHIATRIC HISTORY: None. SOCIAL HISTORY: The patient denies any drug use. Does smoke. Reports that she smokes about 3 cigarettes a day and has smoked for the last 20 years. History of heroin abuse. Last use was 3-1/2 years ago. ALLERGIES: NONE. CURRENT MEDICATIONS: 1. Carvedilol 12.5 mg p.o. b.i.d. 2. Amlodipine 2.5 mg p.o. daily. 3. Renvela 1600 mg p.o. 3 times a day with meals. REVIEW OF SYSTEMS: CONSTITUTIONAL: The patient denies chills or fever. EYES: Denies any eye pain, vision changes. ENT: Denies any sore throat or rhinorrhea. CARDIOVASCULAR: Denies chest pain. Does report some bilateral lower leg edema. RESPIRATORY: Denies cough, shortness of breath. GI: Denies any abdominal pain. Does report some nausea. Denies vomiting. MUSCULOSKELETAL: Denies any fall or injury. NEUROLOGIC: Denies any focal weakness. Denies speech changes. HEMATOLOGIC: Does report a history of anemia. PSYCHIATRIC: Denies any emotional lability. Denies any hallucinations or changes. PHYSICAL EXAMINATION: VITAL SIGNS: Blood pressure 136/82, pulse is 75, respirations are 18, PO2 sats are 100% on 2 L of oxygen. GENERAL: The patient is alert and oriented to person, place, and time. Appears nontoxic. HEENT: Normocephalic, atraumatic. Eyes, pupils are equally round and reactive to light. Extraocular muscles intact. ENT; mucous membranes are moist. Mouth exam is normal with the exception of multiple dental caries. NECK: Normal range of motion. Trachea is midline. LUNGS: Breath sounds are clear. No use of any accessory muscles. CARDIAC: Normal S1, S2. Systolic murmur is noted over parasternal area. ABDOMEN: Soft, nontender. Bowel sounds are heard. BACK: Unremarkable. No CVA tenderness. EXTREMITIES: Upper extremity, AV fistula to right with good thrill and bruit. Lower extremity, bilateral lower edema pitting noted up to knee. Pulses are equal bilaterally. SKIN: Warm, dry, normal in color. PSYCHIATRIC: She has a normal affect. NEUROLOGIC: Nonfocal. No neck stiffness. Motor and sensation are within normal limits. PERTINENT LABORATORY DATA: White blood cell count is 4.3, hemoglobin 5.7, hematocrit is 18.9, and platelet count is 66. Sodium is 134, potassium is 5, chloride is 94, carbon dioxide is 24, gap is 21, BUN is 55, creatinine is 9.96, estimated GFR is 4, glucose is 80, calcium is 8.8, iron is 919, TIBC is 214, percent saturation is 9. AST is 10, ALT is 7, alkaline phosphatase is 48, CK-MB is 1.4. Troponin at 0.166, which for her is an end-stage renal disease within normal limits. PLAN/ASSESSMENT: 1. Chronic anemia, [id number]. We will transfuse 2 units of packed red blood cells during dialysis. 2. End-stage renal. The patient has not had dialysis since . Dr. Arellano has arranged for patient to have dialysis and have the 2 units of packed red blood cells infused at the same time. 3. Hypertension. We will restart home medications. We will trend. 4. History of severe mitral and tricuspid regurgitation. Appears stable. We will monitor. 5. Gastrointestinal and deep venous thrombosis prophylaxis will be started. Hospital course will depend on clinical findings. Job ID: [id number]
[2018-12-09] MEDS: Acetaminophen 325 MG TAB PO PRN ×2 (04:07→10:39)
[2018-12-09 07:36] LABS: ALT (SGPT) Less than 7 U/L (8-55); AST (SGOT) 10 U/L (5-34); Albumin 3.2 g/dL (3.5-5.0); Alkaline Phosphatase 50 U/L (40-150); Anion Gap 16 mmol/L (10-20); BUN (Urea Nitrogen) 36 mg/dL (7.0-18.7); Calc. Creatinine Clearance 13 mL/min (70-130); Calcium 8.6 mg/dL (7.8-10.44); Carbon Dioxide 29 mmol/L (22-29); Chloride 96 mmol/L (98-107); Estimated GFR-MDRD 6; Glucose 115 mg/dL (70-105); Potassium 4.2 mmol/L (3.5-5.1); Protein, Total 7.2 g/dL (6.0-8.3); Sodium 137 mmol/L (136-145)
[2018-12-09 07:44] LABS: #Basophils 0.1 thou/uL (0.0-0.2); #Lymphocytes 1.2 thou/uL (1.20-3.40); #Monocytes 0.2 thou/uL (0.11-0.59); #Neutrophils 2.5 thou/uL (1.40-6.50); %Basophils 1.3 % (0.0-1.0); %Lymphocytes 29.9 % (21.0-51.0); %Neutrophils 61.8 % (42.0-75.0); Hemoglobin 7.1 g/dL (12.0-16.0); Mean Corpuscular Hemoglobin 26.4 pg (27.0-31.0); Mean Corpuscular Volume 82.7 fL (78.0-98.0); Mean Platelet Volume 9.7 fL (7.4-10.4); Platelet Count 55 thou/uL (130-400); Red Blood Cell (RBC) Count 2.68 mill/uL (4.20-5.40)
[2018-12-09] MEDS ORDERED: Iron, Sodium Ferric Gluconate 250 MG in Sodium Chloride 0.9% 250 ML 250 ML IVPB SCH (09:45)
--- NOTE | 2018-12-09 10:47 | PRG ---
DATE OF SERVICE: 12/09/2018 SUBJECTIVE: The patient was seen and examined, with no new complaints, feeling better. OBJECTIVE: VITAL SIGNS: Noted with the following vital signs: Afebrile, temperature 98.6, pulse 65, respiratory rate of 16, and O2 saturation of 92% with blood pressure of 131/76. HEENT: Unremarkable. CARDIOVASCULAR SYSTEM: First and second heart sounds were heard. RESPIRATORY SYSTEM: Clear to auscultation. DIGESTIVE SYSTEM: Benign. Positive bowel sounds. EXTREMITIES: No peripheral edema. IMPRESSION: 1. Severe anemia, status post blood transfusion. 2. End-stage renal disease, on dialysis. 3. Some component of iron deficiency. PLAN: 1. The patient to be dialyzed today and will receive one more unit of blood. 2. We will give this patient IV iron. This can be delivered during dialysis. 3. Status post dialysis today. From renal standpoint, the patient is good for discharge. Job ID: [id number]
[2018-12-09] MEDS ORDERED: Morphine 2 MG/ML SYRINGE SLOW IVP SCH (11:15)
[2018-12-09] MEDS ORDERED: Ondansetron PF 4 MG/2 ML Vial IVP PRN (11:38)
[2018-12-09] MEDS ORDERED: Rocuronium Bromide 10 MG/ML (10ML VIAL) ONE ×2 (12:00→13:01)
[2018-12-09] MEDS ORDERED: PROPOFOL 200 MG/20 ML VIAL ONE (12:00)
[2018-12-09] MEDS ORDERED: hydrALAZINE 20 MG/ML VIAL ONE (12:16)
[2018-12-09] MEDS ORDERED: Propofol 1,000 MG/100 ML VIAL IV ONE (12:40)
[2018-12-09] MEDS ORDERED: Phenylephrine 0.25% Nasal Spray 15 ML BOT ONE (12:41)
--- NOTE | 2018-12-09 12:42 | PDOC.PN ---
- Subjective Encounter Start Date: 12/09/18 Encounter Start Time: 12:41 Subjective: patient suddenly changed MS, profound sinus terrance, BP elevated - Objective MAR Reviewed: Yes Vital Signs & Weight: Vital Signs (12 hours) Temp Pulse Resp BP Pulse Ox 12/09/18 11:28 95.4 F L 53 L 10 L 173/97 H 94 L 12/09/18 07:24 98.6 F 65 16 131/76 92 L 12/09/18 06:08 98.5 F 12/09/18 04:00 102.5 F H 84 18 139/85 95 Weight Weight 165 lb Most Recent Monitor Data Heart Rate from ECG 73 NIBP 122/67 Respiration from ECG 18 I&O: 12/08/18 12/09/18 12/10/18 06:59 06:59 06:59 Intake Total 1180 Output Total 2700 Balance -1520 Result Diagrams: 12/09/18 13:45 12/09/18 12:27 Radiology Reviewed by me: Yes (CT brain-large left subdural) Phys Exam - Physical Examination Neck: no JVD diffuse rales Cardiovascular: RRR, no significant murmur distebded, non-tender 3+ perif edema L pupil dilated, thrashing about 1500- now posturing Dx/Plan (1) Acute encephalopathy Code(s): G93.40 - ENCEPHALOPATHY, UNSPECIFIED Status: Acute (2) Sinus bradycardia Code(s): R00.1 - BRADYCARDIA, UNSPECIFIED Status: Acute (3) Acute respiratory failure with hypoxia Code(s): J96.01 - ACUTE RESPIRATORY FAILURE WITH HYPOXIA Status: Acute (4) Severe mitral regurgitation Code(s): I34.0 - NONRHEUMATIC MITRAL (VALVE) INSUFFICIENCY Status: Chronic (5) Volume overload Code(s): E87.70 - FLUID OVERLOAD, UNSPECIFIED Status: Acute Qualifiers: Hypervolemia type: unspecified Qualified Code(s): E87.70 - Fluid overload, unspecified (6) Anemia of renal disease Code(s): D63.1 - ANEMIA IN CHRONIC KIDNEY DISEASE Status: Chronic (7) Chronic hepatitis C Code(s): B18.2 - CHRONIC VIRAL HEPATITIS C Status: Chronic Qualifiers: Hepatic coma status: without hepatic coma Qualified Code(s): B18.2 - Chronic viral hepatitis C (8) ESRD (end stage renal disease) on dialysis Code(s): N18.6 - END STAGE RENAL DISEASE; Z99.2 - DEPENDENCE ON RENAL DIALYSIS Status: Chronic (9) History of drug abuse Code(s): Z87.898 - PERSONAL HISTORY OF OTHER SPECIFIED CONDITIONS Status: Chronic (10) Hypertension Code(s): I10 - ESSENTIAL (PRIMARY) HYPERTENSION Status: Chronic Qualifiers: Comment: (11) Nonischemic cardiomyopathy Code(s): I42.9 - CARDIOMYOPATHY, UNSPECIFIED Status: Chronic (12) Acute subdural hematoma Code(s): S06.5X9A - TRAUM SUBDR HEM W LOC OF UNSP DURATION, INIT Status: Acute - Plan program mgr called for intubation, ventilation -: stat CT of brain for poss bleed -: needs HD -: ABG, cbc, bmp, PCXR- then re-evaluate -: NS called- discussed with NS. 1 hour critical care * .
[2018-12-09 12:45] LABS: #Lymphocytes 2.4 thou/uL (1.20-3.40); #Monocytes 0.4 thou/uL (0.11-0.59); #Neutrophils 3.7 thou/uL (1.40-6.50); %Basophils 0.5 % (0.0-1.0); %Eosinophils 0.8 % (0.0-10.0); %Lymphocytes 36.4 % (21.0-51.0); %Monocytes 5.6 % (0.0-10.0); %Neutrophils 56.7 % (42.0-75.0); Hemoglobin 8.2 g/dL (12.0-16.0); Mean Corpuscular HGB CONC 30.6 g/dL (32.0-36.0); Mean Platelet Volume 10.5 fL (7.4-10.4); Platelet Count 69 thou/uL (130-400); RBC Distribution Width 17.3 % (11.5-14.5); Red Blood Cell (RBC) Count 3.16 mill/uL (4.20-5.40); White Blood Cell (WBC) Count 6.5 thou/uL (4.8-10.8)
[2018-12-09 13:01] LABS: ALT (SGPT) Less than 7 U/L (8-55); AST (SGOT) 13 U/L (5-34); Albumin 3.2 g/dL (3.5-5.0); Alkaline Phosphatase 54 U/L (40-150); Anion Gap 20 mmol/L (10-20); BUN (Urea Nitrogen) 38 mg/dL (7.0-18.7); Calc. Creatinine Clearance 12 mL/min (70-130); Calcium 9.1 mg/dL (7.8-10.44); Carbon Dioxide 24 mmol/L (22-29); Chloride 96 mmol/L (98-107); Estimated GFR-MDRD 6; Globulin 4.3 g/dL (2.4-3.5); Glucose 128 mg/dL (70-105); Potassium 4.4 mmol/L (3.5-5.1); Protein, Total 7.5 g/dL (6.0-8.3); Sodium 136 mmol/L (136-145)
[2018-12-09] MEDS ORDERED: PHENYLEPHRINE-NS 100 MCG/ML 10 ML SYRINGE ONE (13:01)
[2018-12-09] MEDS ORDERED: Dexamethasone 20 MG/5 ML VIAL ONE (13:01)
[2018-12-09] MEDS: Amlodipine 5 MG TAB PO SCH (13:12)
[2018-12-09] MEDS ORDERED: niCARdipine HCl 25 MG in Sodium Chloride 0.9% 250 ML 240 ML IVPB SCH (13:15)
[2018-12-09 13:39] LABS: Actual Bicarbonate (HCO3a) 26.7 mEq/L (22-28); Base Excess (BEa) 1.1 mEq/L (-2.0 to +3.0); CO2 Tension 47.9 mmHg (35.0-45.0); Calcium, Ionized 1.08 mmol/L (1.12-1.30); Hemoglobin (Hb) 7.5 g/dL (12.0-16.0); O2 Tension (PaO2) 62.3 mmHg (80.0-100.0); Potassium - ABG Lab 3.92 mmol/L (3.70-5.30); pH, Arterial 7.36 (7.35-7.45)
[2018-12-09 13:55] LABS: #Lymphocytes 0.8 thou/uL (1.20-3.40); #Monocytes 0.1 thou/uL (0.11-0.59); #Neutrophils 4.5 thou/uL (1.40-6.50); %Basophils 0.3 % (0.0-1.0); %Eosinophils 0.5 % (0.0-10.0); %Monocytes 2.5 % (0.0-10.0); %Neutrophils 81.7 % (42.0-75.0); Hemoglobin 6.8 g/dL (12.0-16.0); Mean Corpuscular Hemoglobin 26.1 pg (27.0-31.0); Mean Corpuscular Volume 84.1 fL (78.0-98.0); Mean Platelet Volume 10.4 fL (7.4-10.4); Platelet Count 55 thou/uL (130-400); RBC Distribution Width 17.1 % (11.5-14.5); Red Blood Cell (RBC) Count 2.61 mill/uL (4.20-5.40); White Blood Cell (WBC) Count 5.5 thou/uL (4.8-10.8)
[2018-12-09 14:02] LABS: INR-International Normal Ratio 1.4; PTT 31.5 SEC (22.9-36.1); Prothrombin Time 17.4 SEC (12.0-14.7)
[2018-12-09 14:20] LABS: Puncture Site LINE
[2018-12-09 14:21] LABS: ALV-art Gradient 305.625 (0-20)
[2018-12-09] MEDS ORDERED: Morphine 2 MG/ML SYRINGE SLOW IVP PRN (14:22)
[2018-12-09] MEDS ORDERED: DISCONTINUE PREVIOUS NARCOTIC PAIN MEDICATIONS AND BENZODIAZEPINES FS SCH (14:22)
[2018-12-09] MEDS ORDERED: Lorazepam 2 MG/ML VIAL SLOW IVP PRN (14:22)
[2018-12-09] MEDS ORDERED: fentaNYL Citrate/PF 2,000 MCG in Sodium Chloride 0.9% 60 ML IV SCH (14:22)
[2018-12-09] MEDS ORDERED: Fentanyl BOLUS 250 ML IVPB PRN (14:22)
[2018-12-09] MEDS ORDERED: Propofol BOLUS 1,000 MG/100 ML VIAL IV PRN (14:22)
[2018-12-09] MEDS ORDERED: Propofol 1,000 MG/100 ML VIAL IV PRN (14:22)
[2018-12-09] MEDS ORDERED: Ventilator Sedation Protocol 1 EACH FS SCH (14:30)
--- NOTE | 2018-12-09 14:44 | CT ---
Exam: Brain CT without IV contrast: HISTORY: Weakness and nausea intracranial hemorrhage COMPARISON: 03/02/2018 FINDINGS: Very large left-sided subdural hemorrhage involving the left frontal, parietal and temporal regions r esulting in approximately 1.8 cm of midline shift to the right with evidence for uncal herniation and some enlargement of the right lateral ventricle temporal horn. There is also hemorrhage along the fa lx as well as along the left tentorium. There is in addition an approximately 3.4 cm diameter intrapa renchymal hemorrhage in the posterior left parietal lobe. IMPRESSION: Very extensive acute hemorrhagic changes including extensive subdural hemorrhage as well as intrapare nchymal hemorrhage resulting in 1.8 cm of midline shift to the right and uncal herniation. Findings discussed with Dr. Michelle at 2:39 PM CODE CR
[2018-12-09] MEDS ORDERED: Fentanyl 250 MCG/5 ML VIAL ONE (14:59)
[2018-12-09] MEDS ORDERED: Nitroglycerin 50 MG/250 ML BOT 0 ML ONE (15:00)
[2018-12-09] MEDS ORDERED: Phenylephrine HCL 10 MG/ML VIAL ONE (15:00)
[2018-12-09] MEDS ORDERED: Sodium Chloride 0.9% 10 ML ONE (15:17)
--- NOTE | 2018-12-09 15:26 | RAD ---
XR Chest 1 View Portable History: [Respiratory failure] Comparison: Radiograph May 2018 Findings: Patient is intubated with endotracheal tube tip at level clavicles. Multiple nodular masses in both lungs. There is consolidation left lung base. Small effusions. No pneumothorax. Enteric tube tip below diaphragm out of field of view. Impression: Cardiomegaly with mild pulmonary edema. Small effusions. Endotracheal tube tip in good position. Nodular masses both lower lobes concerning for metastatic disease given prior imaging appearance.
[2018-12-09] MEDS ORDERED: Midazolam HCl 5 mg/5 ml Vial ONE (16:12)
--- NOTE | 2018-12-09 16:45 | PRG ---
DATE OF SERVICE: 12/09/2018 Hilda is an unfortunate 33-year-old end-stage renal disease patient, who presented to the ICU, obtunded. I happened to be standing there when she rolled in. She clearly needed an airway. She was clenching her teeth. She was having generalized tonic-clonic activity. She did have labored respiratory effort with her clenched teeth. We placed a nasal trumpet in her left naris with lidocaine jelly. Then, I obtained a bronchoscope with a 7.5 endotracheal tube, removed the trumpet and advanced the bronchoscope through the vocal cords. She was nasally intubated. Unfortunately , she developed a nosebleed. Natanael-Synephrine has been used, but only cut down the bleeding slightly. I suspect she has some degree of uremic platelet dysfunction given her chronic renal failure. Her INR was 1.4. Her Pro-time was 17.4. She successfully Ambu-bag ventilated and then chemically paralyzed. Dr. Rizzo who is clinical application manager our group arrived to assume critical care management. Job ID: [id number] MTDD
[2018-12-09] MEDS: Carvedilol 6.25 MG TAB PO SCH ×2 (16:57→21:12)
[2018-12-09] MEDS: Famotidine 20 MG TAB PO SCH ×2 (16:57→21:17)
[2018-12-09] MEDS: Sevelamer Carbonate 800 MG TAB PO SCH ×3 (16:58→21:12)
[2018-12-09 17:51] LABS: Actual Bicarbonate (HCO3a) 26.3 mEq/L (22-28); Base Excess (BEa) 2.6 mEq/L (-2.0 to +3.0); CO2 Tension 36.2 mmHg (35.0-45.0); Calcium, Ionized 1.02 mmol/L (1.12-1.30); Carboxyhemoglobin (COHb) 2.9 gm% (0.0-3.0); Hemoglobin (Hb) 6.7 g/dL (12.0-16.0); O2 Tension (PaO2) 124.1 mmHg (80.0-100.0); Potassium - ABG Lab 4.64 mmol/L (3.70-5.30); pH, Arterial 7.48 (7.35-7.45)
[2018-12-09 17:52] LABS: Puncture Site ALINE
[2018-12-09] MEDS: CEFAZOLIN 2 GM in Premix Bag 1 BAG IVPB SCH (21:18)
--- NOTE | 2018-12-09 21:39 | PRG ---
DATE OF SERVICE: 12/09/2018 SUBJECTIVE: I was contacted to see the patient emergently for posturing and decreased mental status. The patient is a 33-year-old woman with end-stage renal disease, was admitted for pancytopenia. Her last platelets were 55. Her last INR was 1.4. She became unresponsive around noon today and this progressed to the point where she required intubation. She was reported to have had posturing as well as a blown left pupil. She was then given paralytic and sedation for the purpose of the intubation. The patient's CT scan shows a huge left subdural hematoma and some occipital hemorrhage which may be intracerebral. IMPRESSION AND PLAN: The patient has a very large subdural hematoma with severe mass effect and herniation syndrome. Given her young age and the new onset of symptoms, I do recommend surgical evacuation, although adequate hemostasis will be impossible given the low platelets. We will transfuse platelets as well as packed red blood cells. Overall, her prognosis is poor even with surgery, but I do think given the young age that efforts at surgical decompression are warranted here. I report the only known contact was a roommate who will try to get in touch with any available family. Job ID: [id number]
--- NOTE | 2018-12-09 22:00 | OP ---
DATE OF PROCEDURE: 12/09/2018 PROCEDURE PERFORMED #1: Right femoral arterial line. PREOPERATIVE DIAGNOSIS: Inability to measure blood pressure. POSTOPERATIVE DIAGNOSIS: Successful right femoral arterial line placement. ANESTHESIA: None. DESCRIPTION OF PROCEDURE: Using ultrasound guidance and sterile technique with 1% chlorhexidine is prepped, a right arterial line was inserted via modified Seldinger technique. The line was secured in position. PROCEDURE PERFORMED #2: Attempted central line placement. PREOPERATIVE DIAGNOSIS: Poor intravenous access. POSTOPERATIVE DIAGNOSIS: Poor intravenous access. ANESTHESIA: None. DESCRIPTION OF PROCEDURE: Using sterile technique with chlorhexidine prep, central line placement was attempted in the right femoral area, left femoral area, and right IJ area. Ultrasound guidance was used. Despite multiple venous sticks in all places, the wire could not be passed through the vessel. Therefore, further attempts were aborted. Job ID: [id number]
--- NOTE | 2018-12-09 22:03 | CON ---
DATE OF CONSULTATION: 12/09/2018 This is 70 minutes of critical care time including time spent putting in central line and arterial line. HISTORY OF PRESENT ILLNESS: The patient is a 33-year-old female who had a bradycardic arrest on the floor tracheal intubation, she was noted to have a blown left pupil. Later after a CT scan, it was discovered she has a large left subdural hematoma and she is currently going to the OR for decompression. This patient has been seen by Dr. Zayas in the past from our service, but I do not think she has seen anybody regularly in the office. PAST MEDICAL HISTORY: 1. End-stage renal disease requiring hemodialysis. 2. Chronic hepatitis C. 3. Pneumonia. 4. Congestive heart failure. 5. Heroin addiction. PAST SURGICAL HISTORY: 1. Left and right forearm AV fistula. 2. Multiple dialysis catheter placements in the past. SOCIAL HISTORY: Used heroin up to about three and half years ago. Smokes about three cigarettes per day. Does not drink alcohol. ALLERGIES: NONE. MEDICATIONS: Prior to admission, 1. Carvedilol. 2. Amlodipine. 3. Renvela. REVIEW OF SYSTEMS: Cannot be obtained as the patient is obtunded. PHYSICAL EXAMINATION: VITAL SIGNS: Her blood pressure is running about 240/120 when I got to the room. She has been given some paralytics after intubation by Dr. Gama. The nursing staff could not get a blood pressure by cuff, but I do not think it ever became low. We then put an arterial line and confirmed that blood pressure, pulse running in the low 100s, respiratory rate 20, O2 saturation 99%. HEENT: She has a left pupil 6 mm, unreactive; right pupil 3 mm, unreactive. Sclerae anicteric. Oropharynx, she has poor dentition. NECK: No JVD. LUNGS: Coarse breath sounds. CARDIAC: S1, S2. Regular. ABDOMEN: Soft, nontender. EXTREMITIES: She has multiple old scars in her groin area from previous catheter site. She also has an old catheter scar in the right IJ area. NEUROLOGICAL: I saw her moving the right side spontaneously. LABORATORY DATA: White blood cell count 5.5, hematocrit 21.9, and platelet count 55. INR 1.4, PTT 31.5. PH 7.36, pCO2 of 48, PO2 of 62 on SIMV rate 16, tidal volume 450, PEEP 5, pressure support 10, FiO2 60%. Sodium 136, potassium 4.4, chloride 96, CO2 of 24, BUN 30, creatinine 7.5, glucose 128. CT was reviewed. Chest x-ray demonstrated mild cardiomegaly, some interstitial changes in the right mid lung region. ASSESSMENT: 1. Hypertensive emergency. 2. Subdural hematoma on the left with midline shift of the brain. 3. Chronic renal failure. 4. Poor intravenous access. PLAN: 1. I spent a significant amount of time trying to secure central IV access. I was able to get a right femoral arterial line without much difficulty, but I could not get a right femoral venous line, left femoral venous line, or right IJ venous line. Based on inability to get IV access, we went ahead and put an IO cath in the right shoulder. 2. Urgent neurosurgical consultation for decompression. 3. Ventilator orders have been written. 4. Prognosis is extremely poor at this point. We will follow. Job ID: [id number]
--- NOTE | 2018-12-09 23:12 | OP ---
DATE OF PROCEDURE: 12/09/2018 CASINO ATTENDANT: Lars. PROCEDURES PERFORMED: Left craniotomy and evacuation of subdural hematoma. DESCRIPTION OF PROCEDURE: The patient was brought to the operating room and intubated. She was positioned supine. The head was turned to the right exposing the left frontotemporal region. The scalp was incised and reflected. She had gross bleeding from the scalp that could not be easily coagulated, given her coagulopathy. We performed a standard craniotomy, opened the dura, and evacuated the subdural hematoma completely decompressing the brain, dural bleeding and bony edges. Bleeding was controlled to the best that we could, but hemostasis was impossible, given the coagulopathy. I elected not to replace the bone flap, given the extensive bleeding and placed 2 drains in the subdural and subgaleal space. The scalp was then closed in anatomic layers, and the drains were secured to the skin using suture. Job ID: [id number]
[2018-12-10 01:20] LABS: #Lymphocytes 0.8 thou/uL (1.20-3.40); #Monocytes 0.1 thou/uL (0.11-0.59); #Neutrophils 5.2 thou/uL (1.40-6.50); %Basophils 0.2 % (0.0-1.0); %Lymphocytes 12.6 % (21.0-51.0); %Neutrophils 85.1 % (42.0-75.0); Hemoglobin 6.2 g/dL (12.0-16.0); Mean Corpuscular HGB CONC 33.4 g/dL (32.0-36.0); Mean Corpuscular Volume 83.9 fL (78.0-98.0); Mean Platelet Volume 9.6 fL (7.4-10.4); Platelet Count 49 thou/uL (130-400); Red Blood Cell (RBC) Count 2.22 mill/uL (4.20-5.40); White Blood Cell (WBC) Count 6.1 thou/uL (4.8-10.8)
[2018-12-10 05:32] LABS: #Lymphocytes 1.2 thou/uL (1.20-3.40); #Monocytes 0.3 thou/uL (0.11-0.59); #Neutrophils 5.6 thou/uL (1.40-6.50); %Eosinophils 0.1 % (0.0-10.0); %Lymphocytes 17.1 % (21.0-51.0); %Monocytes 3.8 % (0.0-10.0); Hemoglobin 6.9 g/dL (12.0-16.0); Mean Corpuscular HGB CONC 32.9 g/dL (32.0-36.0); Mean Corpuscular Hemoglobin 28.1 pg (27.0-31.0); Mean Corpuscular Volume 85.4 fL (78.0-98.0); Mean Platelet Volume 9.9 fL (7.4-10.4); Platelet Count 55 thou/uL (130-400); RBC Distribution Width 15.5 % (11.5-14.5); Red Blood Cell (RBC) Count 2.45 mill/uL (4.20-5.40)
[2018-12-10 05:43] LABS: ALT (SGPT) 9 U/L (8-55); AST (SGOT) 12 U/L (5-34); Albumin 2.9 g/dL (3.5-5.0); Alkaline Phosphatase 44 U/L (40-150); Anion Gap 19 mmol/L (10-20); BUN (Urea Nitrogen) 48 mg/dL (7.0-18.7); Bilirubin, Total 1.2 mg/dL (0.2-1.2); Calc. Creatinine Clearance 12 mL/min (70-130); Calcium 9.2 mg/dL (7.8-10.44); Carbon Dioxide 24 mmol/L (22-29); Chloride 99 mmol/L (98-107); Estimated GFR-MDRD 6; Globulin 3.1 g/dL (2.4-3.5); Glucose 109 mg/dL (70-105); Potassium 5.4 mmol/L (3.5-5.1); Sodium 137 mmol/L (136-145)
[2018-12-10] MEDS: CEFAZOLIN 2 GM in Premix Bag 1 BAG IVPB SCH ×3 (06:35→21:41)
[2018-12-10 06:45] LABS: Actual Bicarbonate (HCO3a) 25.8 mEq/L (22-28); Base Excess (BEa) 2.5 mEq/L (-2.0 to +3.0); CO2 Tension 33.7 mmHg (35.0-45.0); Calcium, Ionized 1.14 mmol/L (1.12-1.30); Carboxyhemoglobin (COHb) 2.1 gm% (0.0-3.0); Hemoglobin (Hb) 6.9 g/dL (12.0-16.0); O2 Tension (PaO2) 163.6 mmHg (80.0-100.0); Potassium - ABG Lab 5.38 mmol/L (3.70-5.30)
[2018-12-10 06:46] LABS: ALV-art Gradient 222.075 (0-20); Puncture Site ALINE
--- NOTE | 2018-12-10 07:44 | PRG ---
DATE OF SERVICE: 12/09/2018 ADDENDUM: This is an addendum to the earlier progress note on this patient, who was seen earlier during the day, was sleepy, but claimed to be feeling better and preparing to go for dialysis when suddenly the patient's mental status changed, necessitated code green, and she went to CT scan that revealed intracranial bleed. The patient is currently in ICU, status post craniotomy, currently on life support. PLAN: 1. Hemodialysis today will be placed on hold pending stabilization of this patient's clinical condition. 2. Transfuse on p.r.n. basis. 3. Further management will be dependent on the clinical course. The condition of the patient at this time of dictation is critical. Job ID: [id number]
--- NOTE | 2018-12-10 07:47 | PRG ---
DATE OF SERVICE: 12/10/2018 The patient has not been on any sedation overnight. Her temperature is 100.8. Her pupils are 8 mm and nonreactive bilaterally. She has a positive right corneal and no left corneal. There was no definitive gag or overbreathing on the ventilator. She has extensor posture in all 4 extremities. There is extensive and diffuse bleeding from both the scalp wound and her nose. This has been ongoing overnight. Her CT scan shows substantial reaccumulation of acute blood in both the subdural space as well as in the scalp. A left occipital anterior cerebral hemorrhage was also extended. IMPRESSION AND PLAN: The patient has not made any meaningful neurologic recovery. She has only some preserved brainstem reflexes. Her prognosis for any meaningful recovery is very poor. From a surgical perspective, I do not believe any further surgery can be performed safely. Her coagulopathy dominates her situation and no meaningful hemostasis could be achieved at the initial surgery. Despite the placement of 2 drains in the subdural space, she has reaccumulated substantial hemorrhage in both the subdural space as well as in the scalp and subgaleal region. This morning, her platelets remain in the 50s and she presumably has some element of DIC as well. No family has been found and no friends or other associated relatives are present. Job ID: [id number]
--- NOTE | 2018-12-10 07:49 | CT ---
CT OF HEAD NONCONTRAST: COMPARISON: 12/09/2018. INDICATION: Subdural hematoma status post evacuation. FINDINGS: Redemonstration of a large volume of subdural hemorrhage along the left convexity status post left fr ontoparietal craniectomy. Given postsurgical change, along the expected confines of the extraaxial s pace, the intracranial portion of the hematoma has slightly increased now measuring up to approximate ly 2 cm compared to 1.8 cm on prior exam. There is overlying prominent extracranial hematoma now pre sent, status post craniectomy. Degree of rightward subfalcine herniation is grossly stable at 1.7 cm . There is layering, dependent intraventricular hemorrhage present notably along the right occipital horn. Localized hematoma at the posterior left cerebrum is grossly stable at 3.5 cm in diameter wit h surrounding vasogenic edema. Thin layering subdural hematoma along the anterior hemispheric falx i s again seen. Subdural hematoma along the tentorium, left greater than right, is again demonstrated. Slight asymmetric prominence of the right temporal horn indicates a component of associated ventric ular trapping due to mass effect. There is postoperative pneumocephalus. Thin subdural hematoma ove rlies the left occipital lobe, smaller in volume compared to prior exam. The degree of sulcal efface ment is slightly increased. IMPRESSION: 1. Persistent large volume intracranial hemorrhage status post left side craniectomy. There is a pr ominent degree of persistent mass effect, along with significant rightward subfalcine herniation agai n demonstrated, and ventricular trapping. Intraventricular hemorrhagic extension is present. 2. Localized posterior left cerebral hemispheric hematoma with surrounding vasogenic hematoma remain s. POS: [place]ALIA
--- NOTE | 2018-12-10 07:51 | PDOC.PN ---
- Subjective Encounter Start Date: 12/10/18 Encounter Start Time: 07:49 Subjective: intubated, unresponsive - Objective MAR Reviewed: Yes Vital Signs & Weight: Vital Signs (12 hours) Pulse Resp BP Pulse Ox 12/10/18 06:00 16 12/10/18 04:00 16 12/10/18 02:28 65 121/79 12/10/18 02:00 16 12/10/18 00:00 16 12/09/18 22:00 16 12/09/18 21:12 149/92 H 12/09/18 20:00 16 100 Weight Weight 165 lb Most Recent Monitor Data Heart Rate from ECG 70 NIBP 120/64 NIBP BP-Mean 82 Respiration from ECG 16 SpO2 100 I&O: 12/09/18 12/10/18 12/11/18 06:59 06:59 06:59 Intake Total 1180 1910 Output Total 2700 210 Balance -1520 1700 Result Diagrams: 12/10/18 05:17 12/10/18 05:17 Radiology Reviewed by me: Yes (CT brain- large L sided hematoma with mass effect ) EKG Reviewed by me: Yes (cxr- ET tube- mild fluid overload) Phys Exam - Physical Examination pupils dilated ,fixed Neck: no JVD Respiratory: clear to auscultation bilateral some scattered rhonchi Cardiovascular: RRR, no significant murmur Gastrointestinal: soft Musculoskeletal: edema present flaccid Dx/Plan (1) Acute encephalopathy Code(s): G93.40 - ENCEPHALOPATHY, UNSPECIFIED Status: Acute (2) Sinus bradycardia Code(s): R00.1 - BRADYCARDIA, UNSPECIFIED Status: Acute (3) Acute respiratory failure with hypoxia Code(s): J96.01 - ACUTE RESPIRATORY FAILURE WITH HYPOXIA Status: Acute (4) Severe mitral regurgitation Code(s): I34.0 - NONRHEUMATIC MITRAL (VALVE) INSUFFICIENCY Status: Chronic (5) Volume overload Code(s): E87.70 - FLUID OVERLOAD, UNSPECIFIED Status: Acute Qualifiers: Hypervolemia type: unspecified Qualified Code(s): E87.70 - Fluid overload, unspecified (6) Anemia of renal disease Code(s): D63.1 - ANEMIA IN CHRONIC KIDNEY DISEASE Status: Chronic (7) Chronic hepatitis C Code(s): B18.2 - CHRONIC VIRAL HEPATITIS C Status: Chronic Qualifiers: Hepatic coma status: without hepatic coma Qualified Code(s): B18.2 - Chronic viral hepatitis C (8) ESRD (end stage renal disease) on dialysis Code(s): N18.6 - END STAGE RENAL DISEASE; Z99.2 - DEPENDENCE ON RENAL DIALYSIS Status: Chronic (9) History of drug abuse Code(s): Z87.898 - PERSONAL HISTORY OF OTHER SPECIFIED CONDITIONS Status: Chronic (10) Hypertension Code(s): I10 - ESSENTIAL (PRIMARY) HYPERTENSION Status: Chronic Qualifiers: Comment: (11) Nonischemic cardiomyopathy Code(s): I42.9 - CARDIOMYOPATHY, UNSPECIFIED Status: Chronic (12) Acute subdural hematoma Code(s): S06.5X9A - TRAUM SUBDR HEM W LOC OF UNSP DURATION, INIT Status: Acute - Plan neuro status and CT brain consistent with grim prognosis -: vent per pulmonology. order DIC panel -: off pressors, etc -: need to find family -: discuss with consultants * .
--- NOTE | 2018-12-10 07:54 | RAD ---
EXAM: Portable chest PROVIDED CLINICAL HISTORY: Pneumonia COMPARISON: 12/09/2018 FINDINGS: Significant interval change with respect to the prior examination is not apparent. IMPRESSION: As above.
[2018-12-10 08:24] LABS: PTT 28.8 SEC (22.9-36.1)
[2018-12-10 08:25] LABS: INR-International Normal Ratio 1.4
--- NOTE | 2018-12-10 08:27 | PRG ---
DATE OF SERVICE: 12/10/2018 SUBJECTIVE: A 33-year-old female, intubated on the vent. Pupils are fixed and dilated, unresponsive. Neurosurgery saw this morning. CAT scan of head shows a residual left subdural and a large hemorrhage. No further surgical intervention is planned. She is on no pressors. OBJECTIVE: VITAL SIGNS: Blood pressure is 101/80, pulse is 70, respiratory rate 18, sats 100%. CHEST: Decreased breath sounds. No wheezing. CARDIAC: Normal S1 and S2. No gallops. ABDOMEN: Soft and distended. EXTREMITIES: 2+ edema. LABORATORY DATA: White count 7000, H and H 6 and 20, platelet count is 55,000. PO2 was 163, pCO2 of rate 16. BUN and creatinine of 48 and 7.8. Lytes are normal. Hepatitis C antibody is positive. Chest x-ray shows cardiomegaly and small pleural effusion. IMPRESSION: 1. Status post left subdural evacuation. 2. Respiratory failure. 3. Encephalopathy. 4. Hepatitis. 5. Pneumonia. 6. Substance abuse. 7. Renal failure. PLAN: The patient has multiorgan failure. Overall prognosis is grave. We are in the process of contacting family members if possible. Continue supportive care. Antibiotics. Supportive care. Prognosis is grave. One-half hour of critical time. Job ID: [id number]
[2018-12-10] MEDS: Amlodipine 5 MG TAB PO SCH (08:32)
[2018-12-10] MEDS: Carvedilol 6.25 MG TAB PO SCH ×2 (08:32→21:42)
[2018-12-10] MEDS: Sevelamer Carbonate 800 MG TAB PO SCH ×3 (08:32→21:42)
[2018-12-10] MEDS: Famotidine 20 MG TAB PO SCH ×2 (08:40→21:41)
[2018-12-10] MEDS: Acetaminophen 325 MG TAB PO PRN (08:40)
[2018-12-10 08:41] LABS: Platelet Count 66 thou/uL (130-400)
[2018-12-10 08:48] LABS: Fibrinogen 225 mg/dL (253-463)
[2018-12-10 08:49] LABS: INR-International Normal Ratio 1.4; PTT 28.4 SEC (22.9-36.1); Prothrombin Time 16.8 SEC (12.0-14.7)
[2018-12-10 09:06] LABS: D-Dimer Test 5.49 *mcg/mL (0.27-0.43)
[2018-12-10 09:26] LABS: FSP-Qualitative ABNORMAL (Normal)
[2018-12-10 09:27] LABS: FSP-Semiquantitative >=20 & <40 mcg/mL (Less than 5)
[2018-12-10] MEDS: EPOETIN ALFA-EPBX (ESRD) 10,000 UNIT/ML VIAL IVP SCH (09:33)
[2018-12-10 10:26] LABS: Acetaminophen Less than 6.0 mcg/mL (10.0-30.0); Alcohol Less than 10 mg/dL (Less than 10); Salicylate Less than 8.0 mg/dL (15.0-30.0)
--- NOTE | 2018-12-10 11:18 | PRG ---
DATE OF SERVICE: 12/10/2018 I spoke to the patient's son, his name is Theron Stevens, telephone #[phone]. The patient lives in [place]. He was told about her medical condition. She has multiorgan failure with spontaneous subdural and intraparenchymal hemorrhage. The patient is on the vent support with pupils fixed and dilated. The patient has a daughter, who is 13 years old and apparently is present under the care of the patient's roommate. I am told both the daughter and mother live with some roommates. I had a very lengthy discussion with Mr. Theron Stevens, the importance of him coming to the hospital to talk to the nurse and appropriate people. She is still a full code. We are in the process of continuing all supportive care until we are able to make any additional decision. Mr. Stevens hopefully is going to arrive today to talk to Palliative Care and ICU nurses and appropriate physician when he arrive to the hospital. Job ID: [id number] MTDD
[2018-12-10] MEDS ORDERED: Norepinephrine 8 MG/0.9% NS 250 ML ONE (11:57)
--- NOTE | 2018-12-10 12:26 | PQF ---
MANJIT ORELLANA, [facility] [id number] [facility] [id number] CLINICAL DOCUMENTATION IMPROVEMENT CLARIFICATION FORM: ICD-10 Updated PLEASE DO AN ADDENDUM TO THE PROGRESS NOTE WITH ANY DOCUMENTATION UPDATES OR ADDITIONS AND CARRY THROUGH TO DC SUMMARY. THANK YOU. DATE: 12/10/18 ATTN: DR. Rupa SHUKLA Please exercise your independent, professional judgment in responding to the clarification form. Clinical indicators are provided on the bottom of this form for your review. Please check appropriate box(s): PLEASE SPECIFY THE ETIOLOGY OF THE ACUTE ENCEPHALOPATHY [ x ] Encephalopathy: Type: [ x ] Acute [ ] Subacute [ ] Chronic Etiology: [ ] Hypertensive [ ] Metabolic [ ] Toxic [ ] Hepatic with Coma [ ] Hepatic w/o Coma [ ] Hypoxic [ ] Septic [ ] Drug induced: acute itracranial hemerrhagee [ ] Other diagnosis [ ] Unable to determine In addition, please specify: Present on Admission (POA): [ ] Yes [ x ] No [ ] Unable to determine For continuity of documentation, please document condition throughout progress notes and discharge summary. Thank You. CLINICAL INDICATORS - SIGNS / SYMPTOMS / LABS 12/09 PN (SHUKLA) PT SUDDENLY CHANGED MENTAL STATUS, PROFOUND SINUS BRADYCARDIA, BP ELEVATED 12/09 NSG NOTE- PT TRANSFERRED TO ICU FROM [facility], DR. STEVENS INTUBATED, DR. SHUKLA AT BEDSIDE. PT SBP IN 200'S , PT IS UNRESPONSIVE, WHEEZING, LT PUPIL BLOWN AND EXTENDED. DR. GOLDSTEIN AT BEDSIDE. RT FEM ART LINE PLACED. BRAIN CT- 12/09: VERY EXTENSIVE ACUTE HEMORRHAGIC CHANGES INCLUDING EXTENSIVE SUBDURAL HEMORRHAGE RISK: HYPERTENSIVE EMERGENCY SUBDURAL HEMORRHAGE HX OF DRUG ABUSE ESRD TREATMENTS: TRANSFER TO ICU NEUROLOGY CONSULT REQUIRED INTUBATION AND VENTILATION (12/09-PRESENT) THANK YOU! DELANEY (This form is maintained as a part of the permanent medical record) 2014 [employer]. All Rights Reserved [email or web address] [phone] MTDD
--- NOTE | 2018-12-10 12:51 | PQF ---
MANJIT ORLELANA, [facility] [id number] [facility]-C07 [id number] CLINICAL DOCUMENTATION IMPROVEMENT CLARIFICATION FORM: ICD-10 Updated PLEASE DO AN ADDENDUM TO THE PROGRESS NOTE WITH ANY DOCUMENTATION UPDATES OR ADDITIONS AND CARRY THROUGH TO DC SUMMARY. THANK YOU. DATE: 12/10/2018 ATTN: DR. Rupa SHUKLA Please exercise your independent, professional judgment in responding to the clarification form. Clinical indicators are provided on the bottom of this form for your review. Please check appropriate box(s): PLEASE INDICATE TYPE OF PNEUMONIA [ ] Aspiration Pneumonia [ ] Empirically treating Gram Negative Pneumonia [ ] Empirically treating Anaerobic Pneumonia [ ] Pneumonia secondary to (specify organism / underlying disease) [ ] Simple Pneumonia (community acquired - nosocomial) [ x ] Other diagnosis _pulmonary edema and effusion [ ] Unable to determine In addition, please specify: Present on Admission (POA): [ x ] Yes [ ] No [ ] Unable to determine For continuity of documentation, please document condition throughout progress notes and discharge summary. Thank You. CLINICAL INDICATORS - SIGNS / SYMPTOMS / LABS 12/10 PN (RAJPUT) IMPRESSION 5) PNEUMONIA 12/01 CHEST XRAY- IMPRESSION: CARDIOMEGALY WITH MILD PULMONARY EDEMA SMALL EFFUSIONS RISK: ACUTE RESPIRATORY FAILURE W. HYPOXIA MULTIORGAN FAILURE MECHANICAL VENTILATION (-9 - PRESENT) TREATMENTS: IV ANTIBIOTICS ANCEF (-9-PRESENT) OXYGEN SUPPORT VIA MECHANICAL VENTILATION ROUTINE CXR THANK YOU ! DELANEY (This form is maintained as a part of the permanent medical record) Viewer 2015 [employer]. All Rights Reserved [email or web address] [phone] MTDD
--- NOTE | 2018-12-10 17:06 | EKG ---
Test Reason : Blood Pressure : / mmHG Vent. Rate : 060 BPM Atrial Rate : 060 BPM P-R Int : 198 ms QRS Dur : 114 ms QT Int : 542 ms P-R-T Axes : 053 019 049 degrees QTc Int : 542 ms Normal sinus rhythm Cannot rule out Anterior infarct , age undetermined Prolonged QT Abnormal ECG When compared with ECG of 15-MAY-2018 10:22, QRS duration has increased Minimal criteria for Anterior infarct are now Present QT has lengthened Confirmed by Alexis BAZAN ([id number]) on 12/10/2018 5:06:33 PM Referred By: Confirmed By:Alexis BAZAN
--- NOTE | 2018-12-10 17:42 | PDOC.EVN ---
Event Note - Event Note Event Note: 10/04 BLOOD C&S gm positive cocci- 1.25 gm vancomycin now. re-evaluate for further dosing tomorrow
[2018-12-10] MEDS ORDERED: Vancomycin HCl 1.25 GM in Sodium Chloride 0.9% 250 ML 250 ML IVPB SCH (17:45)
[2018-12-10] MEDS: Norepinephrine 8 MG/250 ML BAG IVPB PRN (17:59)
[2018-12-10] MEDS ORDERED: Vasopressin 40 UNIT, Admixture Fee 1 EACH in Sodium Chloride 0.9% 100 ML IV SCH (18:00)
--- NOTE | 2018-12-10 19:45 | PRG ---
DATE OF SERVICE: 12/10/2018 SUBJECTIVE: The patient is seen and examined, still on life support, in critical condition. OBJECTIVE: VITAL SIGNS: Blood pressure 101/80, pulse 70, respiratory rate of 18, O2 saturation of 100%. HEENT: Remarkable for endotracheal tube in place and an open flap covered with dressing. CARDIOVASCULAR: First and second heart sounds were heard. RESPIRATORY: Revealed vented sounds. DIGESTIVE: Revealed a benign abdomen. EXTREMITIES: Showed some peripheral edema. SKIN: No new gross rash. IMPRESSION: 1. Multiorgan failure. 2. Spontaneous intracranial bleed. 3. End-stage renal disease. 4. Severe anemia. 5. Bacteremia/sepsis. PLAN: 1. Given the rise in potassium and the fact that this patient is to full supportive measures/full code, I will go ahead and do dialysis today as tolerated by the patient's hemodynamics with a plan to transfuse this patient during dialysis and ultrafiltrate as much as the hemodynamics will allow. 2. Further management will be dependent on the clinical course. The condition of the patient is very critical. Job ID: [id number]
[2018-12-11] MEDS: CEFAZOLIN 2 GM in Premix Bag 1 BAG IVPB SCH ×3 (05:14→21:23)
[2018-12-11] MEDS: Norepinephrine 8 MG/250 ML BAG IVPB PRN ×3 (05:15→15:08)
[2018-12-11 06:36] LABS: Actual Bicarbonate (HCO3a) 22.5 mEq/L (22-28); Base Excess (BEa) -2.2 mEq/L (-2.0 to +3.0); Calcium, Ionized 1.19 mmol/L (1.12-1.30); Carboxyhemoglobin (COHb) 2.5 gm% (0.0-3.0); Hemoglobin (Hb) 5.9 g/dL (12.0-16.0); O2 Tension (PaO2) 139.8 mmHg (80.0-100.0); Potassium - ABG Lab 5.08 mmol/L (3.70-5.30); pH, Arterial 7.39 (7.35-7.45)
[2018-12-11 06:38] LABS: Puncture Site ALINE
[2018-12-11 07:28] LABS: #Basophils 0.1 thou/uL (0.0-0.2); #Monocytes 0.9 thou/uL (0.11-0.59); %Basophils 0.4 % (0.0-1.0); %Eosinophils 0.2 % (0.0-10.0); %Lymphocytes 25.2 % (21.0-51.0); %Monocytes 5.3 % (0.0-10.0); %Neutrophils 68.9 % (42.0-75.0); Hemoglobin 5.8 g/dL (12.0-16.0); Mean Corpuscular HGB CONC 32.8 g/dL (32.0-36.0); Mean Corpuscular Hemoglobin 28.1 pg (27.0-31.0); Mean Corpuscular Volume 85.7 fL (78.0-98.0); Mean Platelet Volume 9.8 fL (7.4-10.4); Platelet Count 86 thou/uL (130-400); RBC Distribution Width 17.7 % (11.5-14.5); Red Blood Cell (RBC) Count 2.05 mill/uL (4.20-5.40)
--- NOTE | 2018-12-11 07:34 | RAD ---
Portable chest radiograph: 12/11/2018 COMPARISON: 12/10/2018 HISTORY:Pneumonia FINDINGS: Stable endotracheal tube and nasogastric tube. Aeration in the lung bases has improved sinc e the prior exam. Mild increased density is noted within the medial aspect of the left lung base and inferior aspect of right upper lobe. IMPRESSION: Improved aeration within the lung bases. Lines and tubes as above. Mild residual density within mid right lung zone and medial left lung base.
[2018-12-11 07:41] LABS: Anion Gap 22 mmol/L (10-20); BUN (Urea Nitrogen) 37 mg/dL (7.0-18.7); Calc. Creatinine Clearance 18 mL/min (70-130); Calcium 9.2 mg/dL (7.8-10.44); Carbon Dioxide 22 mmol/L (22-29); Chloride 100 mmol/L (98-107); Estimated GFR-MDRD 9; Glucose 70 mg/dL (70-105); Potassium 5.4 mmol/L (3.5-5.1); Sodium 139 mmol/L (136-145)
[2018-12-11] MEDS: Sevelamer Carbonate 800 MG TAB PO SCH ×3 (08:10→21:21)
[2018-12-11] MEDS: Carvedilol 6.25 MG TAB PO SCH ×2 (08:10→21:20)
[2018-12-11] MEDS: Amlodipine 5 MG TAB PO SCH (08:10)
--- NOTE | 2018-12-11 09:04 | PRG ---
DATE OF SERVICE: 12/11/2018 SUBJECTIVE: This morning, somewhat log buncher, still pretty much unresponsive. OBJECTIVE: HEENT: Right pupil is about 3 mm, left pupil about 4 mm, reactive. VITAL SIGNS: Pulse 74, blood pressure 155/64 in the A line, saturations are 100%, respirations 18. CHEST: No wheezing or crackles. CARDIAC: Normal S1, S2. No gallop. ABDOMEN: No masses. LABORATORY DATA: H and H is 5 and 17, white count 16,000. PO2 is 139, pCO2 40%. BUN and creatinine 37 and 5.3. Blood cultures growing Gram-positive cocci. Awaiting identification. ASSESSMENT: 1. Status post craniotomy, subdural. 2. Hypertension. 3. Anemia. 4. Renal failure. 5. Hepatitis C. 6. History of substance abuse. PLAN: At this stage, we find difficult to get an access. We consulted General Surgery for central line, if possible. Will start nutrition, PT. Long-term prognosis remains grave. I had a very lengthy discussion with the patient's brother along with his . At this stage, we are awaiting input from Neurology to see whether she has any meaningful chance of recovery. Otherwise, she could need a trach and PEG. For the time being, she is a full code. One-half hour of critical care time. Job ID: [id number]
--- NOTE | 2018-12-11 09:05 | PDOC.PN ---
- Subjective Encounter Start Date: 12/11/18 Encounter Start Time: 09:03 Subjective: intubated ,unrresponsive - Objective MAR Reviewed: Yes Vital Signs & Weight: Vital Signs (12 hours) Temp Pulse Resp BP 12/11/18 08:00 18 12/11/18 07:38 79 117/44 L 12/11/18 06:00 15 12/11/18 04:00 16 12/11/18 03:00 98.3 F 12/11/18 02:20 79 100/59 L 12/11/18 02:00 18 12/11/18 00:00 16 12/10/18 23:00 98.1 F 12/10/18 22:08 103 H 114/57 L 12/10/18 22:00 16 12/10/18 21:42 128/60 Weight Admit Weight 165 lb Weight 165 lb Most Recent Monitor Data Heart Rate from ECG 70 NIBP 99/52 NIBP BP-Mean 67 Respiration from ECG 18 SpO2 100 I&O: 12/10/18 12/11/18 12/12/18 06:59 06:59 06:59 Intake Total 1910 896 350 Output Total 210 570 Balance 1700 326 350 Result Diagrams: 12/11/18 07:13 12/11/18 07:13 Phys Exam - Physical Examination Neck: no JVD Respiratory: clear to auscultation bilateral Cardiovascular: RRR, no significant murmur Gastrointestinal: soft, positive bowel sounds Musculoskeletal: edema present Dx/Plan (1) Acute encephalopathy Code(s): G93.40 - ENCEPHALOPATHY, UNSPECIFIED Status: Acute (2) Sinus bradycardia Code(s): R00.1 - BRADYCARDIA, UNSPECIFIED Status: Resolved (3) Acute respiratory failure with hypoxia Code(s): J96.01 - ACUTE RESPIRATORY FAILURE WITH HYPOXIA Status: Acute (4) Severe mitral regurgitation Code(s): I34.0 - NONRHEUMATIC MITRAL (VALVE) INSUFFICIENCY Status: Chronic (5) Volume overload Code(s): E87.70 - FLUID OVERLOAD, UNSPECIFIED Status: Acute Qualifiers: Hypervolemia type: unspecified Qualified Code(s): E87.70 - Fluid overload, unspecified (6) Anemia of renal disease Code(s): D63.1 - ANEMIA IN CHRONIC KIDNEY DISEASE Status: Chronic (7) Chronic hepatitis C Code(s): B18.2 - CHRONIC VIRAL HEPATITIS C Status: Chronic Qualifiers: Hepatic coma status: without hepatic coma Qualified Code(s): B18.2 - Chronic viral hepatitis C (8) ESRD (end stage renal disease) on dialysis Code(s): N18.6 - END STAGE RENAL DISEASE; Z99.2 - DEPENDENCE ON RENAL DIALYSIS Status: Chronic (9) History of drug abuse Code(s): Z87.898 - PERSONAL HISTORY OF OTHER SPECIFIED CONDITIONS Status: Chronic (10) Hypertension Code(s): I10 - ESSENTIAL (PRIMARY) HYPERTENSION Status: Chronic Qualifiers: Comment: (11) Nonischemic cardiomyopathy Code(s): I42.9 - CARDIOMYOPATHY, UNSPECIFIED Status: Chronic (12) Acute subdural hematoma Code(s): S06.5X9A - TRAUM SUBDR HEM W LOC OF UNSP DURATION, INIT Status: Acute - Plan on pressors. cont HD per renal -: transfuse 2 units prbc -: vent per professional driver -: poor prognosis, family aware * .
--- NOTE | 2018-12-11 10:14 | PRG ---
DATE OF SERVICE: 12/11/2018 The patient was seen and examined. All events reviewed. She remains coagulopathic with evidence of DIC and platelets in the 50s. She has sally bleeding from the scalp incision, not from a particular spot, but in a diffuse ooze. There are no specific sites for suture or staple. Her drains are no longer productive, putting out only 5 mL and 15 mL overnight. These have been removed. Her neurologic exam reveals a small right pupil at approximately 3 mm with no definitive reactivity but given the small size, I cannot be convinced. Left pupil remains 9 mm and nonreactive. There are no definitive corneals on exam today. She is clearly overbreathing the ventilator and doing some chewing around the tube. She still has some high-tone extensor posture in all 4 extremities, but also will show signs of localization in both upper extremities. IMPRESSION AND PLAN: The patient has had modest neurologic improvement. She remains in coma with loss of some brainstem reflexes but has had improvement in her motor exam. The prognosis for meaningful and independent recovery remains poor. There are no further surgical options given the sally coagulopathy that cannot be adequately corrected. We will continue to focus try to tamponade and reinforce scalp bleeding, but this will also be an ongoing problem for sometime. I noted other providers have been communicating with family regarding decision making and this will continue today undoubtedly. If aggressive support is continued, she will undoubtedly ultimately require trach and PEG and need to be institutionalized. Job ID: [id number]
[2018-12-11] MEDS: Famotidine 20 MG TAB PO SCH ×2 (12:51→21:23)
--- NOTE | 2018-12-11 18:46 | RAD ---
CHEST ONE VIEW: 12/11/18 HISTORY: Central line placement. COMPARISON: Radiograph same day. FINDINGS: Right subclavian central venous catheter is in place. Tip in the right atrium. Endotracheal tube tip is similar. Enteric tube tip below diaphragm but out of the field of view. New large right pleural effusion. No pneumothorax. Mild pulmonary edema. IMPRESSION: New large right pleural effusion. CT may be beneficial to evaluate for a hemothorax. No pneumothorax appreciated. POS: HOME
--- NOTE | 2018-12-11 19:19 | PRG ---
DATE OF SERVICE: SUBJECTIVE: The patient is seen and examined, still in very critical condition, still losing blood. OBJECTIVE: HEENT: Revealed exposed skull. Endotracheal tube in place. CARDIOVASCULAR SYSTEM: First and second heart sounds. RESPIRATORY SYSTEM: Revealed vented sounds. IMPRESSION: 1. End-stage renal disease, on hemodialysis. 2. Massive cerebrovascular accident, hemorrhagic. 3. Multiorgan failure. 4. Persistent anemia. PLAN: 1. Gentle dialysis as tolerated by hemodynamics. 2. Further management will be dependent on the clinical course as well as further discussions with the family. Job ID: [id number]
--- NOTE | 2018-12-11 23:10 | CON ---
DATE OF CONSULTATION: 12/11/2018 CONSULTING PHYSICIAN: Hospitalist Service. IMPRESSION: Intracerebral hemorrhage with secondary herniation with residual brainstem function. The overall prognosis for functional recovery is little to none. PLAN: 1. EEG as per parents wishes. 2. Continue supportive measures. HISTORY OF PRESENT ILLNESS: Ms. 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 She came into the hospital for transfusion. She had a sudden deterioration in her mental status overnight. Her platelet count was 55. CT scan of the brain showed large subdural hematoma on the left with some dissection to the occipital lobe. She was taken to the OR by Dr. Banuelos, attempted decompressing her was undertaken. Unfortunately, postoperatively, she still has a fairly large hematoma with midline shift and uncal herniation. She is currently on the ventilator and is breathing spontaneously. PAST MEDICAL HISTORY: As listed above. ALLERGIES: LISTED PER CHART. SOCIAL HISTORY: Positive for smoking. She has a 12-year-old child. FAMILY HISTORY: Noncontributory. REVIEW OF SYSTEMS: Not obtainable. PHYSICAL EXAMINATION: VITAL SIGNS: Blood pressure 105/51 with pressors, pulse 79, on ventilatory support. HEENT: Gauze bandage wrapping or incision site. Her pupils are fixed and nonreactive. Doll's head maneuver did not elicit any eye movement. Corneal stimulation produced a blank. She had some spontaneous gagging with manipulation of the ET tube. Peripherally, she has some spontaneous movements in her arms and legs. She has pain response peripherally as well. CT images were reviewed. 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 Overall, the prognosis looks quite poor. Comply with the parents wishes and try to obtain an EEG if she is physically possible. Overall, I do not see much hope for. Job ID: [id number]
[2018-12-12] MEDS: CEFAZOLIN 2 GM in Premix Bag 1 BAG IVPB SCH ×3 (05:29→21:19)
[2018-12-12 05:57] LABS: #Basophils 0.2 thou/uL (0.0-0.2); #Eosinphils 0.1 thou/uL (0.0-0.7); #Lymphocytes 1.8 thou/uL (1.20-3.40); #Monocytes 0.4 thou/uL (0.11-0.59); #Neutrophils 7.1 thou/uL (1.40-6.50); %Basophils 2.3 % (0.0-1.0); %Eosinophils 0.6 % (0.0-10.0); %Lymphocytes 18.8 % (21.0-51.0); %Monocytes 4.3 % (0.0-10.0); Hemoglobin 6.1 g/dL (12.0-16.0); Mean Corpuscular HGB CONC 33.3 g/dL (32.0-36.0); Mean Corpuscular Hemoglobin 28.4 pg (27.0-31.0); Mean Corpuscular Volume 85.5 fL (78.0-98.0); Platelet Count 80 thou/uL (130-400); RBC Distribution Width 16.5 % (11.5-14.5); Red Blood Cell (RBC) Count 2.15 mill/uL (4.20-5.40); White Blood Cell (WBC) Count 9.6 thou/uL (4.8-10.8)
[2018-12-12 06:09] LABS: Anion Gap 13 mmol/L (10-20); BUN (Urea Nitrogen) 49 mg/dL (7.0-18.7); Calc. Creatinine Clearance 17 mL/min (70-130); Calcium 7.2 mg/dL (7.8-10.44); Carbon Dioxide 26 mmol/L (22-29); Chloride 104 mmol/L (98-107); Estimated GFR-MDRD 9; Glucose 109 mg/dL (70-105); Potassium 4.4 mmol/L (3.5-5.1); Sodium 139 mmol/L (136-145)
[2018-12-12 07:26] LABS: Actual Bicarbonate (HCO3a) 27.2 mEq/L (22-28); Base Excess (BEa) 2.1 mEq/L (-2.0 to +3.0); CO2 Tension 45.1 mmHg (35.0-45.0); Calcium, Ionized 1.11 mmol/L (1.12-1.30); Carboxyhemoglobin (COHb) 1.5 gm% (0.0-3.0); Hemoglobin (Hb) 6.8 g/dL (12.0-16.0); Potassium - ABG Lab 4.73 mmol/L (3.70-5.30)
[2018-12-12 07:29] LABS: O2 Tension (PaO2) 59.8 mmHg (80.0-100.0)
[2018-12-12 07:30] LABS: ALV-art Gradient 169.025 (0-20); Puncture Site RRA
--- NOTE | 2018-12-12 09:03 | PRG ---
DATE OF SERVICE: 12/12/2018 The patient has been hemodynamically stable. She has substantially less bleeding from her scalp than she had had over the previous 24 hours. The patient's neurological exam is largely unchanged. The right pupil was small at 2 mm with uncertain reactivity. The left pupil is 9 mm and nonreactive. She has high tone extensor movement in the upper extremities to noxious stimulus, which then becomes a more purposeful or even localizing movement with the arms. She is overbreathing on the ventilator. The patient's prognosis for any meaningful neurologic recovery or regaining of independent function is very poor. There are no further neurosurgical interventions possible. Critical care has been in discussion with the family and they are going to decide with regard to ongoing aggressiveness of care, and if ongoing full support is desired, ultimately tracheostomy and PEG will be required. Job ID: [id number]
--- NOTE | 2018-12-12 09:42 | OP ---
DATE OF PROCEDURE: 12/12/2018 PREOPERATIVE DIAGNOSES: Poor IV access, sepsis, intracranial bleed, status post craniotomy, IV access only IOs tibia, failed attempted central line access, functioning left upper arm dialysis graft. PROCEDURE PERFORMED: Right subclavian vein triple-lumen catheter. Previous attempts by me revealed occluded right IJ and would avoid left subclavian access as this is outflow from her functioning left arm graft. ANESTHESIA: 1% Xylocaine. DESCRIPTION OF PROCEDURE: The patient at bedside in ICU. Her paraclavicular area right was prepped but ChloraPrep draped in routine fashion. Local anesthetic 1% Xylocaine was infiltrated in the skin and subcutaneous tissue. Seldinger technique was used to place triple-lumen catheter in the right subclavian vein, J-wire removed, catheter secured with 2 interrupted sutures of 3-0 silk. Sterile dressing was applied. Each port was aspirated blood, flushed with saline solution. Chest x-ray called for and pending. Job ID: [id number]
[2018-12-12] MEDS: Carvedilol 6.25 MG TAB PO SCH ×2 (09:45→21:12)
[2018-12-12] MEDS: Amlodipine 5 MG TAB PO SCH (09:45)
--- NOTE | 2018-12-12 09:50 | PRG ---
DATE OF SERVICE: 12/12/2018 SUBJECTIVE: This morning, intubated on the vent, remains unresponsive. Her left pupil is about 4 mm. Her right pupil is 2 mm. OBJECTIVE: VITAL SIGNS: Blood pressure is 118/80, pulse 80, respiratory rate 18. CHEST: Decreased breath sounds. No wheezing. CARDIAC: Normal S1 and S2. No gallop. ABDOMEN: Soft. No masses. EXTREMITIES: She has 2+ edema. LABORATORY DATA: White count 9.6, hemoglobin and hematocrit 6 and 18, platelet count 80,000. pO2 is 59, pCO2 of 49, pH BUN and creatinine of Blood culture is growing coagulase-negative Staph, probably a contamination. IMPRESSION: 1. Probably anoxic injury. 2. Left subdural. 3. Hepatitis C. 4. Renal failure. 5. Hypertension. PLAN: Continue supportive care. Neurology was consulted. Awaiting input. EEG is being performed. Overall prognosis is grave. I spoke with Neurosurgery. No further intervention is planned at this stage. We will discuss with family. One-half hour of critical time. Job ID: [id number]
[2018-12-12] MEDS: Famotidine 20 MG TAB PO SCH ×2 (09:52→21:20)
[2018-12-12] MEDS: Sevelamer Carbonate 800 MG TAB PO SCH ×3 (09:52→21:20)
[2018-12-12] MEDS: EPOETIN ALFA-EPBX (ESRD) 10,000 UNIT/ML VIAL IVP SCH (10:15)
[2018-12-12] MEDS ORDERED: levETIRAcetam In NaCl (Iso-Os) 1,500 MG in Premix Bag 1 BAG IVPB SCH (10:30)
--- NOTE | 2018-12-12 10:49 | PDOC.PN ---
- Subjective Encounter Start Date: 12/12/18 Encounter Start Time: 10:47 Patient seen and examined, no new issues overnight, no family at bedside. - Objective Vital Signs & Weight: Vital Signs (12 hours) Temp Pulse Resp BP Pulse Ox 12/12/18 10:00 10 L 12/12/18 09:45 93 108/58 L 12/12/18 08:00 10 L 99 12/12/18 07:21 93 118/55 L 12/12/18 07:00 98.5 F 12/12/18 06:00 20 12/12/18 04:00 34 H 12/12/18 03:00 99.6 F 12/12/18 02:08 91 110/49 L 12/12/18 02:00 27 H 12/12/18 00:00 14 12/11/18 23:00 96.8 F L Weight Admit Weight 165 lb Weight 165 lb Most Recent Monitor Data Heart Rate from ECG 91 NIBP 109/59 NIBP BP-Mean 75 Respiration from ECG 18 SpO2 100 I&O: 12/11/18 12/12/18 12/13/18 06:59 06:59 06:59 Intake Total 896 2059.1 0 Output Total 570 250 Balance 326 1809.1 0 Result Diagrams: 12/12/18 05:35 12/12/18 05:35 Phys Exam - Physical Examination Constitutional: NAD intubated HEENT: PERRLA, moist MMs, sclera anicteric Neck: no nodes, no JVD, supple Respiratory: no wheezing, no rales, no rhonchi Cardiovascular: RRR, no rub systolic murmur Gastrointestinal: soft, non-tender, no distention Musculoskeletal: pulses present, edema present (trace) Dx/Plan (1) Brain bleed Code(s): I61.9 - NONTRAUMATIC INTRACEREBRAL HEMORRHAGE, UNSPECIFIED Status: Acute (2) Acute encephalopathy Code(s): G93.40 - ENCEPHALOPATHY, UNSPECIFIED Status: Acute (3) Acute subdural hematoma Code(s): S06.5X9A - TRAUM SUBDR HEM W LOC OF UNSP DURATION, INIT Status: Acute (4) Volume overload Code(s): E87.70 - FLUID OVERLOAD, UNSPECIFIED Status: Acute Qualifiers: Hypervolemia type: unspecified Qualified Code(s): E87.70 - Fluid overload, unspecified (5) ESRD (end stage renal disease) on dialysis Code(s): N18.6 - END STAGE RENAL DISEASE; Z99.2 - DEPENDENCE ON RENAL DIALYSIS Status: Chronic (6) Hypertension Code(s): I10 - ESSENTIAL (PRIMARY) HYPERTENSION Status: Chronic Qualifiers: Comment: - Plan * overall poor prognosis * family states that there's more family who are arriving from out of town to say their good bye * no changes in plan of care for now * case and plan d/w nursing staff * HD for today
--- NOTE | 2018-12-12 17:53 | PRG ---
DATE OF SERVICE: 12/12/2018 SUBJECTIVE: The patient is still in critical condition on life support, very severe anemic, and hemodynamically labile. IMPRESSION: 1. End-stage renal disease. 2. Massive intracranial bleed. 3. Multiorgan failure on life support. PLAN: 1. The patient is to undergo dialysis with modified dialysis today, more or less just ultrafiltration to address the fluid status of this patient without affecting the hemodynamics of this patient allow. 2. Further management will be dependent on the clinical course. Job ID: [id number]
[2018-12-12] MEDS: Norepinephrine 8 MG/250 ML BAG IVPB PRN (18:06)
[2018-12-13 04:23] LABS: Anion Gap 15 mmol/L (10-20); BUN (Urea Nitrogen) 65 mg/dL (7.0-18.7); Calc. Creatinine Clearance 13 mL/min (70-130); Calcium 8.2 mg/dL (7.8-10.44); Carbon Dioxide 28 mmol/L (22-29); Chloride 99 mmol/L (98-107); Estimated GFR-MDRD 7; Glucose 111 mg/dL (70-105); Potassium 4.4 mmol/L (3.5-5.1); Sodium 138 mmol/L (136-145)
[2018-12-13 04:25] LABS: #Eosinphils 0.1 thou/uL (0.0-0.7); #Lymphocytes 1.6 thou/uL (1.20-3.40); #Monocytes 0.3 thou/uL (0.11-0.59); #Neutrophils 5.5 thou/uL (1.40-6.50); %Basophils 0.2 % (0.0-1.0); %Eosinophils 1.6 % (0.0-10.0); %Lymphocytes 20.9 % (21.0-51.0); %Monocytes 3.8 % (0.0-10.0); %Neutrophils 73.5 % (42.0-75.0); Hemoglobin 7.4 g/dL (12.0-16.0); Mean Corpuscular HGB CONC 33.5 g/dL (32.0-36.0); Mean Corpuscular Hemoglobin 28.9 pg (27.0-31.0); Mean Corpuscular Volume 86.3 fL (78.0-98.0); Mean Platelet Volume 8.1 fL (7.4-10.4); Platelet Count 70 thou/uL (130-400); Red Blood Cell (RBC) Count 2.55 mill/uL (4.20-5.40); White Blood Cell (WBC) Count 7.5 thou/uL (4.8-10.8)
[2018-12-13] MEDS: CEFAZOLIN 2 GM in Premix Bag 1 BAG IVPB SCH ×3 (06:32→21:09)
[2018-12-13 08:38] LABS: Base Excess (BEa) 3.7 mEq/L (-2.0 to +3.0); CO2 Tension 47.9 mmHg (35.0-45.0); Calcium, Ionized 1.13 mmol/L (1.12-1.30); Carboxyhemoglobin (COHb) 1.8 gm% (0.0-3.0); Hemoglobin (Hb) 7.9 g/dL (12.0-16.0)
[2018-12-13] MEDS: Sevelamer Carbonate 800 MG TAB PO SCH ×3 (08:40→21:08)
[2018-12-13] MEDS: Famotidine 20 MG TAB PO SCH ×2 (08:40→21:09)
[2018-12-13] MEDS: Carvedilol 6.25 MG TAB PO SCH ×2 (08:40→20:44)
[2018-12-13] MEDS: Amlodipine 5 MG TAB PO SCH (08:41)
[2018-12-13 08:46] LABS: O2 Tension (PaO2) 54.7 mmHg (80.0-100.0)
[2018-12-13 08:54] LABS: Puncture Site RRA
[2018-12-13 08:55] LABS: ALV-art Gradient 170.625 (0-20)
--- NOTE | 2018-12-13 09:39 | PRG ---
DATE OF SERVICE: 12/13/2018 SUBJECTIVE: This morning, she is being dialyzed. She is off all the pressors. OBJECTIVE: VITAL SIGNS: Blood pressure 130/70, pulse 108, respirations 30. HEENT: Pupils are somewhat more dilated today and she is less responsive. CHEST: Bilateral rhonchi and crackles. CARDIAC: Sinus tach. ABDOMEN: Distended, but soft. EXTREMITIES: 2+ edema. LABORATORY DATA: White count 7.5, H and H 7 and 22, platelet count is low 70,000. PO2 was apparently 54, pCO2 . Creatinine 7. Gram-positive cocci in the blood culture. Staph , awaiting final sensitivity. IMPRESSION: 1. Status post spontaneous subdural. 2. Thrombocytopenia. 3. Renal failure. 4. Hepatitis. 5. Seizure disorder. She is not weanable. She is being dialyzed. Empiric antibiotics. We will discuss with family in the next 24 hours regarding continued care versus trach and PEG placement. One-half hour of critical care time. Job ID: [id number]
--- NOTE | 2018-12-13 12:18 | PDOC.PN ---
- Subjective Encounter Start Date: 12/13/18 Encounter Start Time: 12:17 Patient seen and examined, no famly at bedside, no new issues. - Objective Vital Signs & Weight: Vital Signs (12 hours) Temp Pulse Resp BP Pulse Ox 12/13/18 12:00 98.9 F 12/13/18 11:00 99.3 F 12/13/18 10:00 100.0 F H 27 H 12/13/18 09:00 100.9 F H 12/13/18 08:41 105 H 125/74 12/13/18 08:40 125/74 12/13/18 08:18 105 H 125/74 12/13/18 08:00 37 H 92 L 12/13/18 07:00 100.8 F H 12/13/18 06:00 23 H 12/13/18 04:00 99.3 F 17 12/13/18 02:52 86 12/13/18 02:00 20 Weight Admit Weight 165 lb Weight 165 lb Most Recent Monitor Data Heart Rate from ECG 81 NIBP 98/53 NIBP BP-Mean 68 Respiration from ECG 22 SpO2 94 I&O: 12/12/18 12/13/18 12/14/18 06:59 06:59 06:59 Intake Total 2059.1 1842.3 100 Output Total 250 Balance 1809.1 1842.3 100 Result Diagrams: 12/13/18 03:50 12/13/18 03:50 Phys Exam - Physical Examination Constitutional: NAD HEENT: PERRLA +intubated Neck: no nodes, no JVD, supple Respiratory: no wheezing, no rales, no rhonchi Cardiovascular: RRR, no significant murmur, no rub Gastrointestinal: soft, non-tender, no distention, positive bowel sounds Musculoskeletal: pulses present, edema present Dx/Plan (1) Brain bleed Code(s): I61.9 - NONTRAUMATIC INTRACEREBRAL HEMORRHAGE, UNSPECIFIED Status: Acute (2) Acute encephalopathy Code(s): G93.40 - ENCEPHALOPATHY, UNSPECIFIED Status: Acute (3) Acute subdural hematoma Code(s): S06.5X9A - TRAUM SUBDR HEM W LOC OF UNSP DURATION, INIT Status: Acute (4) Volume overload Code(s): E87.70 - FLUID OVERLOAD, UNSPECIFIED Status: Acute Qualifiers: Hypervolemia type: unspecified Qualified Code(s): E87.70 - Fluid overload, unspecified (5) ESRD (end stage renal disease) on dialysis Code(s): N18.6 - END STAGE RENAL DISEASE; Z99.2 - DEPENDENCE ON RENAL DIALYSIS Status: Chronic (6) Hypertension Code(s): I10 - ESSENTIAL (PRIMARY) HYPERTENSION Status: Chronic Qualifiers: Comment: - Plan * no changes in plan of care * per family apparently the rest of the members are coming saturday to say their good bye and then family is going to consider withdrawal of care * HD per renal for now * will do what we can to keep patient alive till family has a chance to say good bye * no changes in plan of care for now.
--- NOTE | 2018-12-13 15:31 | EKG ---
Test Reason : Blood Pressure : / mmHG Vent. Rate : 071 BPM Atrial Rate : 071 BPM P-R Int : 204 ms QRS Dur : 098 ms QT Int : 446 ms P-R-T Axes : 015 003 013 degrees QTc Int : 484 ms Normal sinus rhythm RSR' or QR pattern in V1 suggests right ventricular conduction delay Prolonged QT Abnormal ECG Confirmed by UNIQUE OCASIO ([id number]), manuscript editor BOOKER SCANLON ([id number]) on 12/13/2018 3:31:00 PM Referred By: Confirmed By:UNIQUE OCASIO
[2018-12-13] MEDS: Norepinephrine 8 MG/250 ML BAG IVPB PRN (21:21)
--- NOTE | 2018-12-13 21:21 | PRG ---
DATE OF SERVICE: 12/13/2018 SUBJECTIVE: The patient is seen and examined, still on life support. OBJECTIVE: endotracheal tube in place. CARDIOVASCULAR SYSTEM: First and second heart sounds were heard. RESPIRATORY SYSTEM: Revealed ventilator sounds. DIGESTIVE SYSTEM: Revealed a benign abdomen. EXTREMITIES: Show some peripheral edema. IMPRESSION: 1. End-stage renal disease. 2. Hypervolemia. 3. Cerebrovascular accident, hemorrhagic. 4. Hepatitis C. PLAN: 1. The condition of this patient is very critical. The patient dialyzed today with emphasis only on ultrafiltration. 2. Further management will be dependent on the clinical course and what the family finally decides. Condition is very critical. Job ID: [id number]
[2018-12-14 05:21] LABS: #Eosinphils 0.1 thou/uL (0.0-0.7); #Lymphocytes 1.7 thou/uL (1.20-3.40); #Monocytes 0.4 thou/uL (0.11-0.59); #Neutrophils 4.4 thou/uL (1.40-6.50); %Basophils 0.6 % (0.0-1.0); %Eosinophils 1.9 % (0.0-10.0); %Lymphocytes 24.9 % (21.0-51.0); %Monocytes 5.7 % (0.0-10.0); %Neutrophils 66.9 % (42.0-75.0); Hemoglobin 6.7 g/dL (12.0-16.0); Mean Corpuscular HGB CONC 33.7 g/dL (32.0-36.0); Mean Corpuscular Hemoglobin 29.3 pg (27.0-31.0); Mean Corpuscular Volume 86.9 fL (78.0-98.0); Mean Platelet Volume 8.6 fL (7.4-10.4); Platelet Count 59 thou/uL (130-400); RBC Distribution Width 16.3 % (11.5-14.5); Red Blood Cell (RBC) Count 2.28 mill/uL (4.20-5.40); White Blood Cell (WBC) Count 6.6 thou/uL (4.8-10.8)
[2018-12-14 05:35] LABS: Anion Gap 18 mmol/L (10-20); BUN (Urea Nitrogen) 79 mg/dL (7.0-18.7); Calc. Creatinine Clearance 11 mL/min (70-130); Carbon Dioxide 25 mmol/L (22-29); Chloride 98 mmol/L (98-107); Estimated GFR-MDRD 5; Potassium 4.6 mmol/L (3.5-5.1); Sodium 136 mmol/L (136-145)
[2018-12-14 05:36] LABS: Calcium 8.3 mg/dL (7.8-10.44); Glucose 108 mg/dL (70-105)
[2018-12-14] MEDS: CEFAZOLIN 2 GM in Premix Bag 1 BAG IVPB SCH ×3 (06:06→22:25)
[2018-12-14 07:12] LABS: Actual Bicarbonate (HCO3a) 25.3 mEq/L (22-28); Base Excess (BEa) -0.4 mEq/L (-2.0 to +3.0); CO2 Tension 46.7 mmHg (35.0-45.0); Calcium, Ionized 1.16 mmol/L (1.12-1.30); Carboxyhemoglobin (COHb) 2.5 gm% (0.0-3.0); Hemoglobin (Hb) 6.8 g/dL (12.0-16.0); O2 Tension (PaO2) 92.8 mmHg (80.0-100.0); Potassium - ABG Lab 4.47 mmol/L (3.70-5.30); pH, Arterial 7.35 (7.35-7.45)
[2018-12-14 07:13] LABS: Puncture Site RRA
[2018-12-14 07:15] LABS: ALV-art Gradient 134.025 (0-20)
--- NOTE | 2018-12-14 07:46 | RAD ---
CHEST 1 VIEW: Date: 12/14/18 INDICATION: Intubation. COMPARISON: Prior exam dated 12/11/18. FINDINGS: The previously seen right-sided pleural effusion has diminished. Small residual effusion remains. Pat alexey opacity remains within the right mid lung and right lower lobe. Right subclavian central venous c atheter and ET tube is unchanged. Chronic lung changes expected in the left lung are similar appearin g. Cardiomegaly persists. Osseous structures are unchanged. IMPRESSION: 1. Some improvement in the right-sided pleural parenchymal opacity likely reflecting resolving pleur al effusion with improved aeration of the right lower lobe. Patchy opacities remain within the right mid lung and right lower lobe. Small right pleural effusion remains. 2. Tubes and lines are stable. 3. Stable cardiomegaly. POS: BH
[2018-12-14] MEDS: Amlodipine 5 MG TAB PO SCH (08:19)
[2018-12-14] MEDS: Carvedilol 6.25 MG TAB PO SCH ×2 (08:20→21:47)
--- NOTE | 2018-12-14 09:39 | PRG ---
DATE OF SERVICE: 12/14/2018 SUBJECTIVE: This morning, she is intubated in the vent. No sedation. Still unresponsive. Pupils about 3 mm reacting. OBJECTIVE: VITAL SIGNS: Pulse 72, saturations 100%, respirations 16, over the vent 10, blood pressure 110/80. CHEST: Decreased breath sounds. No rhonchi. CARDIAC: Normal S1, S2. No gallop. ABDOMEN: No masses. LABORATORY DATA: White count is 6000, H and H 6 and 19, platelet count 59. PO2 is 92, pCO2 . X-ray shows right lower lung atelectatic changes. Blood cultures growing Staph caprae. Creatinine 8.5. ASSESSMENT: 1. Chronic renal failure. 2. Subdural metabolic encephalopathy. PLAN: Prognosis is grave. Code was discussed with the brother, who is legal [id number] of ongoing issues to see whether he wants a trach and PEG or withdrawal of care. One-half hour of critical care time. Job ID: [id number]
[2018-12-14] MEDS: Norepinephrine 8 MG/250 ML BAG IVPB PRN (09:59)
[2018-12-14] MEDS: Famotidine 20 MG TAB PO SCH ×2 (10:00→21:48)
[2018-12-14] MEDS: Sevelamer Carbonate 800 MG TAB PO SCH ×3 (10:00→21:47)
--- NOTE | 2018-12-14 11:01 | PDOC.PN ---
- Subjective Encounter Start Date: 12/14/18 Encounter Start Time: 11:00 Patient seen and evaluated, no family at bedside. - Objective Vital Signs & Weight: Vital Signs (12 hours) Temp Pulse Resp BP 12/14/18 08:29 69 113/61 12/14/18 08:20 111/58 L 12/14/18 08:19 66 111/58 L 12/14/18 08:00 13 12/14/18 06:00 18 12/14/18 04:00 98.2 F 17 12/14/18 02:33 66 12/14/18 02:00 17 12/14/18 00:00 17 12/13/18 23:25 67 113/56 L Weight Admit Weight 165 lb Weight 165 lb Most Recent Monitor Data Heart Rate from ECG 72 NIBP 120/61 NIBP BP-Mean 80 Respiration from ECG 17 SpO2 100 I&O: 12/13/18 12/14/18 12/15/18 06:59 06:59 06:59 Intake Total 1842.3 2043 Output Total 0 Balance 1842.3 2043 0 Result Diagrams: 12/14/18 04:05 12/14/18 04:05 Phys Exam - Physical Examination Constitutional: NAD intubated HEENT: PERRLA intubated Neck: no nodes, no JVD, supple coarse breath sound itubated Cardiovascular: RRR, no rub systolic murmur Gastrointestinal: soft, non-tender, no distention, positive bowel sounds Musculoskeletal: pulses present, edema present (trace) Dx/Plan (1) Brain bleed Code(s): I61.9 - NONTRAUMATIC INTRACEREBRAL HEMORRHAGE, UNSPECIFIED Status: Acute (2) Acute encephalopathy Code(s): G93.40 - ENCEPHALOPATHY, UNSPECIFIED Status: Acute (3) Acute subdural hematoma Code(s): S06.5X9A - TRAUM SUBDR HEM W LOC OF UNSP DURATION, INIT Status: Acute (4) Volume overload Code(s): E87.70 - FLUID OVERLOAD, UNSPECIFIED Status: Acute Qualifiers: Hypervolemia type: unspecified Qualified Code(s): E87.70 - Fluid overload, unspecified (5) ESRD (end stage renal disease) on dialysis Code(s): N18.6 - END STAGE RENAL DISEASE; Z99.2 - DEPENDENCE ON RENAL DIALYSIS Status: Chronic (6) Hypertension Code(s): I10 - ESSENTIAL (PRIMARY) HYPERTENSION Status: Chronic Qualifiers: Comment: - Plan * No changes in plan of care * family arriving tmrw to discuss possible withdrawal of care * cont current plan of care for now
--- NOTE | 2018-12-14 21:23 | PRG ---
DATE OF SERVICE: 12/14/2018 SUBJECTIVE: The patient is seen and examined, still on life support, still in critical condition. OBJECTIVE: HEENT: Unremarkable. Endotracheal tube in place. CARDIOVASCULAR: First and second heart sounds. RESPIRATORY: Revealed vented sounds. DIGESTIVE: Revealed a benign abdomen with positive bowel sounds. EXTREMITIES: No significant peripheral edema. IMPRESSION: 1. End-stage renal disease, on hemodialysis. 2. Intracranial bleed. 3. Anemia. PLAN: 1. We will be awaiting the decision of the family vis-a-vis the possibility of withdrawal of care. 2. Further management will be dependent on the above plan. Job ID: [id number]
[2018-12-15 03:52] LABS: Anion Gap 19 mmol/L (10-20); BUN (Urea Nitrogen) 98 mg/dL (7.0-18.7); Calc. Creatinine Clearance 10 mL/min (70-130); Calcium 8.3 mg/dL (7.8-10.44); Carbon Dioxide 24 mmol/L (22-29); Chloride 97 mmol/L (98-107); Estimated GFR-MDRD 5; Glucose 88 mg/dL (70-105); Potassium 5.1 mmol/L (3.5-5.1); Sodium 135 mmol/L (136-145)
[2018-12-15 04:35] LABS: Hemoglobin 5.6 g/dL (12.0-16.0); Mean Corpuscular HGB CONC 32.4 g/dL (32.0-36.0); Mean Corpuscular Hemoglobin 28.5 pg (27.0-31.0); Mean Corpuscular Volume 88.1 fL (78.0-98.0); Mean Platelet Volume 8.6 fL (7.4-10.4); Platelet Count 44 thou/uL (130-400); Red Blood Cell (RBC) Count 1.96 mill/uL (4.20-5.40); White Blood Cell (WBC) Count 4.8 thou/uL (4.8-10.8)
[2018-12-15 04:38] LABS: #Eosinphils 0.1 thou/uL (0.0-0.7); #Lymphocytes 1.2 thou/uL (1.20-3.40); #Monocytes 0.3 thou/uL (0.11-0.59); #Neutrophils 3.2 thou/uL (1.40-6.50); %Basophils 0.4 % (0.0-1.0); %Eosinophils 2.6 % (0.0-10.0); %Lymphocytes 25.7 % (21.0-51.0); %Monocytes 5.3 % (0.0-10.0); Anisocytosis SLIGHT = 6-15 cells (100X) (0-5/hpf); Basophilic Stippling SLIGHT = 1-2 cells (100X) (None Seen); MDiff Complete? YES; Platelet Morphology Comment Appears Decreased
[2018-12-15 05:16] VITALS: TEMP 99.7
[2018-12-15 07:38] LABS: Base Excess (BEa) -1.6 mEq/L (-2.0 to +3.0); CO2 Tension 45.8 mmHg (35.0-45.0); Calcium, Ionized 1.14 mmol/L (1.12-1.30); Carboxyhemoglobin (COHb) 3.4 gm% (0.0-3.0); Hemoglobin (Hb) 5.7 g/dL (12.0-16.0); O2 Tension (PaO2) 89.3 mmHg (80.0-100.0); pH, Arterial 7.34 (7.35-7.45)
[2018-12-15 07:39] LABS: Puncture Site RRA
--- NOTE | 2018-12-15 08:06 | RAD ---
EXAM: Single view of the chest HISTORY: Ventilated patient with respiratory failure COMPARISON: 12/14/2018 FINDINGS: Single view of the chest shows a normal sized cardiomediastinal silhouette. The lines and t ubes are unchanged in position. There is opacity in the right lung base which likely represents a pleural effusion and adjacent atelectasis versus infiltrate. IMPRESSION: Right pleural effusion with adjacent atelectasis versus infiltrate
[2018-12-15] MEDS ORDERED: Morphine 4 MG/ML VIAL SLOW IVP PRN ×2 (09:15→10:55)
[2018-12-15] MEDS: EPOETIN ALFA-EPBX (ESRD) 10,000 UNIT/ML VIAL IVP SCH (09:17)
[2018-12-15] MEDS: Sevelamer Carbonate 800 MG TAB PO SCH (09:17)
[2018-12-15] MEDS: Amlodipine 5 MG TAB PO SCH (09:17)
[2018-12-15] MEDS: Famotidine 20 MG TAB PO SCH (09:17)
[2018-12-15] MEDS: Carvedilol 6.25 MG TAB PO SCH (09:17)
--- NOTE | 2018-12-15 09:33 | PRG ---
DATE OF SERVICE: 12/15/2018 SUBJECTIVE: A 33-year-old female remains pretty much unresponsive. Pupils are left dilated about 4 mm, right 2. OBJECTIVE: VITAL SIGNS: Pulse 76, blood pressure 99/41, saturations 100%, respirations 18. GENERAL: Unresponsive, upgoing toes. CHEST: Bilateral rhonchi and crackles, right greater than left. CARDIAC: Sinus tach. ABDOMEN: Distended and soft. DIAGNOSTIC STUDIES: Blood cultures growing staphylococcal capitis sensitive to present antibiotic. X-ray shows worsening right lower lung atelectatic changes. IMPRESSION: 1. Metabolic encephalopathy. 2. Subdural, status post evacuation. 3. End-stage liver disease. 4. End-stage renal disease, on dialysis. 5. Severe anemia. 6. Severe thrombocytopenia, platelet count 44,000. H and H are 5.6 and 17, and a blood gas shows a PO2 of 89, pCO2 45%, pH 7.34, on a rate of 10 and 10 of PEEP. BUN an creatinine are 19 and 0.6. 1. Multiorgan failure number. 2. Severe metabolic encephalopathy. 3. Atraumatic subdural. 4. Renal failure. 5. Hepatitis. 6. Staph sepsis. The patient's family is here at the bedside today including a son and the patient's brother. They all want comfort care. They do not want a Trach and PEG. They want to extubate her today for comfort measures. We will proceed with extubation once the nurses have notified appropriate people. Nurse can pronounce her. One-half hour of critical time. Job ID: [id number]
[2018-12-15 10:22] VITALS: BP 99/42
--- NOTE | 2018-12-16 04:10 | DIS ---
DATE OF ADMISSION: 12/08/2018 DATE OF DISCHARGE: 12/15/2018 PRIMARY CARE PHYSICIAN: Fern Dos Santos. REASON FOR ADMISSION: Anemia and end-stage renal disease, requiring dialysis, large spontaneous subdural hematoma. CONTRIBUTING FACTORS: 1. End-stage renal disease, on dialysis. 2. Thrombocytopenia for the past 2 years. 3. History of tobacco and drug abuse SUMMARY OF HOSPITAL COURSE: This is a 33-year-old female with a known history of end-stage renal disease, reported to the emergency room after hemoglobin was noted to be low. She has chronic renal failure and anemia. Her hemoglobin dropped to 5.7, so she came into the hospital. She was given dialysis and transfused. While in the hospital, the patient suddenly became unresponsive and posturing. She had to be intubated and had a CT scan done which showed a very large subdural hematoma with severe mass effect and herniation syndrome. Dr. Banuelos was consulted. Given her young age, it was determined to try and do a decompressive surgery in spite of her thrombocytopenia. Two drains were placed in the subdural space and the subdural hematoma was evacuated. However, it quickly reaccumulated as well as in the scalp and subgaleal region, and she also had no evidence of neurologic recovery. Pulmonology was consulted as well for management of her on the ventilator and Dr. Arellano was consulted for management of her dialysis. She made no further improvements during her hospitalization. Her prognosis was discussed with the family and they eventually elected for withdrawal of care due to the lack of reasonable chance of any sort of neurologic recovery. The patient was extubated once family were gathered at the bedside and she did pass away on 12/15/2018, at 1148. Her body was discharged to the home. Job ID: [id number] [facility]
--- NOTE | 2018-12-24 14:10 | PQF ---
MANJIT ORELLANA RYAN ANDREW MD [id number] CLINICAL DOCUMENTATION CLARIFICATION FORM: POST DISCHARGE Please exercise your independent, professional judgment in responding to the clarification form. Clinical indicators are provided on the bottom of this form for your review Diagnosis: SUBDURAL HEMATOMA Present on Admission (POA): [ ] Yes [ ] No [ X ] Unable to determine Coding guidelines require hospitals to identify whether a diagnosis was present on admission (POA) or not. To accurately assign the appropriate POA indicator, this information must be clearly documented within the medical record. CLINICAL INDICATORS - SIGNS / SYMPTOMS / LABS 12/09 CODE GREEN, PT INTUBATED/UNRESPONSIVE 12/[address], EXTENSIVE SUBDURAL HEMORRHAGE 12/08 H&P, PT DELAYED REQUEST TO REPORT TO ER FOR FURTHER MANAGEMENT OF LOW HEMOGLOBIN RISK FACTORS: 12/08 H&P, HTN, HX OF DVT, ESRD TREATMENT: 12/[address], EXTENSIVE SUBDURAL HEMORRHAGE 12/09 OP NOTE, CRANIOTOMY, EVACUATION OF SUBDURAL HEMATOMA (This form is maintained as a part of the permanent medical record) 2014 [employer] All Rights Reserved [email or web address] [phone] MTDD
--- NOTE | 2018-12-26 09:17 | EEG ---
Referring Physician: Roger ORTIZ EEG # [id number] DATE OF EE12/12/18 TEST TYPE: ROUTINE PORTABLE INPATIENT REPORT: AN EEG USING THE [employer] TEN-TWENTY SYSTEM OF ELECTRODE PLACEMENT WAS PERFORMED. The background activity is generally slow and medium in amplitude. Theta frequencies are the dominant background. Several bursts of epileptiform discharges were noted out of the left hemisphere with sharp and slow wave activity. No sleep was seen. Photic stimulation was unremarkable. IMPRESSION: THIS IS AN ABNORMAL STUDY FOR THE FINDINGS OF DIFFUSE SLOWING AND FOCAL EPILEPTIFORM ACTIVITY FROM THE LEFT HEMISPHERE CONSISTENT WITH ONGOING SEIZURE ACTIVITY. Silver Steward: ALEX Epic Ambulatory Analyst: EEG.MS MTDD
== END 2018-12-15 11:48 | disposition expired | DRG 981 ==
LOC: ERS 15:30 → ERHOLD 17:41 → 2NO 17:42 → CCU 12-09 12:29
PROVIDERS: ADMIT Family Medicine; ATTEND Family Medicine
PROC: 5A1D70Z Performance of Urinary Filtration, Intermittent, Less than 6 Hours Per Day (ICD-10-PCS; principal; 2018-12-08)
PROC: 30233N1 Transfusion of Nonautologous Red Blood Cells into Peripheral Vein, Percutaneous Approach (ICD-10-PCS; 2018-12-08)
PROC: 5A1955Z Respiratory Ventilation, Greater than 96 Consecutive Hours (ICD-10-PCS; 2018-12-09)
PROC: 0BH17EZ Insertion of Endotracheal Airway into Trachea, Via Natural or Artificial Opening (ICD-10-PCS; 2018-12-09)
PROC: 30233R1 Transfusion of Nonautologous Platelets into Peripheral Vein, Percutaneous Approach (ICD-10-PCS; 2018-12-09)
PROC: 04HY32Z Insertion of Monitoring Device into Lower Artery, Percutaneous Approach (ICD-10-PCS; 2018-12-09)
PROC: 3E0A3GC Introduction of Other Therapeutic Substance into Bone Marrow, Percutaneous Approach (ICD-10-PCS; 2018-12-09)
PROC: 00C40ZZ Extirpation of Matter from Intracranial Subdural Space, Open Approach (ICD-10-PCS; 2018-12-09)
PROC: 3E033XZ Introduction of Vasopressor into Peripheral Vein, Percutaneous Approach (ICD-10-PCS; 2018-12-10)
PROC: 02H633Z Insertion of Infusion Device into Right Atrium, Percutaneous Approach (ICD-10-PCS; 2018-12-11)
DX: I13.2 Hypertensive heart and chronic kidney disease with heart failure and with stage 5 chronic kidney disease, or end stage renal disease (principal); I62.01 Nontraumatic acute subdural hemorrhage; N18.6 End stage renal disease; J96.01 Acute respiratory failure with hypoxia; G93.5 Compression of brain; D65 Disseminated intravascular coagulation [defibrination syndrome]; G93.41 Metabolic encephalopathy; A41.1 Sepsis due to other specified staphylococcus; R40.232 Coma scale, best motor response, extension; R40.2114 Coma scale, eyes open, never, 24 hours or more after hospital admission; R40.2214 Coma scale, best verbal response, none, 24 hours or more after hospital admission; N25.81 Secondary hyperparathyroidism of renal origin; D61.818 Other pancytopenia; I16.1 Hypertensive emergency; R40.2434 Glasgow coma scale score 3-8, 24 hours or more after hospital admission; Z66 Do not resuscitate; Z51.5 Encounter for palliative care; R04.0 Epistaxis; I46.9 Cardiac arrest, cause unspecified; D63.1 Anemia in chronic kidney disease; R00.1 Bradycardia, unspecified; E87.70 Fluid overload, unspecified; B18.2 Chronic viral hepatitis C; I50.9 Heart failure, unspecified; I42.8 Other cardiomyopathies; I08.1 Rheumatic disorders of both mitral and tricuspid valves; F19.11 Other psychoactive substance abuse, in remission; Z99.2 Dependence on renal dialysis; Z91.19 Patient's noncompliance with other medical treatment and regimen; F17.210 Nicotine dependence, cigarettes, uncomplicated; Z86.718 Personal history of other venous thrombosis and embolism
CPT/HCPCS: 36415; 36416; 36430; 70450; 71045; 80048; 80053; 80307; 82553; 82728; 82805; 83540; 83550; 84484; 85014; 85018; 85025; 85049; 85300; 85362; 85379; 85384; 85610; 85730; 86850; 86870; 86900; 86901; 86922; 87040; 87077; 87149; 87186; 87340; 90935; 93005; 93010; 94002; 94003; 95816; 95819; 96374; C1751; G0257; J0360; J0690; J1100; J1953; J2250; J2270; J2370; J2405; J2704; J2916; J3010; J3370; J3490; J7050; P9016; P9035; P9059; Q4081; Q5105